=== PATIENT | female | born 1945 | race Caucasian/White ===

== ENCOUNTER 2016-10-11 05:02 | Inpatient (IN) | payer OTHER ==
[~2016-10-11] VITALS: Ht 157.5 cm; Wt 71.6 kg
--- NOTE | 2016-10-11 07:21 | DIAGNOSTIC IMAGING REPORT ---
PROCEDURE: XR CHEST 2 VIEW INDICATION: GENERALIZED WEAKNESS AND SOB TECHNIQUE: PA and lateral views. COMPARISON: Comparison radiographs of the thoracic spine on 08/30/2016. FINDINGS: Allowing for suboptimal inspiration, there is moderate bibasilar atelectasis. Heart and mediastinum are normal. There are old or subacute compression fractures of the lower thoracic vertebra (most likely T10 and T12). There is a fracture of the left posterior sixth rib with findings suggesting other lower lateral rib fractures. IMPRESSION: 1. There is moderate bibasilar subsegmental atelectasis /or early consolidation (findings accentuated due to suboptimal inspiration). 2. Subacute compression fractures of the lower thoracic spine. 3. There is a fracture of the left posterior sixth rib which is new since 08/30/2016, with probable fractures of the left lateral lower thorax. 4. Findings discussed with Dr. Mercado.
--- NOTE | 2016-10-11 07:31 | ED ORDER SUMMARY ---
..... Patient: MICKI LARRY OrderSheet [facility] VisitID: [id number] [place] [address] 70y, F Registration Date/Time: 10/11/2016 ORDER SHEET Weight: 77.1 kg (estimated) Allergies: No Known Drug Allergy GENERAL ORDERS: Chest 2V Urgent (05:15 10/11/2016 Luiza Munoz) (Ack 5:18 CHagerty ER Tobacco Packer) (5:51 RMcBride) Stock Mixer (Continuous) (SOB) (05:16 10/11/2016 Luiza Munoz) (5:27 DBeyer R.N.) CBC w Diff Urgent (05:16 10/11/2016 Luiza Munoz) (Ack 5:18 CHagerty ER Tobacco Packer) (5:27 DBeyer R.N.) CMP Urgent (05:16 10/11/2016 Luiza Munoz) (Ack 5:18 CHagerty ER Tobacco Packer) (5:27 DBeyer R.N.) UA-Culture if indicated Urgent (05:16 10/11/2016 Luiza Munoz) (Ack 5:18 CHagerty ER Tobacco Packer) (7:46 LWhalen R.N.) Pulse oximeter (05:16 10/11/2016 Luiza Munoz) (5:27 DBeyer R.N.) PCT (Procalcitonin) Urgent (07:32 10/11/2016 Luiza Munoz) (Ack 7:37 Irineo) (11:27 TBergley) Rapid Influenza Screen (Nasal Pharyngeal) (mucus) Urgent (07:33 10/11/2016 Luiza Munoz) (Ack 7:37 Irineo) (11:36 TBergley) RSV Rapid Screen (Nasal Pharyngeal) (mucus) Urgent (07:33 10/11/2016 Luiza Munoz) (Ack 7:37 Irineo) (11:36 TBergley) PCT (Procalcitonin) Urgent (07:33 10/11/2016 Luiza Munoz) (Cancelled: Duplicate Order7:34 Luiza Munoz) Blood Culture (Yes) (Ceftriaxone and Azithromycin) Urgent (09:58 10/11/2016 Ranjit Munoz) (Ack 10:04 TBergley) (11:27 TBergley) ABG (G) Urgent (09:58 10/11/2016 Ranjit Munoz) (Ack 10:04 TBergley) (10:41 TBergley) D-Dimer Urgent (14:13 10/11/2016 Ranjit Munoz) (14:14 TBergley) BNP Urgent (14:13 10/11/2016 Ranjit Munoz) (14:14 TBergley) MEDICATION ORDERS: DuoNeb Neb Tx 1 unit dose (NOW) (05:16 10/11/2016 Luiza Munoz) (Ack 5:17 CHagerty ER Tobacco Packer) Azithromycin PO 500 mg (NOW) (06:01 10/11/2016 Luiza Munoz) (6:10 DBeyer R.N.) Albuterol Neb Tx 2.5 mg (NOW) (06:17 10/11/2016 Luiza Munoz) (Ack 6:21 Adrián ER Tobacco Packer) Tramadol PO 50 mg (NOW) (07:47 10/11/2016 LWhalen R.N. verbal order read back to Luiza Munoz) (7:47 LWhalen R.N.) Lovenox Subcut 75 mg x 1 now (HIGH ALERT MEDICATION, NOW) (16:18 10/11/2016 Ranjit Munoz) (17:16 LWhalen R.N.) IV FLUIDS: IV NS : initial bolus 500 mL (1000 mL/hr), then none - for X1 (NOW) (05:16 10/11/2016 Luiza Munoz) (5:58 DBeyer R.N.) IV NS : initial bolus 500 mL (1000 mL/hr), then none - for X1 (NOW) (06:17 10/11/2016 Luiza Munoz) (6:33 DBeyer R.N.) Ceftriaxone IV 2 gm/50mL (NOW) (09:00 10/11/2016 Luiza Munoz) (9:08 LWhalen R.N.) Demerol IV 12.5 mg (HIGH ALERT MEDICATION, NOW) (15:30 10/11/2016Mar[address] (15:41 Ngoc Sam) ORDER SHEET NOTES: [Electronically signed by Ephraim Wheatley R.N. (19:34 10/11/2016)] [Electronically signed by Marcus Amin Dr. (10:55 10/14/2016)] [Electronically locked/signed by Ephraim Wheatley R.N. (19:34 10/11/2016)]
--- NOTE | 2016-10-11 07:31 | ED ORDER SUMMARY ---
..... Patient: MICKI LARRY OrderSheet [facility] VisitID: [id number] [place] [address] 70y, F Registration Date/Time: 10/11/2016 ORDER SHEET Weight: 77.1 kg (estimated) Allergies: No Known Drug Allergy GENERAL ORDERS: Chest 2V Urgent (05:15 10/11/2016 Luiza Munoz) (Ack 5:18 CHagerty ER Project Specialist) (5:51 RMcBride) Foam Rubber Curer (Continuous) (SOB) (05:16 10/11/2016 Luiza Munoz) (5:27 DBeyer R.N.) CBC w Diff Urgent (05:16 10/11/2016 Luiza Munoz) (Ack 5:18 CHagerty ER Project Specialist) (5:27 DBeyer R.N.) CMP Urgent (05:16 10/11/2016 Luiza Munoz) (Ack 5:18 CHagerty ER Project Specialist) (5:27 DBeyer R.N.) UA-Culture if indicated Urgent (05:16 10/11/2016 Luiza Munoz) (Ack 5:18 CHagerty ER Project Specialist) (7:46 LWhalen R.N.) Pulse oximeter (05:16 10/11/2016 Luiza Munoz) (5:27 DBeyer R.N.) PCT (Procalcitonin) Urgent (07:32 10/11/2016 Luiza Munoz) (Ack 7:37 Irineo) (11:27 TBergley) Rapid Influenza Screen (Nasal Pharyngeal) (mucus) Urgent (07:33 10/11/2016 Luiza Munoz) (Ack 7:37 Irineo) (11:36 TBergley) RSV Rapid Screen (Nasal Pharyngeal) (mucus) Urgent (07:33 10/11/2016 Luiza Munoz) (Ack 7:37 Irineo) (11:36 TBergley) PCT (Procalcitonin) Urgent (07:33 10/11/2016 Luiza Munoz) (Cancelled: Duplicate Order7:34 Luiza Munoz) Blood Culture (Yes) (Ceftriaxone and Azithromycin) Urgent (09:58 10/11/2016 Ranjit Munoz) (Ack 10:04 TBergley) (11:27 TBergley) ABG (G) Urgent (09:58 10/11/2016 Ranjit Munoz) (Ack 10:04 TBergley) (10:41 TBergley) D-Dimer Urgent (14:13 10/11/2016 Ranjit Munoz) (14:14 TBergley) BNP Urgent (14:13 10/11/2016 Ranjit Munoz) (14:14 TBergley) MEDICATION ORDERS: DuoNeb Neb Tx 1 unit dose (NOW) (05:16 10/11/2016 Luiza Munoz) (Ack 5:17 CHagerty ER Project Specialist) Azithromycin PO 500 mg (NOW) (06:01 10/11/2016 Luiza Munoz) (6:10 DBeyer R.N.) Albuterol Neb Tx 2.5 mg (NOW) (06:17 10/11/2016 Luiza Munoz) (Ack 6:21 Adrián ER Project Specialist) Tramadol PO 50 mg (NOW) (07:47 10/11/2016 LWhalen R.N. verbal order read back to Luiza Munoz) (7:47 LWhalen R.N.) Lovenox Subcut 75 mg x 1 now (HIGH ALERT MEDICATION, NOW) (16:18 10/11/2016 Ranjit Munoz) (17:16 LWhalen R.N.) IV FLUIDS: IV NS : initial bolus 500 mL (1000 mL/hr), then none - for X1 (NOW) (05:16 10/11/2016 Luiza Munoz) (5:58 DBeyer R.N.) IV NS : initial bolus 500 mL (1000 mL/hr), then none - for X1 (NOW) (06:17 10/11/2016 Luiza Munoz) (6:33 DBeyer R.N.) Ceftriaxone IV 2 gm/50mL (NOW) (09:00 10/11/2016 Luiza Munoz) (9:08 LWhalen R.N.) Demerol IV 12.5 mg (HIGH ALERT MEDICATION, NOW) (15:30 10/11/2016Marivel [address] (15:41 Ngoc Sam) ORDER SHEET NOTES: [Electronically signed by Ephraim Wheatley R.N. (19:34 10/11/2016)] [Electronically signed by Marcus Amin Dr. (10:55 10/14/2016)] [Electronically locked/signed by Ephraim Wheatley R.N. (19:34 10/11/2016)]
--- NOTE | 2016-10-11 07:31 | ED NURSING NOTES ---
Clinical Report - Nurses [facility] [address] [place] [address] 10/11/2016 5:03 Patient: MICKI LARRY TRIAGE Triage time 05:Oct 11 2016. Acuity: LEVEL 3. Chief Complaint: SHORTNESS OF BREATH. Alert. No acute distress. ( 95% on RA. GCS 15). --05:13 Mert Prince R.N. 05:09 10/11/16. BP: 125/78. HR: 113. RR: 22. O2 saturation: 95%. Temp: 99.9 F. --05:13 Mert Prince R.N. Weight: 77.1 kg estimated. Height/Length: 65 inches Estimated. BMI: 28.3. --05:12 Mert Prince R.N. Medications Lisinopril Oral. --05:13 Mert Prince R.N. Allergies No Known Drug Allergy. --05:13 Mert Prince R.N. History Arrived by EMS. Historian: patient. ( Pt reports back pain for 4 months. Today pt reports SOB and pain with inspiration that started yesterday and has continued today. Pt appears in no distress speaking in full sentences.). This started yesterday. 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 SOCIAL HX: Light tobacco smoker. No alcohol use or drug use. --05:13 Mert Prince R.N. Interventions To treatment room. --05:13 Mert Prince R.N. PHYSICAL ASSESSMENT To room via stretcher. GENERAL / NEURO / PSYCH: Alert. Oriented X 4. RESPIRATORY: No respiratory distress. Respirations not labored. SKIN: Skin is warm and dry. --05:14 Mert Prince R.N. NURSING PROGRESS NOTES Oxygen administered by nasal cannula at 2 liters. Pulse oximeter placed on patient. Patient gowned. Head of bed elevated. Reassurance given. Patient ready for evaluation- ED physician notified. --05:15 Mert Prince R.N. Reassessment after intervention. ( reassessment after neb treatment no change). --05:37 Mert Prince R.N. 05:58 10/11/2016 Site #1 started via IV hand with an 22g angiocath, with aseptic technique and good blood return; three attempts. Blood drawn: rainbow set. Labeled in the presence of the patient. Saline lock flushed with saline. --05:58 Mert Prince R.N. 05:58 10/11/2016 Started bag #1 500 mL IV Fluids IV NS (Saline); bolus of 500 mL wide open via site #1. Allergies verified and confirmed 5 rights. IV patency established. IV site checked: no pain, redness, or swelling. IV flushed thoroughly pre- and post-medication administration. Completed per protocol. --05:58 Mert Prince R.N. 06:10 10/11/2016 Azithromycin PO 500 mg given. Allergies verified and confirmed 5 rights. --06:10 Mert Prince R.N. EKG time: (0610 AM). EKG was ordered, performed by a tech and shown to the ED physician. --06:17 Haily Boston 06:33 10/11/2016 Started bag #2 500 mL IV Fluids IV NS (Saline); bolus of 500 mL wide open via site #1. Allergies verified and confirmed 5 rights. IV patency established. IV site checked: no pain, redness, or swelling. IV flushed thoroughly pre- and post-medication administration. --06:33 Mert Prince R.N. 06:33 10/11/2016 IV Fluids IV NS Discontinued: bag #1 completed. Total amount infused: 500 mL. --06:33 Mert Prince R.N. ( Pt able to stand and transfer to bedside toilet with help pt became short of breath during transfer but returned to normal respirations when back in bed). --07:12 Mert Prince R.N. 06:46 10/11/16. BP: 117/79. HR: 102. RR: 20. O2 saturation: 95%. --07:12 Mert Prince R.N. 07:13 10/11/2016 IV Fluids IV NS Discontinued: bag #2 completed. Total amount infused: 500 mL. IV patency established. IV site checked: no pain, redness, or swelling. IV flushed thoroughly. --07:13 Mert Prince R.N. Care transferred and report given (report to reynaldo harrison). --07:13 Mert Prince R.N. 07:47 10/11/2016 Tramadol (TraMADol HCl) PO Tablets 50 mg given. Allergies verified, confirmed 5 rights and sedative warning given to the patient and patient's family. --07:47 Ephraim Wheatley R.N. ( Patient c/o pain and difficulty breathing. Tramadol given for pain and plan of care given to patient. Will continue to monitor.). --07:48 Ephraim Wheatley R.N. 07:58 10/11/16. BP: 115/75. HR: 105. RR: 30. O2 saturation: 99%. Pain level now 8/10. --08:00 Ephraim Wheatley R.N. ( Patient on 2.5L of O2 decreased O2 amount to 2L per NC.). --08:03 Ephraim Wheatley R.N. 09:08 10/11/2016 Started 2 gm of Ceftriaxone IVPB in bag #1 50 mL; at 2 gm/hr over 1 hour(s) via site #1 via IV pump. Allergies verified and confirmed 5 rights. IV patency established. IV site checked: no pain, redness, or swelling. IV flushed thoroughly pre- and post-medication administration. --09:08 Ephraim Wheatley R.N. 11:05 10/11/16. BP: 112/75. HR: 96. RR: 30. O2 saturation: 92%. --12:21 Tierney Garcia 12:00 10/11/16. BP: 115/72. HR: 95. RR: 20. O2 saturation: 96%. --12:22 Tierney Garcia late entry -09:30. ( Patient assisted to commode and was very SOB O2 saturation while ambulating and transfer down to 88 percent on RA.). --12:38 Ephraim Wheatley R.N. 15:41 10/11/2016 Demerol (Meperidine HCl) IVP 12.5 mg given over 2 minute(s) via site #1. Allergies verified and confirmed 5 rights. IV patency established. IV site checked: no pain, redness, or swelling. IV flushed thoroughly pre- and post-medication administration. --15:41 Ephraim Wheatley R.N. 15:41 10/11/16. BP: 119/68. HR: 102. RR: 25. O2 saturation: 94%. Temp: 98 F. Pain level now 05/09. --15:42 Ephraim Wheatley R.N. 17:16 10/11/2016 Lovenox (Enoxaparin Sodium) Subcutaneous 75 mg given. Given in the right abdomen. Allergies verified and confirmed 5 rights. --17:16 Ephraim Wheatley R.N. DISPOSITION / DISCHARGE ( report given to LUNCH TRUCK DRIVER.). --17:11 Ephraim Wheatley R.N. Admitted to the Critical Care Unit. ( Patient transported to CCU.). --17:45 Ephraim Wheatley R.N. 17:00 10/11/16. BP: 117/72. HR: 102. RR: 28. O2 saturation: 93% on nasal cannula at 2 liters/minute. Temp: 98.7 F. Pain level now: 01/07. --17:45 Ephraim Wheatley R.N. Departure time: 17:30 Oct 11 2016. --17:45 Ephraim Wheatley R.N. Locked/Released at 10/11/2016 19:34 by Ephraim Wheatley R.N.
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
--- NOTE | 2016-10-11 07:31 | ED NURSING NOTES ---
Clinical Report - Nurses [facility] [address] [place] [address] 10/11/2016 5:03 Patient: MICKI LARRY TRIAGE Triage time 05:Oct 11 2016. Acuity: LEVEL 3. Chief Complaint: SHORTNESS OF BREATH. Alert. No acute distress. ( 95% on RA. GCS 15). --05:13 Mert Prince R.N. 05:09 10/11/16. BP: 125/78. HR: 113. RR: 22. O2 saturation: 95%. Temp: 99.9 F. --05:13 Mert Prince R.N. Weight: 77.1 kg estimated. Height/Length: 65 inches Estimated. BMI: 28.3. --05:12 Mert Prince R.N. Medications Lisinopril Oral. --05:13 Mert Prince R.N. Allergies No Known Drug Allergy. --05:13 Mert Prince R.N. History Arrived by EMS. Historian: patient. ( Pt reports back pain for 4 months. Today pt reports SOB and pain with inspiration that started yesterday and has continued today. Pt appears in no distress speaking in full sentences.). This started yesterday. Treatment HEAD OF SALES: None. SOCIAL HX: Light tobacco smoker. No alcohol use or drug use. --05:13 Mert Prince R.N. Interventions To treatment room. --05:13 Mert Prince R.N. PHYSICAL ASSESSMENT To room via stretcher. GENERAL / NEURO / PSYCH: Alert. Oriented X 4. RESPIRATORY: No respiratory distress. Respirations not labored. SKIN: Skin is warm and dry. --05:14 Mert Prince R.N. NURSING PROGRESS NOTES Oxygen administered by nasal cannula at 2 liters. Pulse oximeter placed on patient. Patient gowned. Head of bed elevated. Reassurance given. Patient ready for evaluation- ED physician notified. --05:15 Mert Prince R.N. Reassessment after intervention. ( reassessment after neb treatment no change). --05:37 Mert Prince R.N. 05:58 10/11/2016 Site #1 started via IV hand with an 22g angiocath, with aseptic technique and good blood return; three attempts. Blood drawn: rainbow set. Labeled in the presence of the patient. Saline lock flushed with saline. --05:58 Mert Prince R.N. 05:58 10/11/2016 Started bag #1 500 mL IV Fluids IV NS (Saline); bolus of 500 mL wide open via site #1. Allergies verified and confirmed 5 rights. IV patency established. IV site checked: no pain, redness, or swelling. IV flushed thoroughly pre- and post-medication administration. Completed per protocol. --05:58 Mert Prince R.N. 06:10 10/11/2016 Azithromycin PO 500 mg given. Allergies verified and confirmed 5 rights. --06:10 Mert Prince R.N. EKG time: (0610 AM). EKG was ordered, performed by a tech and shown to the ED physician. --06:17 Haily Boston 06:33 10/11/2016 Started bag #2 500 mL IV Fluids IV NS (Saline); bolus of 500 mL wide open via site #1. Allergies verified and confirmed 5 rights. IV patency established. IV site checked: no pain, redness, or swelling. IV flushed thoroughly pre- and post-medication administration. --06:33 Mert Prince R.N. 06:33 10/11/2016 IV Fluids IV NS Discontinued: bag #1 completed. Total amount infused: 500 mL. --06:33 Mert Prince R.N. ( Pt able to stand and transfer to bedside toilet with help pt became short of breath during transfer but returned to normal respirations when back in bed). --07:12 Mert Prince R.N. 06:46 10/11/16. BP: 117/79. HR: 102. RR: 20. O2 saturation: 95%. --07:12 Mert Prince R.N. 07:13 10/11/2016 IV Fluids IV NS Discontinued: bag #2 completed. Total amount infused: 500 mL. IV patency established. IV site checked: no pain, redness, or swelling. IV flushed thoroughly. --07:13 Mert Prince R.N. Care transferred and report given (report to reynaldo harrison). --07:13 Mert Prince R.N. 07:47 10/11/2016 Tramadol (TraMADol HCl) PO Tablets 50 mg given. Allergies verified, confirmed 5 rights and sedative warning given to the patient and patient's family. --07:47 Ephraim Wheatley R.N. ( Patient c/o pain and difficulty breathing. Tramadol given for pain and plan of care given to patient. Will continue to monitor.). --07:48 Ephraim Wheatley R.N. 07:58 10/11/16. BP: 115/75. HR: 105. RR: 30. O2 saturation: 99%. Pain level now 8/10. --08:00 Ephraim Wheatley R.N. ( Patient on 2.5L of O2 decreased O2 amount to 2L per NC.). --08:03 Ephraim Wheatley R.N. 09:08 10/11/2016 Started 2 gm of Ceftriaxone IVPB in bag #1 50 mL; at 2 gm/hr over 1 hour(s) via site #1 via IV pump. Allergies verified and confirmed 5 rights. IV patency established. IV site checked: no pain, redness, or swelling. IV flushed thoroughly pre- and post-medication administration. --09:08 Ephraim Wheatley R.N. 11:05 10/11/16. BP: 112/75. HR: 96. RR: 30. O2 saturation: 92%. --12:21 Tierney Garcia 12:00 10/11/16. BP: 115/72. HR: 95. RR: 20. O2 saturation: 96%. --12:22 Tierney Garcia late entry -09:30. ( Patient assisted to commode and was very SOB O2 saturation while ambulating and transfer down to 88 percent on RA.). --12:38 Ephraim Wheatley R.N. 15:41 10/11/2016 Demerol (Meperidine HCl) IVP 12.5 mg given over 2 minute(s) via site #1. Allergies verified and confirmed 5 rights. IV patency established. IV site checked: no pain, redness, or swelling. IV flushed thoroughly pre- and post-medication administration. --15:41 Ephraim Wheatley R.N. 15:41 10/11/16. BP: 119/68. HR: 102. RR: 25. O2 saturation: 94%. Temp: 98 F. Pain level now 05/09. --15:42 Ephraim Wheatley R.N. 17:16 10/11/2016 Lovenox (Enoxaparin Sodium) Subcutaneous 75 mg given. Given in the right abdomen. Allergies verified and confirmed 5 rights. --17:16 Ephraim Wheatley R.N. DISPOSITION / DISCHARGE ( report given to FL[employer] MACHINE CUTTER.). --17:11 Ephraim Wheatley R.N. Admitted to the Critical Care Unit. ( Patient transported to CCU.). --17:45 Ephraim Wheatley R.N. 17:00 10/11/16. BP: 117/72. HR: 102. RR: 28. O2 saturation: 93% on nasal cannula at 2 liters/minute. Temp: 98.7 F. Pain level now: 01/07. --17:45 Ephraim Wheatley R.N. Departure time: 17:30 Oct 11 2016. --17:45 Ephraim Wheatley R.N. Locked/Released at 10/11/2016 19:34 by Ephraim Wheatley R.N.
[2016-10-11 17:48] VITALS: BP 102/78
[2016-10-11] MEDS ORDERED: MULTIPLE VITAMIN PO (18:40)
[2016-10-11 19:08] VITALS: BP 109/65
[2016-10-11 20:11] VITALS: BP 122/67
[2016-10-11 21:17] VITALS: BP 106/67
[2016-10-11 22:05] VITALS: BP 117/68
[2016-10-11 23:00] VITALS: BP 112/63; BP 116/65
[2016-10-12] VITALS (19 sets, daily range): BP systolic 100–127; BP diastolic 53–73
--- NOTE | 2016-10-12 02:59 | HISTORY AND PHYSICAL ---
ADMITTED: 10/11/2016 HISTORY OF PRESENT ILLNESS: Information source: The patient. Reliability: Fair. 70-year-old female with a PMH of hypertension presented to [facility] Emergency Department with the complaint of sudden-onset shortness of breath. 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 Since then, she has been having pain in her right chest under her breasts with intensity ranging from 5/10 to 10/10. She was fine up until yesterday morning, Then yesterday evening when she came back from work, she started to have sudden shortness of breath. She thought she would get better and did not get any help, but this morning her symptoms got worse and she was not able to breathe at all, was gasping, so she was brought into the emergency department of [facility]. As per the patient, she was fine up until 2 weeks back she heard a crack while undergoing physical therpay for her vertebral fracture. Since then, she has been having pain in her chest under her breasts bilatrally with intensity ranging from 5/10 to 10/10. Pain increases on deep inspiration. Her initial evaluation in the emergency department was consistent with acute hypoxic respiratory failure, which responded to nasal cannula oxygen. Chest x-ray was consistent with bibasilar atelectasis , possible pneumonia, she is also found to have urinary tract infection with positive UA. She received ceftriaxone and IV hydration, supplemental O2 in the ER. Her D-dimer was positive. Could not get CT scan of the thorax with contrast because of acute kidney injury. Based on Wells score and high D-dimer, she was given 1 dose of Lovenox in view of PE, and for above reasons, she was admitted to the hospital for further evaluation. MEDICAL/SURGICAL HISTORY: Past medical history: Hypertension, osteoporosis. Past surgical history: Not known. MEDICATIONS: Home medications: 1. Lisinopril 10 mg daily. 2. Alendronate 70 mg q. weekly. 3. Multivitamin 1 tablet daily. ALLERGIES: 1. CODEINE. SOCIAL HISTORY: Lives with son and [id number]. Smokes cigarettes 1-2 per day for 50 years. Drinks wine occasionally. Denies any use of drugs. 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 FAMILY HISTORY: Not significant. REVIEW OF SYSTEMS: She denies fever, chills, sweats, weakness, malaise. She denies any conjunctival inflammation or eye redness. She denies any ear pain, ear discharge, nasal discharge, nasal congestion, throat pain, throat swelling. She complains of dry cough for a couple of days. Complains of shortness of breath with exertion. Denies any wheezing, hemoptysis, pleuritic chest pain. Denies any chest pain, palpitations , orthopnea, PND, edema. She denies any nausea or vomiting. Complains of epigastric pain, diarrhea, constipation. She denies any dysuria, frequency, incontinence, hematuria. She is complaining of back pain and right-sided rib pains. She denies any weakness, numbness, incoordination, change in her speech, confusion, seizure. PHYSICAL EXAMINATION: VITAL SIGNS: Temperature 98.4, pulse rate 102, respiratory rate 24 per minute, blood pressure 102/78, saturations 96 on nasal cannula oxygen. GENERAL: The patient is alert, awake, oriented x3, cooperative, in mild distress because of shortness of breath. Mucosal membranes are moist. EYES: Pupils equally reactive to light. HEAD: Atraumatic, normocephalic. LUNGS: Bilateral rhonchi, crackles present. Air entry equal. NECK: Supple, normal exam. CARDIOVASCULAR: Regular rate and rhythm. Normal S1 and S2. ABDOMEN: Soft, normal bowel sounds noted. There is no guarding. EXTREMITIES: No edema. Peripheral pulses present. SKIN: Intact. No rashes. NEUROLOGIC: No lateralizing signs. LAB/IMAGING: Sodium 132, potassium 3.3, chloride 99, bicarbonate 24, BUN 59, creatinine 3.2, GFR 18.5, glucose 141, calcium 11.4. AST 11, total bilirubin 0.6, ALT 14, alkaline phosphatase 74, total protein 10.7, albumin 3.5. BNP 89.6. Procalcitonin less than 0.05. D-dimer elevated at 1.17. WBC count 4.3, hemoglobin 9.2, hematocrit 27.5 , neutrophils 83.3, lymphocytes 15.7, platelets 273. ABG was consistent with pH 7.43, pCO2 35, pO2 57, bicarbonate 23, oxygen saturation 89.7. Creatinine kinase 59. Troponin 0.05. Urinalysis: Urine appearance cloudy, pH 5.5, specific gravity more than 1.020, urine protein 1+, urine ketones negative, urine nitrites positive, urine bilirubin negative, urine leukocyte esterase negative, urine WBC 1-3, epithelial cells 1-3, bacteria moderate, urine glucose negative. Urine culture pending. Blood cultures pending. Influenza screen negative. RSV screen negative. Chest x-ray, 2 views: The impression is there is moderate bibasilar subsegmental atelectasis or early consolidation, subacute compression fracture of lower thoracic spine. There is a fracture of the left posterior sixth rib, which is new since 08/2016, probably fracture of the left lateral lower thorax. IMPRESSION/PLAN: 1. 70-year-old female admitted with acute respiratory distress, found to be in acute hypoxic respiratory failure, possibly secondary to bilateral pneumonia, ruling out pulmonary embolus. Will start her on intravenous antibiotics, ceftriaxone and Zithromax. In view of elevated D-dimer and Wells' score >4, she received 1 dose of Lovenox based on creatinine clearance. Will get ventilation-perfusion scan study tomorrow as the patient was not able to perform test today. Will continue with supplemental oxygen through nasal cannula. Monitor mental status and vital signs. Follow up with blood cultures. Influenza, respiratory syncytial panel. Check urine for legionella antigen and Streptococcus pneumoniae antigen. Keep head of the bed elevated. Monitor in intensive care unit. 2. Urinary tract infection. UA positive. Urine culture is pending. Started on intravenous ceftriaxone. Follow up urine culture. 3. Acute kidney injury, possibly from dehydration versus sepsis. Intravenous hydration with normal saline at 100 mL/hr. Monitor input and output. Daily weight. Avoid hypertension, hypovolemia, or nephrotoxic drugs. 4. Hyponatremia, mild, probably from poor oral intake. Will start intravenous hydration with normal saline. Monitor and replace sodium. 5. Hypokalemia. Will give oral potassium chloride supplements. In view of kidney injury, avoid high doses of potassium chloride. Monitor and replace potassium. 6. Right multiple rib fractures and h/o thoracic vertebral fracture. Adequate pain management with Dilaudid, Tylenol p.r.n. Orthopedic consult if needed. 7. Deep venous thrombosis prophylaxis: Lovenox. 8. Gastrointestinal prophylaxis: Proton pump inhibitor. 9. EM Coding: I-inpatient admission.
--- NOTE | 2016-10-12 11:05 | DIAGNOSTIC IMAGING REPORT ---
PROCEDURE: NM PULMONARY PERFUSION W/VENT INDICATION: Hypoxia and elevated D dimer with poor renal function TECHNIQUE: 45 mCi of technetium-99m DTPA was aerosolized and inhaled. 6 mCi technetium-99m MAA was injected intravenously. Ventilation and perfusion images were obtained in the AP, PA, right lateral, left lateral, LACEY, BENGALI, RPO and LPO positions. COMPARISON: Chest x-ray 10/11/2016 FINDINGS: There is a air trapping in both lung bases. There are no perfusion defects. IMPRESSION: 1. No evidence of pulmonary emboli 2. Results discussed with Dr. Garzon
--- NOTE | 2016-10-12 11:05 | DIAGNOSTIC IMAGING REPORT ---
PROCEDURE: NM PULMONARY PERFUSION W/VENT INDICATION: Hypoxia and elevated D dimer with poor renal function TECHNIQUE: 45 mCi of technetium-99m DTPA was aerosolized and inhaled. 6 mCi technetium-99m MAA was injected intravenously. Ventilation and perfusion images were obtained in the AP, PA, right lateral, left lateral, LACEY, PORTUGUESE, RPO and LPO positions. COMPARISON: Chest x-ray 10/11/2016 FINDINGS: There is a air trapping in both lung bases. There are no perfusion defects. IMPRESSION: 1. No evidence of pulmonary emboli 2. Results discussed with Dr. Garzon
--- NOTE | 2016-10-12 18:31 | Progress Note ---
Subjective General patient is een at the bedside, feels little better, still sob breath, and c/o pain on inspiration Constitutional Denies: Fever, Chills, Sweats, Weakness. ENT Denies: Nasal Congestion, Throat Pain, Throat Swelling. Respiratory Denies: Cough, Dry, SOB w/exertion, Wheezing, Hemoptysis. Cardiovascular Denies: Chest Pain, Palpitations, Orthopnea, PND, Edema. Gastrointestinal Denies: Nausea, Vomiting, Abdominal Pain, Diarrhea, Constipation. Genitourinary Denies: Frequency, Incontinence, Hematuria, Retention. Musculoskeletal Denies: Back Pain. Neurological Denies: Numbness, Incoordination, Change in speech, Confusion. Physical Exam Vital Signs / I&Os Vital Signs Date Time Temp Pulse Resp B/P Pulse O2 O2 Flow FiO2 Ox Delivery Rate 10/12 1810 98.2 105 19 104/62 98 Nasal 1.0 Cannula 10/12 1712 110 21 93 Nasal 1.0 Cannula 10/12 1625 1.0 10/12 1609 101 20 118/65 93 Nasal 0.5 Cannula 10/12 1505 104 20 120/66 93 Nasal 0.5 Cannula 10/12 1404 98.4 101 27 114/70 95 Nasal 0.5 Cannula 10/12 1258 98 18 114/63 95 Nasal 0.5 Cannula 10/12 1237 0.5 10/12 1126 95 21 112/62 96 Nasal 2.0 Cannula 10/12 1045 Nasal 1.0 Cannula 10/12 1043 98.8 83 18 100/60 93 Nasal 2.0 Cannula 10/12 0715 100 22 126/73 99 Nasal 2.0 Cannula 10/12 0706 2.0 10/12 0701 98.8 95 16 122/65 97 Nasal 2.0 Cannula 10/12 0500 95 15 113/62 99 Nasal 2.0 Cannula 10/12 0400 96 15 119/58 98 Nasal 2.0 Cannula 10/12 0316 2.0 10/12 0312 85 14 106/68 97 10/12 0200 98.2 84 24 111/53 95 Nasal 2.0 Cannula 10/12 0100 89 20 116/61 98 10/12 0000 98.4 87 18 108/64 97 10/11 2312 2.0 10/11 2300 116/65 10/11 2205 98 17 117/68 95 Nasal 2.0 Cannula 01/12 2117 100 21 106/67 95 Nasal 2.0 Cannula 10/11 2010 103 24 122/67 95 Nasal 2.0 Cannula 10/11 1947 2.0 10/11 1908 103 25 109/65 95 Nasal 2.0 Cannula 10/11 1830 Nasal 2.0 Cannula I&O 10/11 0800 10/11 1600 10/12 0000 Intake Total Output Total 350 Balance -350 General Appearance Alert, Oriented X3, No acute distress HEENT PERRLA Lungs Clear to auscultation Neck No JVD Cardiovascular Regular rate and rhythm, Normal S1 and S2 Abdomen Normal bowel sounds, Soft Extremities No edema Neurological No lateralizing signs LAB Results Laboratory Tests 10/11 10/12 10/12 10/12 10/12 1849 0218 0218 0218 1038 Chemistry Plasma Sodium (136 - 145 mmol/L) 134 Plasma Potassium (3.5 - 5.1 mmol/L) 3.5 Plasma Chloride (98 - 107 mmol/L) 100 CO2 (Enzymatic) (21 - 32 mmol/L) 26 BUN (7 - 18 mg/dL) 63 Creatinine (0.6 - 1.3 mg/dL) 3.0 Est GFR ( Amer) (mL/min) 19.93 Est GFR (Non-Af Amer) (mL/min) 16.44 Glucose (70 - 110 mg/dL) 101 Hemoglobin A1c % (4.5 - 6.2 %) 5.6 Plasma Calcium (8.5 - 10.1 mg/dL) 10.4 Plasma Magnesium (1.8 - 2.4 mg/dL) 1.8 Total Bilirubin (0.0 - 1.0 mg/dL) 0.4 Direct Bilirubin (0 - 0.3 mg/dL) 0.1 AST (15 - 37 U/L) 9 ALT (12 - 78 U/L) 13 Alkaline Phosphatase (46 - 116 U/L) 55 Creatine Kinase (24 - 260 U/L) 59 57 59 Troponin (0.00 - 1.5 ng/mL) 0.05 0.01 <0.05 Total Protein (6.4 - 8.2 g/dL) 8.8 Albumin (3.3 - 5.0 g/dL) 2.7 Hematology WBC (4.5 - 11.5 K/uL) 6.8 RBC (4.00 - 5.20 M/uL) 2.18 Hgb (12.0 - 16.0 gm/dL) 7.4 Hct (36.0 - 46.0 %) 22.4 MCV (80 - 100 fL) 103 MCH (26 - 34 pg) 34 RDW (11.6 - 14.8 %) 16.9 Neut % (Auto) (50 - 75 %) 76.5 Lymph % (Auto) (25 - 40 %) 20.1 [place] % (Auto) (3 - 14 %) 3.1 Eos % (Auto) (0 - 4 %) 0.1 Baso % (Auto) (0 - 2 %) 0.2 Plt Count, EDTA (150 - 400 K/uL) 207 PUBS MCHC (31 - 37 g/dL) 33 Imaging DATE OF EXAM(S): 10/12/16 PROCEDURE: NM PULMONARY PERFUSION W/VENT IMPRESSION: 1. No evidence of pulmonary emboli Assessment and Plan Problem List 1. Pneumonia Plan c/w current antibiotics c/w IV hydration c/w supplemental o2 2. Hypoxia Plan likely form pneumonia and rib frctures improved O2 sats with o2 supplemets c/w o2 supplementation 3. Ribs, multiple fractures Plan pain control 4. Thoracic vertebral fracture Plan pain control with dilaudid physical therapy eval 5. Hypertension
[2016-10-13] VITALS (28 sets, daily range): BP systolic 93–145; BP diastolic 51–82
--- NOTE | 2016-10-13 14:21 | Progress Note ---
Subjective General Consult dictated. I have revieweed the labs and CT. She has typical moth eaten appearance in the ribs, shoulder, and spine with fractures of multiple ribs. She also has elevated indices and anemia. I have ordered labs to check for occult ca and will continue to follow as needed. There is no specific treatment for the rib fractures that is needed.
--- NOTE | 2016-10-13 14:42 | DIAGNOSTIC IMAGING REPORT ---
PROCEDURE: CT THORAX ABD PELVIS W/O CONT INDICATION: bleeding following trauma TECHNIQUE: Axial CT images were obtained of the thorax, abdomen, and pelvis with sagittal and coronal reformations. COMPARISON: None. FINDINGS: THORAX: Moderate bibasilar and right middle lobe consolidation with air bronchograms consistent with pneumonia. There is also small bibasilar pleural effusions. No pneumothorax. No adenopathy. Mild atherosclerosis of the aorta and the coronaries. Mild cardiomegaly. Acute fractures of the right eighth, left third, fifth and eleventh ribs. There are also old fractures: right 5th-8th, 11th and left 6-10th ribs. Moderate T10, mild T11 and severe T12 old compression fractures. 1.5 cm lytic lesion of the left eighth vertebral body left posterolaterally. Mottled appearance of the bones. ABDOMEN: Normal liver and spleen without obvious laceration in the absence of contrast. The gallbladder, pancreas, adrenal glands and the kidneys are normal. Mild atherosclerosis of the aorta. Mild sigmoid diverticulosis. Nonspecific small bowel air-fluid levels. Mild L3, moderate L4 and mild L5 a chronic compression fractures. Moderate degenerative changes of the spine. No evidence of retroperitoneal hemorrhage or adenopathy. PELVIS: Appendix not visualized but no evidence of acute appendicitis. Mild sigmoid diverticulosis. Uterus, adnexa and bladder are normal. No evidence of free fluid or inflammatory changes. Mottled appearance of the bones. IMPRESSION: 1. Acute right eighth, left third, fifth and eleventh rib fractures. No pneumothorax. 2. Mottled appearance of the osseous structures probably due to severe osteopenia but infiltrative process not excluded. 3. Old right 5- 8, 11, and left 6-10 rib fractures. Old T10-T12 and L3-L5 compression fractures. 4. Moderate right middle lobe and bibasilar pneumonia with small bilateral pleural effusions 5. No evidence of free fluid or retroperitoneal hemorrhage 6. Mild diverticulosis 7. Results discussed with Dr. Garzon All CT scans at this facility use dose modulation, iterative reconstruction, and/or weight-based dosing when appropriate to reduce radiation dose to as low as reasonably achievable.
--- NOTE | 2016-10-13 17:31 | Progress Note ---
Subjective General pateint says she is feeling little better today, still mild sob, denies any bleeding from any part of the body Physical Exam Vital Signs / I&Os Vital Signs Date Time Temp Pulse Resp B/P Pulse O2 O2 Flow FiO2 Ox Delivery Rate 10/13 1709 76 24 141/77 98 Nasal 2.0 Cannula 10/13 1518 85 24 134/76 96 Nasal 2.0 Cannula 10/13 1427 98.1 88 36 145/77 98 Nasal 2.0 Cannula 10/13 1300 98.2 87 20 115/70 97 Nasal Cannula 10/13 1255 88 19 120/80 96 Nasal 1.0 Cannula 10/13 1230 87 22 117/77 96 Nasal Cannula 10/13 1215 98.2 87 22 120/69 96 Nasal Cannula 10/13 1203 90 23 111/61 98 10/13 1158 88 19 109/62 98 10/13 1154 87 24 111/59 94 10/13 1149 98.6 88 22 113/64 96 Nasal 2.0 Cannula 10/13 1040 98.6 86 15 128/70 98 Nasal 0.5 Cannula 10/13 1027 98.8 87 15 120/70 96 Nasal 0.5 Cannula 10/13 1004 98.4 89 23 136/78 97 Nasal 0.5 Cannula 10/13 0900 98.2 90 18 113/64 99 Nasal 0.5 Cannula 10/13 0830 98.2 95 19 127/72 98 Nasal 0.5 Cannula 10/13 0815 123/71 10/13 0815 98.6 92 20 99 Nasal 0.5 Cannula 10/13 0800 2.0 10/13 0800 Nasal 0.5 Cannula 10/13 0756 98.1 88 24 124/69 98 Nasal Cannula 10/13 0733 92 19 108/63 10/13 0645 98.6 110/55 10/13 0641 88 21 96 Nasal 0.5 Cannula 10/13 0443 98.2 83 24 117/65 96 Nasal 0.5 Cannula 10/13 0433 2.0 10/13 0213 76 15 106/56 99 Nasal 0.5 Cannula 10/13 0000 98.2 87 23 93/51 99 Nasal 0.5 Cannula 10/12 2331 1.0 10/12 2211 82 15 102/56 97 Nasal 1.0 Cannula 10/12 2116 90 15 97 Nasal 1.0 Cannula 01/13 2000 91 15 127/70 98 Nasal 1.0 Cannula 10/12 1944 Nasal 1.0 Cannula 10/12 1912 1.0 10/12 1904 90 19 120/63 98 Nasal 1.0 Cannula 10/12 1810 98.2 105 19 104/62 98 Nasal 1.0 Cannula I&O 10/12 0800 10/12 1600 10/13 0000 Intake Total 789 136 8792 Output Total 425 400 750 Balance 312 -300 929 General Appearance Alert, Oriented X3, No acute distress HEENT Atraumatic, PERRLA, Moist mucous membranes Lungs Clear to auscultation, Normal air movement, chest wall tenderness Neck Normal exam, No JVD Cardiovascular Regular rate and rhythm, Normal S1 and S2 Abdomen Normal bowel sounds, Soft, No tenderness, No guarding Extremities No edema Neurological No lateralizing signs LAB Results Laboratory Tests 10/13 10/13 10/13 0530 0530 1615 Chemistry Plasma Sodium (136 - 145 mmol/L) 139 Plasma Potassium (3.5 - 5.1 mmol/L) 3.7 Plasma Chloride (98 - 107 mmol/L) 107 CO2 (Enzymatic) (21 - 32 mmol/L) 25 BUN (7 - 18 mg/dL) 55 Creatinine (0.6 - 1.3 mg/dL) 2.5 Est GFR ( Amer) (mL/min) 24.60 Est GFR (Non-Af Amer) (mL/min) 20.30 Glucose (70 - 110 mg/dL) 89 Plasma Calcium (8.5 - 10.1 mg/dL) 9.1 Procalcitonin (0 - 0.5 ng/mL) 11.0 Hematology WBC (4.5 - 11.5 K/uL) 5.0 5.2 RBC (4.00 - 5.20 M/uL) 1.98 2.63 Hgb (12.0 - 16.0 gm/dL) 6.7 8.7 Hct (36.0 - 46.0 %) 20.4 26.1 MCV (80 - 100 fL) 103 99 MCH (26 - 34 pg) 34 33 RDW (11.6 - 14.8 %) 17.8 18.6 Neut % (Auto) (50 - 75 %) 71.3 73.4 Lymph % (Auto) (25 - 40 %) 23.7 20.8 [place] % (Auto) (3 - 14 %) 4.4 4.8 Eos % (Auto) (0 - 4 %) 0.4 0.6 Baso % (Auto) (0 - 2 %) 0.2 0.4 Plt Count, EDTA (150 - 400 K/uL) 189 203 RBC Morphology NORMAL RBC POP PUBS MCHC (31 - 37 g/dL) 33 33 Microbiology Date/Time Procedure - Status Source Growth 10/13 1143 CLOtest - RECD GASTRIC Imaging DATE OF EXAM(S): 10/13/16 PROCEDURE: CT THORAX ABD PELVIS W/O CONT FINDINGS: IMPRESSION: 1. Acute right eighth, left third, fifth and eleventh rib fractures. No pneumothorax. 2. Mottled appearance of the osseous structures probably due to severe osteopenia but infiltrative process not excluded. 3. Old right 5- 8, 11, and left 6-10 rib fractures. Old T10-T12 and L3-L5 compression fractures. 4. Moderate right middle lobe and bibasilar pneumonia with small bilateral pleural effusions 5. No evidence of free fluid or retroperitoneal hemorrhage 6. Mild diverticulosis Assessment and Plan Problem List 1. Anemia Plan with no e/o active bleeidng S/p UGI endoscopy which is non conclusive planned for colonoscopy tomorrow CT thorax/abdomen/pelvis showed no e/o of bleeding moniotr cbc transfuse as needed c/w Iv hydration 2. Pneumonia Plan c/w ceftriaxone and zithromax c/w o2 supplements as needed 3. Hypertension Plan BP acceptable monitor for now 4. Ribs, multiple fractures Plan Bilateral multiple ribs fracture, r/o infiltrative disease CEA, protein electrophoresis, tsh ordered pain control for now E&M Codes Rounding: Inpt-High/[id number]
[2016-10-14] VITALS (8 sets, daily range): BP systolic 139–159; BP diastolic 68–88
--- NOTE | 2016-10-14 01:21 | OPERATIVE REPORT ---
DATE OF SURGERY: 10/13/2016 SURGEON: Manjit Verde III, MD OIL TRUCK DRIVER: None. PREOPERATIVE DIAGNOSIS: 1. Anemia, unknown etiology POSTOPERATIVE DIAGNOSES: 1. Hiatal hernia PROCEDURE PERFORMED: 1. Upper gastrointestinal endoscopy with random gastric mucosal biopsies ANESTHESIA: TIVA, posterior pharynx Cetacaine spray. INDICATIONS: The patient is a 70-year-old female with anemia, unknown etiology, and history of ingestion of Advil for pain control, admitted to [facility] with pneumonia. Noted to have a hematocrit of 27 and after hydration dropped it to 22. [facility] were asked to perform upper gastrointestinal endoscopy on the patient to rule out peptic ulcer disease. SURGICAL FINDINGS: Normal-appearing duodenum and duodenal bulb. No evidence of old blood or fresh blood in the duodenum. The stomach had a considerable amount of vegetable material in the stomach, but no evidence of old blood or fresh blood. What could be seen of the stomach in spite of irrigation and aspiration, there was no evidence of peptic ulcer disease. Multiple random biopsies were obtained of the gastric mucosa. The patient was noted to have a hiatal hernia. The EG junction was approximately 35 cm from dental incisors. SURGICAL TECHNIQUE: The patient was brought to the operating room and placed in the left lateral decubitus position, where he was administered TIVA and monitored closely by anesthesia. After proper anesthesia had taken effect, an Olympus fiberoptic video flexible upper GI endoscope was passed down the patient's posterior pharynx. The esophagus intubated without incident. The scope passed easily down the esophagus , through the EG junction, into the gastric lumen, and eventually into the second and third portions of the duodenum. No evidence of old blood or fresh blood was noted. A bottle of magnesium citrate was instilled into the second and third portions of the duodenum via the endoscope in preparation for colonoscopy. The scope was withdrawn into the gastric lumen where it was retroflexed with a good view of the cardia, fundus, and EG junction from below, as well as the greater and lesser curvature. Multiple random biopsies were obtained of the gastric mucosa. It should be noted there was no evidence of old blood or fresh blood in the gastric lumen. However, there was a considerable amount of gastric vegetable material. In spite of irrigating and aspirating, we could not clear it all. The scope was withdrawn through the EG junction. It appeared grossly normal. No evidence of varices. The scope was completely withdrawn. The patient tolerated the procedure well and was transferred to the recovery room in stable condition. No intraoperative or anesthetic complications.
--- NOTE | 2016-10-14 01:30 | CONSULTATION REPORT ---
DATE OF CONSULTATION: 10/13/2016 HISTORY OF PRESENT ILLNESS: I have had a chance to review the CT scan and lab work for this patient. Dr. Garzon asked me to see her because she has rib fractures and she does indeed have multiple rib fractures of both left and right , and on the CT scan, she does have erosions of the bones at multiple sites in the shoulder, ribs, spine and they bring into question whether she may have an occult malignant processes going on. Her lab work shows that she does have some anemia. Unfortunately she had just a BMP, not a CMP, so I do not have calcium or alkaline phosphatase levels, but I have ordered those and also ordered a CEA and sedimentation rate, and protein electrophoresis as well as a CMP for her and will evaluate her further for possible malignancy. IMPRESSION/PLAN: 1. In the meantime, there is no specific treatment needed for rib fractures. They are well aligned and should be expected to heal without incident. I will recheck on her lab work and reevaluate her further tomorrow.
--- NOTE | 2016-10-14 01:33 | PROGRESS NOTE ---
DATE OF SERVICE: 10/13/2016 SUMMARY: I had a chance to talk with the patient. 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 She does have a history of prior accident and injury to the spine many, many years ago, but was doing well up until these more current injuries. She knows that with the injury she had pain in the back. She is not sure how the rib fractures occurred and there is no significant trauma to explain the rib fractures. She also reports that her appetite has been poor. She has not had any blood in her stools or any tarry stools, but she has not been eating well and has not just overall been feeling well, lost over 40 pounds in the last 6 months, and so there is again a concern that she may have an occult malignancy going on and we will plan to continue on with our lab investigation and further testing as needed. She did say that she had a thyroid evaluation in the near past and the thyroid levels were reported to her as being normal, but I plan to repeat those as well. PLAN: Again, we will check her once we get the results of the lab tests that I have ordered.
--- NOTE | 2016-10-14 10:55 | ED MED RECONCILIATION SUMMARY ---
Patient: MICKI LARRY Medication Reconciliation Report [facility] VisitID: [id number] [address] [place] [address] 70y, F Registration Date/Time: 10/11/2016 Weight: 77.1 kg Height/Length: 65 in. BMI: 28.3 ALLERGIES: No Known Drug Allergy The patient's Home Medications are listed below: THE FOLLOWING MEDICATIONS NEED TO BE RECONCILED: Lisinopril Oral The source(s) of the original Home Medication information: Not obtained. The following Medications were given to the patient in the Emergency Department: IV NS IV Fluids bolus 500 mL wide open, administered: 10/11/2016 5:58:00 AM Azithromycin [PO] PO 500 mg, administered: 10/11/2016 6:10:00 AM IV NS IV Fluids bolus 500 mL wide open, administered: 10/11/2016 6:33:00 AM Tramadol [PO] PO 50 mg, administered: 10/11/2016 7:47:00 AM Ceftriaxone [IVPB] IVPB bolus 0, then 2 gm 2 gm/hr, administered: 10/11/2016 9:08:00 AM Demerol [IVP] IVP 12.5 mg, administered: 10/11/2016 3:41:00 PM Lovenox [Subcutaneous] Subcutaneous 75 mg, administered: 10/11/2016 5:16:00 PM The following Medications were prescribed to the patient: None.
--- NOTE | 2016-10-14 10:55 | ED MAR SUMMARY ---
..... Medication Administration Record [facility] [address] [place] [address] Patient: MICKI LARRY Visit ID: [id number] 70y, F Weight: 77.1 kg Height/Length: 65 in BMI: 28.3 ALLERGIES: No Known Drug Allergy Start 05:58 10/11/2016 Mert Prince R.N., Stop 06:33 10/11/2016 Mert Prince R.N. Medication Administered: IV NS (SALINE), Dose: IV Fluids, Bolus: 500 mL wide open, Dispensed: 500 mL bag, Site: #1 hand. Medication Ordered: IV NS : initial bolus 500 mL (1000 mL/hr), then none - for X1 (NOW). Given 06:10 10/11/2016 Mert Prince R.N. Medication Administered: AZITHROMYCIN [PO], Dose: 500 mg PO. Medication Ordered: Azithromycin PO 500 mg (NOW). Start 06:33 10/11/2016 Mert Prince R.N., Stop 07:13 10/11/2016 Mert Prince R.N. Medication Administered: IV NS (SALINE), Dose: IV Fluids, Bolus: 500 mL wide open, Dispensed: 500 mL bag, Site: #1 hand. Medication Ordered: IV NS : initial bolus 500 mL (1000 mL/hr), then none - for X1 (NOW). Given 07:47 10/11/2016 Ephraim Wheatley R.N. Medication Administered: TRAMADOL [PO] (TRAMADOL HCL), Dose: 50 mg Tablets PO. Medication Ordered: Tramadol PO 50 mg (NOW). Start 09:08 10/11/2016 Ephraim Wheatley R.N. Medication Administered: CEFTRIAXONE [IVPB], Dose: 2 gm IVPB over 1 hour(s), Rate: 2 gm/hr, Dispensed: 50 mL bag, Site: #1 hand. Medication Ordered: Ceftriaxone IV 2 gm/50mL (NOW). Given 15:41 10/11/2016 Ephraim Wheatley R.N. Medication Administered: DEMEROL [IVP] (MEPERIDINE HCL), Dose: 12.5 mg IVP over 2 minute(s), Site: #1 hand. Medication Ordered: Demerol IV 12.5 mg (HIGH ALERT MEDICATION, NOW). Given 17:16 10/11/2016 Ephraim Wheatley R.N. Medication Administered: LOVENOX [SUBCUTANEOUS] (ENOXAPARIN SODIUM), Dose: 75 mg Subcutaneous. Medication Ordered: Lovenox Subcut 75 mg x 1 now (HIGH ALERT MEDICATION, NOW).
--- NOTE | 2016-10-14 10:55 | ED MAR SUMMARY ---
..... Medication Administration Record [facility] [address] [place] [address] Patient: MICKI LARRY Visit ID: [id number] 70y, F Weight: 77.1 kg Height/Length: 65 in BMI: 28.3 ALLERGIES: No Known Drug Allergy Start 05:58 10/11/2016 Mert Prince R.N., Stop 06:33 10/11/2016 Mert Prince R.N. Medication Administered: IV NS (SALINE), Dose: IV Fluids, Bolus: 500 mL wide open, Dispensed: 500 mL bag, Site: #1 hand. Medication Ordered: IV NS : initial bolus 500 mL (1000 mL/hr), then none - for X1 (NOW). Given 06:10 10/11/2016 Mert Prince R.N. Medication Administered: AZITHROMYCIN [PO], Dose: 500 mg PO. Medication Ordered: Azithromycin PO 500 mg (NOW). Start 06:33 10/11/2016 Mert Prince R.N., Stop 07:13 10/11/2016 Mert Prince R.N. Medication Administered: IV NS (SALINE), Dose: IV Fluids, Bolus: 500 mL wide open, Dispensed: 500 mL bag, Site: #1 hand. Medication Ordered: IV NS : initial bolus 500 mL (1000 mL/hr), then none - for X1 (NOW). Given 07:47 10/11/2016 Ephraim Wheatley R.N. Medication Administered: TRAMADOL [PO] (TRAMADOL HCL), Dose: 50 mg Tablets PO. Medication Ordered: Tramadol PO 50 mg (NOW). Start 09:08 10/11/2016 Ephraim Wheatley R.N. Medication Administered: CEFTRIAXONE [IVPB], Dose: 2 gm IVPB over 1 hour(s), Rate: 2 gm/hr, Dispensed: 50 mL bag, Site: #1 hand. Medication Ordered: Ceftriaxone IV 2 gm/50mL (NOW). Given 15:41 10/11/2016 Ephraim Wheatley R.N. Medication Administered: DEMEROL [IVP] (MEPERIDINE HCL), Dose: 12.5 mg IVP over 2 minute(s), Site: #1 hand. Medication Ordered: Demerol IV 12.5 mg (HIGH ALERT MEDICATION, NOW). Given 17:16 10/11/2016 Ephraim Wheatley R.N. Medication Administered: LOVENOX [SUBCUTANEOUS] (ENOXAPARIN SODIUM), Dose: 75 mg Subcutaneous. Medication Ordered: Lovenox Subcut 75 mg x 1 now (HIGH ALERT MEDICATION, NOW).
--- NOTE | 2016-10-14 10:55 | ED MED RECONCILIATION SUMMARY ---
Patient: MICKI LARRY Medication Reconciliation Report [facility] VisitID: [id number] [address] [place] [address] 70y, F Registration Date/Time: 10/11/2016 Weight: 77.1 kg Height/Length: 65 in. BMI: 28.3 ALLERGIES: No Known Drug Allergy The patient's Home Medications are listed below: THE FOLLOWING MEDICATIONS NEED TO BE RECONCILED: Lisinopril Oral The source(s) of the original Home Medication information: Not obtained. The following Medications were given to the patient in the Emergency Department: IV NS IV Fluids bolus 500 mL wide open, administered: 10/11/2016 5:58:00 AM Azithromycin [PO] PO 500 mg, administered: 10/11/2016 6:10:00 AM IV NS IV Fluids bolus 500 mL wide open, administered: 10/11/2016 6:33:00 AM Tramadol [PO] PO 50 mg, administered: 10/11/2016 7:47:00 AM Ceftriaxone [IVPB] IVPB bolus 0, then 2 gm 2 gm/hr, administered: 10/11/2016 9:08:00 AM Demerol [IVP] IVP 12.5 mg, administered: 10/11/2016 3:41:00 PM Lovenox [Subcutaneous] Subcutaneous 75 mg, administered: 10/11/2016 5:16:00 PM The following Medications were prescribed to the patient: None.
--- NOTE | 2016-10-14 12:15 | Progress Note ---
Subjective General VSS Afebrile ESR 117 Hgb is better after transfusion. The alk phosphatase is nl, but total protein is high. SPEP is pending. Again I think there is a high possibility of MM or other occult malignancy, yogesh in light of the markedly elevated ESR and elevated total protein.
--- NOTE | 2016-10-14 13:52 | Progress Note ---
Subjective General 70 y/o female patient admitted with Acute respiratory distress found to have acute hypoxic respiratory failure with multilobar pneumonia, UTI with E.coli on ceftriaxone and zithromax, PE and ACS R/O, also found to have multiple old rib fratures with thoracic vertebral fracture, had drop in hct from 27 to 20 yedterday recieved 3 units of PRBC's H/h improved, had UGI endoscopy and colonoscopy no source of bleeding is found, ct thorax/abdomen/pelvis did not show any mass or bleeding, sx recommends UGI series as an out patient, Ortho was consulted for vertebral an dmultiple rib fracture, suggested no surgical intervention, also suggested work up for occult malignancy. Patient is seen at the bedside,with her daughter in law at the bedside, says she is feeling better, this morning she told me she is not feeling good. Patient keeps changing her words/stories especially in presence of her daughter in law. Constitutional Denies: Fever, Chills, Sweats, Weakness. Respiratory Cough, Dry, SOB w/exertion. Denies: Wheezing, Hemoptysis, Pleuritic Pain. Cardiovascular Orthopnea. Denies: Chest Pain, Palpitations, PND, Edema. Gastrointestinal Denies: Nausea, Vomiting, Abdominal Pain, Diarrhea, Constipation. Genitourinary Denies: Dysuria, Frequency, Incontinence, Hematuria. Musculoskeletal Back Pain. Neurological Denies: Weakness, Numbness, Incoordination, Change in speech. Physical Exam Vital Signs / I&Os Vital Signs Date Time Temp Pulse Resp B/P Pulse O2 O2 Flow FiO2 Ox Delivery Rate 10/14 1149 80 20 141/75 95 Room Air 10/14 1136 141/79 10/14 1125 98.1 78 19 139/79 93 Room Air 10/14 1105 98.1 78 14 141/73 97 Nasal 2.0 Cannula 10/14 1100 81 14 139/68 100 NC PLUS 2.0 NEB TREATMENT 10/14 1055 80 17 138/75 93 Nasal 3.0 Cannula 10/14 1050 80 20 150/76 94 Nasal 3.0 Cannula 10/14 1045 76 14 132/71 96 Nasal 3.0 Cannula 10/14 1040 75 14 112/72 96 Nasal 3.0 Cannula 10/14 1035 75 12 113/64 95 Nasal 3.0 Cannula 10/14 1030 78 12 119/65 96 Nasal 3.0 Cannula 10/14 1027 97.7 72 13 121/72 93 Nasal 1.0 Cannula 10/14 0855 Nasal 2.0 Cannula 10/14 0821 2.0 10/14 0633 98.4 80 20 149/81 96 Nasal 2.0 Cannula 10/14 0325 2.0 10/14 0121 97.7 86 15 144/84 95 Nasal 2.0 Cannula 10/13 2331 2.0 10/13 2123 98.1 86 21 143/75 98 Nasal 2.0 Cannula 10/13 2109 97.7 75 10 127/68 97 Nasal 2.0 Cannula 10/13 2036 Nasal 2.0 Cannula 10/13 2009 97.5 88 18 139/74 97 Nasal 2.0 Cannula 10/13 1936 98.1 83 12 135/75 97 Nasal 2.0 Cannula 10/13 1925 2.0 10/13 1921 84 16 129/72 99 Nasal 2.0 Cannula 10/13 1903 98.2 86 22 140/70 96 Nasal 2.0 Cannula 10/13 1845 97.3 83 21 136/78 96 2.0 10/13 1815 98.4 88 18 133/82 94 Nasal 2.0 Cannula 10/13 1804 2.0 10/13 1709 76 24 141/77 98 Nasal 2.0 Cannula 10/13 1518 85 24 134/76 96 Nasal 2.0 Cannula 10/13 1427 98.1 88 36 145/77 98 Nasal 2.0 Cannula I&O 10/13 0800 10/13 1600 10/14 0000 Intake Total 1780 930 790 Output Total 725 725 675 Balance 1055 205 115 General Appearance Alert, Oriented X3, No acute distress HEENT PERRLA Lungs bilateral air entry decerased at bases, equal on other dunn, no wheezing few ronchi, no crackles Cardiovascular Regular rate and rhythm, Normal S1 and S2 Abdomen Normal bowel sounds, Soft, No tenderness, No guarding Extremities left hand swollen, no erythema or tenderness noted Neurological No lateralizing signs LAB Results Laboratory Tests 10/13 10/14 10/14 10/14 1615 0410 0410 0410 Chemistry Plasma Sodium (136 - 145 mmol/L) 139 Plasma Potassium (3.5 - 5.1 mmol/L) 3.7 Plasma Chloride (98 - 107 mmol/L) 104 CO2 (Enzymatic) (21 - 32 mmol/L) 26 BUN (7 - 18 mg/dL) 45 Creatinine (0.6 - 1.3 mg/dL) 2.1 Est GFR ( Amer) (mL/min) 30.08 Est GFR (Non-Af Amer) (mL/min) 24.82 Glucose (70 - 110 mg/dL) 107 Plasma Calcium (8.5 - 10.1 mg/dL) 9.6 Total Bilirubin (0.0 - 1.0 mg/dL) 0.4 AST (15 - 37 U/L) 13 ALT (12 - 78 U/L) 10 Alkaline Phosphatase (46 - 116 U/L) 69 Total Protein (6.4 - 8.2 g/dL) 8.7 Total Protein (PEP) Pending Albumin (3.3 - 5.0 g/dL) 2.5 Albumin (PEP) Pending Globulin (PEP) Pending Albumin/Globulin (PEP) Pending [id number] Pending Yobqz-[id number] Pending Beta Globulins Pending Gamma Globulins Pending M-Harsh Pending PEP Note Pending Carcinoembryonic Ag Pending Cortisol AM Sample Pending Hematology WBC (4.5 - 11.5 K/uL) 5.2 5.4 RBC (4.00 - 5.20 M/uL) 2.63 3.36 Hgb (12.0 - 16.0 gm/dL) 8.7 10.6 Hct (36.0 - 46.0 %) 26.1 32.1 MCV (80 - 100 fL) 99 96 MCH (26 - 34 pg) 33 32 RDW (11.6 - 14.8 %) 18.6 21.4 Neut % (Auto) (50 - 75 %) 73.4 73.2 Lymph % (Auto) (25 - 40 %) 20.8 22.5 [place] % (Auto) (3 - 14 %) 4.8 3.8 Eos % (Auto) (0 - 4 %) 0.6 0.4 Baso % (Auto) (0 - 2 %) 0.4 0.1 Plt Count, EDTA (150 - 400 K/uL) 203 210 RBC Morphology (00269 A) 2+ HYPOCHROMIA PUBS MCHC (31 - 37 g/dL) 33 33 ESR Westergren (0 - 30 mm/hr) 117 01/15 0410 Chemistry Thyroxine (T4) (5.4 - 10.6 ug/dL) 9.5 TSH 3rd Generation (0.30 - 3.74 uIU/mL) 2.852 Assessment and Plan Problem List 1. Pneumonia Plan c/w ceftriaxone and zithromax still requiring o2 supplements c/w o2 through nasal canula can be dischrage if o2 requirement comes down and after PT eval 2. Anemia Plan H/H improved post transfusion today its H/H 10.6/32.1 UGI endoscopy showed hiatal hernia but no source for bleeding Colonoscopy is consistent with diverticulosis, no source of bleding or mass shown planned for Upper GI series as an out patient Agree with Dr. Dumont to r/o occult malignancy inc MM TSH normal, ALk phos normal Anemia/kidney disease/hyperprotenemia with low albumin, SPEP pending check vit d levels check iron studies, B12 and folat levels too monitor cbc q1 2 hrly for now transfuse as needed 3. Hypertension Plan on metoprolol c/w it 4. Ribs, multiple fractures Plan bilateral multiple rib fracture pain control with supportive management 5. Thoracic vertebral fracture Plan with chronic lower extremity weakness on physical therpay pain control needs physical therpay before discharge 6. UTI (urinary tract infection) Onset Date 10/11/16 Plan urine culture positive for E.coli sensitive to ceftraixone c/w it change to levoflox on discharge DVT px: SCD's GI px: PPI Patient's condition: guarded Anticipated discharge: After physical therapy eval, might need placement E&M Codes Rounding: Inpt-High/[id number]
--- NOTE | 2016-10-14 15:04 | OPERATIVE REPORT ---
DATE OF SURGERY: 10/14/2016 SURGEON: Manjit Verde III, MD ACTUARIAL SCIENCE TEACHER: None. PREOPERATIVE DIAGNOSIS: 1. Anemia POSTOPERATIVE DIAGNOSIS: 1. Sigmoid diverticulosis PROCEDURE PERFORMED: 1. Colonoscopy ANESTHESIA: TIVA. INDICATIONS: The patient is a 70-year-old female admitted to [facility] with flu-like symptoms/pneumonia. During her hospitalization, she was noted to be anemic, and she was transfused packed red blood cells. She underwent upper GI endoscopy, which was essentially unremarkable except for a small hiatal hernia, now scheduled for colonoscopy. SURGICAL FINDINGS: A very poor prep with thick liquid stool throughout the colon ; however, we were able to visualize the cecum, ascending, transverse colon and descending colon. She has had diverticulosis of the sigmoid, and the rectal vault was normal. There was no evidence of exophytic lesions, no gross evidence of fresh blood or old blood in the colon. Other than that, the mucosal lining could not be well evaluated secondary to the poor prep. SURGICAL TECHNIQUE: The patient was brought to the operating room and placed in the left lateral decubitus position, where she was administered TIVA and monitored closely by anesthesia. After proper anesthesia had taken effect, a digital rectal examination revealed no masses or stenosis. This was followed by the passage of a fiberoptic video flexible Olympus colonoscope which, with some difficulty, negotiated to the cecum. The difficulty was in the poor prep, and after copious amounts of irrigation, we were able to traverse the colon into the cecum. The cecum was identified by anatomical landmarks and anterior abdominal wall ballottement. On withdrawing the scope, the aforementioned findings were noted. The scope was withdrawn, retroflexed, good view of the rectal vault obtained. No other pathology identified. The scope was completely withdrawn. The patient tolerated the procedure well and was transferred to the recovery room in stable condition. There were no intraoperative or anesthetic complications.
[2016-10-15 03:30] VITALS: BP 150/82
[2016-10-15 06:29] VITALS: BP 149/86
--- NOTE | 2016-10-15 07:18 | Progress Note ---
Subjective General General 70 y/o female patient admitted with Acute respiratory distress found to have acute hypoxic respiratory failure with multilobar pneumonia, UTI with E.coli on ceftriaxone and zithromax, PE and ACS R/O, also found to have multiple old rib fratures with thoracic vertebral fracture, had drop in hct from 27 to 20 yedterday recieved 3 units of PRBC's H/h improved, had UGI endoscopy and colonoscopy no source of bleeding is found, ct thorax/abdomen/pelvis did not show any mass or bleeding, sx recommends UGI series as an out patient, Ortho was consulted for vertebral an dmultiple rib fracture, suggested no surgical intervention, also suggested work up for occult malignancy. Patient still very weak per nursing and has been needing assistance here. Denies cp, has some sob. Physical Exam Vital Signs / I&Os Vital Signs Date Time Temp Pulse Resp B/P Pulse O2 O2 Flow FiO2 Ox Delivery Rate 10/15 0629 98.1 74 21 149/86 93 Nasal 2.0 Cannula 10/15 0330 98.2 109 22 150/82 92 Nasal 2.0 Cannula 10/15 0315 2.0 10/14 2352 1.0 10/14 2330 98.2 95 25 159/88 92 Nasal 1.0 Cannula 10/14 2311 2.0 10/14 2000 Room Air 2.0 10/14 1926 1.0 10/14 1810 98.2 92 24 147/85 92 Room Air 10/14 1427 98.4 83 20 139/68 91 Nasal 0.5 Cannula 10/14 1200 2.0 10/14 1149 80 20 141/75 95 Room Air 10/14 1136 141/79 10/14 1125 98.1 78 19 139/79 93 Room Air 10/14 1105 98.1 78 14 141/73 97 Nasal 2.0 Cannula 10/14 1100 81 14 139/68 100 NC PLUS 2.0 NEB TREATMENT 10/14 1055 80 17 138/75 93 Nasal 3.0 Cannula 10/14 1050 80 20 150/76 94 Nasal 3.0 Cannula 10/14 1045 76 14 132/71 96 Nasal 3.0 Cannula 10/14 1040 75 14 112/72 96 Nasal 3.0 Cannula 10/14 1035 75 12 113/64 95 Nasal 3.0 Cannula 10/14 1030 78 12 119/65 96 Nasal 3.0 Cannula 10/14 1027 97.7 72 13 121/72 93 Nasal 1.0 Cannula 10/14 0855 Nasal 2.0 Cannula 10/14 0821 2.0 I&O 10/15 0000 10/14 1600 10/14 0800 Intake Total 500 1500 915 Output Total 425 100 875 Balance 75 1400 40 General Appearance Alert, Cooperative HEENT poor dentition Lungs good air movement with wheezes and some rhonchi Cardiovascular Regular rate and rhythm Extremities No edema LAB Results Laboratory Tests 10/15 10/15 10/15 0420 0420 0420 Chemistry Plasma Sodium (136 - 145 mmol/L) 141 Plasma Potassium (3.5 - 5.1 mmol/L) 3.2 Plasma Chloride (98 - 107 mmol/L) 107 CO2 (Enzymatic) (21 - 32 mmol/L) 30 BUN (7 - 18 mg/dL) 40 Creatinine (0.6 - 1.3 mg/dL) 1.9 Est GFR ( Amer) (mL/min) 33.76 Est GFR (Non-Af Amer) (mL/min) 27.86 Glucose (70 - 110 mg/dL) 109 Plasma Calcium (8.5 - 10.1 mg/dL) 8.5 Plasma Magnesium (1.8 - 2.4 mg/dL) 2.4 Iron (35 - 150 ug/dL) 68 TIBC (260 - 445 ug/dL) 144 Iron Saturation (15 - 50 %) 47 Vitamin B12 (211 - 946 pg/mL) 296 Vitamin D 25-Hydroxy Pending Folate (>3.0 ng/mL) 5.1 Hematology WBC (4.5 - 11.5 K/uL) 4.8 RBC (4.00 - 5.20 M/uL) 3.36 Hgb (12.0 - 16.0 gm/dL) 10.2 Hct (36.0 - 46.0 %) 31.9 MCV (80 - 100 fL) 95 MCH (26 - 34 pg) 30 RDW (11.6 - 14.8 %) 20.3 Gran % (53 - 90) 64.5 Lymph % (Auto) (25 - 40 %) 31.4 Bremer % (Auto) (3 - 14 %) 4.1 Plt Count, EDTA (150 - 400 K/uL) 209 RBC Morphology (68021 A) 2+ HYPOCHROMIA PUBS MCHC (31 - 37 g/dL) 32 Assessment and Plan Problem List 1. Pneumonia Plan coarse BS on O2 very weak still 2. Hypoxia Plan On O2 nc 3. Anemia Plan stable
[2016-10-15 10:39] VITALS: BP 152/86
[2016-10-15 14:25] VITALS: BP 158/82
[2016-10-15 18:01] VITALS: BP 181/90
[2016-10-15 23:43] VITALS: BP 155/81
[2016-10-16 02:31] VITALS: BP 145/73
[2016-10-16 06:24] VITALS: BP 161/75
--- NOTE | 2016-10-16 07:43 | Progress Note ---
Subjective General 70 y/o female patient admitted with Acute respiratory distress found to have acute hypoxic respiratory failure with multilobar pneumonia, UTI with E.coli on ceftriaxone and zithromax, PE and ACS R/O, also found to have multiple old rib fratures with thoracic vertebral fracture, had drop in hct from 27 to 20 yedterday recieved 3 units of PRBC's H/h improved, had UGI endoscopy and colonoscopy no source of bleeding is found, ct thorax/abdomen/pelvis did not show any mass or bleeding, sx recommends UGI series as an out patient, Ortho was consulted for vertebral an dmultiple rib fracture, suggested no surgical intervention, also suggested work up for occult malignancy. Patient is stating that she "isn't worth shit" but also states that she is close to her baseline. No longer needing O2. Is feeling a little better overall. Eating a little food. Hopes to go home. Physical Exam Vital Signs / I&Os Vital Signs Date Time Temp Pulse Resp B/P Pulse O2 O2 Flow FiO2 Ox Delivery Rate 10/16 0624 85 20 161/75 98 Nasal 1.0 Cannula 10/16 0320 1.0 10/16 0231 98.1 86 24 145/73 96 Nasal 1.0 Cannula 10/15 2343 98.4 85 22 155/81 92 Nasal 1.0 Cannula 10/15 2309 1.0 10/15 1911 1.0 10/15 1801 98.4 79 26 181/90 93 Nasal 2.0 Cannula 10/15 1618 1.0 10/15 1425 98.8 95 20 158/82 94 Nasal 2.0 Cannula 10/15 1133 1.0 10/15 1039 98.2 89 20 152/86 95 Nasal 2.0 Cannula 10/15 0805 Nasal 2.0 Cannula I&O 10/16 0000 10/15 1600 10/15 0800 Intake Total 450 1418 1147 Output Total 850 450 Balance -400 1418 697 General Appearance Alert, Cooperative HEENT clear Lungs Clear to auscultation, Normal air movement Cardiovascular Normal exam, Regular rate and rhythm Abdomen Soft Extremities No edema Neurological Normal exam, Normal speech Assessment and Plan Problem List 1. Pneumonia Plan Is doing better at this time. Less wheezing 2. Hypoxia Plan Improved now on room air. 3. Hypertension Plan Is stable with some elevation in bp mild. 4. Anemia Plan Patient is with anemia history no symptoms.
[2016-10-16] MEDS ORDERED: CEPHALEXIN500 MG PO (07:45)
[2016-10-16] MEDS ORDERED: LOPRESSOR25 MG PO (07:46)
[2016-10-16] MEDS ORDERED: IPRATROPIUM BROMIDE/ IN (07:47)
[2016-10-16] MEDS ORDERED: PREDNISONE20 MG PO (07:48)
--- NOTE | 2016-10-16 07:49 | Provider's Discharge Care Plan ---
Problem, Goal, Plan Problem List 1. Pneumonia Instructions: Follow up as directed, Take meds as directed 2. Hypoxia Instructions: Follow up as directed, has prednisone for wheezes 3. Hypertension Instructions: Take meds as directed
--- NOTE | 2016-10-16 08:10 | Provider's Discharge Care Plan ---
Problem, Goal, Plan Problem List 1. Ribs, multiple fractures Instructions: f/u with PMD on high sed rate ? multiple myeloma and will need work up.
--- NOTE | 2016-10-16 08:10 | Provider's Discharge Care Plan ---
Problem, Goal, Plan Problem List 1. Ribs, multiple fractures Instructions: f/u with PMD on high sed rate ? multiple myeloma and will need work up.
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
[2016-10-16 10:03] VITALS: BP 154/78
== END 2016-10-16 12:45 | disposition home or self-care (01) | DRG 189 ==
LOC: ED SRH 05:02 → TRANS SRH 15:34 → CC SRH 17:49
PROVIDERS: Specialist; ADMIT Internal Medicine
PROC: 30233N1 Transfusion of Nonautologous Red Blood Cells into Peripheral Vein, Percutaneous Approach (ICD-10-PCS; 2016-10-13)
PROC: 0DB68ZX Excision of Stomach, Via Natural or Artificial Opening Endoscopic, Diagnostic (ICD-10-PCS; principal; 2016-10-13 11:15)
PROC: 0DJD8ZZ Inspection of Lower Intestinal Tract, Via Natural or Artificial Opening Endoscopic (ICD-10-PCS; 2016-10-14)
DX: J96.01 Acute respiratory failure with hypoxia (principal); J44.0 Chronic obstructive pulmonary disease with (acute) lower respiratory infection; J18.9 Pneumonia, unspecified organism; J44.1 Chronic obstructive pulmonary disease with (acute) exacerbation; N39.0 Urinary tract infection, site not specified; B96.20 Unspecified Escherichia coli [E. coli] as the cause of diseases classified elsewhere; N17.9 Acute kidney failure, unspecified; E87.1 Hypo-osmolality and hyponatremia; S22.41XA Multiple fractures of ribs, right side, initial encounter for closed fracture; S22.009A Unspecified fracture of unspecified thoracic vertebra, initial encounter for closed fracture; D64.9 Anemia, unspecified; E87.6 Hypokalemia; N28.9 Disorder of kidney and ureter, unspecified; I10 Essential (primary) hypertension; R00.0 Tachycardia, unspecified; F17.210 Nicotine dependence, cigarettes, uncomplicated; M81.0 Age-related osteoporosis without current pathological fracture; E86.0 Dehydration; K44.9 Diaphragmatic hernia without obstruction or gangrene; K57.30 Diverticulosis of large intestine without perforation or abscess without bleeding; Z87.81 Personal history of (healed) traumatic fracture; W18.30XA Fall on same level, unspecified, initial encounter; Y93.9 Activity, unspecified; Y92.019 Unspecified place in single-family (private) house as the place of occurrence of the external cause
CPT/HCPCS: 50004; 60001; 82943; 83526; 85241; 85244; 90001; 90004; 90047; 90065; 90074; 90098; 90100; 90148; 90155; 90469; 90616; 90705; 91004; 91096; 91284; 91286; 91320; 91400; 91504; 91505; 91544; 91556; 91576; 92132; 92330; 92610; 92668; 92670; 92710; 92720; 93004; 93005; 93010; 93140; 95059; 95150

== ENCOUNTER 2016-10-23 20:09 | Inpatient (IN) | payer OTHER ==
[~2016-10-23] VITALS: Ht 157.5 cm; Wt 63.6 kg
[~2016-10-23 20:09] MED LIST: CEPHALEXIN500 MG PO; IPRATROPIUM BROMIDE/ IN; LOPRESSOR25 MG PO; MULTIPLE VITAMIN PO; PREDNISONE20 MG PO
[2016-10-24] VITALS (8 sets, daily range): BP systolic 113–162; BP diastolic 58–88
--- NOTE | 2016-10-24 00:33 | DIAGNOSTIC IMAGING REPORT ---
PROCEDURE: XR CHEST 1 VIEW INDICATION: CHEST PAIN TECHNIQUE: Portable AP view (2345 hours). COMPARISON: Compared to CT thorax abdomen pelvis (10/13/2016) and chest x-ray (10/11/2016). FINDINGS: Allowing for suboptimal inspiration, there is mild bibasilar subsegmental atelectasis. Lungs are otherwise clear. No evidence of pneumothorax. Mild cardiomegaly. Mediastinum is normal. There are multiple subacute bilateral rib fractures (acute and/or old). The rest the osseous structures demonstrate modeled appearance. IMPRESSION: 1. Mild bibasilar subsegmental atelectasis (findings accentuated due to suboptimal inspiration). 2. Mottled appearance of the osseous structures suggest myelodysplastic disorder (e.g., myeloma, leukemia). 3. Mild cardiomegaly. 4. Findings discussed with Dr. Arpit Jasso.
--- NOTE | 2016-10-24 00:43 | ED ORDER SUMMARY ---
..... Patient: IMCKI LARRY OrderSheet [facility] VisitID: [id number] [place] [address] 71y, F Registration Date/Time: 10/23/2016 ORDER SHEET Weight: 64.4 kg (stated) Allergies: No Known Drug Allergy GENERAL ORDERS: Pattern Ruler (Continuous) (21:57 10/23/2016 Alejandro LOWE) (Ack 22:00 LMuller) (22:24 Sri R.N.) CBC w Diff Urgent (21:58 10/23/2016 Alejandro LOWE) (Ack 22:00 LMuller) (22:27 Sri R.N.) CMP Urgent (:10/23/2016 Alejandro LOWE) (Ack 22:00 LMuller) (22:27 Sri R.N.) PT with INR Urgent (:10/23/2016 Alejandro LOWE) (Ack 22:00 LMuller) (22:27 Sri R.N.) PTT Urgent (:10/23/2016 Alejandro LOWE) (Ack 22:00 LMuller) (22:27 Sri R.N.) Amylase Urgent (:10/23/2016 Alejandro LOWE) (Ack 22:00 LMuller) (22:27 Sri R.N.) Lipase Urgent (:10/23/2016 Alejandro LOWE) (Ack 22:00 LMuller) (22:27 Sri R.N.) CPK Urgent (:10/23/2016 Alejandro LOWE) (Ack 22:00 LMuller) (22:27 Sri R.N.) Troponin-I Urgent (:10/23/2016 Alejandro LOWE) (Ack 22:00 LMuller) (22:27 Sri R.N.) Pulse oximeter (:10/23/2016 Alejandro LOWE) (Ack 22:00 LMuller) (22:24 Sri R.N.) Oxygen (2 L/min) (NC) (:10/23/2016 Alejandro LOWE) (Ack 22:00 LMuller) (22:24 Sri R.N.) EKG - ER Stat (21:58 10/23/2016 Alejandro LOWE) (Ack 22:00 LMuller) (22:05 LMuller) Chest 1V Urgent (23:35 10/23/2016 Alejandro LOWE) (Ack 23:38 CHagerty ER Profile Trimmer) (23:47 CHagerty ER Profile Trimmer) BNP Urgent (00:30 10/24/2016 Alejandro LOWE) (Ack 0:31 CHagerty ER Profile Trimmer) (0:35 CHagerty ER Profile Trimmer) Magnesium Urgent (01:24 10/24/2016 Alejandro LOWE) (Ack 1:26 CHagerty ER Profile Trimmer) (2:20 CHagerty ER Profile Trimmer) MEDICATION ORDERS: KCl PO 20 meq (NOW) (23:32 10/23/2016 Alejandro LOWE) (Ack 23:34 JQuivey R.N.) (23:50 JQuivey R.N.) IV FLUIDS: IV Saline Lock (21:58 10/23/2016 Alejandro LOWE) (Ack 22:06 JQuivey R.N.) (22:08 JRomanelli R.N.) Dilaudid IV 0.5 mg (HIGH ALERT MEDICATION, NOW) (21:59 10/23/2016 Alejandro LOWE) (Ack 22:06 JQuivey R.N.) (22:11 JQuivey R.N.) Zofran IV 4 mg (NOW) (21:59 10/23/2016 Alejandro LOWE) (Ack 22:06 JQuivey R.N.) (22:11 JQuivey R.N.) Dilaudid IV 0.5 mg (HIGH ALERT MEDICATION, NOW) (23:26 10/23/2016 Alejandro LOWE) (Ack 23:29 JQuivey R.N.) (23:33 JQuivey R.N.) KCl IV 20 meq/100mL (Run no faster than 10 units/hr, HIGH ALERT MEDICATION, NOW, Run no faster than 10 mEq/hr) (23:32 10/23/2016 Alejandro LOWE) (Ack 23:34 JQuivey R.N.) (23:50 JQuiveminnie R.N.) IV NS : initial bolus 250 mL (1000 mL/hr), then 100 mL/hr for 4h (NOW); Urgent (23:35 10/23/2016 Alejandro LOWE) (Ack 23:45 JQuivey R.N.) (23:49 Elleniveminnie R.N.) Dilaudid IV 0.5 mg (NOW) (01:10 10/24/2016 Lala Reese. verbal order read back to Alejandro LOWE) (1:11 Elleniveminnie R.N.) ORDER SHEET NOTES: [Electronically signed by Ian Saini R.N. (03:42 10/24/2016)] [Electronically signed by Arpit Jasso MD (04:41 10/24/2016)] [Electronically locked/signed by Ian Saini R.N. (03:42 10/24/2016)]
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
--- NOTE | 2016-10-24 00:43 | ED ORDER SUMMARY ---
..... Patient: MICKI LARRY OrderSheet [facility] VisitID: [id number] [place] [address] 71y, F Registration Date/Time: 10/23/2016 ORDER SHEET Weight: 64.4 kg (stated) Allergies: No Known Drug Allergy GENERAL ORDERS: Legal Officer (Continuous) (21:57 10/23/2016 Alejandro OLWE) (Ack 22:00 LMuller) (22:24 Sri R.N.) CBC w Diff Urgent (21:58 10/23/2016 Alejandro LOWE) (Ack 22:00 LMuller) (22:27 Sri R.N.) CMP Urgent (:10/23/2016 Alejandro LOWE) (Ack 22:00 LMuller) (22:27 Sri R.N.) PT with INR Urgent (:10/23/2016 Alejandro LOWE) (Ack 22:00 LMuller) (22:27 Sri R.N.) PTT Urgent (:10/23/2016 Alejandro LOWE) (Ack 22:00 LMuller) (22:27 Sri R.N.) Amylase Urgent (:10/23/2016 Alejandro LOWE) (Ack 22:00 LMuller) (22:27 Sri R.N.) Lipase Urgent (:10/23/2016 Alejandro LOWE) (Ack 22:00 LMuller) (22:27 Sri R.N.) CPK Urgent (:10/23/2016 Alejandro LOWE) (Ack 22:00 LMuller) (22:27 Sri R.N.) Troponin-I Urgent (:10/23/2016 Alejandro LOWE) (Ack 22:00 LMuller) (22:27 Sri R.N.) Pulse oximeter (:10/23/2016 Alejandro LOWE) (Ack 22:00 LMuller) (22:24 Sri R.N.) Oxygen (2 L/min) (NC) (:10/23/2016 Alejandro LOWE) (Ack 22:00 LMuller) (22:24 Sri R.N.) EKG - ER Stat (21:58 10/23/2016 Alejandro LOWE) (Ack 22:00 LMuller) (22:05 LMuller) Chest 1V Urgent (23:35 10/23/2016 Alejandro LOWE) (Ack 23:38 CHagerty ER Human Resources Operations Specialist) (23:47 CHagerty ER Human Resources Operations Specialist) BNP Urgent (00:30 10/24/2016 Alejandro LOWE) (Ack 0:31 CHagerty ER Human Resources Operations Specialist) (0:35 CHagerty ER Human Resources Operations Specialist) Magnesium Urgent (01:24 10/24/2016 Alejandro LOWE) (Ack 1:26 CHagerty ER Human Resources Operations Specialist) (2:20 CHagerty ER Human Resources Operations Specialist) MEDICATION ORDERS: KCl PO 20 meq (NOW) (23:32 10/23/2016 Alejandro LOWE) (Ack 23:34 JQuivey R.N.) (23:50 JQuivey R.N.) IV FLUIDS: IV Saline Lock (21:58 10/23/2016 Alejandro LOWE) (Ack 22:06 JQuivey R.N.) (22:08 JRomanelli R.N.) Dilaudid IV 0.5 mg (HIGH ALERT MEDICATION, NOW) (21:59 10/23/2016 Alejandro LOWE) (Ack 22:06 JQuivey R.N.) (22:11 JQuivey R.N.) Zofran IV 4 mg (NOW) (21:59 10/23/2016 Alejandro LOWE) (Ack 22:06 JQuivey R.N.) (22:11 JQuivey R.N.) Dilaudid IV 0.5 mg (HIGH ALERT MEDICATION, NOW) (23:26 10/23/2016 Alejandro LOWE) (Ack 23:29 JQuivey R.N.) (23:33 JQuivey R.N.) KCl IV 20 meq/100mL (Run no faster than 10 units/hr, HIGH ALERT MEDICATION, NOW, Run no faster than 10 mEq/hr) (23:32 10/23/2016 Alejandro LOWE) (Ack 23:34 JQuivey R.N.) (23:50 JQuiveminnie R.N.) IV NS : initial bolus 250 mL (1000 mL/hr), then 100 mL/hr for 4h (NOW); Urgent (23:35 10/23/2016 Alejandro LOWE) (Ack 23:45 JQuivey R.N.) (23:49 Elleniveminnie R.N.) Dilaudid IV 0.5 mg (NOW) (01:10 10/24/2016 Lala Reese. verbal order read back to Alejandro LOWE) (1:11 Elleniveminnie R.N.) ORDER SHEET NOTES: [Electronically signed by Ian Saini R.N. (03:42 10/24/2016)] [Electronically signed by Arpit Jasso MD (04:41 10/24/2016)] [Electronically locked/signed by Ian Saini R.N. (03:42 10/24/2016)]
--- NOTE | 2016-10-24 00:43 | ED NURSING NOTES ---
Clinical Report - Nurses Merged With [facility] [address] [place] [address] 10/23/2016 20:08 Patient: MICKI LARRY TRIAGE Triage time 20:Oct 23 2016. Acuity: LEVEL 3. Chief Complaint: CHEST PAIN and DISCOMFORT. Alert. MADDY COMA SCORE: [place] Com[place] Scale: 15- eyes open spontaneously (4); best verbal response- oriented x 4 (5); best motor response- obeys commands (6). --20:41 Ian Bowles R.N. 20:24 10/23/16. BP: 161/72. HR: 68. RR: 16. O2 saturation: 99% on room air. Temp: 98.8 F (oral). Pain level now: 5/10. --20:41 Ian Bowles R.N. <<STRICKEN ENTRY-- Weight: 68 kg stated. Height/Length: 63 inches Per Patient. BMI: 26.6. --END STRIKE>> Correction --20:33 Ian Bowles R.N.. Weight: 64.4 kg stated. Height/Length: 63 inches Per Patient. BMI: 25.2. --20:35 Ian Bowles R.N. Medications Metoprolol Tartrate Oral 25 mg 1/2 tab, 3 x daily as needed. Vicodin Oral 5 mg, 3x a day as needed. --20:31 Ian Bowles R.N. Medication/allergy information source: the patient. --20:41 Ian Bowles R.N. Allergies No Known Drug Allergy. --02:57 Ian Saini R.N. History Arrived by private vehicle. Historian: patient and family. Accompanied by family. Primary physician (Jose Kiran [facility]). ( Chest Pain). Onset. (about 2 months ago). 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 PAST MEDICAL HX: Immunizations: status is unknown. The patient is post-menopausal. SOCIAL HX: Heavy tobacco smoker (cigarette)- less than 1 pack per day. No alcohol use or drug use. No infectious disease exposure. ABUSE ASSESSMENT: No report of abuse. FALL RISK ASSESSMENT: Fall risk assessment completed. No fall risk identified. NUTRITIONAL RISK ASSESSMENT: The nutritional risk assessment revealed no deficiencies. FUNCTIONAL ASSESSMENT: Functional assessment: no impairments noted. LEARNING NEEDS ASSESSMENT: The learning needs assessment revealed no barriers. SKIN INTEGRITY ASSESSMENT: Skin integrity risk assessment completed. No skin integrity risk identified. --20:41 Ian Bowles R.N. PROBLEMS: Hypertension. Gastroesophageal Reflux Disease. COPD - Chronic Obstructive Pulmonary Disease. --20:37 Ian Bowles R.N. Back Pain. --20:40 Ian Bowles R.N. Interventions ID band on patient. To treatment room. --20:41 Ian Bowles R.N. PHYSICAL ASSESSMENT To room via wheelchair. GENERAL / NEURO / PSYCH: Alert. Oriented X 4. HEENT: Mucous membranes are pink. RESPIRATORY: Respirations not labored. Breath sounds within normal limits. CVS: Pulses within normal limits. Capillary refill less than 2 seconds. GI / : Abdomen soft. EXTREMITIES: No lower extremity edema. SKIN: Skin is warm and dry. Normal skin turgor. --20:40 Ian Bowles R.N. NURSING PROGRESS NOTES Reassurance given. Patient identifiers checked. Call light placed in reach. Side rails up x 1. Bed placed in lowest position. Brakes of bed on. Patient ready for evaluation- chart flagged and ED physician notified. --20:41 Ian Bowles R.N. EKG time: (2205). EKG was ordered, performed by a tech and shown to the ED physician. --22:08 Ariel Hamilton, ER Economics Faculty Member 22:03 10/23/2016 Site #1 started via IV in the left hand with an 20g angiocath, with aseptic technique and good blood return; one attempt. Blood drawn: rainbow set. Labeled in the presence of the patient and sent to the lab. Saline lock flushed with 10 mL saline. --22:08 Ian Bowles R.N. 22:07 10/23/2016 Zofran (Ondansetron HCl) IVP 4 mg given over 2 minute(s) via site #1. Allergies verified and confirmed 5 rights. IV patency established. IV site checked: no pain, redness, or swelling. IV flushed thoroughly pre- and post-medication administration. --22:11 Ian Saini R.N. 22:09 10/23/2016 Dilaudid (HYDROmorphone HCl PF) IVP 0.5 mg given over 2 minute(s) via site #1. Allergies verified, confirmed 5 rights and sedative warning given to the patient. IV patency established. IV site checked: no pain, redness, or swelling. IV flushed thoroughly pre- and post-medication administration. --22:11 Ian Saini R.N. Critical value relayed to ED by As400 Analyst. Critical value received by Ian Bowles RN. K: 2.7. ED physician notifed of critical value. Orders were received. --23:19 Ian Bowles R.N. 23:23. Care transferred and report received. --23:23 Ian Saini R.N. 23:31 10/23/2016 Dilaudid (HYDROmorphone HCl PF) IVP 0.5 mg given over 2 minute(s) via site #1. Allergies verified, confirmed 5 rights and sedative warning given to the patient. IV patency established. IV site checked: no pain, redness, or swelling. IV flushed thoroughly pre- and post-medication administration. --23:33 Ian Saini R.N. 23:44. Portable chest x-ray performed. --23:44 Ian Saini R.N. 23:45 10/23/2016 Started bag #1 1000 mL IV Fluids IV NS (Saline); at 1000 mL/hr over 15 minute(s) via site #1 via IV pump. --23:49 Ian Saini R.N. 23:47 10/23/2016 Started 20 meq of KCL (Potassium Chloride) IVPB in bag #1 100 mL; at 50 mL/hr over 2 hour(s) via site #1 via IV pump. Allergies verified and confirmed 5 rights. IV patency established. IV site checked: no pain, redness, or swelling. IV flushed thoroughly pre- and post-medication administration. --23:50 Ian Saini R.N. 23:48 10/23/2016 KCL (Potassium Chloride ER) PO 20 meq given. Allergies verified and confirmed 5 rights. --23:50 Ian Saini R.N. 00:01 10/24/2016 IV Fluids IV NS via IV site #1 Rate Changed: bag #1 decreased to 100 mL/hr via IV pump. IV patency established. IV site checked: no pain, redness, or swelling. IV flushed thoroughly. --01:21 Ian Saini R.N. 00:53 10/24/2016 Dilaudid (HYDROmorphone HCl PF) IVP 0.5 mg given over 2 minute(s) via site #1. Allergies verified, confirmed 5 rights and sedative warning given to the patient and patient's family. IV patency established. IV site checked: no pain, redness, or swelling. IV flushed thoroughly pre- and post-medication administration. --01:11 Ian Saini R.N. 01:27 10/24/2016 IV Fluids IV NS via IV site #1 Rate Changed: bag #1 decreased to 50 mL/hr via IV pump (per Dr. Mukherjee verbal order). --01:27 Ian Saini R.N. 01:30 Dr. Mukherjee with pt exam. --01:34 Ian Saini R.N. 01:53 10/24/2016 KCL IVPB Discontinued: bag #1 infused. Total amount infused: 100 mL. IV patency established. IV site checked: no pain, redness, or swelling. IV flushed thoroughly. --02:31 Ian Saini R.N. 02:31 10/24/2016 IV Fluids IV NS Discontinued: bag #1 STOPPED. Total amount infused: 450ml mL. IV patency established. IV site checked: no pain, redness, or swelling. IV flushed thoroughly. --02:31 Ian Saini R.N. Intake & Output 02:43. IV fluids: 450 mL. IVPB volume: 100 mL. --02:43 Ian Saini R.N. DISPOSITION / DISCHARGE Condition at departure: stable. Fall risk assessment completed. Risk factors identified include severe pain and patient age greater than 65 years and impairment of mobility. Fall interventions initiated. Patient placed on stretcher. Side rails up x2. Call light in reach of patient. Instructed not to get up without assistance. --02:32 Ian Saini R.N. 01:27 10/24/16. BP: 136/69. HR: 70. RR: 20. O2 saturation: 100% on room air. Pain level now: 11/09. --02:32 Ian Saini R.N. 02:32 02 sat on 2 lts not 3. --02:43 Ian Saini R.N. 02:34. Disposition: observation in Acute Care. Transported via stretcher by [employer] with O2. Patient's personal items include, Other belongings; items were placed in belongings bag and transported with the patient. She did not have glasses, contacts, dentures or a hearing aid. --02:34 Ian Saini R.N. 02:32 10/24/16. BP: 142/66. HR: 71. RR: 22. O2 saturation: 100% on nasal cannula at 3 liters/minute. --02:34 Ian Saini R.N. 02:42. Report was given via a phone call. Report included patient's care, treatment, medications, reviewed medication reconcilliation, and condition (including any recent changes or anticipated changes). All questions were answered. Report was acknowledged. (Chantal GARRISON CCU). --02:44 Ian Saini R.N. Departure time: 02:56. --02:56 Ian Saini R.N. Locked/Released at 10/24/2016 3:42 by Ian Saini R.N.
[2016-10-24] MEDS ORDERED: VICODIN EQUIVAL1 TAB PO (03:57)
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
--- NOTE | 2016-10-24 04:42 | ED MED RECONCILIATION SUMMARY ---
Patient: MICKI LARRY Medication Reconciliation Report [facility] VisitID: [id number] [address] [place] [address] 71y, F Registration Date/Time: 10/23/2016 Weight: 64.4 kg Height/Length: 63 in. BMI: 25.2 ALLERGIES: No Known Drug Allergy The patient's Home Medications are listed below: THE FOLLOWING MEDICATIONS NEED TO BE RECONCILED: Metoprolol Tartrate Oral 25 mg 1/2 tab, 3 x daily Vicodin Oral 5 mg, 3x a day The source(s) of the original Home Medication information: patient The following Medications were given to the patient in the Emergency Department: Zofran [IVP] IVP 4 mg, administered: 10/23/2016 10:07:00 PM Dilaudid [IVP] IVP 0.5 mg, administered: 10/23/2016 10:09:00 PM Dilaudid [IVP] IVP 0.5 mg, administered: 10/23/2016 11:31:00 PM IV NS IV Fluids bolus 0, then 1000 mL/hr, administered: 10/23/2016 11:45:00 PM KCL [PO] PO 20 meq, administered: 10/23/2016 11:48:00 PM KCL [IVPB] IVPB bolus 0, then 20 meq 50 mL/hr, administered: 10/23/2016 11:47:00 PM Dilaudid [IVP] IVP 0.5 mg, administered: 10/24/2016 12:53:00 AM The following Medications were prescribed to the patient: None.
--- NOTE | 2016-10-24 04:42 | ED DISCHARGE INSTRUCTIONS ---
Patient: MICKI LARRY General Instructions [facility] VisitID: [id number] [address] [place] [address] 71y, F Registration Date/Time: 10/23/2016 Congestive heart failure. Abnormal tests: (indeterminate troponin). Hypokalemia. mottled appearance to the bones on imaging. (Electronically signed by Arpit Jasso MD 10/24/2016 4:41)
--- NOTE | 2016-10-24 04:42 | ED MAR SUMMARY ---
..... Medication Administration Record [facility] [address] [place] [address] Patient: MICKI LARRY Visit ID: [id number] 71y, F Weight: 64.4 kg Height/Length: 63 in BMI: 25.2 ALLERGIES: No Known Drug Allergy Given 22:07 10/23/2016 Ian Saini R.N. Medication Administered: ZOFRAN [IVP] (ONDANSETRON HCL), Dose: 4 mg IVP over 2 minute(s), Site: #1 left hand. Medication Ordered: Zofran IV 4 mg (NOW). Given 22:09 10/23/2016 Ian Saini R.N. Medication Administered: DILAUDID [IVP] (HYDROMORPHONE HCL PF), Dose: 0.5 mg IVP over 2 minute(s), Site: #1 left hand. Medication Ordered: Dilaudid IV 0.5 mg (HIGH ALERT MEDICATION, NOW). Given 23:31 10/23/2016 Ian Saini R.N. Medication Administered: DILAUDID [IVP] (HYDROMORPHONE HCL PF), Dose: 0.5 mg IVP over 2 minute(s), Site: #1 left hand. Medication Ordered: Dilaudid IV 0.5 mg (HIGH ALERT MEDICATION, NOW). Start 23:45 10/23/2016 Ian Saini R.N., Stop 02:31 10/24/2016 Ian Saini R.N. Medication Administered: IV NS (SALINE), Dose: IV Fluids over 15 minute(s), Rate: 1000 mL/hr, Dispensed: 1000 mL bag, Site: #1 left hand. Medication Ordered: IV NS : initial bolus 250 mL (1000 mL/hr), then 100 mL/hr for 4h (NOW); Urgent. Start 23:47 10/23/2016 Ian Saini R.N., Stop 01:53 10/24/2016 Ian Saini R.N. Medication Administered: KCL [IVPB] (POTASSIUM CHLORIDE), Dose: 20 meq IVPB over 2 hour(s), Rate: 50 mL/hr, Dispensed: 100 mL bag, Site: #1 left hand. Medication Ordered: KCl IV 20 meq/100mL (Run no faster than 10 units/hr, HIGH ALERT MEDICATION, NOW, Run no faster than 10 mEq/hr). Given 23:48 10/23/2016 Ian Saini RWillieN. Medication Administered: KCL [PO] (POTASSIUM CHLORIDE ER), Dose: 20 meq PO. Medication Ordered: KCl PO 20 meq (NOW). Given 00:53 10/24/2016 Ian Saini RWillieN. Medication Administered: DILAUDID [IVP] (HYDROMORPHONE HCL PF), Dose: 0.5 mg IVP over 2 minute(s), Site: #1 left hand. Medication Ordered: Dilaudid IV 0.5 mg (NOW).
--- NOTE | 2016-10-24 04:42 | ED MAR SUMMARY ---
..... Medication Administration Record [facility] [address] [place] [address] Patient: MICKI LARRY Visit ID: [id number] 71y, F Weight: 64.4 kg Height/Length: 63 in BMI: 25.2 ALLERGIES: No Known Drug Allergy Given 22:07 10/23/2016 Ian Saini R.N. Medication Administered: ZOFRAN [IVP] (ONDANSETRON HCL), Dose: 4 mg IVP over 2 minute(s), Site: #1 left hand. Medication Ordered: Zofran IV 4 mg (NOW). Given 22:09 10/23/2016 Ian Saini R.N. Medication Administered: DILAUDID [IVP] (HYDROMORPHONE HCL PF), Dose: 0.5 mg IVP over 2 minute(s), Site: #1 left hand. Medication Ordered: Dilaudid IV 0.5 mg (HIGH ALERT MEDICATION, NOW). Given 23:31 10/23/2016 Ian Saini R.N. Medication Administered: DILAUDID [IVP] (HYDROMORPHONE HCL PF), Dose: 0.5 mg IVP over 2 minute(s), Site: #1 left hand. Medication Ordered: Dilaudid IV 0.5 mg (HIGH ALERT MEDICATION, NOW). Start 23:45 10/23/2016 Ian Saini R.N., Stop 02:31 10/24/2016 Ian Saini R.N. Medication Administered: IV NS (SALINE), Dose: IV Fluids over 15 minute(s), Rate: 1000 mL/hr, Dispensed: 1000 mL bag, Site: #1 left hand. Medication Ordered: IV NS : initial bolus 250 mL (1000 mL/hr), then 100 mL/hr for 4h (NOW); Urgent. Start 23:47 10/23/2016 Ian Saini R.N., Stop 01:53 10/24/2016 Ian Saini R.N. Medication Administered: KCL [IVPB] (POTASSIUM CHLORIDE), Dose: 20 meq IVPB over 2 hour(s), Rate: 50 mL/hr, Dispensed: 100 mL bag, Site: #1 left hand. Medication Ordered: KCl IV 20 meq/100mL (Run no faster than 10 units/hr, HIGH ALERT MEDICATION, NOW, Run no faster than 10 mEq/hr). Given 23:48 10/23/2016 Ian Saini RWillieN. Medication Administered: KCL [PO] (POTASSIUM CHLORIDE ER), Dose: 20 meq PO. Medication Ordered: KCl PO 20 meq (NOW). Given 00:53 10/24/2016 Ian Saini RWillieN. Medication Administered: DILAUDID [IVP] (HYDROMORPHONE HCL PF), Dose: 0.5 mg IVP over 2 minute(s), Site: #1 left hand. Medication Ordered: Dilaudid IV 0.5 mg (NOW).
--- NOTE | 2016-10-24 04:42 | ED MED RECONCILIATION SUMMARY ---
Patient: MICKI LARRY Medication Reconciliation Report [facility] VisitID: [id number] [address] [place] [address] 71y, F Registration Date/Time: 10/23/2016 Weight: 64.4 kg Height/Length: 63 in. BMI: 25.2 ALLERGIES: No Known Drug Allergy The patient's Home Medications are listed below: THE FOLLOWING MEDICATIONS NEED TO BE RECONCILED: Metoprolol Tartrate Oral 25 mg 1/2 tab, 3 x daily Vicodin Oral 5 mg, 3x a day The source(s) of the original Home Medication information: patient The following Medications were given to the patient in the Emergency Department: Zofran [IVP] IVP 4 mg, administered: 10/23/2016 10:07:00 PM Dilaudid [IVP] IVP 0.5 mg, administered: 10/23/2016 10:09:00 PM Dilaudid [IVP] IVP 0.5 mg, administered: 10/23/2016 11:31:00 PM IV NS IV Fluids bolus 0, then 1000 mL/hr, administered: 10/23/2016 11:45:00 PM KCL [PO] PO 20 meq, administered: 10/23/2016 11:48:00 PM KCL [IVPB] IVPB bolus 0, then 20 meq 50 mL/hr, administered: 10/23/2016 11:47:00 PM Dilaudid [IVP] IVP 0.5 mg, administered: 10/24/2016 12:53:00 AM The following Medications were prescribed to the patient: None.
--- NOTE | 2016-10-24 04:42 | ED DISCHARGE INSTRUCTIONS ---
Patient: MICKI LARRY General Instructions [facility] VisitID: [id number] [address] [place] [address] 71y, F Registration Date/Time: 10/23/2016 Congestive heart failure. Abnormal tests: (indeterminate troponin). Hypokalemia. mottled appearance to the bones on imaging. (Electronically signed by Arpit Jasso MD 10/24/2016 4:41)
--- NOTE | 2016-10-24 08:36 | Progress Note ---
Subjective General Note Date: October 24, 2016 Admission Date: October 24, 2016 Hospital Day: 1 PCP: Leroy Pride M.D. Status: Inpatient Advanced Directive: NO CODE Room: 303 Brief History: The patient is a 71-year-old white female with a significant past medical history of COPD, renal insufficiency, hypertension, COPD, who presented to [facility] emergency department on the day of admission secondary to complaints of chest pain. Evaluation at that time was consistent with chest pain rule out ACS versus chest wall pain. Secondary to the above, Sarina Mukherjee M.D. admitted the patient for further evaluation and treatment. For other history present illness, past medical history, family history, social history, review of systems, and admission physical examination please see the patient's history and physical examination and ER visit note in the patient's medical record. Subjective: The patient states her pain is improved today. It is related to chest wall movement and deep inspiration. Improved with pain medications. Patient requests: No specific Medications and Allergies Medications Current Medications Sig/Julia Start time Last Medication Dose Route Stop Time Status Admin Aspirin 325 MG DAILY 10/24 09 AC 10/24 PO 0816 Cyanocobalamin 500 MCG QAM 10/24 0900 AC 10/24 PO 0816 Enoxaparin Sodium 40 MG QAM 10/24 0900 CAN SC Metoprolol Tartrate 12.5 MG TID 10/24 0800 AC 10/24 PO 1451 Hydromorphone HCl 0.5 MG Q2H PRN 10/24 0700 AC 10/24 IV 0659 Metoprolol Succinate 12.5 MG TID 10/24 0600 CAN PO Famotidine 20 MG QHS 10/24 0400 AC 10/24 PO 0347 Oxycodone/ See Dose Q4H PRN 10/24 0200 AC 10/24 Acetaminophen Insts (1) PO 1451 Al Hydrox/Mg Hydrox/ 15 ML Q1H PRN 10/24 0145 AC Simethicone PO Atropine Sulfate 0.5 MG Q3MIN PRN 10/24 0145 AC IV Lidocaine HCl See Dose ONCE PRN 10/24 014 AC Insts (2) IV Magnesium Hydroxide 10 ML DAILY PRN 10/24 0145 AC PO Morphine Sulfate 2 MG Q3M PRN 10/24 0145 AC IV Nitroglycerin 0.4 MG Q5M PRN 10/24 0145 AC SL Ondansetron HCl 4 MG Q6H PRN 10/24 014 AC PO Ondansetron HCl 4 MG Q6H PRN 10/24 014 AC IV Zolpidem Tartrate 5 MG QHS PRN 10/24 144 AC PO Dose Instructions: (1)Oxycodone/Acetaminophen: 1 - 2 TABLETS (2)Lidocaine HCl: 1.5 MG/KG Allergies Coded Allergies: Codeine (Severe, Rash, severe anxiety and hyperactivity 10/24/16) Physical Exam Vital Signs / I&Os Vital Signs Date Time Temp Pulse Resp B/P Pulse O2 O2 Flow FiO2 Ox Delivery Rate 10/24 0705 98.4 10/24 0703 73 15 129/88 97 Nasal 2.0 Cannula 10/24 0357 62 10/24 0311 98.6 66 17 156/84 99 Nasal 2.0 Cannula 10/24 0303 Nasal 1.0 Cannula General Appearance Alert, Oriented X3, Cooperative, No acute distress Lungs Scattered rhonchi. No wheezes noted Cardiovascular Regular rate and rhythm, Normal S1 and S2 Abdomen Normal bowel sounds, Soft, No tenderness Extremities No cyanosis, No clubbing Neurological Grossly normal Psych/Mental Status Mental status normal, Mood normal LAB Results Laboratory Tests 10/24 10/24 10/24 10/23 10/23 0524 0315 UNK 2200 2200 Chemistry Plasma Sodium (136 - 145 mmol/L) 140 140 Plasma Potassium (3.5 - 5.1 mmol/L) 3.7 2.7 Plasma Chloride (98 - 107 mmol/L) 102 102 CO2 (Enzymatic) (21 - 32 mmol/L) 31 29 BUN (7 - 18 mg/dL) 22 26 Creatinine (0.6 - 1.3 mg/dL) 1.3 1.2 Est GFR ( Amer) (mL/min) 52.16 57.21 Est GFR (Non-Af Amer) (mL/min) 43.04 47.20 Glucose (70 - 110 mg/dL) 111 115 Plasma Calcium (8.5 - 10.1 mg/dL) 8.7 9.0 Plasma Magnesium (1.8 - 2.4 mg/dL) Cancelled 1.8 Total Bilirubin (0.0 - 1.0 mg/dL) 0.4 AST (15 - 37 U/L) 16 ALT (12 - 78 U/L) 22 Alkaline Phosphatase (46 - 116 U/L) 89 Creatine Kinase (24 - 260 U/L) 40 Troponin (0.00 - 1.5 ng/mL) <0.05 0.10 B-Natriuretic Peptide (5 - 100 pg/ml) 524 Total Protein (6.4 - 8.2 g/dL) 8.7 Albumin (3.3 - 5.0 g/dL) 2.8 Amylase (25 - 115 U/L) 50 Lipase (73 - 393 U/L) 115 Coagulation INR (0.8 - 1.2) 1.1 APTT (24 - 34 SECONDS) 26 Hematology WBC (4.5 - 11.5 K/uL) 7.5 RBC (4.00 - 5.20 M/uL) 3.39 Hgb (12.0 - 16.0 gm/dL) 10.6 Hct (36.0 - 46.0 %) 32.7 MCV (80 - 100 fL) 97 MCH (26 - 34 pg) 31 RDW (11.6 - 14.8 %) 19.9 Neut % (Auto) (50 - 75 %) 58.7 Lymph % (Auto) (25 - 40 %) 35.6 Leake % (Auto) (3 - 14 %) 4.4 Eos % (Auto) (0 - 4 %) 0.8 Baso % (Auto) (0 - 2 %) 0.5 Plt Count, EDTA (150 - 400 K/uL) 367 PUBS MCHC (31 - 37 g/dL) 32 ESR Westergren (0 - 30 mm/hr) 45 Microbiology Date/Time Procedure - Status Source Growth 10/24 0400 MRSA Screen - RECD NASAL Assessment and Plan Problem List 1. Chest pain Plan -Patient presents with history of chest pain. -Associated multiple rib fractures/vertebral fractures -X-rays abnormal with mottled bone appearance-questionable myeloma -Lexiscan stress test results pending but doubt cardiac origin -Pain control with narcotic analgesics/anti-inflammatories 2. Ribs, multiple fractures Plan -See above -Attempt adequate pain control with oral medications -Plan discharge in a.m. if stable with adequate pain control on outpatient medical regimen 3. Hypertension Plan -Mild. -Adequate control -Monitor -Continue outpatient medical regimen 4. Abnormal serum total protein level Status Chronic Onset Date Unknown Plan -Patient with elevated total serum protein -Check serum protein electrophoresis, serum free light chain assay -Outpatient follow-up with hematology/oncology 5. Anemia Plan -Patient with mild anemia, chronic -Patient with findings suggestive of myeloproliferative disorder-multiple myeloma -Check serum protein electrophoresis, serum free light chain assay, skeletal survey -Hematology oncology referral post discharge Current status: Fair, unstable Anticipated discharge date: Anticipated discharge in a.m. Anticipated discharge placement: Home Patient care time: Time spent in chart review, patient interview, physical exam, CPOE, and care documentation: 25 minutes Visit to patient today: 2 Complexity of care: Moderate E&M Codes Rounding: Inpt-Moderate/22110
--- NOTE | 2016-10-24 17:42 | DIAGNOSTIC IMAGING REPORT ---
REFERRING PHYSICIAN/PROVIDER: Dr. Guardado ATTENDING PHYSICIAN/PROVIDER: Dr. Guardado CONSULTING MANIPULATIVE THERAPY SPECIALIST: Krystal Quach MD PROCEDURE PERFORMED: Pharmacologic stress test with myocardial perfusion imaging and quantitative gated SPECT to evaluate wall motion and left ventricular systolic function. INDICATION: CP RADIOPHARMACEUTICAL: Rest dose: 11 mCi of technetium 99 sestamibi Stress dose 33 mCi of technetium 99 sestamibi PROCEDURAL DETAILS: Following informed consent Lexiscan was infused per protocol. The patient had normal hemodynamic response. There were no significant ST-segment changes. There were occasional premature atrial beats during the stress test. ECG DATA: Normal sinus rhythm with frequent PC's in the pattern of bigeminy, poor R-wave progression precordial leads RAW DATA: Normal myocardial tracer uptake. Lung heart ratio is grossly normal. T.i.d. is 1.25 ( upper limit of normal) QUANTITATIVE GATED SPECT: At peak stress ejection fraction is 54%. There is dyssynchrony and distal inferior hypokinesis. This could be due to challenges in a study with frequent PACs MYOCARDIAL PERFUSION STUDY: Iterative reconstruction images show no evidence of ischemia or prior infarct IMPRESSION: 1. Low risk pharmacologic stress test with myocardial perfusion imaging. 2. There is no evidence of ischemia or prior infarct. 3. Ejection fraction is 54% at peak stress with evidence of the synchrony and distal inferior hypokinesis. These findings could be spurious due to frequent PAC's and technical difficulties gating this study. There is no prior study available for comparison.
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
[2016-10-25] VITALS (7 sets, daily range): BP systolic 140–184; BP diastolic 58–137
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
[2016-10-26] VITALS (7 sets, daily range): BP systolic 150–185; BP diastolic 63–89
--- NOTE | 2016-10-26 13:03 | DIAGNOSTIC IMAGING REPORT ---
PROCEDURE: XR HIP 2VW W W/O AP PELVIS-RT INDICATION: hip pain TECHNIQUE: AP view of the pelvis and hips with lateral view of the right hip. COMPARISON: Skeletal survey 10/24/2016 FINDINGS: Innumerable small RadioLucent lesions of the pelvis, bilateral femurs, Right HIP: Fracture right inferior pubic ramus. Incomplete fracture of the right superior pubic ramus. PELVIS: Fracture right inferior pubic ramus. Incomplete fracture of the right superior pubic ramus. IMPRESSION: 1. Fractured right inferior pubic ramus, nondisplaced. Incomplete fracture of the right superior pubic ramus.
--- NOTE | 2016-10-26 17:52 | Progress Note ---
Subjective General Patient had no acute events overnight. Her pain was better controlled than it was the day prior. Patient still has persistent right groin and leg pain. Patients pain was mostly present upon walking. Patient had an xray done which showed the presence of an non displace superior pubic ramus fracture. Patient and patient family were explained what the situation was, and they are understanding. Patient is aware that she wont be pain free immediately but she will over time and with treatment. Constitutional Denies: Fever, Chills, Sweats, Weakness, Malaise, Other. Eyes Denies: Pain, Vision Change, Conjunctival Inflammation, Eyelid Inflammation, Redness, Other. ENT Denies: Ear Pain, Ear Discharge, Nose Pain, Nasal Discharge, Nasal Congestion, Mouth Pain, Mouth Swelling, Throat Pain, Throat Swelling, Other. Respiratory Denies: Cough, Dry, SOB w/exertion, Wheezing, Hemoptysis, Pleuritic Pain, Sputum , Other. Cardiovascular Denies: Chest Pain, Palpitations, Orthopnea, PND, Edema, Light-headedness, Other. Gastrointestinal Denies: Nausea, Vomiting, Abdominal Pain, Diarrhea, Constipation, Melena, Hematochezia, Other. Genitourinary Denies: Dysuria, Frequency, Incontinence, Hematuria, Retention, Other. Musculoskeletal Back Pain, Leg Pain. Denies: Neck Pain, Shoulder Pain, Arm Pain, Hand Pain, Foot Pain, Other. Skin Denies: Rash, Lesions, Jaundice, Bruising, Other. Neurological Denies: Weakness, Numbness, Incoordination, Change in speech, Confusion, Seizures, Other. Physical Exam Vital Signs / I&Os Vital Signs Date Time Temp Pulse Resp B/P Pulse O2 O2 Flow FiO2 Ox Delivery Rate 10/26 1431 97.9 69 20 152/76 96 10/26 1021 97.9 65 20 157/76 98 Room Air 0.0 10/26 0849 Room Air 10/26 0623 98.2 75 155/89 97 Room Air 10/26 0335 99.0 75 18 185/63 96 Room Air 10/25 2206 98.2 71 18 165/77 98 Room Air 0.0 10/25 2138 Room Air 10/25 1852 98.4 64 18 149/75 97 Room Air 0.0 I&O 10/25 0800 10/25 1600 10/26 0000 Intake Total 200 1080 450 Output Total 005 849 1332 Balance -250 805 -750 General Appearance Alert, Oriented X3, No acute distress HEENT Normal exam, PERRLA, EOMI, Moist mucous membranes Lungs Clear to auscultation, Normal air movement Neck No JVD, No thyromegaly, No lymphadenopathy, 2+ carotid pulse wo bruit Cardiovascular Regular rate and rhythm, Normal S1 and S2, No murmurs, gallops, rubs Abdomen Normal bowel sounds, Soft, No masses Extremities pain on ambulating in the groin of the right leg Skin No Rashes, No Breakdown Neurological Normal exam, Normal gait, Normal speech, Reflexes 2+ and equal, Cranial nerves intact Assessment and Plan Problem List 1. Abnormal serum total protein level Status Chronic Onset Date Unknown Plan - pt has evidence of lytic lesions and elevated blood protein levels - pt is undergoing work up for multiple myeloma - referral for out patient hematology obtained - will control pain as much as possible, 2. Thoracic vertebral fracture Plan - pain control 3. Ribs, multiple fractures 4. Closed fracture of single pubic ramus of pelvis Plan - pt has been having difficulty ambulating even before admission - pt was having difficulty walking despite having adequate pain control everywhere else - pt had an xray which showed the presence of super ramus fracture - pt was discussed with orthopedics who recommended limited weight bearing, limite use and pain control - it was discussed with patient who understands what to expect
[2016-10-27 02:54] VITALS: BP 145/68
[2016-10-27 06:44] VITALS: BP 140/81
[2016-10-27 11:14] VITALS: BP 170/70
[2016-10-27] MEDS ORDERED: BACLOFEN10 MG PO (13:16)
[2016-10-27] MEDS ORDERED: CELEBREX200 MG PO (13:17)
[2016-10-27] MEDS ORDERED: VITAMIN B12500 MCG PO (13:18)
[2016-10-27] MEDS ORDERED: FAMOTIDINE20 MG PO (13:18)
[2016-10-27] MEDS ORDERED: PERCOCET EQUIVALENT PO (13:19)
[2016-10-27] MEDS ORDERED: ENTERIC COATED325 M1 PO (13:20)
--- NOTE | 2016-10-27 13:24 | Provider's Discharge Care Plan ---
Problem, Goal, Plan Problem List 1. Ribs, multiple fractures Goals: Improved health/wellness Instructions: Follow up as directed, Increase activity level, Take meds as directed 2. Closed fracture of single pubic ramus of pelvis Goals: Improved health/wellness Instructions: Follow up as directed, Increase activity level, Take meds as directed 3. Thoracic vertebral fracture Goals: Improved health/wellness Instructions: Follow up as directed, Increase activity level, Take meds as directed 4. B12 deficiency Goals: Improved health/wellness Instructions: Take meds as directed 5. Multiple myeloma Goals: Diagnostic testing Instructions: Follow up as directed
[2016-10-27] MEDS ORDERED: PERCOCET1 TA1 PO (16:33)
[2016-10-27 18:33] VITALS: BP 163/73
[2016-10-27 23:01] VITALS: BP 181/78
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
[2016-10-28 01:12] VITALS: BP 170/83
[2016-10-28 06:53] VITALS: BP 179/67
[2016-10-28] MEDS ORDERED: LISINOPRIL10 MG PO (07:56)
[2016-10-28 10:43] VITALS: BP 166/66
--- NOTE | 2016-10-28 11:02 | Progress Note ---
Subjective General Patient with altered mental status last night, then had sudden onset of severe uncontrolled pain. Physical Exam Lungs Clear to auscultation, Normal air movement Cardiovascular Regular rate and rhythm, Normal S1 and S2, 2/6 systolic murmur increased at the base. Abdomen Normal bowel sounds, Soft Extremities No edema Neurological somnolence. CN2-12 intact bilaterally. Equal strength in all 4 extremities. Assessment and Plan Problem List 1. Somnolence Plan New onset last night. May be 2/2 large amt of pain meds given last night due sudden onset of severe pain. Will do labs today to rule out other etiologies. 2. Multiple myeloma Plan New diagnosis. Has appt with oncology later this week for further evalution. 3. B12 deficiency Plan replacing. 4. Closed fracture of single pubic ramus of pelvis Plan Pain usually controlled, however, very sudden onset of severe pain occured leading to admit and recurred last night. 5. Ribs, multiple fractures Plan Working on pain control. 6. Thoracic vertebral fracture Plan Working on pain control. 7. Hypertension Plan Increase lisinopril today.
[2016-10-28 14:32] VITALS: BP 182/85
[2016-10-28 18:44] VITALS: BP 157/72
[2016-10-28 22:20] VITALS: BP 155/62
[2016-10-29 02:10] VITALS: BP 181/90
[2016-10-29 03:50] VITALS: BP 173/71
[2016-10-29 06:41] VITALS: BP 157/74
--- NOTE | 2016-10-29 07:52 | Progress Note ---
Subjective General Note Date: October 29, 2016 Admission Date: October 24, 2016 Hospital Day: 6 PCP: Jose RHODES Status: Inpatient Advanced Directive: NO CODE Room: 303 Brief History: The patient is a 71-year-old white female with a significant past medical history of COPD, renal insufficiency, hypertension, COPD, who presented to [facility] emergency department on the day of admission secondary to complaints of chest pain. Evaluation at that time was consistent with chest pain rule out ACS versus chest wall pain. Secondary to the above, Sarina Mukherjee M.D. admitted the patient for further evaluation and treatment. For other history present illness, past medical history, family history, social history, review of systems, and admission physical examination please see the patient's history and physical examination and ER visit note in the patient's medical record. Subjective: The patient states her pain is actually controlled. Ready for discharge at this time. No specific complaints or requests Patient requests: None Medications and Allergies Medications Current Medications Sig/Julia Start time Last Medication Dose Route Stop Time Status Admin Dextrose/Sodium 1,000 ML ASDIRECTED 10/28 1200 AC 10/29 Chloride/Electrolyt IV 0249 Lisinopril 10 MG DAILY 10/28 0900 AC 10/28 PO 1133 Morphine Sulfate 7.5 MG Q4H PRN 10/25 1900 AC 10/28 PO 1404 Celecoxib 200 MG BID 10/24 1930 AC 10/28 PO 202 Oxycodone/ See Dose Q4H PRN 10/24 191 AC 10/29 Acetaminophen Insts (1) PO 0310 Aspirin 325 MG DAILY 10/24 0900 AC 10/28 PO 1133 Cyanocobalamin 500 MCG QAM 10/24 0900 AC 10/28 PO 1133 Famotidine 20 MG QHS 10/24 0400 AC 10/28 PO 2028 Al Hydrox/Mg Hydrox/ 15 ML Q1H PRN 10/24 0145 AC Simethicone PO Atropine Sulfate 0.5 MG Q3MIN PRN 10/24 0145 AC IV Magnesium Hydroxide 10 ML DAILY PRN 10/24 0145 AC 10/27 PO 1837 Nitroglycerin 0.4 MG Q5M PRN 10/24 0145 AC SL Ondansetron HCl 4 MG Q6H PRN 10/24 0145 AC PO Ondansetron HCl 4 MG Q6H PRN 10/24 0145 AC IV Zolpidem Tartrate 5 MG QHS PRN 10/24 0145 AC PO Dose Instructions: (1)Oxycodone/Acetaminophen: 1 - 2 TABLETS Allergies Coded Allergies: Codeine (Severe, Rash, severe anxiety and hyperactivity 10/24/16) Physical Exam Vital Signs / I&Os Vital Signs Date Time Temp Pulse Resp B/P Pulse O2 O2 Flow FiO2 Ox Delivery Rate 10/29 0641 97.9 71 20 157/74 96 Room Air 10/29 0350 173/71 10/29 0210 97.9 78 16 181/90 99 Room Air 0.0 10/28 2220 98.4 67 16 155/62 100 Room Air 0.0 10/28 1844 98.6 56 18 157/72 92 Room Air 10/28 1432 98.2 54 26 182/85 94 Room Air 10/28 1047 Room Air 10/28 1043 98.6 66 17 166/66 95 10/28 0800 Room Air I&O 10/29 0000 10/28 1600 10/28 0800 Intake Total 491 150 Output Total 500 1300 Balance -9 150 -1300 General Appearance Alert, Oriented X3, Cooperative, No acute distress Lungs Clear to auscultation Cardiovascular Regular rate and rhythm, Normal S1 and S2 Abdomen Normal bowel sounds, Soft, No tenderness Psych/Mental Status Mental status normal, Mood normal LAB Results Laboratory Tests 10/28 10/28 1850 1104 Chemistry Ammonia (11 - 32 umol/L) 20 Urines Urine Color YELLOW Urine Appearance SL CLOUDY Urine pH (5.0 - 8.0) 7.5 Ur Specific Vowinckel (1.010 - 1.030) 1.020 Urine Protein (NEGATIVE) 1+ Urine Ketones (NEGATIVE) NEGATIVE Urine Blood (NEGATIVE) NEGATIVE Urine Nitrite (NEGATIVE) NEGATIVE Urine Bilirubin (NEGATIVE) NEGATIVE Urine Urobilinogen (0.2 - 1.0 EU/dL) 0.2 Ur Leukocyte Esterase (NEGATIVE) TRACE Urine RBC (0 - 1 rbc/hpf) NONE SEEN Urine WBC (0 - 1 wbc/hpf) 3-5 Ur Epithelial Cells (0 - 5 EPI/hpf) 3-5 Urine Bacteria (NONE SEEN) FEW (1+) Urine Glucose (NEGATIVE) NEGATIVE Urine Comment CULTURE INDICATED 10/28 1104 Chemistry Plasma Sodium (136 - 145 mmol/L) 142 Plasma Potassium (3.5 - 5.1 mmol/L) 4.0 Plasma Chloride (98 - 107 mmol/L) 105 CO2 (Enzymatic) (21 - 32 mmol/L) 30 BUN (7 - 18 mg/dL) 21 Creatinine (0.6 - 1.3 mg/dL) 1.2 Est GFR ( Amer) (mL/min) 57.21 Est GFR (Non-Af Amer) (mL/min) 47.20 Glucose (70 - 110 mg/dL) 109 Plasma Calcium (8.5 - 10.1 mg/dL) 9.1 Plasma Magnesium (1.8 - 2.4 mg/dL) 2.1 Total Bilirubin (0.0 - 1.0 mg/dL) 0.4 AST (15 - 37 U/L) 15 ALT (12 - 78 U/L) 22 Alkaline Phosphatase (46 - 116 U/L) 108 Total Protein (6.4 - 8.2 g/dL) 8.5 Albumin (3.3 - 5.0 g/dL) 2.7 Hematology WBC (4.5 - 11.5 K/uL) 7.7 RBC (4.00 - 5.20 M/uL) 3.25 Hgb (12.0 - 16.0 gm/dL) 10.3 Hct (36.0 - 46.0 %) 31.2 MCV (80 - 100 fL) 96 MCH (26 - 34 pg) 32 RDW (11.6 - 14.8 %) 20.2 Neut % (Auto) (50 - 75 %) 55.2 Lymph % (Auto) (25 - 40 %) 39.1 Tyler % (Auto) (3 - 14 %) 4.6 Eos % (Auto) (0 - 4 %) 0.3 Baso % (Auto) (0 - 2 %) 0.8 Plt Count, EDTA (150 - 400 K/uL) 352 RBC Morphology (2072 A) 2+ ANISOCYTOSIS PUBS MCHC (31 - 37 g/dL) 33 Microbiology Date/Time Procedure - Status Source Growth 10/28 1850 Urine Culture - RECD URINE CC Assessment and Plan Problem List 1. Abnormal serum total protein level Status Chronic Onset Date Unknown Plan -probable multiple myeloma -See discharge instructions/summary 2. Chest pain Plan -resolved -Probable chest wall pain. --See discharge instructions/summary 3. UTI (urinary tract infection) Onset Date 01/12/17 Plan -patient with abnormal urinalysis -Await urine C&S --Outpatient follow-up with PCP 4. Anemia Plan -mild -Stable -Outpatient follow-up PCP/oncology 5. Hypertension Plan -stable -Continue present therapy -Low salt diet -See discharge instructions/summary 6. Ribs, multiple fractures Plan -stable -Outpatient follow-up 7. Thoracic vertebral fracture Plan -pain adequately controlled -Follow up PCP/oncology Current status: Fair, stable Anticipated discharge date: Today Anticipated discharge placement: SNF Greater than 30 minutes in discharge preparation Visit to patient today: 1 Complexity of care: Moderate E&M Codes Rounding: Inpt-High/[id number] Discharge: Inpt >30 min spent/[id number]
[2016-10-29 10:41] VITALS: BP 155/94
[2016-10-29 14:48] VITALS: BP 170/76
--- NOTE | 2016-10-29 16:27 | Discharge Summary ---
Discharge Summary Report Admit Date 10/24/16 Discharge Date 10/29/16 Admission Diagnosis 1. Chest pain-rule out ACS 2. Rib fractures 3. Hypertension 4. Hyperproteinemia 5. Anemia Discharge Diagnosis 1. Chest pain-ACS ruled out 2. Rib fractures 3. Hypertension 4. Hyperproteinemia-probable multiple myeloma 5. Anemia 6. Abnormal urinalysis Brief History The patient is a 71-year-old white female with a significant past medical history of COPD, renal insufficiency, hypertension, COPD, who presented to [facility] emergency department on the day of admission secondary to complaints of chest pain. Evaluation at that time was consistent with chest pain rule out ACS versus chest wall pain. Secondary to the above, Sarina Mukherjee M.D. admitted the patient for further evaluation and treatment. For other history present illness, past medical history, family history, social history, review of systems, and admission physical examination please see the patient's history and physical examination and ER visit note in the patient's medical record. Hospital Course The following problems and their management were noted during the patient's hospitalization: 1. Chest pain-ACS ruled out The patient presented with findings of chest pain rule out ACS. Cardiac enzymes /EKG were inconsistent with myocardial ischemia/infarction. Lexiscan-Cardiolite stress test was inconsistent with myocardial ischemia. The patient's chest pain was felt secondary to muscular skeletal pain. 2. Rib fractures The patient had rib/thoracic fractures. These were felt secondary to probable multiple myeloma with associated fractures. patient had significant pain issues which were adequately addressed prior to discharge. Outpatient follow-up with PCP. 3. Hypertension Adequately controlled. Low-salt diet see discharge instructions 4. Hyperproteinemia-probable multiple myeloma The patient had findings of hyperproteinemia. Serological evaluation/x-rays were most consistent with multiple myeloma. The patient was discharged to follow up with oncology/PCP post discharge for further evaluation. 5. Anemia The patient exhibited findings of anemia associated with above diagnosis of multiple myeloma. Outpatient follow-up with PCP/oncology. Status stable on discharge. H&H-10.2/31.2 on discharge 6. Abnormal urinalysis Patient noted to have findings of abnormal urinalysis. Check urine C&S. Outpatient follow-up with PCP. General Appearance Alert, Oriented X3, Cooperative, No acute distress Lungs Clear to auscultation Cardiovascular Regular Rate, Normal S1, Normal S2 Abdomen Normal bowel sounds, Soft, No tenderness Psych/Mental Status Mental status NL, Mood NL Discharge Instructions/Meds For other recommendations regarding discharge diet, activity, follow-up, and discharge medications please see the patient's discharge instructions. Discharge condition: Fair, improved-stable Greater than 30 minutes was spent in the patient's discharge preparation The patient was interviewed and examined on the day of discharge. E&M Codes Discharge: Inpt >30 min spent/[id number]
== END 2016-10-29 19:00 | DRG 543 ==
LOC: ED SRH 20:09 → CC SRH 10-24 00:34 → TRANS SRH 10-24 00:34 → CC SRH 10-24 02:56
PROVIDERS: ADMIT Family Medicine
PROC: 3E073KZ Introduction of Other Diagnostic Substance into Coronary Artery, Percutaneous Approach (ICD-10-PCS; principal; 2016-10-24)
PROC: 4A02XM4 Measurement of Cardiac Total Activity, External Approach (ICD-10-PCS; principal; 2016-10-24)
DX: M84.58XA Pathological fracture in neoplastic disease, other specified site, initial encounter for fracture (principal); C90.00 Multiple myeloma not having achieved remission; R07.89 Other chest pain; M84.550A Pathological fracture in neoplastic disease, pelvis, initial encounter for fracture; D63.0 Anemia in neoplastic disease; E87.6 Hypokalemia; J44.9 Chronic obstructive pulmonary disease, unspecified

== ENCOUNTER 2016-12-07 15:35 | Inpatient (IN) | payer OTHER ==
[~2016-12-07] VITALS: Ht 157.5 cm; Wt 57.1 kg
[~2016-12-07 15:35] MED LIST changes: +BACLOFEN10 MG PO; +CELEBREX200 MG PO; +ENTERIC COATED325 M1 PO; +FAMOTIDINE20 MG PO; +LISINOPRIL10 MG PO; +PERCOCET EQUIVALENT PO; +PERCOCET1 TA1 PO; +VICODIN EQUIVAL1 TAB PO; +VITAMIN B12500 MCG PO
--- NOTE | 2016-12-07 18:14 | DIAGNOSTIC IMAGING REPORT ---
PROCEDURE: XR CHEST 1 VIEW INDICATION: SHORTNESS OF BREATH TECHNIQUE: Portable AP view 05:00 p.m. COMPARISON: Chest 10/23/2016 and 10/11/2016 FINDINGS: Allowing for suboptimal inspiration, there is mild bibasilar subsegmental atelectasis. Lungs are otherwise clear. No evidence of pneumothorax. Mild cardiomegaly. Mediastinum is normal. There are multiple subacute bilateral rib fractures (acute and/or old). The rest the osseous structures demonstrate modeled appearance. IMPRESSION: 1. Mild bibasilar subsegmental atelectasis (findings accentuated due to suboptimal inspiration). 2. Mottled appearance of the osseous structures suggest myelodysplastic disorder (e.g., myeloma, leukemia). 3. Mild cardiomegaly.
--- NOTE | 2016-12-07 18:33 | DIAGNOSTIC IMAGING REPORT ---
PROCEDURE: XR ABDOMEN 1 VIEW INDICATION: ABDOMINAL PAIN TECHNIQUE: AP supine and upright views. COMPARISON: Pelvis films 10/26/2016 FINDINGS: Bowel pattern is normal. Fractures of the right superior and inferior pubic rami. Innumerable small radiolucent lesions of the pelvis and femurs. IMPRESSION: 1. Normal bowel gas pattern. 2. Fracture the right superior and inferior pubic rami.
[2016-12-07 18:53] VITALS: BP 95/66
--- NOTE | 2016-12-07 19:11 | ED NURSING NOTES ---
Clinical Report - Nurses [place] [address] [place] [address] 12/07/2016 15:36 Patient: MICKI LARRY TRIAGE Triage time 15:40 Dec 07 2016. Acuity: LEVEL 3. Chief Complaint: SHORTNESS OF BREATH and DIFFICULTY BREATHING and (uncontrolled pain). LUCY COMA SCORE: Lucy Coma Scale: 15- eyes open spontaneously (4); best verbal response- oriented x 4 (5); best motor response- obeys commands (6). --17:09 Ephraim Wheatley R.N. 15:40 12/07/16. BP: 120/73. HR: 94. RR: 20. O2 saturation: 95%. Temp: 98.9 F. Pain level now 8/10. --17:09 Ephraim Wheatley R.N. Weight: 61.2 kg stated. Height/Length: 63 inches Per Patient. BMI: 23.9. --17:06 Ephraim Wheatley R.N. Medications Metoprolol Tartrate Oral 25 mg 1/2 tab, 3 x daily as needed. Vicodin Oral 5 mg, 3x a day as needed. --15:41 Ephraim Wheatley R.N. Acetaminophen Oral 650 mg, PRN. --16:33 Ephraim Wheatley R.N. Aspirin Oral (Tablet 325 mg) 1 tablet. --16:33 Ephraim Wheatley R.N. Baclofen Oral 10 mg, 3x a day. --16:33 Ephraim Wheatley R.N. Dexamethasone Oral 4 mg, daily. --16:34 Ephraim Wheatley R.N. DiphenhydrAMINE HCl Oral (Capsule 25 mg) 1 capsule, daily. --16:36 Ephraim Wheatley R.N. Famotidine Oral (Tablet 20 mg), at bedtime. --16:38 Ephraim Wheatley R.N. GlycoLax Oral. --16:39 Ephraim Wheatley R.N. Lisinopril Oral (Tablet 10 mg) 1 tablet, daily. --16:39 Ephraim Wheatley R.N. LORazepam Oral (Tablet 1 mg) 1 tablet, daily. --16:40 Ephraim Wheatley R.N. Meloxicam Oral (Tablet 7.5 mg) 1 tablet. --16:41 Ephraim Wheatley R.N. OxyCODONE HCl Oral 10 mg, as needed. --16:42 Ephraim Wheatley R.N. OxyCONTIN Oral 40 mg, daily. --16:42 Ephraim Wheatley R.N. Revlimid Oral (Capsule 25 mg) 1 capsule. --16:44 Ephraim Wheatley R.N. Senna Oral. --16:45 Ephraim Wheatley R.N. Allergies No Known Drug Allergy. --15:41 Ephraim Wheatley R.N. History Arrived by EMS. Historian: patient. Onset. (Saturday). ( C/O cough SOB and increased pain. At a rehab facility and has been having Chemo one week ago and has rash over body.). She has had a cough and chest pain. PAST MEDICAL HX: Congestive heart failure. Immunizations: up-to-date. SOCIAL HX: No alcohol use or drug use. FALL RISK ASSESSMENT: Fall risk assessment completed. No fall risk identified. NUTRITIONAL RISK ASSESSMENT: The nutritional risk assessment revealed no deficiencies. FUNCTIONAL ASSESSMENT: Functional assessment: no impairments noted. LEARNING NEEDS ASSESSMENT: The learning needs assessment revealed no barriers. ABUSE ASSESSMENT: Abuse assessment: (her personal home not the rehab) The patient was asked "Do you feel safe in your home?". SKIN INTEGRITY ASSESSMENT: Skin integrity risk assessment completed. No skin integrity risk identified. --17:09 Ephraim Wheatley R.N. SOCIAL HX: Smoker- current status unknown. No alcohol use or drug use. SELF HARM ASSESSMENT: A self harm assessment was performed. The patient answered "no" to the question "Have you recently felt down, depressed, or hopeless?" and "Do you have thoughts of harming or killing yourself?". --17:09 Ephraim Wheatley R.N. PROBLEMS: Congestive Heart Failure. Hypokalemia. Abnormal Test. Back Pain. Hypertension. Gastroesophageal Reflux Disease. COPD - Chronic Obstructive Pulmonary Disease. --15:41 Ephraim Wheatley R.N. Myeloma . Anemia. Rib fractures. Fractured thoracic vertebra. --16:50 Ephraim Wheatley R.N. ADDITIONAL SURGERIES: no known surgeries. Interventions ID and allergy band on patient. --17:09 Ephraim Wheatley R.N. PHYSICAL ASSESSMENT To room via stretcher. GENERAL / NEURO / PSYCH: Alert. Oriented X 4. Appears in pain, anxious and in distress. RESPIRATORY: Moderate respiratory distress. The patient can speak in full sentences. Chest wall tenderness. Wheezing present. CVS: Normal sinus rhythm noted. Capillary refill less than 2 seconds. GI / : Abdominal distention. ( Diarrhea massive uncontrolled very odorous amount on admission). SKIN: Skin is warm and dry. Generalized skin rash. ( Skin breakdown on buttocks rash on nipples and general body rash.). --17:11 Ephraim Wheatley R.N. NURSING PROGRESS NOTES The initial plan of care for this patient includes an assessment with efforts to address patient positioning, appropriate ambient lighting and comfortable environmental temperature; impairment of the respiratory and gastrointestinal system. Oxygen administered at 2 liters. hospital monitor, pulse oximeter and NIBP monitor placed on patient. Patient gowned. Head of bed elevated 90 degrees. Reassurance given. Call light placed in reach. Side rails up x 1. Bed placed in lowest position. Brakes of bed on. --17:12 Ephraim Wheatley R.N. 16:48 12/07/2016 Site #1 started via IV in the left wrist with an 20g angiocath, with aseptic technique and good blood return; one attempt. Saline lock flushed with 10 mL saline. --17:13 Ephraim Wheatley R.N. 16:48 12/07/2016 Started IV Fluids IV NS (Saline); at 250 mL/hr over 1 hour(s) via site #1 via IV pump. Allergies verified and confirmed 5 rights. IV patency established. IV site checked: no pain, redness, or swelling. IV flushed thoroughly pre- and post-medication administration. --17:13 Ephraim Wheatley R.N. 17:13 12/07/2016 Zofran (Ondansetron HCl) IVP 4 mg given over 2 minute(s) via site #1. Allergies verified and confirmed 5 rights. IV patency established. IV site checked: no pain, redness, or swelling. IV flushed thoroughly pre- and post-medication administration. --17:13 Ephraim Wheatley R.N. 17:49 12/07/2016 Site #1 removed. Catheter intact. Bandage applied. --17:59 Belkis Zhang R.N. 17:49 12/07/2016 Site #2 started via IV in the right forearm with an 20g angiocath, with aseptic technique and good blood return; one attempt. --18:00 Belkis Zhang R.N. 18:53 12/07/16. BP: 95/66. HR: 77. RR: 18. O2 saturation: 97% on nasal cannula at 2 liters/minute. 17:30 12/07/16. BP: 97/68. HR: 75. RR: 12. O2 saturation: 97% on nasal cannula at 2 liters/minute. 16:25 12/07/16. BP: 108/49. HR: 80. RR: 20. O2 saturation: 97% on nasal cannula at 2 liters/minute. --18:54 Ephraim Wheatley R.N. The patient is calm and resting quietly. Two patient identifiers checked. Call light placed in reach. Side rails up x 2. Bed placed in lowest position. Brakes of bed on. Care transferred and report received. --19:26 Cecy Mello 19:42 Patient given female H&P form. --19:43 McQuoid, Christine, ER Tech1 19:51 12/07/2016 Toradol IVP 15 mg given over 1 minute(s) via site #2. Allergies verified and confirmed 5 rights. IV patency established. IV site checked: no pain, redness, or swelling. IV flushed thoroughly pre- and post-medication administration. IVP given by RN. --19:56 Ronda Arauz 21:18 12/07/2016 IV Fluids IV NS Discontinued: infused upon admission. Total amount infused: 800 mL. --21:18 Cecy Mello 20:03 12/07/16. BP: 103/55. HR: 71. RR: 16. O2 saturation: 96%. Pain level now: 5. --21:19 Cecy Mello DISPOSITION / DISCHARGE Condition at departure: stable. No learning barriers present. Written instructions provided in [place]. Admitted to the Critical Care Unit. Report was given to a nurse via a phone call. Report included patient's care, treatment, medications, reviewed medication reconcilliation, and condition (including any recent changes or anticipated changes). All questions were answered. Report was acknowledged and care was transferred. Bed obtained and ready. --20:49 Cecy Mello Departure time: 20:49. --20:50 Cecy Mello 21:17 12/07/16. BP: deferred. HR: 74. RR: 18. O2 saturation: 97%. Temp: deferred. Pain level now 010. --21:17 Cecy Mello Locked/Released at 12/07/2016 21:19 by Cecy Mello
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
--- NOTE | 2016-12-07 19:11 | ED ORDER SUMMARY ---
..... Patient: MICKI LARRY [facility] VisitID: [id number] [place] [address] 71y, F Registration Date/Time: 12/07/2016 ORDER SHEET Weight: 61.2 kg (stated) Allergies: No Known Drug Allergy GENERAL ORDERS: Blood Culture (No) (N/A) Urgent (16:12/07/2016 Mohit LOWE) (Ack 16:32 Russel) (17:12 LWhalen R.N.) Chest 1V Urgent (16:12/07/2016 Mohit LOWE) (Ack 16:32 Russel) (17:12 LWhalen R.N.) Business Case Analyst (Continuous) (16:12/07/2016 Mohit LOWE) (17:12 LWhalen R.N.) Cardiac Panel Stat (16:12/07/2016 Mohit LOWE) (Ack 16:32 Russel) (17:12 LWhalen R.N.) UA-Culture if indicated Urgent (16:12/07/2016 Mohit LOWE) (Ack 16:32 Russel) (17:13 LWhalen R.N.) BNP Urgent (16:12/07/2016 Mohit LOWE) (Ack 16:32 Russel) (17:12 LWhalen R.N.) Oxygen (2 L/min) (NC) (16:12/07/2016 Mohit LOWE) (17:12 LWhalen R.N.) Pulse oximeter (16:12/07/2016 Mohit LOWE) (17:12 LWhalen R.N.) EKG - ER Stat (16:12/07/2016 Mohit LOWE) (Ack 16:32 Russel) (16:46 LTapper) Culture, Stool Urgent (16:12/07/2016 Mohit LOWE) (Ack 16:39 Russel) (17:13 LWhalen R.N.) Abdomen 1V Urgent (16:12/07/2016 Mohit LOWE) (Ack 16:39 RKaruga) (17:12 Ngoc R.N.) Stool for C. Difficile Urgent (19:25 12/07/2016 Mohit LOWE) (Ack 19:31 AMcQuoid ER Tech1) (19:32 AMcQuoid ER Tech1) MEDICATION ORDERS: IV FLUIDS: IV NS : initial bolus 250 mL (1000 mL/hr), then 150 mL/hr for 4h (NOW); Routine (16:26 12/07/2016 Mohit LOWE) (17:13 LWjorge R.N.) Zofran IV 4 mg (NOW) (16:27 12/07/2016 Mohit LOWE) (17:13 Ngoc R.N.) Toradol IV 15 mg (NOW) (19:40 12/07/2016 Mohit LOWE) (Ack 19:46 HSoule) (19:56 HSoule) ORDER SHEET NOTES: [Electronically signed by Christiano Del Cid MD (19:55 12/07/2016)] [Electronically signed by Magaly Smith R.N. (21:19 12/07/2016)] [Electronically signed by Magaly Smith R.N. (21:19 12/07/2016)] [Electronically locked/signed by Magaly Smith R.N. (21:19 12/07/2016)]
--- NOTE | 2016-12-07 19:11 | ED ORDER SUMMARY ---
..... Patient: MICKI LARRY OrderSheet [facility] VisitID: [id number] [place] [address] 71y, F Registration Date/Time: 12/07/2016 ORDER SHEET Weight: 61.2 kg (stated) Allergies: No Known Drug Allergy GENERAL ORDERS: Blood Culture (No) (N/A) Urgent (16:12/07/2016 Mohit LOWE) (Ack 16:32 Russel) (17:12 LWhalen R.N.) Chest 1V Urgent (16:12/07/2016 Mohit LOWE) (Ack 16:32 Russel) (17:12 LWhalen R.N.) Counselor Education Professor (Continuous) (16:12/07/2016 Mohit LOWE) (17:12 LWhalen R.N.) Cardiac Panel Stat (16:12/07/2016 Mohit LOWE) (Ack 16:32 Rusesl) (17:12 LWhalen R.N.) UA-Culture if indicated Urgent (16:12/07/2016 Mohit LOWE) (Ack 16:32 Russel) (17:13 LWhalen R.N.) BNP Urgent (16:12/07/2016 Mohit LOWE) (Ack 16:32 Russel) (17:12 LWhalen R.N.) Oxygen (2 L/min) (NC) (16:12/07/2016 Mohit LOWE) (17:12 LWhalen R.N.) Pulse oximeter (16:12/07/2016 Mohit LOWE) (17:12 LWhalen R.N.) EKG - ER Stat (16:12/07/2016 Mohit LOWE) (Ack 16:32 Russel) (16:46 LTapper) Culture, Stool Urgent (16:12/07/2016 Mohit LOWE) (Ack 16:39 Russel) (17:13 LWhalen R.N.) Abdomen 1V Urgent (16:12/07/2016 Mohit LOWE) (Ack 16:39 RKaruga) (17:12 Ngoc R.N.) Stool for C. Difficile Urgent (19:25 12/07/2016 Mohit LOWE) (Ack 19:31 AMcQuoid ER Tech1) (19:32 AMcQuoid ER Tech1) MEDICATION ORDERS: IV FLUIDS: IV NS : initial bolus 250 mL (1000 mL/hr), then 150 mL/hr for 4h (NOW); Routine (16:26 12/07/2016 Mohit LOWE) (17:13 LWjorge R.N.) Zofran IV 4 mg (NOW) (16:27 12/07/2016 Mohit LOWE) (17:13 Ngoc R.N.) Toradol IV 15 mg (NOW) (19:40 12/07/2016 Mohit LOWE) (Ack 19:46 HSoule) (19:56 HSoule) ORDER SHEET NOTES: [Electronically signed by Christiano Del Cid MD (19:55 12/07/2016)] [Electronically signed by Magaly Smith R.N. (21:19 12/07/2016)] [Electronically signed by Magaly Smith R.N. (21:19 12/07/2016)] [Electronically locked/signed by Magaly Smith R.N. (21:19 12/07/2016)]
--- NOTE | 2016-12-07 20:22 | Progress Note ---
Subjective General Admission History and Physical Examination Patient Name: Radha Perry Admission Date: December 07, 2016 Primary Care Provider: Leroy Pride M.D. Attending Physician: Pérez Guardado M.D. Admitting Physician: Pérez Guardado M.D. Code Status: FULL CODE Room: 304 SUBJECTIVE Historian: Patient, family, prior medical records Reliability: Fair Chief Complaint: Nausea, vomiting, diarrhea, weakness, shortness of breath History of Present Illness: The patient is a 71-year-old white female with a significant past medical history of for multiple myeloma, COPD, renal insufficiency, and hypertension, who presented to [facility] emergency department on the day of admission secondary to complaints of nausea, vomiting, diarrhea, shortness of breath, and generalized weakness. Evaluation at that time was consistent with UTI, dehydration, generalized weakness, anemia. Secondary to the above the patient was admitted by Pérez Guardado M.D. for further evaluation and treatment. The patient had experienced nausea, vomiting, diarrhea, weakness, and shortness of breath prior to admission. The patient's family was dissatisfied with her care at her retirement facility and discharged her bringing her to [facility] emergency department for further evaluation and treatment. The patient is unable to give any further history regarding her symptoms prior to presentation. No family members available at time of admission. PAST MEDICAL HISTORY Illnesses: 1. Multiple myeloma 2. COPD 3. Chronic kidney disease 4. Osteoporosis 5. Hypertension 6. Anemia Allergies: 1. Codeine Medications: 1. Lopressor 25 mg one half by mouth 3 times a day 2. Vicodin 5/325 1 by mouth 3 times a day when necessary pain 3. Acetaminophen 650 mg by mouth every 4 hours when necessary pain 4. Aspirin 325 mg by mouth daily 5. Baclofen 10 mg by mouth 3 times a day 6. Dexamethasone 4 mg by mouth daily 7. Benadryl 25 mg by mouth daily 8. Famotidine 20 mg by mouth daily at bedtime 9. MiraLAX 17 g in 8 ounces of water when necessary constipation 10. Lisinopril 10 mg by mouth daily 11. Lorazepam 1 mg by mouth daily 12. Meloxicam 7.5 mg by mouth daily 13. Oxycodone 10 mg by mouth every 6 hours when necessary pain 14. OxyContin 40 mg by mouth daily 15. Revlimid 25 mg by mouth daily 16. Senna dosage unknown Surgery: 1. Appendectomy 2. Colonoscopy 2017 3. Upper GI endoscopy 2017 Injuries: 1. No significant Hospitalizations: 1. For above surgery and medical problems FAMILY HISTORY Parents: 1. Father, , 50, alcoholism 2. Mother, , 50, uterine carcinoma Siblings: 1. The patient has 14 siblings, history of ovarian carcinoma, osteomyelitis Children: 1. The patient has 2 children, one male child age 31-myocardial infarction, one female child who is healthy Other significant family history: Unknown SOCIAL HISTORY 1. Marital Status: 2. Zoroastrian: Rastafari-Sikhism 3. Education: 11th grade, GED 4. Employment History: Retired 5. Occupational health exposures: None HABITS 1. Tobacco: 50 pack years, quit 2 months prior to admission 2. Drugs: None 3. Alcohol: Rare usage 4. Caffeine: Coffee 2-3 cups per day HEALTH SUPERVISION Item/Test 1. Not reviewed IMMUNIZATIONS: 1. Pneumococcal: 2016 2. Influenza: 2015 3. Tetanus: 2015 ADVANCED DIRECTIVES: 1. Living well: No 2. POLST: No 3. 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 Donor card: Yes REVIEW OF SYSTEMS Remarkable for those things stated in the history of present illness and past medical history. Seventeen point review of system completed with the following notable findings: General: Fatigue, weakness, pain Eyes: Decreased visual acuity requiring corrective lenses Respiratory: Shortness of breath, cough Gastrointestinal: Nausea, vomiting Musculoskeletal: Back pain, chest pain (with movement) Physical Exam Vital Signs / I&Os Vital Signs Date Time Temp Pulse Resp B/P Pulse O2 O2 Flow FiO2 Ox Delivery Rate 12/07 1853 77 18 95/66 97 General Appearance Alert, Oriented X3, Cooperative, No acute distress HEENT Atraumatic, PERRLA, EOMI, Moist mucous membranes Lungs Scattered rhonchi, no wheezes Neck Supple, No JVD Cardiovascular Regular rate and rhythm, Normal S1 and S2, No murmurs, gallops, rubs Abdomen Normal bowel sounds, Soft, No tenderness, No guarding Extremities No cyanosis, No clubbing, trace pedal edema Neurological Cranial nerves intact, No lateralizing signs Psych/Mental Status Mental status normal, Mood normal LAB Results Laboratory Tests 12/07 12/07 1740 1710 Chemistry B-Natriuretic Peptide (5 - 100 pg/ml) 136 Urines Urine Color YELLOW Urine Appearance CLOUDY Urine pH (5.0 - 8.0) 5.0 Ur Specific [place] (1.010 - 1.030) >= 1.030 Urine Protein (NEGATIVE) 1+ Urine Ketones (NEGATIVE) NEGATIVE Urine Blood (NEGATIVE) 3+ Urine Nitrite (NEGATIVE) NEGATIVE Urine Bilirubin (NEGATIVE) NEGATIVE Urine Urobilinogen (0.2 - 1.0 EU/dL) 0.2 Ur Leukocyte Esterase (NEGATIVE) NEGATIVE Urine RBC (0 - 1 rbc/hpf) 3-5 Urine WBC (0 - 1 wbc/hpf) 0-1 Ur Epithelial Cells (0 - 5 EPI/hpf) 0-1 Urine Bacteria (NONE SEEN) MODERATE (2+ TO 3+) Urine Glucose (NEGATIVE) NEGATIVE Urine Comment CULTURE INDICATED 12/07 1710 Chemistry Plasma Sodium (136 - 145 mmol/L) 141 Plasma Potassium (3.5 - 5.1 mmol/L) 3.9 Plasma Chloride (98 - 107 mmol/L) 106 CO2 (Enzymatic) (21 - 32 mmol/L) 27 BUN (7 - 18 mg/dL) 32 Creatinine (0.6 - 1.3 mg/dL) 1.1 Est GFR ( Amer) (mL/min) >60 Est GFR (Non-Af Amer) (mL/min) 52.19 Glucose (70 - 110 mg/dL) 131 Plasma Calcium (8.5 - 10.1 mg/dL) 7.9 Plasma Magnesium (1.8 - 2.4 mg/dL) 2.0 Total Bilirubin (0.0 - 1.0 mg/dL) 0.4 AST (15 - 37 U/L) 13 ALT (12 - 78 U/L) 24 Alkaline Phosphatase (46 - 116 U/L) 154 Creatine Kinase (24 - 260 U/L) 32 Troponin (0.00 - 1.5 ng/mL) <0.05 Total Protein (6.4 - 8.2 g/dL) 6.9 Albumin (3.3 - 5.0 g/dL) 2.7 Hematology WBC (4.5 - 11.5 K/uL) 2.1 RBC (4.00 - 5.20 M/uL) 2.64 Hgb (12.0 - 16.0 gm/dL) 8.9 Hct (36.0 - 46.0 %) 26.6 MCV (80 - 100 fL) 101 MCH (26 - 34 pg) 34 RDW (11.6 - 14.8 %) 23.8 Neut % (Auto) (50 - 75 %) 60.0 Lymph % (Auto) (25 - 40 %) 25.8 [place] % (Auto) (3 - 14 %) 7.3 Eos % (Auto) (0 - 4 %) 6.7 Baso % (Auto) (0 - 2 %) 0.2 Plt Count, EDTA (150 - 400 K/uL) 231 RBC Morphology (4741 A) 1+ POLYCHROMASIA PUBS MCHC (31 - 37 g/dL) 33 Microbiology Date/Time Procedure - Status Source Growth 12/08 1819 Escherichia coli Shiga Toxins EIA - RECD STOOL 12/08 1819 Campylobacter Culture - RECD STOOL 12/08 1819 Salmonella/Shigella Culture - RECD STOOL 12/07 180 Clostridium difficile Toxin A & B - RECD STOOL 12/07 180 Specimen Source - RECD STOOL 12/07 1740 Urine Culture - RECD URINE CC 12/07 171 Blood Culture - RECD BLOOD 12/07 171 Blood Culture - RECD BLOOD Imaging Chest X-Ray IMPRESSION: 1. Mild bibasilar subsegmental atelectasis (findings accentuated due to suboptimal inspiration). 2. Mottled appearance of the osseous structures suggest myelodysplastic disorder (e.g., myeloma, leukemia). 3. Mild cardiomegaly. Dictated by: KAY JAUREGUI MD D: LEONCIO;12/07/16 181 Abdominal X-Ray IMPRESSION: 1. Normal bowel gas pattern. 2. Fracture the right superior and inferior pubic rami. Dictated by: KAY JAUREGUI MD D: LEONCIO;12/07/16 832 Assessment and Plan Problem List 1. Dehydration Plan -Patient presents with history of nausea and vomiting -Laboratory consistent with mild dehydration -IV fluid therapy, clear liquid diet -Anti-minutes as necessary -Monitor 2. Dyspnea Plan -Patient presented with history of dyspnea -Patient denies dyspnea at this time -O2 sats normal on room air -Monitor -DuoNeb every 6 hours when necessary shortness of breath 3. Nausea and vomiting Status Acute Onset Date 12/07/16 Plan -Patient presented with history of nausea and vomiting -Denies nausea since presentation to [facility] emergency department -Zofran/Phenergan when necessary nausea -Clear liquid diet -IV fluid therapy -Monitor 4. Multiple myeloma Plan -Patient with history of multiple,, -Continue dexamethasone 4 mg IV daily -Continue Revlimid 25 mg by mouth daily -DVT prophylaxis with Lovenox 40 mg subcutaneous daily -Monitor 5. B12 deficiency Plan -patient with history of B12 deficiency -Cyanocobalamin 2000 g by mouth daily -Monitor 6. Closed fracture of single pubic ramus of pelvis Plan -Stable -Persistent pain but adequately controlled at this time -Ambulate with assistance -Physical therapy evaluation and treatment 7. UTI (urinary tract infection) Onset Date 10/11/16 Plan -Patient with findings of UTI -Rocephin 1 g IV daily -Monitor -Await urine C&S 8. Anemia Plan -Mild anemia -Monitor 9. Hypertension Plan -Patient's blood pressure well controlled. -Monitor -Low-salt diet when taking well orally Current status: Fair, unstable Anticipated discharge date: Anticipated discharge in 2-3 days [facility] Patient care time: Time spent in chart review, patient interview, physical exam, CPOE, and care documentation: 70 minutes Visit to patient today: 1 Complexity of care: High E&M Codes Admission: Inpt-High/37044
--- NOTE | 2016-12-07 20:22 | Progress Note ---
Subjective General Admission History and Physical Examination Patient Name: Radha Perry Admission Date: December 07, 2016 Primary Care Provider: Leroy Pride M.D. Attending Physician: Pérez Guardado M.D. Admitting Physician: Pérez Guardado M.D. Code Status: FULL CODE Room: 304 SUBJECTIVE Historian: Patient, family, prior medical records Reliability: Fair Chief Complaint: Nausea, vomiting, diarrhea, weakness, shortness of breath History of Present Illness: The patient is a 71-year-old white female with a significant past medical history of for multiple myeloma, COPD, renal insufficiency, and hypertension, who presented to [facility] emergency department on the day of admission secondary to complaints of nausea, vomiting, diarrhea, shortness of breath, and generalized weakness. Evaluation at that time was consistent with UTI, dehydration, generalized weakness, anemia. Secondary to the above the patient was admitted by Pérez Guardado M.D. for further evaluation and treatment. The patient had experienced nausea, vomiting, diarrhea, weakness, and shortness of breath prior to admission. The patient's family was dissatisfied with her care [facility] and discharged her bringing her to [facility] emergency department for further evaluation and treatment. The patient is unable to give any further history regarding her symptoms prior to presentation. No family members available at time of admission. PAST MEDICAL HISTORY Illnesses: 1. Multiple myeloma 2. COPD 3. Chronic kidney disease 4. Osteoporosis 5. Hypertension 6. Anemia Allergies: 1. Codeine Medications: 1. Lopressor 25 mg one half by mouth 3 times a day 2. Vicodin 5/325 1 by mouth 3 times a day when necessary pain 3. Acetaminophen 650 mg by mouth every 4 hours when necessary pain 4. Aspirin 325 mg by mouth daily 5. Baclofen 10 mg by mouth 3 times a day 6. Dexamethasone 4 mg by mouth daily 7. Benadryl 25 mg by mouth daily 8. Famotidine 20 mg by mouth daily at bedtime 9. MiraLAX 17 g in 8 ounces of water when necessary constipation 10. Lisinopril 10 mg by mouth daily 11. Lorazepam 1 mg by mouth daily 12. Meloxicam 7.5 mg by mouth daily 13. Oxycodone 10 mg by mouth every 6 hours when necessary pain 14. OxyContin 40 mg by mouth daily 15. Revlimid 25 mg by mouth daily 16. Senna dosage unknown Surgery: 1. Appendectomy 2. Colonoscopy 2017 3. Upper GI endoscopy 2017 Injuries: 1. No significant Hospitalizations: 1. For above surgery and medical problems FAMILY HISTORY Parents: 1. Father, , 50, alcoholism 2. Mother, , 50, uterine carcinoma Siblings: 1. The patient has 14 siblings, history of ovarian carcinoma, osteomyelitis Children: 1. The patient has 2 children, one male child age 31-myocardial infarction, one female child who is healthy Other significant family history: Unknown SOCIAL HISTORY 1. Marital Status: 2. Pentecostalism: Islam-Pentecostalism 3. Education: 11th grade, GED 4. Employment History: Retired 5. Occupational health exposures: None HABITS 1. Tobacco: 50 pack years, quit 2 months prior to admission 2. Drugs: None 3. Alcohol: Rare usage 4. Caffeine: Coffee 2-3 cups per day HEALTH SUPERVISION Item/Test 1. Not reviewed IMMUNIZATIONS: 1. Pneumococcal: 2016 2. Influenza: 2015 3. Tetanus: 2015 ADVANCED DIRECTIVES: 1. Living well: No 2. POLST: No 3. 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 Donor card: Yes REVIEW OF SYSTEMS Remarkable for those things stated in the history of present illness and past medical history. Seventeen point review of system completed with the following notable findings: General: Fatigue, weakness, pain Eyes: Decreased visual acuity requiring corrective lenses Respiratory: Shortness of breath, cough Gastrointestinal: Nausea, vomiting Musculoskeletal: Back pain, chest pain (with movement) Physical Exam Vital Signs / I&Os Vital Signs Date Time Temp Pulse Resp B/P Pulse O2 O2 Flow FiO2 Ox Delivery Rate 12/07 1853 77 18 95/66 97 General Appearance Alert, Oriented X3, Cooperative, No acute distress HEENT Atraumatic, PERRLA, EOMI, Moist mucous membranes Lungs Scattered rhonchi, no wheezes Neck Supple, No JVD Cardiovascular Regular rate and rhythm, Normal S1 and S2, No murmurs, gallops, rubs Abdomen Normal bowel sounds, Soft, No tenderness, No guarding Extremities No cyanosis, No clubbing, trace pedal edema Neurological Cranial nerves intact, No lateralizing signs Psych/Mental Status Mental status normal, Mood normal LAB Results Laboratory Tests 12/07 12/07 1740 1710 Chemistry B-Natriuretic Peptide (5 - 100 pg/ml) 136 Urines Urine Color YELLOW Urine Appearance CLOUDY Urine pH (5.0 - 8.0) 5.0 Ur Specific [place] (1.010 - 1.030) >= 1.030 Urine Protein (NEGATIVE) 1+ Urine Ketones (NEGATIVE) NEGATIVE Urine Blood (NEGATIVE) 3+ Urine Nitrite (NEGATIVE) NEGATIVE Urine Bilirubin (NEGATIVE) NEGATIVE Urine Urobilinogen (0.2 - 1.0 EU/dL) 0.2 Ur Leukocyte Esterase (NEGATIVE) NEGATIVE Urine RBC (0 - 1 rbc/hpf) 3-5 Urine WBC (0 - 1 wbc/hpf) 0-1 Ur Epithelial Cells (0 - 5 EPI/hpf) 0-1 Urine Bacteria (NONE SEEN) MODERATE (2+ TO 3+) Urine Glucose (NEGATIVE) NEGATIVE Urine Comment CULTURE INDICATED 12/07 1710 Chemistry Plasma Sodium (136 - 145 mmol/L) 141 Plasma Potassium (3.5 - 5.1 mmol/L) 3.9 Plasma Chloride (98 - 107 mmol/L) 106 CO2 (Enzymatic) (21 - 32 mmol/L) 27 BUN (7 - 18 mg/dL) 32 Creatinine (0.6 - 1.3 mg/dL) 1.1 Est GFR ( Amer) (mL/min) >60 Est GFR (Non-Af Amer) (mL/min) 52.19 Glucose (70 - 110 mg/dL) 131 Plasma Calcium (8.5 - 10.1 mg/dL) 7.9 Plasma Magnesium (1.8 - 2.4 mg/dL) 2.0 Total Bilirubin (0.0 - 1.0 mg/dL) 0.4 AST (15 - 37 U/L) 13 ALT (12 - 78 U/L) 24 Alkaline Phosphatase (46 - 116 U/L) 154 Creatine Kinase (24 - 260 U/L) 32 Troponin (0.00 - 1.5 ng/mL) <0.05 Total Protein (6.4 - 8.2 g/dL) 6.9 Albumin (3.3 - 5.0 g/dL) 2.7 Hematology WBC (4.5 - 11.5 K/uL) 2.1 RBC (4.00 - 5.20 M/uL) 2.64 Hgb (12.0 - 16.0 gm/dL) 8.9 Hct (36.0 - 46.0 %) 26.6 MCV (80 - 100 fL) 101 MCH (26 - 34 pg) 34 RDW (11.6 - 14.8 %) 23.8 Neut % (Auto) (50 - 75 %) 60.0 Lymph % (Auto) (25 - 40 %) 25.8 [place] % (Auto) (3 - 14 %) 7.3 Eos % (Auto) (0 - 4 %) 6.7 Baso % (Auto) (0 - 2 %) 0.2 Plt Count, EDTA (150 - 400 K/uL) 231 RBC Morphology (4741 A) 1+ POLYCHROMASIA PUBS MCHC (31 - 37 g/dL) 33 Microbiology Date/Time Procedure - Status Source Growth 12/08 1819 Escherichia coli Shiga Toxins EIA - RECD STOOL 12/08 1819 Campylobacter Culture - RECD STOOL 12/08 1819 Salmonella/Shigella Culture - RECD STOOL 12/07 180 Clostridium difficile Toxin A & B - RECD STOOL 12/07 180 Specimen Source - RECD STOOL 12/07 1740 Urine Culture - RECD URINE CC 12/07 171 Blood Culture - RECD BLOOD 12/07 171 Blood Culture - RECD BLOOD Imaging Chest X-Ray IMPRESSION: 1. Mild bibasilar subsegmental atelectasis (findings accentuated due to suboptimal inspiration). 2. Mottled appearance of the osseous structures suggest myelodysplastic disorder (e.g., myeloma, leukemia). 3. Mild cardiomegaly. Dictated by: KAY JAUREGUI MD D: LEONCIO;12/07/16 181 Abdominal X-Ray IMPRESSION: 1. Normal bowel gas pattern. 2. Fracture the right superior and inferior pubic rami. Dictated by: KAY JAUREGUI MD D: LEONCIO;12/07/16 182 Assessment and Plan Problem List 1. Dehydration Plan -Patient presents with history of nausea and vomiting -Laboratory consistent with mild dehydration -IV fluid therapy, clear liquid diet -Anti-minutes as necessary -Monitor 2. Dyspnea Plan -Patient presented with history of dyspnea -Patient denies dyspnea at this time -O2 sats normal on room air -Monitor -DuoNeb every 6 hours when necessary shortness of breath 3. Nausea and vomiting Status Acute Onset Date 12/07/16 Plan -Patient presented with history of nausea and vomiting -Denies nausea since presentation to [facility] emergency department -Zofran/Phenergan when necessary nausea -Clear liquid diet -IV fluid therapy -Monitor 4. Multiple myeloma Plan -Patient with history of multiple,, -Continue dexamethasone 4 mg IV daily -Continue Revlimid 25 mg by mouth daily -DVT prophylaxis with Lovenox 40 mg subcutaneous daily -Monitor 5. B12 deficiency Plan -patient with history of B12 deficiency -Cyanocobalamin 2000 g by mouth daily -Monitor 6. Closed fracture of single pubic ramus of pelvis Plan -Stable -Persistent pain but adequately controlled at this time -Ambulate with assistance -Physical therapy evaluation and treatment 7. UTI (urinary tract infection) Onset Date 10/11/16 Plan -Patient with findings of UTI -Rocephin 1 g IV daily -Monitor -Await urine C&S 8. Anemia Plan -Mild anemia -Monitor 9. Hypertension Plan -Patient's blood pressure well controlled. -Monitor -Low-salt diet when taking well orally Current status: Fair, unstable Anticipated discharge date: Anticipated discharge in 2-3 days Anticipated discharge placement: [facility] facility Patient care time: Time spent in chart review, patient interview, physical exam, CPOE, and care documentation: 70 minutes Visit to patient today: 1 Complexity of care: High E&M Codes Admission: Inpt-High/44001
[2016-12-07 21:18] VITALS: BP 101/50
--- NOTE | 2016-12-07 21:20 | ED DISCHARGE INSTRUCTIONS ---
Patient: MICKI LARRY General Instructions [facility] VisitID: [id number] [place] [address] 71y, F Registration Date/Time: 12/07/2016 Acute dyspnea Acute gastroenteritis with volume depletion and dehydration (unclear etiology). Acute generalized weakness. Unable to ambulate. Multiple myeloma Pancytopenia Recent pelvic and rib fractures. New EKG changes. ADDITIONAL INFORMATION Dyspnea (Shortness Of Breath) Shortness of Breath (also known as "Dyspnea") is the sense that you can't catch your breath or can't get enough air. Dyspnea can be caused by many different conditions such as: Acute asthma attack Worsening of emphysema (also called "COPD") -- a lung diseasethat is caused by smoking A mucus plug blocks a large air passage in the lung -- this can occur with emphysema or chronic bronchitis Congestive Heart Failure ("CHF") -- when a weak heart muscle allows excess fluid to collect inthe lungs Panic attacks, anxiety -- fear can cause rapid breathing ("hyperventilation") Pneumonia -- infection in the lung tissue Exposure to toxic fumes or smoke Pulmonary embolus (blood clot to the lung) Based on your visit today, the exact cause of your shortness of breath is not certain. Your tests do not show any of the serious causes of dyspnea. Sometimes, further testing is needed to find out if a serious problem exists. Therefore, it is important for you to watch for any new symptoms or worsening of your condition and follow up with your doctor as directed. Home Care: When your symptoms are better, resume your usual activities. If you smoke, you need to stop. Join a stop-smoking program or ask your doctor for help. Follow Up with your doctor or as advised by our staff. Get Prompt Medical Attention if any of the following occur: Increasing shortness of breath or wheezing Redness, pain or swelling in one leg Swelling in both legs or ankles Unexpected weight gain Chest, arm, shoulder, neck or upper back pain Dizziness, weakness or fainting Palpitations (the sense that your heart is fluttering, beating fast or hard) Fever of 100.4F (38C) or higher, or as directed by your healthcare provider Cough with dark colored or bloody sputum (mucus) You have been given the following additional information: Dyspnea (Electronically signed by Christiano Del Cid MD 12/07/2016 19:55)
--- NOTE | 2016-12-07 21:20 | ED MAR SUMMARY ---
..... Medication Administration Record [facility] [address] [place] [address] Patient: MICKI LARRY Visit ID: [id number] 71y, F Weight: 61.2 kg Height/Length: 63 in BMI: 23.9 ALLERGIES: No Known Drug Allergy Start 16:48 12/07/2016 Ephraim Wheatley R.N., Stop 21:18 12/07/2016 Cecy Mello Medication Administered: IV NS (SALINE), Dose: IV Fluids over 1 hour(s), Rate: 250 mL/hr, Site: #1 left wrist. Medication Ordered: IV NS : initial bolus 250 mL (1000 mL/hr), then 150 mL/hr for 4h (NOW); Routine. Given 17:13 12/07/2016 Ephraim Wheatley R.N. Medication Administered: ZOFRAN [IVP] (ONDANSETRON HCL), Dose: 4 mg IVP over 2 minute(s), Site: #1 left wrist. Medication Ordered: Zofran IV 4 mg (NOW). Given 19:51 12/07/2016 Ronda Arauz, Medication Administered: TORADOL [IVP], Dose: 15 mg IVP over 1 minute(s), Site: #2 right forearm. Medication Ordered: Toradol IV 15 mg (NOW).
--- NOTE | 2016-12-07 21:20 | ED MAR SUMMARY ---
..... Medication Administration Record [facility] [address] [place] [address] Patient: MICKI LARRY Visit ID: [id number] 71y, F Weight: 61.2 kg Height/Length: 63 in BMI: 23.9 ALLERGIES: No Known Drug Allergy Start 16:48 12/07/2016 Ephraim Wheatley R.N., Stop 21:18 12/07/2016 Cecy Mello Medication Administered: IV NS (SALINE), Dose: IV Fluids over 1 hour(s), Rate: 250 mL/hr, Site: #1 left wrist. Medication Ordered: IV NS : initial bolus 250 mL (1000 mL/hr), then 150 mL/hr for 4h (NOW); Routine. Given 17:13 12/07/2016 Ephraim Wheatley R.N. Medication Administered: ZOFRAN [IVP] (ONDANSETRON HCL), Dose: 4 mg IVP over 2 minute(s), Site: #1 left wrist. Medication Ordered: Zofran IV 4 mg (NOW). Given 19:51 12/07/2016 Ronda Arauz, Medication Administered: TORADOL [IVP], Dose: 15 mg IVP over 1 minute(s), Site: #2 right forearm. Medication Ordered: Toradol IV 15 mg (NOW).
--- NOTE | 2016-12-07 21:20 | ED MED RECONCILIATION SUMMARY ---
Patient: MICKI LARRY Medication Reconciliation Report [facility] VisitID: [id number] [address] [place] [address] 71y, F Registration Date/Time: 12/07/2016 Weight: 61.2 kg Height/Length: 63 in. BMI: 23.9 ALLERGIES: No Known Drug Allergy The patient's Home Medications are listed below: THE FOLLOWING MEDICATIONS NEED TO BE RECONCILED: Acetaminophen Oral 650 mg, PRN Aspirin Oral (325 mg) 1 tablet Baclofen Oral 10 mg, 3x a day Dexamethasone Oral 4 mg, daily DiphenhydrAMINE HCl Oral (25 mg) 1 capsule, daily Famotidine Oral (20 mg), at bedtime GlycoLax Oral Lisinopril Oral (10 mg) 1 tablet, daily LORazepam Oral (1 mg) 1 tablet, daily Meloxicam Oral (7.5 mg) 1 tablet Metoprolol Tartrate Oral 25 mg 1/2 tab, 3 x daily OxyCODONE HCl Oral 10 mg OxyCONTIN Oral 40 mg, daily Revlimid Oral (25 mg) 1 capsule Senna Oral Vicodin Oral 5 mg, 3x a day The source(s) of the original Home Medication information: Not obtained. The following Medications were given to the patient in the Emergency Department: IV NS IV Fluids bolus 0, then 250 mL/hr, administered: 12/07/2016 4:48:00 PM Zofran [IVP] IVP 4 mg, administered: 12/07/2016 5:13:00 PM Toradol [IVP] IVP 15 mg, administered: 12/07/2016 7:51:00 PM The following Medications were prescribed to the patient: None.
--- NOTE | 2016-12-07 21:20 | ED MED RECONCILIATION SUMMARY ---
Patient: MICKI LARRY Medication Reconciliation Report [facility] VisitID: [id number] [address] [place] [address] 71y, F Registration Date/Time: 12/07/2016 Weight: 61.2 kg Height/Length: 63 in. BMI: 23.9 ALLERGIES: No Known Drug Allergy The patient's Home Medications are listed below: THE FOLLOWING MEDICATIONS NEED TO BE RECONCILED: Acetaminophen Oral 650 mg, PRN Aspirin Oral (325 mg) 1 tablet Baclofen Oral 10 mg, 3x a day Dexamethasone Oral 4 mg, daily DiphenhydrAMINE HCl Oral (25 mg) 1 capsule, daily Famotidine Oral (20 mg), at bedtime GlycoLax Oral Lisinopril Oral (10 mg) 1 tablet, daily LORazepam Oral (1 mg) 1 tablet, daily Meloxicam Oral (7.5 mg) 1 tablet Metoprolol Tartrate Oral 25 mg 1/2 tab, 3 x daily OxyCODONE HCl Oral 10 mg OxyCONTIN Oral 40 mg, daily Revlimid Oral (25 mg) 1 capsule Senna Oral Vicodin Oral 5 mg, 3x a day The source(s) of the original Home Medication information: Not obtained. The following Medications were given to the patient in the Emergency Department: IV NS IV Fluids bolus 0, then 250 mL/hr, administered: 12/07/2016 4:48:00 PM Zofran [IVP] IVP 4 mg, administered: 12/07/2016 5:13:00 PM Toradol [IVP] IVP 15 mg, administered: 12/07/2016 7:51:00 PM The following Medications were prescribed to the patient: None.
--- NOTE | 2016-12-08 02:20 | Progress Note ---
Subjective General ADVANCED CARE PLAN History of Present Illness The patient is a 71-year-old white female with a significant past medical history of for multiple myeloma, COPD, renal insufficiency, and hypertension, who presented to [facility] emergency department on the day of admission secondary to complaints of nausea, vomiting, diarrhea, shortness of breath, and generalized weakness. Evaluation at that time was consistent with dehydration, generalized weakness. Secondary to the above the patient was admitted by Pérez Guardado M.D. for further evaluation and treatment. For other history present illness, past medical history, family history, social history, review of systems, and admission physical examination please see the patient's history and physical examination and ER visit note in the patient's medical record. A discussion was undertaken with the patient regarding previous advance care arrangements/decisions. The following advanced directives were noted by the patient and discussed with me at the time of admission. ADVANCED DIRECTIVES: 1. Living well: No 2. POLST: No 3. CODE STATUS: DO NOT RESUSCITATE 4. Durable Power Diver Pumper Health care: Yes 5. Donor card: Yes The patient has expressed interest in not pursuing any form of resuscitation at this time. She has opted not to pursue intubation/mechanical ventilation, CPR, electrical cardioversion, or life-sustaining efforts involving drugs at the time of cardiopulmonary arrest. The patient has a DURABLE POWER OF CASINO CAGE MANAGER for healthcare and living well. We will attempt to obtain this from the patients family in the am. She does not process a donor card. The patient's wishes were documented in the chart and orders regarding the patient's wishes entered into the [employer] CPOE system. The "Advance Care Plan Document" was distributed to patient to discuss with her family in a.m. Less than 30 minutes was spent in performing the above tasks and documentation of the patient's advanced care plan.
--- NOTE | 2016-12-08 02:20 | Progress Note ---
Subjective General ADVANCED CARE PLAN History of Present Illness The patient is a 71-year-old white female with a significant past medical history of for multiple myeloma, COPD, renal insufficiency, and hypertension, who presented to [facility] emergency department on the day of admission secondary to complaints of nausea, vomiting, diarrhea, shortness of breath, and generalized weakness. Evaluation at that time was consistent with dehydration, generalized weakness. Secondary to the above the patient was admitted by Pérez Guardado M.D. for further evaluation and treatment. For other history present illness, past medical history, family history, social history, review of systems, and admission physical examination please see the patient's history and physical examination and ER visit note in the patient's medical record. A discussion was undertaken with the patient regarding previous advance care arrangements/decisions. The following advanced directives were noted by the patient and discussed with me at the time of admission. ADVANCED DIRECTIVES: 1. Living well: No 2. POLST: No 3. CODE STATUS: DO NOT RESUSCITATE 4. Durable Power Ladle Repairman Health care: Yes 5. Donor card: Yes The patient has expressed interest in not pursuing any form of resuscitation at this time. She has opted not to pursue intubation/mechanical ventilation, CPR, electrical cardioversion, or life-sustaining efforts involving drugs at the time of cardiopulmonary arrest. The patient has a DURABLE POWER OF POLE FRAMER MACHINE for healthcare and living well. We will attempt to obtain this from the patients family in the am. She does not process a donor card. The patient's wishes were documented in the chart and orders regarding the patient's wishes entered into the [email or web address] CPOE system. The "Advance Care Plan Document" was distributed to patient to discuss with her family in a.m. Less than 30 minutes was spent in performing the above tasks and documentation of the patient's advanced care plan.
[2016-12-08 02:23] VITALS: BP 96/55
[2016-12-08 07:09] VITALS: BP 117/65
[2016-12-08] MEDS ORDERED: REVLIMID PO (07:25)
[2016-12-08] MEDS ORDERED: DEXAMETHASONE0.5 MG PO (07:26)
[2016-12-08 10:51] VITALS: BP 98/63
--- NOTE | 2016-12-08 11:20 | Progress Note ---
Subjective General Uncomfortable with side pain today. Unchanged from previous. Denies SOB or cough. No nausea/vomitting/diarrhea/constipation. Physical Exam Vital Signs / I&Os Vital Signs Date Time Temp Pulse Resp B/P Pulse O2 O2 Flow FiO2 Ox Delivery Rate 12/08 1051 37.1 62 18 98/63 97 Nasal 1.5 Cannula 12/08 0800 Nasal 1.5 Cannula 12/08 0709 37.2 74 18 117/65 97 Nasal 2.0 Cannula 12/08 0223 36.9 67 18 96/55 97 Mask 2.0 12/07 2250 Nasal 2.0 Cannula 12/07 2242 2.0 12/07 2118 37.3 61 18 101/50 100 Nasal 2.0 Cannula 12/07 1853 77 18 95/66 97 I&O 12/08 0000 12/07 1600 12/07 0800 Intake Total Output Total Balance General Appearance Alert, Cooperative, No acute distress Lungs Crackles in bilateral lower dunn. Cardiovascular Regular rate and rhythm, Normal S1 and S2, 2/6 systolic murmur increased at base. Abdomen Normal bowel sounds, Soft, No tenderness Extremities Trace edema. Assessment and Plan Problem List 1. UTI (urinary tract infection) Onset Date 10/11/16 Plan On antibiotics. 2. Multiple myeloma Plan Seeing oncology. 3. Nausea and vomiting Status Acute Onset Date 12/07/16 Plan Improved. 4. Dehydration Plan Improved. 5. B12 deficiency Plan Replacing. 6. Anemia Plan Decreased. Will monitor, however, if drops will need to transfuse. 7. COPD (chronic obstructive pulmonary disease) Plan Stable.
[2016-12-08] MEDS ORDERED: DEXAMETHASONE4 MG PO (13:58)
[2016-12-08] MEDS ORDERED: ATIVAN1 MG PO ×2 (14:08→14:21)
[2016-12-08] MEDS ORDERED: SENNA-LAX8.6 MG PO (14:11)
[2016-12-08] MEDS ORDERED: OXYCONTIN PO ×2 (14:14→14:15)
[2016-12-08] MEDS ORDERED: OXAYDO5 MG PO (14:18)
[2016-12-08] MEDS ORDERED: ACETAMINOPHEN325 MG PO (14:19)
[2016-12-08] MEDS ORDERED: DIPHENHIST25 MG PO (14:20)
[2016-12-08] MEDS ORDERED: DULCOLAX10 MG PR (14:21)
[2016-12-08] MEDS ORDERED: O2 (14:23)
[2016-12-08 14:25] VITALS: BP 117/58
[2016-12-08 18:02] VITALS: BP 111/58
[2016-12-08 22:21] VITALS: BP 110/50
[2016-12-09 03:48] VITALS: BP 126/54
[2016-12-09 07:44] VITALS: BP 119/66
[2016-12-09 10:52] VITALS: BP 125/54
[2016-12-09 14:30] VITALS: BP 120/58
[2016-12-09 18:12] VITALS: BP 110/71
--- NOTE | 2016-12-09 19:32 | Progress Note ---
Subjective General Per patient, pain ok, however, per nursing, patient refuses to move or do any of her ADL's 2/2 pain. no nausea/vomitting/diarrhea/constipation. Physical Exam Vital Signs / I&Os Vital Signs Date Time Temp Pulse Resp B/P Pulse O2 O2 Flow FiO2 Ox Delivery Rate 12/09 1812 36.9 63 18 110/71 100 Room Air 12/09 1430 37.3 63 18 120/58 97 Room Air 12/09 1052 36.8 65 18 125/54 100 Nasal 2.0 Cannula 12/09 0944 2.0 12/09 0744 37.2 69 18 119/66 100 Nasal 1.5 Cannula 12/09 0740 Nasal 1.5 Cannula 12/09 0348 36.7 77 15 126/54 100 Nasal Cannula 12/08 2221 36.6 73 17 110/50 100 Nasal 1.5 Cannula 12/08 2015 Nasal 1.5 Cannula I&O 12/09 0000 12/08 1600 12/08 0800 Intake Total 1161 1140 Output Total 800 1550 350 Balance -800 -389 790 General Appearance Alert, Cooperative, No acute distress Lungs Crackles increased at the bases. Cardiovascular Regular rate and rhythm, Normal S1 and S2, 2/6 systolic murmur increased at the base. Abdomen Normal bowel sounds, Soft, No tenderness Extremities No edema Assessment and Plan Problem List 1. UTI (urinary tract infection) Onset Date 10/11/16 Plan On antibitoics. 2. Dehydration Plan Resolved. 3. Multiple myeloma Plan Sees deepika. Increased pain medications today and changed from oxycodone to dilaudid to see if that provides better pain control. 4. B12 deficiency Plan Replacing. 5. Closed fracture of single pubic ramus of pelvis Plan Family asked us to call Dr. Zhong tomorrow as per family, Dr. Zhong had wanted f/u x-rays on fractures as PT too agressive.
[2016-12-09 22:30] VITALS: BP 109/70
[2016-12-10 02:07] VITALS: BP 135/72
[2016-12-10 06:42] VITALS: BP 133/69
--- NOTE | 2016-12-10 09:50 | DIAGNOSTIC IMAGING REPORT ---
PROCEDURE: XR HIP 2VW W W/O AP PELVIS-LT INDICATION: hip pain TECHNIQUE: AP view of the pelvis and hips with lateral view of the left hip. COMPARISON: Pelvis and hip dated 10/26/2016 FINDINGS: Innumerable small [employer] lesions of the pelvis, bilateral femurs, Left HIP: No of fracture or dislocation. PELVIS: Fracture right inferior pubic ramus. Fracture of the right superior pubic ramus. No change in alignment. Callous and new bone formation. IMPRESSION: 1. Left hip negative for fracture. 2. Fractured right inferior pubic ramus, fracture of the right superior pubic ramus with the callous and new bone formation.
[2016-12-10 10:11] VITALS: BP 123/62
--- NOTE | 2016-12-10 13:28 | DIAGNOSTIC IMAGING REPORT ---
PROCEDURE: XR CHEST 1 VIEW INDICATION: cough and sputum production TECHNIQUE: Portable AP view 12:47 p.m. COMPARISON: Chest 12/07/2016 FINDINGS: New left lower lobe infiltrate. Mild cardiomegaly. Mediastinum is normal. There are multiple subacute bilateral rib fractures (acute and/or old). The rest the osseous structures demonstrate modeled appearance. IMPRESSION: 1. New left lower lobe infiltrate. 2. Mottled appearance of the osseous structures suggest myelodysplastic disorder (e.g., myeloma, leukemia). 3. Mild cardiomegaly.
[2016-12-10 15:08] VITALS: BP 124/62
--- NOTE | 2016-12-10 17:40 | Progress Note ---
Subjective General Patient seen and examined. Patients pain is under control. Patient has no complaints at the moment. Constitutional Weakness, Malaise. Denies: Fever, Chills, Sweats, Other. ENT Denies: Ear Pain, Ear Discharge, Nose Pain, Nasal Discharge, Nasal Congestion, Mouth Pain, Mouth Swelling, Throat Pain, Throat Swelling, Other. Respiratory Denies: Cough, Dry, SOB w/exertion, Wheezing, Hemoptysis, Pleuritic Pain, Sputum , Other. Cardiovascular Denies: Chest Pain, Palpitations, Orthopnea, PND, Edema, Light-headedness, Other. Gastrointestinal Denies: Nausea, Vomiting, Abdominal Pain, Diarrhea, Constipation, Melena, Hematochezia, Other. Genitourinary Denies: Dysuria, Frequency, Incontinence, Hematuria, Retention, Other. Musculoskeletal Other (hip pain ). Denies: Neck Pain, Shoulder Pain, Arm Pain, Back Pain, Hand Pain, Leg Pain, Foot Pain. Skin Denies: Rash, Lesions, Jaundice, Bruising, Other. Neurological Denies: Weakness, Numbness, Incoordination, Change in speech, Confusion, Seizures, Other. Physical Exam Vital Signs / I&Os Vital Signs Date Time Temp Pulse Resp B/P Pulse O2 O2 Flow FiO2 Ox Delivery Rate 12/10 1635 2.0 12/10 1508 83 18 124/62 98 Nasal 2.0 Cannula 12/10 1054 2.0 12/10 1011 97.9 70 18 123/62 96 Room Air 2.0 12/10 0800 2.0 12/10 0642 98.1 65 16 133/69 98 Room Air 12/10 0207 98.1 61 18 135/72 98 Room Air 0.0 12/09 2230 98.8 65 18 109/70 96 Room Air 12/09 2011 2.0 12/09 1812 98.4 63 18 110/71 100 Room Air I&O 12/09 0800 12/09 1600 12/10 0000 Intake Total 350 360 50 Output Total 650 1400 1500 Balance -300 -1040 -1450 General Appearance Alert, Oriented X3, No acute distress HEENT Atraumatic, PERRLA, Moist mucous membranes Lungs Clear to auscultation, Normal air movement Neck Supple, No masses, No thyromegaly, No lymphadenopathy, 2+ carotid pulse wo bruit Cardiovascular Regular rate and rhythm, Normal S1 and S2, No murmurs, gallops, rubs Abdomen Normal bowel sounds, No tenderness, No guarding Extremities No clubbing, Normal pulses, No tenderness, - hip pain present still Skin No Rashes, - pressure wound on backside present on admission Neurological Normal speech, Normal tone, Sensation intact, Cranial nerves intact , Strength 5/5 x4 ext's, No lateralizing signs, - gait is abnormal secondary to pubis fracture Psych/Mental Status Confused Assessment and Plan Problem List 1. COPD (chronic obstructive pulmonary disease) Plan - stable no evidence of shortness of breath of poor air exchange - will continue with duoneb treatments as tolerated - pt has evidence of bilateral ronchi on exam - given xray evidence of new left lower lobe infiltrate will treat as pneumonia and place pt on azithromycin 5 day course 2. Nausea and vomiting Status Acute Onset Date 12/07/16 Plan - resolved - pt has not vomited or had episodes of vomiting all day 3. Dehydration Plan - resolving - secondary to decreased po intake - will c/w iv hydration while in patient 4. Weakness Plan - improved with correction of dehydration and increased po intake - encouraging patient to eat more 5. Multiple myeloma Plan - stable - pt on chemotherapy - will give standard dexamethasone dose today - will touch base with oncologist before discharge 6. Closed fracture of single pubic ramus of pelvis Plan - repeat xray obtained today - no further complication of fracture - pt will still need to go to rehab for mobility improvement
[2016-12-10 18:07] VITALS: BP 123/46
[2016-12-10 22:28] VITALS: BP 120/51
[2016-12-11 02:17] VITALS: BP 116/88
[2016-12-11 06:18] VITALS: BP 114/69
[2016-12-11 10:24] VITALS: BP 110/55
--- NOTE | 2016-12-11 13:55 | Progress Note ---
Subjective General Patient seen and examined. Patient was restless last night secondary to anxiety and pain. Patient was treated with anxiolytics with good results. Patient is otherwise stable for discharge. Constitutional Denies: Fever, Chills, Sweats, Weakness, Malaise, Other. Eyes Denies: Pain, Vision Change, Conjunctival Inflammation, Eyelid Inflammation, Redness, Other. Respiratory Denies: Cough, Dry, SOB w/exertion, Wheezing, Hemoptysis, Pleuritic Pain, Sputum , Other. Cardiovascular Denies: Chest Pain, Palpitations, Orthopnea, PND, Edema, Light-headedness, Other. Gastrointestinal Denies: Nausea, Vomiting, Abdominal Pain, Diarrhea, Constipation, Melena, Hematochezia, Other. Genitourinary Denies: Dysuria, Frequency, Incontinence, Hematuria, Retention, Other. Musculoskeletal Denies: Neck Pain, Shoulder Pain, Arm Pain, Back Pain, Hand Pain, Leg Pain, Foot Pain, Other. Skin Denies: Rash, Lesions, Jaundice, Bruising, Other. Neurological Other (anxiety). Denies: Weakness, Numbness, Incoordination, Change in speech, Confusion, Seizures. Physical Exam Vital Signs / I&Os Vital Signs Date Time Temp Pulse Resp B/P Pulse O2 O2 Flow FiO2 Ox Delivery Rate 12/11 1024 98.1 94 18 110/55 100 Nasal 2.0 Cannula 12/11 0912 2.0 12/11 0732 2.0 12/11 0618 98.8 75 18 114/69 100 Nasal 2.0 Cannula 12/11 0217 98.2 87 18 116/88 97 Nasal 2.0 Cannula 12/11 0140 Nasal 2.0 Cannula 12/10 2228 98.2 101 20 120/51 99 Nasal 2.0 Cannula 12/10 2149 2.0 12/10 1945 2.0 12/10 1807 98.4 86 18 123/46 98 Nasal 2.0 Cannula 12/10 1635 2.0 12/10 1508 83 18 124/62 98 Nasal 2.0 Cannula I&O 12/10 0800 12/10 1600 12/11 0000 Intake Total 440 120 Output Total 50 250 Balance -50 190 120 General Appearance Alert, Oriented X3, Mild distress HEENT Atraumatic, PERRLA, Moist mucous membranes Lungs Clear to auscultation, Normal air movement Neck Supple, No JVD, No thyromegaly, No lymphadenopathy, 2+ carotid pulse wo bruit Cardiovascular Normal S1 and S2, No murmurs, gallops, rubs Abdomen Soft, No tenderness Extremities No clubbing, No edema, Normal pulses, No tenderness, Strength = upper ext's, Strength = lower ext's Skin No Breakdown, - pressure wound on buttocks present on admission Neurological Normal speech, Normal tone, Sensation intact, Reflexes 2+ and equal , Cranial nerves intact, Strength 5/5 x4 ext's Psych/Mental Status Mood normal Assessment and Plan Problem List 1. Nausea and vomiting Status Acute Onset Date 12/07/16 Plan - resolved - presumably from the infection patient had in the urine - pt able to tolerate a regular diet 2. Dehydration Plan - secondary to decreased po intake and infection - patient adequately hydrated - adequate urine out put, and normal range of renal labs 3. Multiple myeloma Plan - stable - currently on chemotherapy, will follow up with instruction by Dr Zhong 4. Closed fracture of single pubic ramus of pelvis Plan - established diagnosis - xrays obtained shows appropriate healing with no evidence of further damage 5. Ribs, multiple fractures Plan - established diagnosis - currently stable - pain medication is controlling it 6. UTI (urinary tract infection) Onset Date 10/11/16 Plan -
[2016-12-11] MEDS ORDERED: AZITHROMYCIN500 MG PO ×2 (13:58→15:08)
--- NOTE | 2016-12-11 14:00 | Provider's Discharge Care Plan ---
Problem, Goal, Plan Problem List 1. COPD (chronic obstructive pulmonary disease) Instructions: Take meds as directed 2. Nausea and vomiting Instructions: - resolved 3. Dehydration Instructions: - resolved 4. Multiple myeloma Instructions: - stable - will need follow up with oncologist within the month 5. Pneumonia Instructions: Take meds as directed, - finish course of antibioitics
[2016-12-11] MEDS ORDERED: BACLOFEN10 MG PO (14:50)
[2016-12-11] MEDS ORDERED: PERCOCET1 TA1 PO ×2 (14:50→15:08)
[2016-12-11] MEDS ORDERED: OXYCONTIN PO ×3 (14:50→15:56)
[2016-12-11] MEDS ORDERED: OXAYDO5 MG PO ×2 (14:50→15:08)
--- NOTE | 2016-12-11 14:55 | Discharge Summary ---
Discharge Summary Report Admit Date 12/07/16 Discharge Date 12/11/16 Admission Diagnosis Nausea and vomiting, dehydration Discharge Diagnosis upper respiratory infection, dehydration, nausea and vomiting Brief History The patient is a 71-year-old white female with a significant past medical history of for multiple myeloma, COPD, renal insufficiency, and hypertension, who presented to [facility] emergency department on the day of admission secondary to complaints of nausea, vomiting, diarrhea, shortness of breath, and generalized weakness. Evaluation at that time was consistent with UTI, dehydration, generalized weakness, anemia. Secondary to the above the patient was admitted by Pérez Guardado M.D. for further evaluation and treatment. The patient had experienced nausea, vomiting, diarrhea, weakness, and shortness of breath prior to admission. The patient's family was dissatisfied with her care at her shelter facility and discharged her bringing her to [facility] emergency department for further evaluation and treatment. The patient is unable to give any further history regarding her symptoms prior to presentation. No family members available at time of admission. Hospital Course Patient was admitted from a rehab facility for dehydration, urinary tract infection, and uncontrolled pain. Patient was admitted treatment was continued. Patient was actively rehydrated, her pain was controlled. Patient had repeat imaging of her pubis done, which did not reveal any further deterioration of her fracture. Patient was then seen to have a productive cough. Patient was placeced on oral antibiotics with good results. At this time it was decided that the patient could be discharged. Patient will follow up with her pcp and oncologist as needed. She will resume all her home medication. Patient will finish her course of antibiotics/ General Appearance Alert, Oriented X3, No acute distress, Mild distress HEENT PERRLA, EOMI, Mucous membran moist/pink Lungs Normal air movement Cardiovascular No murmurs, Gallops, Rubs Abdomen Soft, No tenderness Skin No Breakdown Discharge Instructions/Meds - resume all medications - resume chemotherapy - follow up with oncologist
--- NOTE | 2016-12-11 14:55 | Discharge Summary ---
Discharge Summary Report Admit Date 12/07/16 Discharge Date 12/11/16 Admission Diagnosis Nausea and vomiting, dehydration Discharge Diagnosis upper respiratory infection, dehydration, nausea and vomiting Brief History The patient is a 71-year-old white female with a significant past medical history of for multiple myeloma, COPD, renal insufficiency, and hypertension, who presented to [facility] emergency department on the day of admission secondary to complaints of nausea, vomiting, diarrhea, shortness of breath, and generalized weakness. Evaluation at that time was consistent with UTI, dehydration, generalized weakness, anemia. Secondary to the above the patient was admitted by Pérez Guardado M.D. for further evaluation and treatment. The patient had experienced nausea, vomiting, diarrhea, weakness, and shortness of breath prior to admission. The patient's family was dissatisfied with her care at her group home facility and discharged her bringing her to [facility] emergency department for further evaluation and treatment. The patient is unable to give any further history regarding her symptoms prior to presentation. No family members available at time of admission. Hospital Course Patient was admitted from a rehab facility for dehydration, urinary tract infection, and uncontrolled pain. Patient was admitted treatment was continued. Patient was actively rehydrated, her pain was controlled. Patient had repeat imaging of her pubis done, which did not reveal any further deterioration of her fracture. Patient was then seen to have a productive cough. Patient was placeced on oral antibiotics with good results. At this time it was decided that the patient could be discharged. Patient will follow up with her pcp and oncologist as needed. She will resume all her home medication. Patient will finish her course of antibiotics/ General Appearance Alert, Oriented X3, No acute distress, Mild distress HEENT PERRLA, EOMI, Mucous membran moist/pink Lungs Normal air movement Cardiovascular No murmurs, Gallops, Rubs Abdomen Soft, No tenderness Skin No Breakdown Discharge Instructions/Meds - resume all medications - resume chemotherapy - follow up with oncologist
[2016-12-11] MEDS ORDERED: ATIVAN1 MG PO (15:08)
== END 2016-12-11 15:15 | DRG 640 ==
LOC: ED SRH 15:35 → TRANS SRH 20:02 → CC SRH 20:02 → ACUTE2 SRH 20:02 → CC SRH 21:44 → ACUTE2 SRH 12-09 19:21
PROVIDERS: ADMIT Internal Medicine
DX: E86.0 Dehydration (principal); N39.0 Urinary tract infection, site not specified; R11.2 Nausea with vomiting, unspecified; R53.1 Weakness; D61.810 Antineoplastic chemotherapy induced pancytopenia; C90.00 Multiple myeloma not having achieved remission; I12.9 Hypertensive chronic kidney disease with stage 1 through stage 4 chronic kidney disease, or unspecified chronic kidney disease; N18.9 Chronic kidney disease, unspecified; M84.550D Pathological fracture in neoplastic disease, pelvis, subsequent encounter for fracture with routine healing; M84.58XD Pathological fracture in neoplastic disease, other specified site, subsequent encounter for fracture with routine healing; J44.9 Chronic obstructive pulmonary disease, unspecified; I50.9 Heart failure, unspecified; F41.9 Anxiety disorder, unspecified

== ENCOUNTER 2017-01-07 16:48 | Inpatient (IN) | payer OTHER, MEDICARE ==
[~2017-01-07] VITALS: Ht 160 cm; Wt 52.9 kg
[~2017-01-07 16:48] MED LIST changes: +ACETAMINOPHEN325 MG PO; +ATIVAN1 MG PO; +AZITHROMYCIN500 MG PO; +DEXAMETHASONE0.5 MG PO; +DEXAMETHASONE4 MG PO; +DIPHENHIST25 MG PO; +DULCOLAX10 MG PR; +O2; +OXAYDO5 MG PO; +OXYCONTIN PO; +REVLIMID PO; +SENNA-LAX8.6 MG PO
--- NOTE | 2017-01-07 20:07 | DIAGNOSTIC IMAGING REPORT ---
PROCEDURE: XR CHEST 2 VIEW INDICATION: SHORTNESS OF BREATH TECHNIQUE: Two views. COMPARISON: 12/10/2016, 12/07/2016, 10/23/2016, CT 10/13/2016 FINDINGS: Some small remote prior studies, the patient has become much more kyphotic which accentuates the mediastinum. The heart is enlarged, stable compared to prior studies. The mediastinum is not significantly changed since more recent prior studies. Central vasculature is mildly congested. There is moderate thickening of the interstitial markings, particularly at the left lower lung. No patchy alveolar opacity to suggest edema. There is moderate peribronchial thickening seen particularly in the posterior lower lungs. Slight blunting or pleural thickening of the posterior costophrenic angles present. No dense consolidations. There has been interval progression of a severe mid thoracic compression fracture resulting in severe kyphosis. T10 and T12 compression fractures are seen. Osseous structures demonstrate diffusely mottled appearance. Multiple rib fractures in various stages of healing. IMPRESSION: 1. Mild central venous congestion and diffuse interstitial thickening suggestive of mild CHF given mild cardiomegaly. 2. Peribronchial thickening suggestive of chronic bronchitis. 3. Diffuse mottled osseous appearance with multiple rib and spine fractures consistent with multiple myeloma. 4. Discussed with Dr. Jasso in the emergency room.
--- NOTE | 2017-01-07 20:09 | ED NURSING NOTES ---
Clinical Report - Nurses [facility] [address] [place] [address] 01/07/2017 16:52 Patient: MICKI LARRY TRIAGE Triage time 17:Jan 07 2017. Acuity: LEVEL 3. Chief Complaint: WHEEZING. Alert. LUCY COMA SCORE: Lucy Coma Scale: 15- eyes open spontaneously (4); best verbal response- oriented x 4 (5); best motor response- obeys commands (6). --17:16 Ian Bowles R.N. 17:05 01/07/17. BP: 115/64. HR: 71. RR: 16. O2 saturation: 97% on room air. Temp: 98.7 F. Pain level now: 0/10. --17:16 Ian Bowles R.N. Weight: 53 kg stated. Height/Length: 62 inches Per Patient. BMI: 21.4. --17:08 Ian Bowles R.N. Medications Acetaminophen Oral 650 mg, PRN. Aspirin Oral (Tablet 325 mg) 1 tablet. Baclofen Oral 10 mg, 3x a day. Dexamethasone Oral 4 mg, daily. DiphenhydrAMINE HCl Oral (Capsule 25 mg) 1 capsule, daily. Famotidine Oral (Tablet 20 mg), at bedtime. GlycoLax Oral. Lisinopril Oral (Tablet 10 mg) 1 tablet, daily. LORazepam Oral (Tablet 1 mg) 1 tablet, daily. Meloxicam Oral (Tablet 7.5 mg) 1 tablet. Metoprolol Tartrate Oral 25 mg 1/2 tab, 3 x daily as needed. OxyCODONE HCl Oral 10 mg, as needed. OxyCONTIN Oral 40 mg, daily. Revlimid Oral (Capsule 25 mg) 1 capsule. Senna Oral. Vicodin Oral 5 mg, 3x a day as needed. --17:12 Ian Bowles R.N. Allergies Codeine. Definite Moderate(confusion) --17:12 Ian Bowles R.N. Medication/allergy information source: the patient. --17:16 Wilbur, Ian, R.N. History Arrived by private vehicle. Historian: patient. Accompanied by daughter. ( Weakness, wheezing and productive cough of yellow-green mucous.). Onset. (about 4 days ago). She has had a cough and wheezing. 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 PAST MEDICAL HX: Immunizations: up-to-date. SOCIAL HX: Former smoker, end date 08/2016. No alcohol use or drug use. No infectious disease exposure. ABUSE ASSESSMENT: No report of abuse. FALL RISK ASSESSMENT: Fall risk assessment completed. No fall risk identified. NUTRITIONAL RISK ASSESSMENT: The nutritional risk assessment revealed no deficiencies. FUNCTIONAL ASSESSMENT: Functional assessment: no impairments noted. LEARNING NEEDS ASSESSMENT: The learning needs assessment revealed no barriers. SKIN INTEGRITY ASSESSMENT: Skin integrity risk assessment completed. No skin integrity risk identified. --17:16 Ian Bowles R.N. PROBLEMS: Gastroenteritis. Weakness. Dyspnea. Myeloma . Anemia. Rib fractures. Fractured thoracic vertebra. Congestive Heart Failure. Hypokalemia. Abnormal Test. Back Pain. Hypertension. Gastroesophageal Reflux Disease. COPD - Chronic Obstructive Pulmonary Disease. --17:14 Ian Bowles R.N. ADDITIONAL SURGERIES: Appendectomy. --17:14 Ian Bowles R.N. Interventions ID band on patient. To treatment room. --17:16 Ian Bowles R.N. PHYSICAL ASSESSMENT To room via wheelchair. GENERAL / NEURO / PSYCH: Alert. Oriented X 4. HEENT: Mucous membranes are pink. RESPIRATORY: No respiratory distress. Expiratory wheezes in the right and left lung base anteriorly. CVS: Cardiac rhythm: (RRR). GI / : Abdomen soft. Bowel sounds within normal limits. SKIN: Skin is warm and dry. Normal skin turgor. --17:17 Ian Bowles R.N. NURSING PROGRESS NOTES Patient gowned. Reassurance given. Patient identifiers checked. Call light placed in reach. Side rails up x 1. Patient ready for evaluation- chart flagged and ED physician notified. --17:17 Ian Bowles R.N. 18:31 01/07/2017 Duoneb (Ipratropium-Albuterol) Neb TX 1 unit dose given. Given by the respiratory therapist. --18:31 Logan Fuentes 18:40 01/07/17. Patient transported to radiology by stretcher with tech. --18:55 Ian Bowles R.N. 18:55 01/07/17. Patient returned from radiology by stretcher with tech. --18:56 Ian Bowles R.N. ( X-ray tech states that pt has pressure sores on the region of her coccyx.). --18:57 Ian Bowles R.N. 19:02 01/07/2017 Site #1 started via IV in the right antecubital space with an 20g angiocath, with aseptic technique and good blood return; one attempt. Blood drawn: rainbow set. Saline lock flushed with 10 mL saline. --19:12 Ian Bowles R.N. 19:13 01/07/2017 SOLU-MEDROL (MethylPREDNISolone Sodium Succ) IVP 125 mg given over 2 minute(s) via site #1. Allergies verified and confirmed 5 rights. IV patency established. IV site checked: no pain, redness, or swelling. IV flushed thoroughly pre- and post-medication administration. IVP given by RN. --19:14 Ian Bowles R.N. 19:19 01/07/17. BP: 116/71. HR: 75. RR: 16. O2 saturation: 97% on room air. Pain level now: 0/10. --19:20 Ian Bowles R.N. 19:25. Patient ID band checked for patient name, birthdate and medical record number: patient confirmed. Blood samples drawn from the right antecubital space peripheral IV site by nurse ; labeled in presence of the patient and sent to lab: blood culture (1st set). Line flushed with 10 mL normal saline post blood draw. --19:38 Ian Bowles R.N. 19:27. Patient ID band checked for patient name, birthdate and medical record number: patient confirmed. Blood samples drawn by lab: blood culture (2nd set). --19:40 Ian Bowles R.N. 20:53 01/07/2017 Lasix IVP 10 mg given over 2 minute(s) via site #1. Allergies verified and confirmed 5 rights. IV patency established. IV site checked: no pain, redness, or swelling. IV flushed thoroughly pre- and post-medication administration. IVP given by RN. --20:55 Thelma Gordon R.N. ( BSC placed at bedside. Pt instructed to call for help up to use it (even though she uses restroom by herself at home). Pt verbalizes understanding and agrees. Call light within reach.). --20:56 Thelma Gordon R.N. ( Pts family goes home, will return with Chemo medication tomorrow.). --20:57 Thelma Gordon R.N. 21:00 01/07/17. BP: 140/70. HR: 69. RR: 16. O2 saturation: 93%. Pain level now: 01/07. Additional comments: Coccyx pressure sores. --21:00 Ian Bowles R.N. 21:10 01/07/17. Patient ID band checked for patient name, birthdate and medical record number: patient confirmed. Clean catch urine collected with return of dian-colored clear urine; odor is normal; sample sent to lab for urinalysis and culture. Specimen labeled in the presence of the patient. --21:17 Ian Bowles R.N. 19:25. ( Pt voided 550 cc dian-colored urine). --21:19 Ian Bowles R.N. 21:30 01/07/17. BP: 111/68. HR: 87. RR: 16. O2 saturation: 99% on room air. Pain level now: 12/07. Additional comments: Coccyx pain. --23:59 Ian Bowles R.N. <<STRICKEN ENTRY-- 22:00 01/07/17. BP: 107/66. HR: 85. RR: 16. O2 saturation: 100% on room air. Pain level now: 12/07. Additional comments: Coccyx Pain. --00:00 Ian Bowles R.N. --END STRIKE>> Other. --00:08 Ian Bowles R.N. DISPOSITION / DISCHARGE Departure time: 2156. --00:04 Ian Bowles R.N. 21:57. Condition at departure: improved. Admitted to Acute Care. Transported via stretcher. Report was given to a nurse via a phone call. Report included patient's care, treatment, medications, reviewed medication reconcilliation, and condition (including any recent changes or anticipated changes). All questions were answered. Report was acknowledged and care was transferred. (Jose, RN). Patient's personal items; items were placed in belongings bag and transported with the patient. --00:07 Ian Bowles R.N. 21:50 01/07/17. BP: 107/66. HR: 85. RR: 16. O2 saturation: 100% on room air. Temp: 98.7 F. Pain level now: 12/07. Additional comments: Coccyx pain. --00:12 Ian Bowles R.N. Locked/Released at 01/08/2017 0:13 by Ian Bowles R.N.
--- NOTE | 2017-01-07 20:09 | ED ORDER SUMMARY ---
..... Patient: MICKI LARRY OrderSheet [facility] VisitID: [id number] [address] [place] [address] 71y, F Registration Date/Time: 01/07/2017 ORDER SHEET Weight: 53.0 kg (stated) Allergies: Codeine GENERAL ORDERS: Chest 2V Urgent (18:20 01/07/2017 Alejandro LOWE) (Ack 18:27 Sherri) (18:54 KHoerner) Blood Culture (No) (N/A) Urgent (18:20 01/07/2017 Alejandro LOWE) (Ack 18:27 Sherri) (21:07 LMuller) CBC w Diff Urgent (18:21 01/07/2017 Alejandro LOWE) (Ack 18:27 Sherri) (19:20 Sri R.N.) CMP Urgent (18:21 01/07/2017 Alejandro LOWE) (Ack 18:27 Sherri) (19:20 Sri R.N.) Amylase Urgent (18:21 01/07/2017 Alejandro LOWE) (Ack 18:27 Sherri) (19:21 Sri R.N.) Lipase Urgent (18:21 01/07/2017 Alejandro LOWE) (Ack 18:27 Sherri) (19:21 Silverioelli R.N.) PCT (Procalcitonin) Urgent (18:21 01/07/2017 Alejandro LOWE) (Ack 18:27 Sherri) (19:21 Sri R.N.) BNP Urgent (18:21 01/07/2017 Alejandro LOWE) (Ack 18:27 Sherri) (19:21 Sri R.N.) CPK Urgent (18:21 01/07/2017 Alejandro LOWE) (Ack 18:27 Sherri) (19:21 Sri R.N.) Troponin-I Urgent (18:01/07/2017 Alejandro LOWE) (Ack 18:27 Sherri) (19:21 Sri R.N.) D-Dimer Urgent (18:01/07/2017 Alejandro LOWE) (Ack 18:27 Sherri) (19:21 Sri R.N.) EKG - ER Stat (18:01/07/2017 Alejandro LOWE) (Ack 18:27 Sherri) (20:47 LMuller) Pulse oximeter (18:01/07/2017 Alejandro LOWE) (19:20 Sri R.N.) Culture, Sputum (Sputum) (sputum) Urgent (18:01/07/2017 Alejandro LOWE) (Ack 18:27 Sherri) (Cancelled: Unable to Collect0:13 Sri R.N.) UA-Culture if indicated Urgent (18:01/07/2017 Alejandro LOWE) (Ack 18:27 Sherri) (21:17 Sri R.N.) RT Evaluation Stat (18:01/07/2017 Alejandro LOWE) (Ack 18:27 Sherri) (18:54 KHoerner) MEDICATION ORDERS: DuoNeb Neb Tx 1 unit dose (NOW) (18:01/07/2017 Alejandro LOWE) (18:31 DBourey) IV FLUIDS: Solu-MEDROL IV 125 mg (NOW) (18:01/07/2017 Alejandro LOWE) (19:14 Sri R.N.) IV Saline Lock (18:01/07/2017 Alejandro LOWE) (19:12 Sri R.N.) Lasix IV 10 mg (NOW) (20:27 01/07/2017 Alejandro LOWE) (Ack 20:46 CONSUELOollariane R.N.) (20:55 Bruno R.N.) ORDER SHEET NOTES: [Electronically signed by Ian Bowles R.N. (00:13 01/08/2017)] [Electronically signed by Arpit Jasso MD (10:20 01/08/2017)] [Electronically locked/signed by Ian Bowles R.N. (00:13 01/08/2017)]
--- NOTE | 2017-01-07 20:09 | ED CLINICAL REPORT ---
Clinical Report - Physicians/Mid Levels [facility] [address] [place] [address] 01/07/2017 16:52 Patient: MICKI LARRY Time Seen: 17:03. Arrived- By private vehicle. Historian- patient. HISTORY OF PRESENT ILLNESS Chief Complaint: DYSPNEA and WHEEZING. This started about 1 week ago and is still present. It was gradual in onset and has been constant and waxing/waning. The dyspnea is described as severe. She has had dyspnea at rest. The patient has had a cough. She has had scant amounts of green sputum. No chest pain or discomfort. Similar symptoms previously: Several times. Recent medical care: The patient was seen recently at this facility. Diagnosis: pneumonia. REVIEW OF SYSTEMS No chills, fever, sweats, calf pain or pedal edema. No palpitations, abdominal pain, black stools, bloody stools or constipation. No urinary problems. She has had intermittent loose stools. No bloody or blood-tinged diarrhea. All systems otherwise negative, except as recorded above. PAST HISTORY PCP - [facility]. Problems: Gastroenteritis. Weakness. Dyspnea. Myeloma . Anemia. Rib fractures. Fractured thoracic vertebra. Congestive Heart Failure. Hypokalemia. Back Pain. Hypertension. Gastroesophageal Reflux Disease. COPD - Chronic Obstructive Pulmonary Disease. Additional Surgeries: Appendectomy. Medications: Vitamin D Oral (Capsule 1000 unit). Vitamin D Oral (Capsule 1000 unit). Vitamin D Oral (Capsule 1000 unit) 1 capsule, daily. Vitamin D Oral (Capsule 1000 unit) 1 capsule, daily. Vitamin D Oral (Capsule 1000 unit) 1 capsule, daily. Vitamin D Oral (Capsule 1000 unit) 1 capsule, daily. Acetaminophen Oral 650 mg, PRN. Aspirin Oral (Tablet 325 mg) 1 tablet. Baclofen Oral 10 mg, 3x a day. Dexamethasone Oral 4 mg, daily. DiphenhydrAMINE HCl Oral (Capsule 25 mg) 1 capsule, daily. Famotidine Oral (Tablet 20 mg), at bedtime. GlycoLax Oral. Lisinopril Oral (Tablet 10 mg) 1 tablet, daily. Meloxicam Oral (Tablet 7.5 mg) 1 tablet. OxyCODONE HCl Oral 10 mg, as needed. OxyCONTIN Oral 40 mg, daily. Revlimid Oral (Capsule 25 mg) 1 capsule. Senna Oral. Vicodin Oral 5 mg, 3x a day as needed. Allergies: Codeine. Definite Moderate(confusion). SOCIAL HISTORY Smoker- current status unknown. FAMILY HISTORY Family medical history is unknown due to adoption. ADDITIONAL NOTES The nursing notes have been reviewed. PHYSICAL EXAM Vital Signs: 01/07/2017 17:05 BP: 115/64. HR: 71. RR: 16. O2 saturation: 97%. Temp: 98.7 F. Pain level now: 0/10. Have been reviewed. Appearance: (marked kyphosis). ENT: Nose normal. Pharynx normal. Uvula midline. Neck: Normal inspection. Neck supple. CVS: Normal heart rate and rhythm. Heart sounds normal. Respiratory: Accessory muscle use. Prolonged expirations. Decreased air movement. Expiratory wheezes present. Abdomen: Soft and nontender. No organomegaly. Extremities: Extremities exhibit normal ROM. No calf tenderness. No lower extremity edema. LABS, X-RAYS, AND EKG Chest X-ray: (1. Mild central venous congestion and diffuse interstitial thickening suggestive of mild CHF given mild cardiomegaly. 2. Peribronchial thickening suggestive of chronic bronchitis. 3. Diffuse mottled osseous appearance with multiple rib and spine fractures consistent with multiple myeloma.). Laboratory Tests: UA-Culture if indicated: (SANTI: 01/07/2017 21:10) ( MsgRcvd 01/07/2017 21:37) Final results Test Result Flag Units (Reference) URINE COLOR YELLOW URINE APPEARANCE CLEAR URINE GLUCOSE NEGATIVE (NEGATIVE) URINE BILIRUBIN NEGATIVE (NEGATIVE) URINE KETONE NEGATIVE (NEGATIVE) URINE SPECIFIC GRAVITY 1.015 (1.010-1.030) URINE PH 6.5 (5.0-8.0) URINE PROTEIN TRACE (NEGATIVE) URINE UROBILINOGEN 0.2 EU/dL (0.2-1.0) URINE NITRITE NEGATIVE (NEGATIVE) URINE BLOOD TRACE-LYSED (NEGATIVE) URINE LEUK ESTERASE NEGATIVE (NEGATIVE) URINE RBC 1-3 rbc/hpf (0-1) URINE WBC 0-1 wbc/hpf (0-1) URINE EPITHELIAL CELLS 1-3 EPI/hpf (0-5) URINE BACTERIA NONE SEEN (NONE SEEN) URINE COMMENT CULT NOT INDICATED 1+ MUCUSURINE CULTURES ARE SET-UP BASED ON THE FOLLOWING CRITERIA:POSITIVE NITRITEPOSITIVE LEUKOCYTE ESTERASEGREATER THAN 10 WHITE BLOOD CELLSMODERATE (2+) OR GREATER BACTERIA CBC w Diff: (SANTI: 01/07/2017 19:00) ( [facility] 01/07/[place] 20:24) Final results Test Result Flag Units (Reference) WHITE BLOOD COUNT 2.8 L K/uL (4.5-11.5) RED BLOOD COUNT 2.50 L M/uL (4.00-5.20) HEMOGLOBIN 8.9 L gm/dL (12.0-16.0) HEMATOCRIT 26.5 L % (36.0-46.0) MEAN CELL VOLUME 106 H fL (80-100) MEAN CORPUSCULAR HGB 36 H pg (26-34) MEAN CORPUSCULAR HGB CONC 34 g/dL (31-37) RED CELL DISTRIBUTION WIDTH 20.2 H % (11.6-14.8) PLATELET COUNT 178 K/uL (150-400) NEUTROPHIL % 48.2 L % (50-75) LYMPH % 45.3 H % (25-40) MONO % 4.6 % (3-14) EOSINOPHIL % 1.0 % (0-4) BASOPHIL % 0.9 % (0-2) RBC MORPHOLOGY 1+ MACROCYTOSIS~~2+ ANISOCYTOSIS [id number]: (SANTI: 01/07/2017 19:00) ( [facility] 01[facility]07[facility] 19:35) Final results Test Result Flag Units (Reference) D-DIMER QUANTITATIVE 1.05 H ug/mLFEU (0.27-0.52) The primary value of this quantitative assay relates toits negative predictive value (i.e. exclusion) of pulmonaryembolism/deep vein thrombosis/DIC.Elevated levels of d-dimer may also occur with:, age, cancer, inflammation, liver disease,post-op, infection, hematoma, coronary disease, peripheralarteriopathy, bleeding disorders and thrombolytic treatment.Results should be correlated with other clinical andradiological data.Testing Methodology: Latex Immunoassay BNP: (SANTI: 01/07/2017 19:00) ( MsgRcvd 01/07/2017 19:46) Final results Test Result Flag Units (Reference) B-TYPE NATRIURETIC PEPTIDE 238 H pg/ml (5-100) [id number]: (SANTI: 01/07/2017 19:00) ( MsgRcvd 01/07/2017 19:52) Final results Test Result Flag Units (Reference) PROCALCITONIN <0.5 ng/mL (0-0.5) PCT Concentration: Interpretation : Risk/option for action PCT <=0.5 ng/mL : Systemic : Low risk forinfection(sepsis): progression to severeis not likely. : systemic infection.Local bacterial : CAUTION-PCT levelsinfection is : below 0.5 ng/mL do notpossible. : exclude an infection,because localizedinfections (withoutsystemic signs) may beassociated with suchlow levels. If PCT ismeasured very earlyafter a bacterialchallenge (usually <6hours), these valuesmay still be low. Inthis case PCT shouldbe re-assessed 6-24hours later. PCT >0.5 and : Systemic infection: Moderate risk for<= 2 ng/mL : (sepsis) is : progression to severepossible, but : systemic infection.other conditions : The patient should beare known to : closely monitoredelevate PCT. : both clinically andby re-assessing PCTwithin 6-24 hours. PCT > 2 ng/mL : Systemic infection: High risk for(sepsis) is likely: progression to severeunless other : systemic infection.causes are known. : PCT >= 10 ng/mL : Important systemic: High likelihood ofinflammatory : severe sepsis orresponse, almost : septic shock.exclusively due to:severe bacterial :sepsis or septic :shock. : CMP: (SANTI: 01/07/2017 19:00) ( MsgRcvd 01/07/2017 19:44) Final results Test Result Flag Units (Reference) GLUCOSE 130 H mg/dL (70-110) BUN 31 H mg/dL (7-18) CREATININE 0.9 mg/dL (0.6-1.3) Estimated GFR >60 mL/min Estimated GFR- >60 mL/min Note: Persistent reduction over 3 months in eGFR<60 mL/min/1.73 m2 defines CKD. Patients with eGFR values>=60 mL/min/1.73 m2 may also have CKD if evidence ofpersistent proteinuria. Additional information may be foundat www.kidney.org. SODIUM 141 mmol/L (136-145) POTASSIUM 4.1 mmol/L (3.5-5.1) CHLORIDE 104 mmol/L (98-107) CARBON DIOXIDE 27 mmol/L (21-32) CALCIUM 8.4 L mg/dL (8.5-10.1) TOTAL PROTEIN 6.7 g/dL (6.4-8.2) ALBUMIN 2.7 L g/dL (3.3-5.0) BILIRUBIN, TOTAL 0.6 mg/dL (0.0-1.0) ALKALINE PHOSPHATASE 148 H U/L (46-116) AST (SGOT) 13 L U/L (15-37) ALT (SGPT) 23 U/L (12-78) LIPASE 55 L U/L (73-393) AMYLASE 26 U/L (25-115) CPK 51 U/L (24-260) TROPONIN I <0.05 ng/mL (0.00-1.5) TROPONIN REFERENCE RANGE:<0.1 NEGATIVE0.1-1.5 INDETERMINANT>1.5 POSITIVE . PROGRESS AND PROCEDURES Course of Care: Patient is stable. Discussed case with hospitalist, (Hilary - he saw the patient in the emergency room). Reviewed test results and need for additional work-up. Agreed upon treatment plan, need for patient follow-up and decision to admit. Patient and family counseled in person several times regarding the patient's condition, test results and diagnosis and DNR (Do Not Resuscitate) considerations for the patient. Old medical records reviewed. Disposition orders written (in [facility]). Disposition: Admitted. CLINICAL IMPRESSION Chronic congestive heart failure Acute exacerbation of COPD. Stage 3 pressure ulcer with full thickness skin loss on the sacral area. multiple myeloma. (Electronically signed by Arpit Jasso MD 01/08/2017 10:20)
--- NOTE | 2017-01-07 20:09 | ED ORDER SUMMARY ---
..... Patient: MICKI LARRY OrderSheet [facility] VisitID: [id number] [address] [place] [address] 71y, F Registration Date/Time: 01/07/2017 ORDER SHEET Weight: 53.0 kg (stated) Allergies: Codeine GENERAL ORDERS: Chest 2V Urgent (18:20 01/07/2017 Alejandro LOWE) (Ack 18:27 Sherri) (18:54 KHoerner) Blood Culture (No) (N/A) Urgent (18:20 01/07/2017 Alejandro LOWE) (Ack 18:27 Sherri) (21:07 LMuller) CBC w Diff Urgent (18:21 01/07/2017 Alejandro LOWE) (Ack 18:27 Sherri) (19:20 Sri R.N.) CMP Urgent (18:21 01/07/2017 Alejandro LOWE) (Ack 18:27 Sherri) (19:20 Sri R.N.) Amylase Urgent (18:21 01/07/2017 Alejandro LOWE) (Ack 18:27 Sherri) (19:21 Sri R.N.) Lipase Urgent (18:21 01/07/2017 Alejandro LOWE) (Ack 18:27 Sherri) (19:21 Silverioelli R.N.) PCT (Procalcitonin) Urgent (18:21 01/07/2017 Alejandro LOWE) (Ack 18:27 Sherri) (19:21 Sri R.N.) BNP Urgent (18:21 01/07/2017 Alejandro LOWE) (Ack 18:27 Sherri) (19:21 Sri R.N.) CPK Urgent (18:21 01/07/2017 Alejandro LOWE) (Ack 18:27 Sherri) (19:21 Sri R.N.) Troponin-I Urgent (18:01/07/2017 Alejandro LOWE) (Ack 18:27 Sherri) (19:21 Sri R.N.) D-Dimer Urgent (18:01/07/2017 Alejandro LOWE) (Ack 18:27 Sherri) (19:21 Sri R.N.) EKG - ER Stat (18:01/07/2017 Alejandro LOWE) (Ack 18:27 Sherri) (20:47 LMuller) Pulse oximeter (18:01/07/2017 Alejandro LOWE) (19:20 Sri R.N.) Culture, Sputum (Sputum) (sputum) Urgent (18:01/07/2017 Alejandro LOWE) (Ack 18:27 Sherri) (Cancelled: Unable to Collect0:13 Sri R.N.) UA-Culture if indicated Urgent (18:01/07/2017 Alejandro LOWE) (Ack 18:27 Sherri) (21:17 Sri R.N.) RT Evaluation Stat (18:01/07/2017 Alejandro LOWE) (Ack 18:27 Sherri) (18:54 KHoerner) MEDICATION ORDERS: DuoNeb Neb Tx 1 unit dose (NOW) (18:01/07/2017 Alejandro LOWE) (18:31 DBourey) IV FLUIDS: Solu-MEDROL IV 125 mg (NOW) (18:01/07/2017 Alejandro LOWE) (19:14 Sri R.N.) IV Saline Lock (18:01/07/2017 Alejandro LOWE) (19:12 Sri R.N.) Lasix IV 10 mg (NOW) (20:27 01/07/2017 Alejandro LOWE) (Ack 20:46 CONSUELOollariane R.N.) (20:55 Bruno R.N.) ORDER SHEET NOTES: [Electronically signed by Ian Bowles R.N. (00:13 01/08/2017)] [Electronically signed by Arpit Jasso MD (10:20 01/08/2017)] [Electronically locked/signed by Ian Bowles R.N. (00:13 01/08/2017)]
--- NOTE | 2017-01-07 20:09 | ED CLINICAL REPORT ---
Clinical Report - Physicians/Mid Levels [facility] [address] [place] [address] 01/07/2017 16:52 Patient: MICKI LARRY Time Seen: 17:03. Arrived- By private vehicle. Historian- patient. HISTORY OF PRESENT ILLNESS Chief Complaint: DYSPNEA and WHEEZING. This started about 1 week ago and is still present. It was gradual in onset and has been constant and waxing/waning. The dyspnea is described as severe. She has had dyspnea at rest. The patient has had a cough. She has had scant amounts of green sputum. No chest pain or discomfort. Similar symptoms previously: Several times. Recent medical care: The patient was seen recently at this facility. Diagnosis: pneumonia. REVIEW OF SYSTEMS No chills, fever, sweats, calf pain or pedal edema. No palpitations, abdominal pain, black stools, bloody stools or constipation. No urinary problems. She has had intermittent loose stools. No bloody or blood-tinged diarrhea. All systems otherwise negative, except as recorded above. PAST HISTORY PCP - [facility]. Problems: Gastroenteritis. Weakness. Dyspnea. Myeloma . Anemia. Rib fractures. Fractured thoracic vertebra. Congestive Heart Failure. Hypokalemia. Back Pain. Hypertension. Gastroesophageal Reflux Disease. COPD - Chronic Obstructive Pulmonary Disease. Additional Surgeries: Appendectomy. Medications: Vitamin D Oral (Capsule 1000 unit). Vitamin D Oral (Capsule 1000 unit). Vitamin D Oral (Capsule 1000 unit) 1 capsule, daily. Vitamin D Oral (Capsule 1000 unit) 1 capsule, daily. Vitamin D Oral (Capsule 1000 unit) 1 capsule, daily. Vitamin D Oral (Capsule 1000 unit) 1 capsule, daily. Acetaminophen Oral 650 mg, PRN. Aspirin Oral (Tablet 325 mg) 1 tablet. Baclofen Oral 10 mg, 3x a day. Dexamethasone Oral 4 mg, daily. DiphenhydrAMINE HCl Oral (Capsule 25 mg) 1 capsule, daily. Famotidine Oral (Tablet 20 mg), at bedtime. GlycoLax Oral. Lisinopril Oral (Tablet 10 mg) 1 tablet, daily. Meloxicam Oral (Tablet 7.5 mg) 1 tablet. OxyCODONE HCl Oral 10 mg, as needed. OxyCONTIN Oral 40 mg, daily. Revlimid Oral (Capsule 25 mg) 1 capsule. Senna Oral. Vicodin Oral 5 mg, 3x a day as needed. Allergies: Codeine. Definite Moderate(confusion). SOCIAL HISTORY Smoker- current status unknown. FAMILY HISTORY Family medical history is unknown due to adoption. ADDITIONAL NOTES The nursing notes have been reviewed. PHYSICAL EXAM Vital Signs: 01/07/2017 17:05 BP: 115/64. HR: 71. RR: 16. O2 saturation: 97%. Temp: 98.7 F. Pain level now: 0/10. Have been reviewed. Appearance: (marked kyphosis). ENT: Nose normal. Pharynx normal. Uvula midline. Neck: Normal inspection. Neck supple. CVS: Normal heart rate and rhythm. Heart sounds normal. Respiratory: Accessory muscle use. Prolonged expirations. Decreased air movement. Expiratory wheezes present. Abdomen: Soft and nontender. No organomegaly. Extremities: Extremities exhibit normal ROM. No calf tenderness. No lower extremity edema. LABS, X-RAYS, AND EKG Chest X-ray: (1. Mild central venous congestion and diffuse interstitial thickening suggestive of mild CHF given mild cardiomegaly. 2. Peribronchial thickening suggestive of chronic bronchitis. 3. Diffuse mottled osseous appearance with multiple rib and spine fractures consistent with multiple myeloma.). Laboratory Tests: UA-Culture if indicated: (SANTI: 01/07/2017 21:10) ( MsgRcvd 01/07/2017 21:37) Final results Test Result Flag Units (Reference) URINE COLOR YELLOW URINE APPEARANCE CLEAR URINE GLUCOSE NEGATIVE (NEGATIVE) URINE BILIRUBIN NEGATIVE (NEGATIVE) URINE KETONE NEGATIVE (NEGATIVE) URINE SPECIFIC GRAVITY 1.015 (1.010-1.030) URINE PH 6.5 (5.0-8.0) URINE PROTEIN TRACE (NEGATIVE) URINE UROBILINOGEN 0.2 EU/dL (0.2-1.0) URINE NITRITE NEGATIVE (NEGATIVE) URINE BLOOD TRACE-LYSED (NEGATIVE) URINE LEUK ESTERASE NEGATIVE (NEGATIVE) URINE RBC 1-3 rbc/hpf (0-1) URINE WBC 0-1 wbc/hpf (0-1) URINE EPITHELIAL CELLS 1-3 EPI/hpf (0-5) URINE BACTERIA NONE SEEN (NONE SEEN) URINE COMMENT CULT NOT INDICATED 1+ MUCUSURINE CULTURES ARE SET-UP BASED ON THE FOLLOWING CRITERIA:POSITIVE NITRITEPOSITIVE LEUKOCYTE ESTERASEGREATER THAN 10 WHITE BLOOD CELLSMODERATE (2+) OR GREATER BACTERIA CBC w Diff: (SNATI: 01/07/2017 19:00) ( [facility] 01/07/2017 20:24) Final results Test Result Flag Units (Reference) WHITE BLOOD COUNT 2.8 L K/uL (4.5-11.5) RED BLOOD COUNT 2.50 L M/uL (4.00-5.20) HEMOGLOBIN 8.9 L gm/dL (12.0-16.0) HEMATOCRIT 26.5 L % (36.0-46.0) MEAN CELL VOLUME 106 H fL (80-100) MEAN CORPUSCULAR HGB 36 H pg (26-34) MEAN CORPUSCULAR HGB CONC 34 g/dL (31-37) RED CELL DISTRIBUTION WIDTH 20.2 H % (11.6-14.8) PLATELET COUNT 178 K/uL (150-400) NEUTROPHIL % 48.2 L % (50-75) LYMPH % 45.3 H % (25-40) MONO % 4.6 % (3-14) EOSINOPHIL % 1.0 % (0-4) BASOPHIL % 0.9 % (0-2) RBC MORPHOLOGY 1+ MACROCYTOSIS~~2+ ANISOCYTOSIS [id number]: (SANTI: 01/07/2017 19:00) ( [facility] 01/07/2017 19:35) Final results Test Result Flag Units (Reference) D-DIMER QUANTITATIVE 1.05 H ug/mLFEU (0.27-0.52) The primary value of this quantitative assay relates toits negative predictive value (i.e. exclusion) of pulmonaryembolism/deep vein thrombosis/DIC.Elevated levels of d-dimer may also occur with:, age, cancer, inflammation, liver disease,post-op, infection, hematoma, coronary disease, peripheralarteriopathy, bleeding disorders and thrombolytic treatment.Results should be correlated with other clinical andradiological data.Testing Methodology: Latex Immunoassay BNP: (SANTI: 01/07/2017 19:00) ( MsgRcvd 01/07/2017 19:46) Final results Test Result Flag Units (Reference) B-TYPE NATRIURETIC PEPTIDE 238 H pg/ml (5-100) [id number]: (SANTI: 01/07/2017 19:00) ( MsgRcvd 01/07/2017 19:52) Final results Test Result Flag Units (Reference) PROCALCITONIN <0.5 ng/mL (0-0.5) PCT Concentration: Interpretation : Risk/option for action PCT <=0.5 ng/mL : Systemic : Low risk forinfection(sepsis): progression to severeis not likely. : systemic infection.Local bacterial : CAUTION-PCT levelsinfection is : below 0.5 ng/mL do notpossible. : exclude an infection,because localizedinfections (withoutsystemic signs) may beassociated with suchlow levels. If PCT ismeasured very earlyafter a bacterialchallenge (usually <6hours), these valuesmay still be low. Inthis case PCT shouldbe re-assessed 6-24hours later. PCT >0.5 and : Systemic infection: Moderate risk for<= 2 ng/mL : (sepsis) is : progression to severepossible, but : systemic infection.other conditions : The patient should beare known to : closely monitoredelevate PCT. : both clinically andby re-assessing PCTwithin 6-24 hours. PCT > 2 ng/mL : Systemic infection: High risk for(sepsis) is likely: progression to severeunless other : systemic infection.causes are known. : PCT >= 10 ng/mL : Important systemic: High likelihood ofinflammatory : severe sepsis orresponse, almost : septic shock.exclusively due to:severe bacterial :sepsis or septic :shock. : CMP: (SANTI: 01/07/2017 19:00) ( MsgRcvd 01/07/2017 19:44) Final results Test Result Flag Units (Reference) GLUCOSE 130 H mg/dL (70-110) BUN 31 H mg/dL (7-18) CREATININE 0.9 mg/dL (0.6-1.3) Estimated GFR >60 mL/min Estimated GFR- >60 mL/min Note: Persistent reduction over 3 months in eGFR<60 mL/min/1.73 m2 defines CKD. Patients with eGFR values>=60 mL/min/1.73 m2 may also have CKD if evidence ofpersistent proteinuria. Additional information may be foundat [email or web address]. SODIUM 141 mmol/L (136-145) POTASSIUM 4.1 mmol/L (3.5-5.1) CHLORIDE 104 mmol/L (98-107) CARBON DIOXIDE 27 mmol/L (21-32) CALCIUM 8.4 L mg/dL (8.5-10.1) TOTAL PROTEIN 6.7 g/dL (6.4-8.2) ALBUMIN 2.7 L g/dL (3.3-5.0) BILIRUBIN, TOTAL 0.6 mg/dL (0.0-1.0) ALKALINE PHOSPHATASE 148 H U/L (46-116) AST (SGOT) 13 L U/L (15-37) ALT (SGPT) 23 U/L (12-78) LIPASE 55 L U/L (73-393) AMYLASE 26 U/L (25-115) CPK 51 U/L (24-260) TROPONIN I <0.05 ng/mL (0.00-1.5) TROPONIN REFERENCE RANGE:<0.1 NEGATIVE0.1-1.5 INDETERMINANT>1.5 POSITIVE . PROGRESS AND PROCEDURES Course of Care: Patient is stable. Discussed case with hospitalist, (Hilary - he saw the patient in the emergency room). Reviewed test results and need for additional work-up. Agreed upon treatment plan, need for patient follow-up and decision to admit. Patient and family counseled in person several times regarding the patient's condition, test results and diagnosis and DNR (Do Not Resuscitate) considerations for the patient. Old medical records reviewed. Disposition orders written (in [facility]). Disposition: Admitted. CLINICAL IMPRESSION Chronic congestive heart failure Acute exacerbation of COPD. Stage 3 pressure ulcer with full thickness skin loss on the sacral area. multiple myeloma. (Electronically signed by Arpit Jasso MD 01/08/2017 10:20)
[2017-01-07 22:08] VITALS: BP 118/55
[2017-01-08] VITALS (7 sets, daily range): BP systolic 105–140; BP diastolic 49–69
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
[2017-01-08] MEDS ORDERED: LOPRESSOR25 MG PO (03:38)
[2017-01-08] MEDS ORDERED: VITAMIN D-31000 UNIT PO (03:40)
[2017-01-08] MEDS ORDERED: REMERON15 MG PO (03:40)
[2017-01-08] MEDS ORDERED: NUEDEXTA1 CAP PO (03:42)
[2017-01-08] MEDS ORDERED: EC-81 ASPIRIN81 MG PO (03:53)
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
--- NOTE | 2017-01-08 10:20 | ED DISCHARGE INSTRUCTIONS ---
Patient: MICKI LARRY General Instructions [facility] VisitID: [id number] [place] [address] 71y, F Registration Date/Time: 01/07/2017 Chronic congestive heart failure Acute exacerbation of COPD. Stage 3 pressure ulcer with full thickness skin loss on the sacral area. multiple myeloma. ADDITIONAL INFORMATION Heart Failure (Left Or Right Sided) The heart is a large muscle that pumps blood throughout the body. Blood carries oxygen to all the organs, muscles, and skin of your body. After the body takes the oxygen out of the blood, the blood returns to the heart. The right side of the heart collects that blood and pumps it to the lungs to receive fresh oxygen. This oxygen-rich blood from the lungs then returns to the left side of the heart where it is pumped back out to the rest of the body, starting the process all over. Heart Failure (HF) occurs when the heart muscle is weakened. This affects the pumping action of the heart. When the right side of the heart is weakened, it cant handle the blood it is receiving from the rest of the body. This blood returns to the heart through veins. When too much pressure builds up in the veins fluid leaks out into the tissues. [place] then causes that fluid to spread to those parts of the body that are the lowest. Therefore, one of the first symptoms of HF include swelling in the feet and ankles. If the condition worsens, the swelling can even go up past the knees. When the left side of the heart is weakened, it cant handle the blood it is receiving from the lungs. Pressure then builds up in the veins of the lungs, causing fluid to leakinto the lung tissues. This may be referred to as congestive heart failure.This causes you to feel short of breath, weak, or dizzy. These symptoms are often worse with exertion, such as climbing stairs or walking up hills. Lying flat is uncomfortable and can make your breathing worse. This may make sleeping difficult and force you to useextra pillows to sleep well. This condition may not only affect the right side of the heart or only the left side. While it may have started on one side, it often affects both sides. Causes of heart failure Coronary artery disease Prior heart attack (also known as acute myocardial infarction, or AMI) High blood pressure Damaged heart valve Diabetes Obesity Cigarette smoking Alcohol abuse Treatment Heart failure is a chronic condition. There is no cure. The purpose of medical treatment is to improve the pumping action of the heart, and remove excess water from the body. A number of medications can help achieve this goal,improvesymptoms and prevent the heart from becoming weaker. Another major goal is to better treat the caues of heart failure, such as diabetes, high blood pressure, and your lifestyle. Home care Check your weight every day. A sudden increase in weight gain could mean worsening heart failure. Use the same scale every day Weigh yourself at the same time every day Make sure the scale is on the floor, not on a rug Keep a record of your weight every day, so your doctor can see it. If you are not given a log sheet for this, keep a separate journal for this purpose. Reduce your salt (sodium) intake. Avoid high-salt foods (olives, pickles, smoked meats, salted potato chips, etc.). Do not add salt to your food at the table and use only small amounts of salt when cooking. Follow your doctors recommendations about how much fluid intake is safe. Stop smoking. Reduce alcohol use. Lose weight if you are overweight. The excess weight adds a lot of stress on the workload of the heart. Stay active. Talk to your doctor about an exercise program that is safe for your heart. Keep your feet elevated to reduce swelling. Ask your doctor about support hose as a preventive treatment for daytime leg swelling. Besides taking your medicine as instructed, an important part of treatment includes lifestyle changes such as diet, physical activity, stopping smoking, and weight control. Improve your diet. Often in the hospital, people are given a "heart healthy diet." This includes more fresh foods, lower fat, less processed foots, and lower salt. Follow-up care Follow up with your doctor as directed by our staff. Make sure to keep any appointments that were made for you as this can help better control heart failure. If an X-ray was done, you will be notified of any new findings that may affect your care. Call 911 Call 911 if you: Become severely short of breath Feel lightheaded, or feel like you might pass out or faint Have chest pain or discomfort that is different than usual, the medicines your doctor told you to use for this do not help, or the pain lasts longer than 10 to 15 minutes Suddendly develop a rapid heart rate When to seek medical care Get prompt medical attention if you have any of the following signs of worsening heart failure: Sudden weight gain (3or more pounds in one day or5or more pounds in one week) Trouble breathing not related to being active New or increased swelling of your legs or ankles Swelling or pain in your abdomen Breathing trouble at night (waking up short of breath, needing more pillows to breathe) Frequent coughing that doesnt go away Feeling much more tired than usual COPD Flare Both emphysema and chronic bronchitis are forms of chronic obstructive pulmonary disease (COPD). It is most often caused by many years of smoking tobacco. Many things can make your lung disease suddenly get worse. These causes include the common cold, pneumonia, acute bronchitis, missing doses of your regular breathing medicines, or being around smoke, dust, or other air pollutants. A COPD flare may last 7 to 14 days. Your doctor may prescribe medicineto relax your airways and prevent wheezing. Your doctor may also prescribe antibiotics if he or she thinks you havea bacterial infection. Prednisone can helpease inflammation in a severe attack. Home care Here are things you can do at home: Drink lots of water or other fluids (at least 10 glasses a day) during an attack. This will loosen lung secretions and make it easier to breathe. If you have heart or kidney disease, check with your doctor before you drink extra amounts of fluids. Take prescribed medicine exactly at the times advised. If you have a hand-held inhaler or aerosol breathing medicine, don't use it more than once every 4 hours, unless your doctor tells you to. If you were givenan antibiotic or prednisone, take all of the medicine even if you are feeling better after a few days. Don't smoke. Avoid being aroundthe smoke of others. If you were given an inhaler, use it exactly as directed. If you need to use it more often than prescribed, your condition may be getting worse. Call your doctor. Follow-up care Follow up with your health care provider.If you are 65 or older or have chronic asthma or COPD, you should get a single dose of the pneumococcal vaccine and aflu shot each year. You may need a second dose of the pneumococcal vaccine if you had the first dose at a younger age. Your health care provider will let you know if you need a second dose. For all other people, the usual dose for the pneumococcal vaccine is 1 or 2 shots. Yourprovider can discuss this with you. When to seek medical care Get prompt medical attention ifany of these occur: Increased wheezing or shortness of breath Need to use your inhalers more often than usual without relief Fever of 100.4F(38C) or higher, or as directed by your health care provider Coughing up lots of dark-colored or bloody sputum (mucus) Chest pain with each breath You do not start to improve within 24 hours You have been given the following additional information: Heart Failure, General COPD Flare (Electronically signed by Arpit Jasso MD 01/08/2017 10:20)
--- NOTE | 2017-01-08 10:20 | ED MED RECONCILIATION SUMMARY ---
Patient: MICKI LARRY Medication Reconciliation Report [facility] VisitID: [id number] [address] [place] [address] 71y, F Registration Date/Time: 01/07/2017 Weight: 53.0 kg Height/Length: 62 in. BMI: 21.4 ALLERGIES: Codeine The patient's Home Medications are listed below: THE FOLLOWING MEDICATIONS NEED TO BE RECONCILED: Acetaminophen Oral 650 mg, PRN Aspirin Oral (325 mg) 1 tablet Baclofen Oral 10 mg, 3x a day Dexamethasone Oral 4 mg, daily DiphenhydrAMINE HCl Oral (25 mg) 1 capsule, daily Famotidine Oral (20 mg), at bedtime GlycoLax Oral Lisinopril Oral (10 mg) 1 tablet, daily LORazepam Oral (1 mg) 1 tablet, 4x a day LORazepam Oral (1 mg) 1 tablet, 4x a day LORazepam Oral (1 mg) 1 tablet, 4x a day LORazepam Oral (1 mg) 1 tablet, 4x a day Meloxicam Oral (7.5 mg) 1 tablet Metoprolol Tartrate Oral 25 mg , daily Metoprolol Tartrate Oral 25 mg , daily Metoprolol Tartrate Oral 25 mg , daily Metoprolol Tartrate Oral 25 mg , daily Metoprolol Tartrate Oral 25 mg , daily OxyCODONE HCl Oral 10 mg OxyCONTIN Oral 40 mg, daily Revlimid Oral (25 mg) 1 capsule Senna Oral Vicodin Oral 5 mg, 3x a day Vitamin D Oral (1000 unit) Vitamin D Oral (1000 unit) 1 capsule, daily Vitamin D Oral (1000 unit) Vitamin D Oral (1000 unit) 1 capsule, daily Vitamin D Oral (1000 unit) 1 capsule, daily Vitamin D Oral (1000 unit) 1 capsule, daily The source(s) of the original Home Medication information: patient The following Medications were given to the patient in the Emergency Department: Duoneb [Neb Tx] Neb TX 1 unit dose, administered: 01/07/2017 6:31:00 PM SOLU-MEDROL [IVP] IVP 125 mg, administered: 01/07/2017 7:13:00 PM Lasix [IVP] IVP 10 mg, administered: 01/07/2017 8:53:00 PM The following Medications were prescribed to the patient: None.
--- NOTE | 2017-01-08 10:20 | ED MAR SUMMARY ---
..... Medication Administration Record [facility] [address] [place] [address] Patient: MICKI LARRY Visit ID: [id number] 71y, F Weight: 53.0 kg Height/Length: 62 in BMI: 21.4 ALLERGIES: Codeine Given 18:31 01/07/2017 Logan Fuentes, Medication Administered: DUONEB [NEB TX] (IPRATROPIUM-ALBUTEROL), Dose: 1 unit dose Neb TX. Medication Ordered: DuoNeb Neb Tx 1 unit dose (NOW). Given 19:13 01/07/2017 Ian Bowles RWillieN. Medication Administered: SOLU-MEDROL [IVP] (METHYLPREDNISOLONE SODIUM SUCC), Dose: 125 mg IVP over 2 minute(s), Site: #1 right AC. Medication Ordered: Solu-MEDROL IV 125 mg (NOW). Given 20:53 01/07/2017 Thelma Gordon, RWillieN. Medication Administered: LASIX [IVP], Dose: 10 mg IVP over 2 minute(s), Site: #1 right AC. Medication Ordered: Lasix IV 10 mg (NOW).
--- NOTE | 2017-01-08 10:20 | ED MED RECONCILIATION SUMMARY ---
Patient: MICKI LARRY Medication Reconciliation Report [facility] VisitID: [id number] [address] [place] [address] 71y, F Registration Date/Time: 01/07/2017 Weight: 53.0 kg Height/Length: 62 in. BMI: 21.4 ALLERGIES: Codeine The patient's Home Medications are listed below: THE FOLLOWING MEDICATIONS NEED TO BE RECONCILED: Acetaminophen Oral 650 mg, PRN Aspirin Oral (325 mg) 1 tablet Baclofen Oral 10 mg, 3x a day Dexamethasone Oral 4 mg, daily DiphenhydrAMINE HCl Oral (25 mg) 1 capsule, daily Famotidine Oral (20 mg), at bedtime GlycoLax Oral Lisinopril Oral (10 mg) 1 tablet, daily LORazepam Oral (1 mg) 1 tablet, 4x a day LORazepam Oral (1 mg) 1 tablet, 4x a day LORazepam Oral (1 mg) 1 tablet, 4x a day LORazepam Oral (1 mg) 1 tablet, 4x a day Meloxicam Oral (7.5 mg) 1 tablet Metoprolol Tartrate Oral 25 mg , daily Metoprolol Tartrate Oral 25 mg , daily Metoprolol Tartrate Oral 25 mg , daily Metoprolol Tartrate Oral 25 mg , daily Metoprolol Tartrate Oral 25 mg , daily OxyCODONE HCl Oral 10 mg OxyCONTIN Oral 40 mg, daily Revlimid Oral (25 mg) 1 capsule Senna Oral Vicodin Oral 5 mg, 3x a day Vitamin D Oral (1000 unit) Vitamin D Oral (1000 unit) 1 capsule, daily Vitamin D Oral (1000 unit) Vitamin D Oral (1000 unit) 1 capsule, daily Vitamin D Oral (1000 unit) 1 capsule, daily Vitamin D Oral (1000 unit) 1 capsule, daily The source(s) of the original Home Medication information: patient The following Medications were given to the patient in the Emergency Department: Duoneb [Neb Tx] Neb TX 1 unit dose, administered: 01/07/2017 6:31:00 PM SOLU-MEDROL [IVP] IVP 125 mg, administered: 01/07/2017 7:13:00 PM Lasix [IVP] IVP 10 mg, administered: 01/07/2017 8:53:00 PM The following Medications were prescribed to the patient: None.
--- NOTE | 2017-01-08 10:20 | ED MAR SUMMARY ---
..... Medication Administration Record [facility] [address] [place] [address] Patient: MICKI LARRY Visit ID: [id number] 71y, F Weight: 53.0 kg Height/Length: 62 in BMI: 21.4 ALLERGIES: Codeine Given 18:31 01/07/2017 Logan Fuentes, Medication Administered: DUONEB [NEB TX] (IPRATROPIUM-ALBUTEROL), Dose: 1 unit dose Neb TX. Medication Ordered: DuoNeb Neb Tx 1 unit dose (NOW). Given 19:13 01/07/2017 Ian Bowles RWillieN. Medication Administered: SOLU-MEDROL [IVP] (METHYLPREDNISOLONE SODIUM SUCC), Dose: 125 mg IVP over 2 minute(s), Site: #1 right AC. Medication Ordered: Solu-MEDROL IV 125 mg (NOW). Given 20:53 01/07/2017 Thelma Gordon, RWillieN. Medication Administered: LASIX [IVP], Dose: 10 mg IVP over 2 minute(s), Site: #1 right AC. Medication Ordered: Lasix IV 10 mg (NOW).
[2017-01-09 02:06] VITALS: BP 120/75
[2017-01-09 07:08] VITALS: BP 106/72
--- NOTE | 2017-01-09 08:19 | Progress Note ---
Subjective General 71 yo female with recent fall and rib fractures in 08/15, pneumonia, new diagnosis multiple myeloma 11/16, COPD and CHF now admitted for acute exacerbation of copd and chf due to bronchitis. Pt [address] [place] [address] and is concerned she cannot be driving back and forth. Today feels slightly improved but still coughing up phlegm and still sob. Physical Exam Vital Signs / I&Os Vital Signs Date Time Temp Pulse Resp B/P Pulse O2 O2 Flow FiO2 Ox Delivery Rate 01/09 0708 99.0 71 18 106/72 96 Room Air 0.0 01/09 0213 Room Air 01/09 0206 98.4 67 18 120/75 96 Room Air 01/08 2303 98.6 67 18 105/65 94 Room Air 01/08 1740 98.4 82 18 105/49 94 01/08 1659 Room Air 01/08 1450 98.4 89 18 113/65 95 01/08 1104 98.2 72 18 106/52 96 Room Air 0.0 01/08 0925 Room Air 0.0 I&O 01/08 0800 01/08 1600 01/09 0000 Intake Total 257 733 8031 Output Total 0 800 600 Balance 846 -360 481 General Appearance Alert, Oriented X3, Cooperative, No acute distress Lungs Bilateral rhonchi and wheeze, coughing. Cardiovascular Regular rate and rhythm Abdomen Normal bowel sounds, Soft, Mildly tender. Extremities No edema Skin No Rashes Assessment and Plan Problem List 1. Multiple myeloma Plan Stable on neutropenic precautions. 2. Acute exacerbation of CHF (congestive heart failure) Plan Continue antibiotic for bronchitis and monitor chf. 3. COPD (chronic obstructive pulmonary disease) Plan Will monitor. O2 supplement
[2017-01-09 10:53] VITALS: BP 112/63
[2017-01-09 15:00] VITALS: BP 106/62
[2017-01-09 18:25] VITALS: BP 100/54
[2017-01-10] VITALS (8 sets, daily range): BP systolic 82–111; BP diastolic 42–64
--- NOTE | 2017-01-10 06:17 | DIAGNOSTIC IMAGING REPORT ---
PROCEDURE: XR CHEST 2 VIEW INDICATION: f/u bronchitis, chf, copd and hx rib fx/multiple myeloma TECHNIQUE: PA and lateral view. COMPARISON: Chest x-ray 01/07/2017. FINDINGS: Mild cardiomegaly and tortuous aorta with normal pulmonary vascular congestion. Small left lower lobe infiltrate. Mottled appearance of the bones consistent with multiple myeloma. Multiple stable thoracic spine compression fractures with kyphosis of the upper thoracic spine. Multiple bilateral rib fractures. IMPRESSION: 1. Left lower lobe pneumonia. 2. Cardiomegaly 3. Modeled osseous appearance with stable multiple spine and rib fractures consistent with multiple myeloma
--- NOTE | 2017-01-10 13:05 | Progress Note ---
Subjective General Still with some shortness of breath and a cough wbc count increased to 3 but anc count still at 480 Physical Exam Vital Signs / I&Os Vital Signs Date Time Temp Pulse Resp B/P Pulse O2 O2 Flow FiO2 Ox Delivery Rate 01/10 1135 99.0 76 19 111/58 93 Room Air 01/10 0650 98.8 78 17 102/64 100 Room Air 01/10 0210 98.4 78 16 92/51 93 Room Air 01/10 0005 97.9 64 14 98/55 96 Room Air 01/09 1825 99.0 91 18 100/54 92 Room Air 01/09 1646 0.0 01/09 1500 98.2 88 18 106/62 92 Room Air I&O 01/10 0000 01/09 1600 01/09 0800 Intake Total 077 626 6877 Output Total 1050 600 800 Balance -900 -360 513 General Appearance Alert, Oriented X3, Cooperative Lungs rhonchi at bases Cardiovascular Regular rate and rhythm, Normal S1 and S2 Abdomen Soft, No tenderness, No guarding, No rebound Extremities No cyanosis, No edema Skin decubitus ulcers in buttocks Neurological No lateralizing signs Psych/Mental Status Mood normal Assessment and Plan Problem List 1. Pneumonia Plan continue current antibiotics repeat cbc in am. If still neutropenic. conside Neupogen check b12/folate as patient has a hx of b12 deficiency continue wound care code stauts:DNR 2. Multiple myeloma 3. Neutropenia 4. Anemia 5. Decubitus ulcer
[2017-01-11 01:51] VITALS: BP 110/64
[2017-01-11 06:48] VITALS: BP 103/61
[2017-01-11 10:25] VITALS: BP 102/62
[2017-01-11] MEDS ORDERED: CEFPODOXIME PR200 MG PO (13:37)
--- NOTE | 2017-01-11 13:39 | Provider's Discharge Care Plan ---
Problem, Goal, Plan Problem List 1. Weakness Instructions: - encourage po intake - ambulate as much as feasible 2. Multiple myeloma Instructions: - you will need to see your oncologist within the week - you will need to have blood drawn to assess for worsening neutrophil counts 3. Pneumonia Instructions: - c/w antibiotics
[2017-01-11] MEDS ORDERED: LOPRESSOR25 MG PO (16:51)
[2017-01-11] MEDS ORDERED: IPRATROPIUM BROMIDE/ IN (16:51)
[2017-01-11] MEDS ORDERED: VITAMIN D-31000 UNIT PO (16:51)
[2017-01-11] MEDS ORDERED: EC-81 ASPIRIN81 MG PO (16:51)
[2017-01-11] MEDS ORDERED: CELEBREX200 MG PO (16:51)
[2017-01-11] MEDS ORDERED: OXYCONTIN PO (16:51)
[2017-01-11] MEDS ORDERED: BACLOFEN10 MG PO (16:51)
[2017-01-11] MEDS ORDERED: REMERON15 MG PO (16:51)
[2017-01-11] MEDS ORDERED: FAMOTIDINE20 MG PO (16:51)
[2017-01-11] MEDS ORDERED: LISINOPRIL10 MG PO (16:51)
--- NOTE | 2017-01-11 16:57 | Discharge Summary ---
Discharge Summary Report Admit Date 01/07/17 Discharge Date 01/11/17 Admission Diagnosis weakness Discharge Diagnosis weakness with upper respiratory infection Brief History please refer to admission h&P Hospital Course Patient was admitted for an upper respiratory most likely obtained from family. There was a question whether the patient was neutropenic on admission however it was found that was not the case when patient had an appropriate neutrophil response after antibiotics were intiaited. The patient was treated with antibiotics and good resolution. Patient additionally was seen by physical therapy who recommended that the patient continue with out patient physical therapy. Patient proceeded to do well and did not have any symptoms on day 4 of admission. Patient was subsequently transferred to the out patient physical therapy, with a full course of antibiotics. Patient will resume all her home medicaitons, and follow up with her oncologist on discharge. General Appearance Alert, Oriented X3, No acute distress HEENT Atraumatic Lungs Normal air movement Cardiovascular No murmurs Abdomen Soft, No hepatospenomegaly Pelvic No masses Skin No Breakdown Neurological Normal speech, Normal tone, Sensation intact Discharge Instructions/Meds - finish course of antibiotics - take meds as prescribed - follow up with your onocologist
== END 2017-01-11 15:00 | disposition home or self-care (01) | DRG 191 ==
LOC: ED SRH 16:48 → TRANS SRH 20:48 → ACUTE2 SRH 22:00
PROVIDERS: ADMIT Emergency Medicine
DX: J44.1 Chronic obstructive pulmonary disease with (acute) exacerbation (principal); J06.9 Acute upper respiratory infection, unspecified; I13.0 Hypertensive heart and chronic kidney disease with heart failure and stage 1 through stage 4 chronic kidney disease, or unspecified chronic kidney disease; I50.9 Heart failure, unspecified; C90.00 Multiple myeloma not having achieved remission; N18.9 Chronic kidney disease, unspecified; E86.0 Dehydration; F17.210 Nicotine dependence, cigarettes, uncomplicated; L89.152 Pressure ulcer of sacral region, stage 2; R63.0 Anorexia; D70.9 Neutropenia, unspecified; D63.0 Anemia in neoplastic disease; S32.9XXD Fracture of unspecified parts of lumbosacral spine and pelvis, subsequent encounter for fracture with routine healing; S22.39XD Fracture of one rib, unspecified side, subsequent encounter for fracture with routine healing; S22.009D Unspecified fracture of unspecified thoracic vertebra, subsequent encounter for fracture with routine healing; X58.XXXD Exposure to other specified factors, subsequent encounter
CPT/HCPCS: 81312; 83755; 83766; 83845; 85241; 90004; 90047; 90065; 90074; 90100; 90616; 91320; 91504; 91505; 91556; 91643; 92235; 92530; 92610; 92720; 93004; 95059

== ENCOUNTER 2017-01-12 04:23 | Emergency (ER) | payer OTHER, MEDICARE ==
[~2017-01-12 04:23] MED LIST changes: +CEFPODOXIME PR200 MG PO; +EC-81 ASPIRIN81 MG PO; +NUEDEXTA1 CAP PO; +REMERON15 MG PO; +VITAMIN D-31000 UNIT PO
--- NOTE | 2017-01-12 05:29 | ED CLINICAL REPORT ---
Clinical Report - Physicians/Mid Levels [facility] [address] [place] [address] 01/12/2017 4:25 Patient: MICKI LARRY Time Seen: 04:53; initial patient contact. Arrived- By ambulance. Historian- patient. HISTORY OF PRESENT ILLNESS Chief Complaint: PRESCRIPTION REFILL REQUEST- out of medication 1 day Pt is on Cx Oxycontin 20 BID. Was sent to SNF from here yesterday and they have not filled her pain medication. At its maximum, severity described as moderate. When seen in the E.D., severity described as moderate. Modifying factors. Not worsened by anything. Not relieved by anything. This started last night and is still present. It was gradual in onset. No loss of appetite or weakness. No decreased urine output. Similar symptoms previously: Several times. Recent medical care: The patient was seen recently at this facility and hospitalized. REVIEW OF SYSTEMS No fever, difficulty breathing, chills or headache. She has had abdominal pain, back pain and joint pain. All systems otherwise negative, except as recorded above. PAST HISTORY Pressure Ulcer. Gastroenteritis. Weakness. Dyspnea. Myeloma . Anemia. Rib fractures. Fractured thoracic vertebra. Congestive Heart Failure. Hypokalemia. Abnormal Test. Back Pain. Hypertension. Gastroesophageal Reflux Disease. COPD - Chronic Obstructive Pulmonary Disease. SURGERIES: Appendectomy. Medications: Dextromethorphan-Quinidine Oral (Capsule 20-10 mg) 1 capsule, bid. Remeron Oral (Tablet 15 mg), daily. OxyCONTIN Oral 20 mg, 3x a day as needed. Dexamethasone Oral (Tablet 4 mg). Lisinopril Oral (Tablet 10 mg), daily. Cyanocobalamin Oral (Tablet 500 mcg) 1 tablet, daily. Famotidine Oral 20 mg, daily. CeleBREX Oral (Capsule 200 mg), 2x a day. Multi Vitamin Daily Oral. Cefpodoxime Proxetil Oral (Tablet 200 mg) 1 tablet, daily. Metoprolol Tartrate Oral 25 mg , daily as needed. Aspirin Oral (Tablet 325 mg) 1 tablet. Baclofen Oral 10 mg, 3x a day. Allergies: Codeine. Definite Moderate(confusion). SOCIAL HISTORY Former smoker. No alcohol use or drug use. ADDITIONAL NOTES The nursing notes have been reviewed. PHYSICAL EXAM Vital Signs: 01/12/2017 04:32 BP: 123/106. HR: 94. RR: 18. O2 saturation: 98%. Temp: 98.6 F. Pain level now: 05/09. Have been reviewed. Hypertensive. Heart rate normal. Respiratory rate normal. Temperature normal. Oxygen saturation normal. Appearance: Alert. No acute distress. Eyes: Eyes normal inspection. ENT: Pharynx normal. CVS: Normal heart rate and rhythm. Heart sounds normal. Respiratory: No respiratory distress. Breath sounds normal. Abdomen: Soft. Mild tenderness diffusely. No guarding, rebound tenderness or De Souza's sign present. Bowel sounds normal. Back: Normal inspection. Mild tenderness in the right upper, mid and lower and left upper, mid and lower thoracic area and right upper, mid and lower and left upper, mid and lower lumbar area. Skin: Skin warm and dry. Extremities: No lower extremity edema. Neuro: Oriented X 3. PROGRESS AND PROCEDURES Disposition: Discharged to retirement in good and improved condition. Condition: good. CLINICAL IMPRESSION Chronic nontraumatic thoracic and lumbar back pain associated with muscle strain. Medication refill. INSTRUCTIONS Your Current Medications: CONTINUE TAKING THE FOLLOWING MEDICATIONS: Aspirin Oral : Tablet 325 mg, 1 tablet. Baclofen Oral : 10 mg 3x a day. Cefpodoxime Proxetil Oral : Tablet 200 mg, 1 tablet daily. CeleBREX Oral : Capsule 200 mg, 2x a day. Cyanocobalamin Oral : Tablet 500 mcg, 1 tablet daily. Dexamethasone Oral : Tablet 4 mg. Dextromethorphan-Quinidine Oral : Capsule 20-10 mg, 1 capsule bid. Famotidine Oral : 20 mg daily. Lisinopril Oral : Tablet 10 mg, daily. Metoprolol Tartrate Oral : 25 mg daily, prn. Multi Vitamin Daily Oral. OxyCONTIN Oral : 20 mg 3x a day, prn. Remeron Oral : Tablet 15 mg, daily. Follow-up: Follow up with your doctor as needed. Call for an appointment. Blood pressure screening was not performed during this visit because the patient has an active diagnosis of hypertension. (Electronically signed by Marcus Amin Dr. 01/12/2017 10:41)
--- NOTE | 2017-01-12 05:29 | ED CLINICAL REPORT ---
Clinical Report - Physicians/Mid Levels [facility] [address] [place] [address] 01/12/2017 4:25 Patient: MICKI LARRY Time Seen: 04:53; initial patient contact. Arrived- By ambulance. Historian- patient. HISTORY OF PRESENT ILLNESS Chief Complaint: PRESCRIPTION REFILL REQUEST- out of medication 1 day Pt is on Cx Oxycontin 20 BID. Was sent to SNF from here yesterday and they have not filled her pain medication. At its maximum, severity described as moderate. When seen in the E.D., severity described as moderate. Modifying factors. Not worsened by anything. Not relieved by anything. This started last night and is still present. It was gradual in onset. No loss of appetite or weakness. No decreased urine output. Similar symptoms previously: Several times. Recent medical care: The patient was seen recently at this facility and hospitalized. REVIEW OF SYSTEMS No fever, difficulty breathing, chills or headache. She has had abdominal pain, back pain and joint pain. All systems otherwise negative, except as recorded above. PAST HISTORY Pressure Ulcer. Gastroenteritis. Weakness. Dyspnea. Myeloma . Anemia. Rib fractures. Fractured thoracic vertebra. Congestive Heart Failure. Hypokalemia. Abnormal Test. Back Pain. Hypertension. Gastroesophageal Reflux Disease. COPD - Chronic Obstructive Pulmonary Disease. SURGERIES: Appendectomy. Medications: Dextromethorphan-Quinidine Oral (Capsule 20-10 mg) 1 capsule, bid. Remeron Oral (Tablet 15 mg), daily. OxyCONTIN Oral 20 mg, 3x a day as needed. Dexamethasone Oral (Tablet 4 mg). Lisinopril Oral (Tablet 10 mg), daily. Cyanocobalamin Oral (Tablet 500 mcg) 1 tablet, daily. Famotidine Oral 20 mg, daily. CeleBREX Oral (Capsule 200 mg), 2x a day. Multi Vitamin Daily Oral. Cefpodoxime Proxetil Oral (Tablet 200 mg) 1 tablet, daily. Metoprolol Tartrate Oral 25 mg , daily as needed. Aspirin Oral (Tablet 325 mg) 1 tablet. Baclofen Oral 10 mg, 3x a day. Allergies: Codeine. Definite Moderate(confusion). SOCIAL HISTORY Former smoker. No alcohol use or drug use. ADDITIONAL NOTES The nursing notes have been reviewed. PHYSICAL EXAM Vital Signs: 01/12/2017 04:32 BP: 123/106. HR: 94. RR: 18. O2 saturation: 98%. Temp: 98.6 F. Pain level now: 05/09. Have been reviewed. Hypertensive. Heart rate normal. Respiratory rate normal. Temperature normal. Oxygen saturation normal. Appearance: Alert. No acute distress. Eyes: Eyes normal inspection. ENT: Pharynx normal. CVS: Normal heart rate and rhythm. Heart sounds normal. Respiratory: No respiratory distress. Breath sounds normal. Abdomen: Soft. Mild tenderness diffusely. No guarding, rebound tenderness or De Souza's sign present. Bowel sounds normal. Back: Normal inspection. Mild tenderness in the right upper, mid and lower and left upper, mid and lower thoracic area and right upper, mid and lower and left upper, mid and lower lumbar area. Skin: Skin warm and dry. Extremities: No lower extremity edema. Neuro: Oriented X 3. PROGRESS AND PROCEDURES Disposition: Discharged to correction in good and improved condition. Condition: good. CLINICAL IMPRESSION Chronic nontraumatic thoracic and lumbar back pain associated with muscle strain. Medication refill. INSTRUCTIONS Your Current Medications: CONTINUE TAKING THE FOLLOWING MEDICATIONS: Aspirin Oral : Tablet 325 mg, 1 tablet. Baclofen Oral : 10 mg 3x a day. Cefpodoxime Proxetil Oral : Tablet 200 mg, 1 tablet daily. CeleBREX Oral : Capsule 200 mg, 2x a day. Cyanocobalamin Oral : Tablet 500 mcg, 1 tablet daily. Dexamethasone Oral : Tablet 4 mg. Dextromethorphan-Quinidine Oral : Capsule 20-10 mg, 1 capsule bid. Famotidine Oral : 20 mg daily. Lisinopril Oral : Tablet 10 mg, daily. Metoprolol Tartrate Oral : 25 mg daily, prn. Multi Vitamin Daily Oral. OxyCONTIN Oral : 20 mg 3x a day, prn. Remeron Oral : Tablet 15 mg, daily. Follow-up: Follow up with your doctor as needed. Call for an appointment. Blood pressure screening was not performed during this visit because the patient has an active diagnosis of hypertension. (Electronically signed by Marcus Amin Dr. 01/12/2017 10:41)
--- NOTE | 2017-01-12 05:30 | ED NURSING NOTES ---
Clinical Report - Nurses [place] [address] [place] [address] 01/12/2017 4:25 Patient: MICKI LARRY TRIAGE Triage time 04:32. Acuity: LEVEL 3. Chief Complaint: BACK PAIN. --04:36 TonyaB, R.N. 04:32 01/12/17. BP: 123/106. HR: 94. RR: 18. O2 saturation: 98%. Temp: 98.6 F. Pain level now: 05/09. --04:36 TonyaB, R.N. Weight: 53 kg. Height/Length: 64 inches. BMI: 20.1. --04:34 TonyaB, R.N. Medications Baclofen Oral 10 mg, 3x a day. --04:38 TonyaB, R.N. Aspirin Oral (Tablet 325 mg) 1 tablet. --04:38 TonyaB, R.N. Metoprolol Tartrate Oral 25 mg , daily as needed. --04:39 TonyaB, R.N. Cefpodoxime Proxetil Oral (Tablet 200 mg) 1 tablet, daily. --04:39 TonyaB, R.N. Multi Vitamin Daily Oral. --04:40 TonyaB, R.N. CeleBREX Oral (Capsule 200 mg), 2x a day. --04:40 TonyaB, R.N. Famotidine Oral 20 mg, daily. --04:41 TonyaB, R.N. Cyanocobalamin Oral (Tablet 500 mcg) 1 tablet, daily. --04:41 TonyaB, R.N. Lisinopril Oral (Tablet 10 mg), daily. --04:42 TonyaB, R.N. Dexamethasone Oral (Tablet 4 mg). --04:42 TonyaB, R.N. OxyCONTIN Oral 20 mg, 3x a day as needed. --04:43 TonyaB, R.N. Remeron Oral (Tablet 15 mg), daily. --04:43 TonyaB, R.N. Dextromethorphan-Quinidine Oral (Capsule 20-10 mg) 1 capsule, bid. --04:44 Funmilayo R.N. Allergies Codeine. Definite Moderate(confusion) --04:32 Funmilayo R.N. History Arrived by private vehicle. Historian: patient and family. Accompanied by family. This started just prior to arrival. ( pt was here earlier today and was unable to get her medications filled, pt is back and in pain at this time). She has had trouble walking. No history of recent trauma. PAST MEDICAL HX: Tetanus status: up-to-date. SOCIAL HX: Former smoker. No alcohol use or drug use. No infectious disease exposure. SELF HARM ASSESSMENT: A self harm assessment was performed. The patient answered "no" to the question "Have you recently felt down, depressed, or hopeless?", "Have you noticed less interest or pleasure in doing things?", "Do you have thoughts of harming or killing yourself?", "Are you here because you tried to hurt yourself?", "Have you ever tried to hurt yourself before today?", "Have you recently had thoughts about harming or killing others?" and "Do you have any dangerous items in your possession?". NUTRITIONAL RISK ASSESSMENT: The nutritional risk assessment revealed no deficiencies. FUNCTIONAL ASSESSMENT: Functional assessment: no impairments noted. LEARNING NEEDS ASSESSMENT: The learning needs assessment revealed no barriers. SKIN INTEGRITY ASSESSMENT: Skin integrity risk assessment completed. No skin integrity risk identified. --04:36 Funmilayo R.N. PROBLEMS: Pressure Ulcer. Gastroenteritis. Weakness. Dyspnea. Myeloma . Anemia. Rib fractures. Fractured thoracic vertebra. Congestive Heart Failure. Hypokalemia. Abnormal Test. Back Pain. Hypertension. Gastroesophageal Reflux Disease. COPD - Chronic Obstructive Pulmonary Disease. --04:33 Funmilayo R.N. ADDITIONAL SURGERIES: Appendectomy. --04:33 Funmilayo R.N. Interventions ID band on patient. To treatment room. --04:36 Funmilayo R.N. PHYSICAL ASSESSMENT To room via wheelchair. GENERAL / NEURO / PSYCH: Alert. Oriented X 4. Appears in pain. RESPIRATORY: Respirations not labored. Chest nontender. Breath sounds within normal limits. CVS: Capillary refill less than 2 seconds. GI / : Abdomen soft and nontender. Bowel sounds within normal limits. EXTREMITIES: Sensation intact in extremities. ROM of extremities within normal limits. BACK: Normal inspection of the neck and back. No neck or back tenderness. --04:36 Cecy Mello SKIN: ( pt states she has a pressure ulcer on her coccyx). --04:37 Cecy Mello NURSING PROGRESS NOTES groundwater monitoring technician placed on patient. Patient gowned. Patient identifiers checked. Call light placed in reach. Side rails up. Bed placed in lowest position. Brakes of bed on. --04:37 Cecy Mello ( called APS at and left a message with them.). --05:03 Cecy Mello 05:10 01/12/2017 Oxycontin (OxyCODONE HCl ER) PO 20 mg given. Allergies verified, confirmed 5 rights and sedative warning given to the patient and patient's family. --05:10 Cecy Mello DISPOSITION / DISCHARGE Departure time: 05:38. Condition at departure: improved. Fall risk assessment completed. Risk factors identified include severe pain and patient age greater than 65 years and impairment of mobility. Fall interventions initiated. Patient placed in wheelchair. Family at bedside. Call light in reach of patient. Instructed not to get up without assistance. No learning barriers present. Discharge instructions provided and reviewed with the patient and family. Patient and family verbalized understanding. Written instructions provided in Mosotho. No warning instructions, medication instructions, treatment instructions, referrals given to the patient or diet instructions. No activity restrictions, note given, follow up contact number given or stop smoking instructions. The patient was discharged by the physician. She was discharged home and accompanied by family. She left the Emergency Department in a wheelchair and via private vehicle. Family member driving. --05:39 Cecy Mello 05:37 01/12/17. BP: 98/54. HR: 75. RR: 16. O2 saturation: 95%. Temp: deferred. Pain level now: 11/09. --05:39 Cecy Mello Locked/Released at 01/12/2017 5:39 by Cecy Mello
--- NOTE | 2017-01-12 05:30 | ED NURSING NOTES ---
Clinical Report - Nurses [place] [address] [place] [address] 01/12/2017 4:25 Patient: MICKI LARRY TRIAGE Triage time 04:32. Acuity: LEVEL 3. Chief Complaint: BACK PAIN. --04:36 TonyaB, R.N. 04:32 01/12/17. BP: 123/106. HR: 94. RR: 18. O2 saturation: 98%. Temp: 98.6 F. Pain level now: 05/09. --04:36 TonyaB, R.N. Weight: 53 kg. Height/Length: 64 inches. BMI: 20.1. --04:34 TonyaB, R.N. Medications Baclofen Oral 10 mg, 3x a day. --04:38 TonyaB, R.N. Aspirin Oral (Tablet 325 mg) 1 tablet. --04:38 TonyaB, R.N. Metoprolol Tartrate Oral 25 mg , daily as needed. --04:39 TonyaB, R.N. Cefpodoxime Proxetil Oral (Tablet 200 mg) 1 tablet, daily. --04:39 TonyaB, R.N. Multi Vitamin Daily Oral. --04:40 TonyaB, R.N. CeleBREX Oral (Capsule 200 mg), 2x a day. --04:40 TonyaB, R.N. Famotidine Oral 20 mg, daily. --04:41 TonyaB, R.N. Cyanocobalamin Oral (Tablet 500 mcg) 1 tablet, daily. --04:41 TonyaB, R.N. Lisinopril Oral (Tablet 10 mg), daily. --04:42 TonyaB, R.N. Dexamethasone Oral (Tablet 4 mg). --04:42 TonyaB, R.N. OxyCONTIN Oral 20 mg, 3x a day as needed. --04:43 TonyaB, R.N. Remeron Oral (Tablet 15 mg), daily. --04:43 TonyaB, R.N. Dextromethorphan-Quinidine Oral (Capsule 20-10 mg) 1 capsule, bid. --04:44 Funmilayo R.N. Allergies Codeine. Definite Moderate(confusion) --04:32 Funmilayo R.N. History Arrived by private vehicle. Historian: patient and family. Accompanied by family. This started just prior to arrival. ( pt was here earlier today and was unable to get her medications filled, pt is back and in pain at this time). She has had trouble walking. No history of recent trauma. PAST MEDICAL HX: Tetanus status: up-to-date. SOCIAL HX: Former smoker. No alcohol use or drug use. No infectious disease exposure. SELF HARM ASSESSMENT: A self harm assessment was performed. The patient answered "no" to the question "Have you recently felt down, depressed, or hopeless?", "Have you noticed less interest or pleasure in doing things?", "Do you have thoughts of harming or killing yourself?", "Are you here because you tried to hurt yourself?", "Have you ever tried to hurt yourself before today?", "Have you recently had thoughts about harming or killing others?" and "Do you have any dangerous items in your possession?". NUTRITIONAL RISK ASSESSMENT: The nutritional risk assessment revealed no deficiencies. FUNCTIONAL ASSESSMENT: Functional assessment: no impairments noted. LEARNING NEEDS ASSESSMENT: The learning needs assessment revealed no barriers. SKIN INTEGRITY ASSESSMENT: Skin integrity risk assessment completed. No skin integrity risk identified. --04:36 Funmilayo R.N. PROBLEMS: Pressure Ulcer. Gastroenteritis. Weakness. Dyspnea. Myeloma . Anemia. Rib fractures. Fractured thoracic vertebra. Congestive Heart Failure. Hypokalemia. Abnormal Test. Back Pain. Hypertension. Gastroesophageal Reflux Disease. COPD - Chronic Obstructive Pulmonary Disease. --04:33 Funmilayo R.N. ADDITIONAL SURGERIES: Appendectomy. --04:33 Funmilayo R.N. Interventions ID band on patient. To treatment room. --04:36 Funmilayo R.N. PHYSICAL ASSESSMENT To room via wheelchair. GENERAL / NEURO / PSYCH: Alert. Oriented X 4. Appears in pain. RESPIRATORY: Respirations not labored. Chest nontender. Breath sounds within normal limits. CVS: Capillary refill less than 2 seconds. GI / : Abdomen soft and nontender. Bowel sounds within normal limits. EXTREMITIES: Sensation intact in extremities. ROM of extremities within normal limits. BACK: Normal inspection of the neck and back. No neck or back tenderness. --04:36 Cecy Mello SKIN: ( pt states she has a pressure ulcer on her coccyx). --04:37 Cecy Mello NURSING PROGRESS NOTES executive search consultant placed on patient. Patient gowned. Patient identifiers checked. Call light placed in reach. Side rails up. Bed placed in lowest position. Brakes of bed on. --04:37 Cecy Mello ( called APS at and left a message with them.). --05:03 Cecy Mello 05:10 01/12/2017 Oxycontin (OxyCODONE HCl ER) PO 20 mg given. Allergies verified, confirmed 5 rights and sedative warning given to the patient and patient's family. --05:10 Cecy Mello DISPOSITION / DISCHARGE Departure time: 05:38. Condition at departure: improved. Fall risk assessment completed. Risk factors identified include severe pain and patient age greater than 65 years and impairment of mobility. Fall interventions initiated. Patient placed in wheelchair. Family at bedside. Call light in reach of patient. Instructed not to get up without assistance. No learning barriers present. Discharge instructions provided and reviewed with the patient and family. Patient and family verbalized understanding. Written instructions provided in Qatari. No warning instructions, medication instructions, treatment instructions, referrals given to the patient or diet instructions. No activity restrictions, note given, follow up contact number given or stop smoking instructions. The patient was discharged by the physician. She was discharged home and accompanied by family. She left the Emergency Department in a wheelchair and via private vehicle. Family member driving. --05:39 Cecy Mello 05:37 01/12/17. BP: 98/54. HR: 75. RR: 16. O2 saturation: 95%. Temp: deferred. Pain level now: 11/09. --05:39 Cecy Mello Locked/Released at 01/12/2017 5:39 by Cecy Mello
--- NOTE | 2017-01-12 05:30 | ED ORDER SUMMARY ---
..... Patient: MICKI LARRY OrderSheet [facility] VisitID: [id number] [address] [place] [address] 71y, F Registration Date/Time: 01/12/2017 ORDER SHEET Weight: 53.0 kg Allergies: Codeine GENERAL ORDERS: - (Oxycontin 20 mg PO x 1 now) (05:00 01/12/2017 Ranjit Munoz) (5:07 Ranjit Munoz) (Cancelled: Physician Order5:07 Ranjit Munoz) MEDICATION ORDERS: - (Oxycontin 20 mg PO x 1 now) (05:07 01/12/2017 Ranjit Munoz) (5:10 Chi Richardson.NWillie) IV FLUIDS: ORDER SHEET NOTES: [Electronically signed by Magaly Smith R.N. (05:39 01/12/2017)] [Electronically signed by Marcus Amin Dr. (10:41 01/12/2017)] [Electronically locked/signed by Magaly Smith R.N. (05:39 01/12/2017)]
--- NOTE | 2017-01-12 05:30 | ED ORDER SUMMARY ---
..... Patient: MICKI LARRY OrderSheet [facility] VisitID: [id number] [address] [place] [address] 71y, F Registration Date/Time: 01/12/2017 ORDER SHEET Weight: 53.0 kg Allergies: Codeine GENERAL ORDERS: - (Oxycontin 20 mg PO x 1 now) (05:00 01/12/2017 Ranjit Munoz) (5:07 Ranjit Munoz) (Cancelled: Physician Order5:07 Ranjit Munoz) MEDICATION ORDERS: - (Oxycontin 20 mg PO x 1 now) (05:07 01/12/2017 Ranjit Munoz) (5:10 Chi Richardson.NWillie) IV FLUIDS: ORDER SHEET NOTES: [Electronically signed by Magaly Smith R.N. (05:39 01/12/2017)] [Electronically signed by Marcus Amin Dr. (10:41 01/12/2017)] [Electronically locked/signed by Magaly Smith R.N. (05:39 01/12/2017)]
--- NOTE | 2017-01-12 10:41 | ED MED RECONCILIATION SUMMARY ---
Patient: MICKI LARRY Medication Reconciliation Report [facility] VisitID: [id number] [address] [place] [address] 71y, F Registration Date/Time: 01/12/2017 Weight: 53.0 kg Height/Length: 64 in. BMI: 20.1 ALLERGIES: Codeine The patient's Home Medications are listed below: CONTINUE TAKING THE FOLLOWING MEDICATIONS: Aspirin Oral (325 mg) 1 tablet Baclofen Oral 10 mg, 3x a day Cefpodoxime Proxetil Oral (200 mg) 1 tablet, daily CeleBREX Oral (200 mg), 2x a day Cyanocobalamin Oral (500 mcg) 1 tablet, daily Dexamethasone Oral (4 mg) Dextromethorphan-Quinidine Oral (20-10 mg) 1 capsule, bid Famotidine Oral 20 mg, daily Lisinopril Oral (10 mg), daily Metoprolol Tartrate Oral 25 mg , daily Multi Vitamin Daily Oral OxyCONTIN Oral 20 mg, 3x a day Remeron Oral (15 mg), daily The source(s) of the original Home Medication information: Not obtained. The following Medications were given to the patient in the Emergency Department: Oxycontin [PO] PO 20 mg, administered: 01/12/2017 5:10:00 AM The following Medications were prescribed to the patient: None.
--- NOTE | 2017-01-12 10:41 | ED DISCHARGE INSTRUCTIONS ---
Patient: MICKI LARRY General Instructions [facility] VisitID: [id number] [address] [place] [address] 71y, F Registration Date/Time: 01/12/2017 Chronic nontraumatic thoracic and lumbar back pain associated with muscle strain. Medication refill. INSTRUCTIONS Your Current Medications: CONTINUE TAKING THE FOLLOWING MEDICATIONS: Aspirin Oral : Tablet 325 mg, 1 tablet. Baclofen Oral : 10 mg 3x a day. Cefpodoxime Proxetil Oral : Tablet 200 mg, 1 tablet daily. CeleBREX Oral : Capsule 200 mg, 2x a day. Cyanocobalamin Oral : Tablet 500 mcg, 1 tablet daily. Dexamethasone Oral : Tablet 4 mg. Dextromethorphan-Quinidine Oral : Capsule 20-10 mg, 1 capsule bid. Famotidine Oral : 20 mg daily. Lisinopril Oral : Tablet 10 mg, daily. Metoprolol Tartrate Oral : 25 mg daily, prn. Multi Vitamin Daily Oral. OxyCONTIN Oral : 20 mg 3x a day, prn. Remeron Oral : Tablet 15 mg, daily. Follow-up: Follow up with your doctor as needed. Call for an appointment. Blood pressure screening was not performed during this visit because the patient has an active diagnosis of hypertension. ADDITIONAL INFORMATION Back Pain [Acute Or Chronic] Back pain is usually caused by an injury to the muscles or ligaments of the spine. Sometimes the disks that separate each bone in the spine may bulge and cause pain by pressing on a nearby nerve. Back pain may also appear after a sudden twisting/bending force (such as in a car accident), after a simple awkward movement, or lifting something heavy with poor body positioning. In either case, muscle spasm is often present and adds to the pain. Acute back pain usually gets better in one to two weeks. Back pain related to disk disease, arthritis in the spinal joints or spinal stenosis (narrowing of the spinal canal) can become chronic and last for months or years. Unless you had a physical injury (for example, a car accident or fall) X-rays are usually not ordered for the initial evaluation of back pain. If pain continues and does not respond to medical treatment, x-rays and other tests may be performed at a later time. Home Care: You may need to stay in bed the first few days. But, as soon as possible, begin sitting or walking to avoid problems with prolonged bed rest (muscle weakness, worsening back stiffness and pain, blood clots in the legs). When in bed, try to find a position of comfort. A firm mattress is best. Try lying flat on your back with pillows under your knees. You can also try lying on your side with your knees bent up towards your chest and a pillow between your knees. Avoid prolonged sitting. This puts more stress on the lower back than standing or walking. During the first two days after injury, apply an ICE PACK to the painful area for 20 minutes every 2-4 hours. This will reduce swelling and pain. HEAT (hot shower, hot bath or heating pad) works well for muscle spasm. You can start with ice, then switch to heat after two days. Some patients feel best alternating ice and heat treatments. Use the one method that feels the best to you. You may use acetaminophen (Tylenol) or ibuprofen (Motrin, Advil) to control pain, unless another pain medicine was prescribed. [NOTE: If you have chronic liver or kidney disease or ever had a stomach ulcer or GI bleeding, talk with your doctor before using these medicines.] Be aware of safe lifting methods and do not lift anything over 15 pounds until all the pain is gone. Follow Up with your doctor or this facility if your symptoms do not start to improve after one week. Physical therapy may be needed. [NOTE: If X-rays were taken, they will be reviewed by a radiologist. You will be notified of any new findings that may affect your care.] Get Prompt Medical Attention if any of the following occur: Pain becomes worse or spreads to your legs Weakness or numbness in one or both legs Loss of bowel or bladder control Numbness in the groin or genital area You have been given the following additional information: Back Pain (Acute Or Chronic) (Electronically signed by Marcus Amin Dr. 01/12/2017 10:41)
--- NOTE | 2017-01-12 10:41 | ED MED RECONCILIATION SUMMARY ---
Patient: MICKI LARRY Medication Reconciliation Report [facility] VisitID: [id number] [address] [place] [address] 71y, F Registration Date/Time: 01/12/2017 Weight: 53.0 kg Height/Length: 64 in. BMI: 20.1 ALLERGIES: Codeine The patient's Home Medications are listed below: CONTINUE TAKING THE FOLLOWING MEDICATIONS: Aspirin Oral (325 mg) 1 tablet Baclofen Oral 10 mg, 3x a day Cefpodoxime Proxetil Oral (200 mg) 1 tablet, daily CeleBREX Oral (200 mg), 2x a day Cyanocobalamin Oral (500 mcg) 1 tablet, daily Dexamethasone Oral (4 mg) Dextromethorphan-Quinidine Oral (20-10 mg) 1 capsule, bid Famotidine Oral 20 mg, daily Lisinopril Oral (10 mg), daily Metoprolol Tartrate Oral 25 mg , daily Multi Vitamin Daily Oral OxyCONTIN Oral 20 mg, 3x a day Remeron Oral (15 mg), daily The source(s) of the original Home Medication information: Not obtained. The following Medications were given to the patient in the Emergency Department: Oxycontin [PO] PO 20 mg, administered: 01/12/2017 5:10:00 AM The following Medications were prescribed to the patient: None.
--- NOTE | 2017-01-12 10:41 | ED MAR SUMMARY ---
..... Medication Administration Record [facility] [address] [place] [address] Patient: MICKI LARRY Visit ID: [id number] 71y, F Weight: 53.0 kg Height/Length: 64 in BMI: 20.1 ALLERGIES: Codeine Given 05:10 01/12/2017 Cecy Mello Medication Administered: OXYCONTIN [PO] (OXYCODONE HCL ER), Dose: 20 mg PO. Medication Ordered: - (Oxycontin 20 mg PO x 1 now).
--- NOTE | 2017-01-12 10:41 | ED MAR SUMMARY ---
..... Medication Administration Record [facility] [address] [place] [address] Patient: MICKI LARRY Visit ID: [id number] 71y, F Weight: 53.0 kg Height/Length: 64 in BMI: 20.1 ALLERGIES: Codeine Given 05:10 01/12/2017 Cecy Mello Medication Administered: OXYCONTIN [PO] (OXYCODONE HCL ER), Dose: 20 mg PO. Medication Ordered: - (Oxycontin 20 mg PO x 1 now).
== END 2017-01-12 05:40 | disposition home or self-care (01) ==
LOC: ED SRH 04:23
DX: M54.6 Pain in thoracic spine (principal); M54.5 Low back pain; G89.29 Other chronic pain; Z76.0 Encounter for issue of repeat prescription; I50.9 Heart failure, unspecified; I10 Essential (primary) hypertension; J44.9 Chronic obstructive pulmonary disease, unspecified; K21.9 Gastro-esophageal reflux disease without esophagitis; Z79.82 Long term (current) use of aspirin; Z79.899 Other long term (current) drug therapy

== ENCOUNTER 2017-02-12 21:21 | Inpatient (IN) | payer OTHER, MEDICARE ==
[~2017-02-12] VITALS: Ht 160 cm; Wt 55.7 kg
--- NOTE | 2017-02-12 23:05 | ED ORDER SUMMARY ---
..... Patient: MICKI LARRY OrderSheet [facility] VisitID: [id number] [address] [place] [address] 71y, F Registration Date/Time: 02/12/2017 ORDER SHEET Weight: 56.4 kg (measured) Allergies: Codeine GENERAL ORDERS: Infrastructure Architect (Continuous) (21:42 02/12/2017 EHassan R.N. per protocol) (22:03 EHassan R.N.) Chest 1V Urgent (21:42 02/12/2017 EHassan R.N. per protocol) (Ack 21:53 Martellekimana) (21:58 MCampbell) Cardiac Panel Stat (21:42 02/12/2017 EHassan R.N. per protocol) (Ack 21:53 CHategekimana) (22:03 EHassan R.N.) Oxygen (2 L/min) (NC) (21:42 02/12/2017 EHassan R.N. per protocol) (22:03 EHassan R.N.) Pulse oximeter (21:42 02/12/2017 EHassan R.N. per protocol) (22:03 EHassan R.N.) EKG - ER Stat (21:42 02/12/2017 EHassan R.N. per protocol) (Ack 21:52 Martellekimana) (21:53 CHategekimana) PCT (Procalcitonin) Urgent (22:16 02/12/2017 Mohit LOWE) (22:28 EHassan R.N.) BNP Urgent (22:39 02/12/2017 Mohit LOWE) (Ack 23:35 Vishnu) (23:44 RMarsden R.N.) Type & Cross (anemia) (transfusion) Urgent (22:42 02/12/2017 Mohit LOWE) (Ack 23:35 Vishnu) (23:44 RMarsden R.N.) Blood Culture (No) (N/A) Urgent (23:03 02/12/2017 Mohit LOWE) (Ack 23:36 Vishnu) (23:44 RMarsden R.N.) Troponin-I Urgent (23:57 02/12/2017 Mohit LOWE) (0:05 CONSUELOollariane R.N.) MEDICATION ORDERS: NitroGLYCERIN Paste Topical 1 in. (NOW) (21:51 02/12/2017 Mohit LOWE) (22:10 Indira R.N.) KCl PO 20 meq (NOW) (22:40 02/12/2017 Mohit LOWE) (Ack 22:44 RMarsden R.N.) (23:44 RMarsden R.N.) IV FLUIDS: IV Saline Lock (21:53 02/12/2017 Mohit LOWE) (21:55 Indira R.N.) KCl IV 20 meq/100mL (Run no faster than 10 units/hr, Run no faster than 10 mEq/hr) (22:40 02/12/2017 Mohit LOWE) (Ack 22:44 RMarsden R.N.) (23:45 RMarsden R.N.) Magnesium Sulfate IV 2 gm/50mL (NOW) (22:40 02/12/2017 Mohit LOWE) (Ack 22:44 RMarsden R.N.) (23:46 RMarsden R.N.) Rocephin IV 2 gm/50mL (NOW) (23:03 02/12/2017 Mohit LOWE) (Ack 23:46 RMarsden R.N.) Zithromax IV 500 mg/250 mL (NOW) (23:03 02/12/2017 Mohit LOWE) (Ack 23:46 RMarsden R.N.) ORDER SHEET NOTES: [Electronically signed by Hedy Jara R.N. (03:55 02/13/2017)] [Electronically signed by Christiano Del Cid MD (06:48 02/13/2017)] [Electronically locked/signed by Hedy Jara R.N. (03:55 02/13/2017)]
--- NOTE | 2017-02-12 23:05 | ED NURSING NOTES ---
Clinical Report - Nurses [facility] [address] [place] [address] 02/12/2017 21:24 Patient: MICKI LARRY TRIAGE Triage time 21:Feb 12 2017. Chief Complaint: CHEST PAIN and SHORTNESS OF BREATH. Alert. MADDY COMA SCORE: [place] Coma Scale: 15- eyes open spontaneously (4); best verbal response- oriented x 4 (5); best motor response- obeys commands (6). --21:36 Ian Bowles R.N. 21:28 02/12/17. BP: 112/53. HR: 61. RR: 16. O2 saturation: 94% on nasal cannula at 2 liters/minute. Temp: 100.2 F. Pain level now: 8/10. Additional comments: Chest Pain. --21:36 Ian Bowles R.N. Acuity: LEVEL 3. --21:36 Ian Bowles R.N. Weight: 56.4 kg measured. Height/Length: 63 inches Per Patient. BMI: 22. --21:33 Ian Bowles R.N. Medications Aspirin Oral (Tablet 325 mg) 1 tablet. Baclofen Oral 10 mg, 3x a day. Cefpodoxime Proxetil Oral (Tablet 200 mg) 1 tablet, daily. CeleBREX Oral (Capsule 200 mg), 2x a day. Cyanocobalamin Oral (Tablet 500 mcg) 1 tablet, daily. Dexamethasone Oral (Tablet 4 mg). Dextromethorphan-Quinidine Oral (Capsule 20-10 mg) 1 capsule, bid. Famotidine Oral 20 mg, daily. Lisinopril Oral (Tablet 10 mg), daily. Metoprolol Tartrate Oral 25 mg , daily as needed. Multi Vitamin Daily Oral. OxyCONTIN Oral 20 mg, 3x a day as needed. Remeron Oral (Tablet 15 mg), daily. --21:33 Ian Bowles R.N. Allergies Codeine. Definite Moderate(confusion) --21:33 Ian Bowles R.N. Medication/allergy information source: the patient. --21:36 Ian Bowles R.N. History Arrived by EMS, and (medic 46). ( Chest pain in the field "8/10" associated with increased SOB.). Onset. (about 1 1/2 hours ago). She has had difficulty breathing. 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 PAST MEDICAL HX: Immunizations: up-to-date. The patient is post-menopausal. SOCIAL HX: Former smoker, end date 08/2016. No alcohol use or drug use. No infectious disease exposure. ABUSE ASSESSMENT: No report of abuse. FALL RISK ASSESSMENT: Fall risk assessment completed. No fall risk identified. NUTRITIONAL RISK ASSESSMENT: The nutritional risk assessment revealed no deficiencies. FUNCTIONAL ASSESSMENT: Functional assessment: no impairments noted. LEARNING NEEDS ASSESSMENT: The learning needs assessment revealed no barriers. SKIN INTEGRITY ASSESSMENT: Skin integrity risk assessment completed. No skin integrity risk identified. --21:36 Ian Bowles R.N. PROBLEMS: Medication Refill. Pressure Ulcer. Gastroenteritis. Weakness. Dyspnea. Myeloma . Anemia. Rib fractures. Fractured thoracic vertebra. Congestive Heart Failure. Hypokalemia. Abnormal Test. Back Pain. Hypertension. Gastroesophageal Reflux Disease. COPD - Chronic Obstructive Pulmonary Disease. --21:35 Ian Bowles R.N. ADDITIONAL SURGERIES: Appendectomy. --21:35 Ian Bowles R.N. Interventions ID and allergy band on patient. To treatment room. --21:36 Ian Bowles R.N. PHYSICAL ASSESSMENT To room via stretcher. GENERAL / NEURO / PSYCH: Alert. Oriented X 4. HEENT: Mucous membranes are pink. RESPIRATORY: Respirations not labored. Inspiratory bilateral wheezes diffusely, posteriorly and in the bases and wheezes in the right and left lung base posteriorly and mid-lung posteriorly. Breath sounds within normal limits. CVS: Normal sinus rhythm noted. Heart sounds within normal limits. Pulses within normal limits. Capillary refill less than 2 seconds. GI / : Abdomen soft and nontender. EXTREMITIES: No lower extremity edema. SKIN: Skin is warm and dry. Normal skin turgor. --22:11 Heide Rush R.N. NURSING PROGRESS NOTES 21:40 02/12/2017 Site #1 accessed indwelling PIV line in the left antecubital space using a 20g needle (placed on field). --21:55 Heide Rush R.N. 22:10 02/12/2017 NITROGLYCERIN PASTE Topical Paste 1 inch. Applied to the left chest. Allergies verified and confirmed 5 rights. --22:10 Heide Rush R.N. 22:00 02/12/17. BP: 101/60. HR: 60. RR: 15. O2 saturation: 98% on nasal cannula at 2 liters/minute. Pain level now: 12/07. --22:13 Heide Rush R.N. late entry - 21:30 PM. Cardiac rhythm: normal sinus rhythm. The initial plan of care for this patient has been created This plan of care was discussed with the patient and family. Oxygen administered by nasal cannula at 2 liters. flange machine operator, pulse oximeter and end tidal CO2 monitor placed on patient. EKG time: (2150 PM). EKG was performed by a nurse and shown to the ED physician. Patient gowned. Warming measures: blanket applied. Reassurance given. Reassessment after oxygen administered. She is calm and resting quietly. Overall patient status is improved- she states feels better. ( Pt states feeling better after the "nitro was given a bit dizzy but less chest pain" Meds administered as ordered. Will monitor). HEENT: Denies headache. RESPIRATORY: Denies difficulty breathing. No respiratory distress. CVS: Denies chest pain. GI / : Denies nausea. Call light placed in reach. --22:13 Heide Rush R.N. late entry - 21:45 PM. Cardiac rhythm: normal sinus rhythm; occasional PVCs. Oxygen administered. flange machine operator, pulse oximeter and NIBP monitor placed on patient; monitor alarms on. Reassurance given. The patient is calm and resting quietly. Overall patient status is improved- she states feels better. --22:15 Heide Rush R.N. 21:45 02/12/17. BP: 105/78. HR: 66. RR: 20. O2 saturation: 91% on room air. Pain level now: 12/07. --22:15 Heide Rush R.N. Care transferred and report given (BLADIMIR Knott). --22:37 Heide Rush R.N. Critical value received by BLADIMIR Call of 1.5. K: 2.4. Critical value read back. Verified lab result and patient ID. ED physician notifed of critical value. Orders were not received. --22:38 Heide Rush R.N. 23:29 02/12/2017 KCL (Potassium Chloride ER) PO Tablets 20 meq given. Allergies verified and confirmed 5 rights. --23:44 Hedy Jara R.N. 23:35 02/12/2017 Started 20 meq of KCL (Potassium Chloride) IVPB in bag #1 100 mL; at 30 mL/hr over 3 hour(s) via site #1 via IV pump. Allergies verified and confirmed 5 rights. IV patency established. IV site checked: no pain, redness, or swelling. IV flushed thoroughly pre- and post-medication administration. Completed per protocol. --23:45 Hedy Jara R.N. 23:40 02/12/2017 Site #2 started via IV in the right antecubital space with an 20g angiocath, with aseptic technique and good blood return; one attempt. Blood drawn: cultures x1. Labeled in the presence of the patient and sent to the lab. Saline lock flushed with 10 mL saline (green topped tube drawn at time of IV start). --23:43 Thelma Gordon R.N. 23:41 02/12/2017 Magnesium Sulfate (Magnesium Sulfate in D5W) IVP 2 gm given over 2 hour(s) via site #2. Allergies verified and confirmed 5 rights. IV patency established. IV site checked: no pain, redness, or swelling. IV flushed thoroughly pre- and post-medication administration. IVP given by RN. --23:46 Hedy aJra R.N. ( Potassium Chloride hung with IV NS 50mL/hr). --03:54 Hedy Jara R.N. DISPOSITION / DISCHARGE Departure time: 00:57. Transported via stretcher by nurse with IV. --00:57 Thelma Gordon R.N. 00:45 02/13/17. BP: 119/60. HR: 63. RR: 16. O2 saturation: 97%. Temp: deferred. Pain level now: 11/09. --03:49 Hedy Jara R.N. 00:35. Admitted to Acute Care. Transported via stretcher by nurse with monitor, IV and O2. Report was given to a nurse. Report included patient's care, treatment, medications, reviewed medication reconcilliation, and condition (including any recent changes or anticipated changes). All questions were answered. Report was acknowledged and care was transferred. Bed obtained (206). Patient's personal items include: pajamas, glasses and cell phone; items were placed in belongings bag, given to the patient and transported with the patient. --03:50 Hedy Jara R.N. 00:57. ( All medications stopped, IVs saline locked upon admission.). --03:55 Hedy Jara R.N. Locked/Released at 02/13/2017 3:55 by Hedy Jara R.N.
--- NOTE | 2017-02-12 23:05 | ED CLINICAL REPORT ---
Clinical Report - Physicians/Mid Levels [facility] [address] [place] [address] 02/12/2017 21:24 Patient: MICKI LARRY Time Seen: 21:36 Feb 12 2017. Arrived- By private vehicle. Historian- patient. CPT: ER phys charges level 5 plus (#[id number]). EKG interpretation (#[id number]). HISTORY OF PRESENT ILLNESS Chief Complaint: CHEST PAIN. At its maximum, severity described as 9 / 10. When seen in the E.D., severity described as 3 / 10. Modifying factors- relieved by nitroglycerin (two, given by paramedics). Not worsened by anything. Relief was partial. It is described as pressure and it is described as located in the central chest area. 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 Onset during light activity. The patient has had difficulty breathing and nausea. No vomiting or diaphoresis. (Dizziness.). Similar symptoms previously: None. Recent medical care: Not recently seen/assessed. REVIEW OF SYSTEMS No chills, cough, pedal edema, calf pain or fainting episodes. No sore throat, abdominal pain, black stools, difficulty with urination or skin rash. No enlarged lymph nodes, joint pain or bloody stools. All systems otherwise negative, except as recorded above. PAST HISTORY Pressure Ulcer. Gastroenteritis. Weakness. Dyspnea. Myeloma . Anemia. Rib fractures. Fractured thoracic vertebra. Congestive Heart Failure. Hypokalemia. Abnormal Test. Back Pain. Hypertension. Gastroesophageal Reflux Disease. COPD - Chronic Obstructive Pulmonary Disease. ADDITIONAL SURGERIES: Appendectomy. --. Medications: Aspirin Oral (Tablet 325 mg) 1 tablet. Baclofen Oral 10 mg, 3x a day. Cefpodoxime Proxetil Oral (Tablet 200 mg) 1 tablet, daily. CeleBREX Oral (Capsule 200 mg), 2x a day. Cyanocobalamin Oral (Tablet 500 mcg) 1 tablet, daily. Dexamethasone Oral (Tablet 4 mg). Dextromethorphan-Quinidine Oral (Capsule 20-10 mg) 1 capsule, bid. Famotidine Oral 20 mg, daily. Lisinopril Oral (Tablet 10 mg), daily. Metoprolol Tartrate Oral 25 mg , daily as needed. Multi Vitamin Daily Oral. OxyCONTIN Oral 20 mg, 3x a day as needed. Remeron Oral (Tablet 15 mg), daily. Allergies: Codeine. Definite Moderate(confusion). SOCIAL HISTORY Former smoker, end date 08/2016. No alcohol use or drug use. ADDITIONAL NOTES The nursing notes have been reviewed. PHYSICAL EXAM Vital Signs: 02/12/2017 21:28 BP: 112/53. HR: 61. RR: 16. O2 saturation: 94%. Temp: 100.2 F. Pain level now: 05/09. Appearance: Alert. Patient in mild distress. Eyes: Pupils equal, round and reactive to light. Eyes normal inspection. ENT: Ears normal. Nose normal. Pharynx normal. Neck: Normal inspection. Neck supple. CVS: Normal heart rate and rhythm. Heart sounds normal. Pulses normal. No cardiac murmur. Respiratory: No respiratory distress. Moderate bilateral rhonchi present diffusely. Moderate rales present diffusely in both lungs. Chest nontender. Abdomen: Soft. Mild tenderness in the epigastric area. Bowel sounds normal. Back: Normal external inspection. Skin: Skin warm. Normal skin color. No rash. Extremities: Extremities exhibit normal ROM. No lower extremity edema. Neuro: Oriented X 3. No motor deficit. No sensory deficit. Reflexes normal. LABS, X-RAYS, AND EKG EKG: Normal sinus rhythm. Normal P waves. Normal QRS complex. Normal axis. ST depression in lead V1, V2, V3 and V4- consistent with ischemia. Prior EKG unavailable. The study has been interpreted contemporaneously. The study has been independently viewed by me. The EKG appears to be a good tracing. Chest X-ray: (Multiple bilateral infiltrates and bone changes consistent with myeloma.). Views: AP (portable). Technique: good. The X-rays were independently viewed by me and interpreted contemporaneously by me. A comparison with prior films reveals that the findings are new. Laboratory Tests: CBC w Diff: (SANTI: 02/12/2017 21:40) ( MsgRcvd 02/12/2017 22:21) IP Test Result Flag Units (Reference) WHITE BLOOD COUNT 2.8 L K/uL (4.5-11.5) RED BLOOD COUNT 2.15 L M/uL (4.00-5.20) HEMOGLOBIN 7.6 L gm/dL (12.0-16.0) HEMATOCRIT 23.2 L % (36.0-46.0) MEAN CELL VOLUME 108 H fL (80-100) MEAN CORPUSCULAR HGB 35 H pg (26-34) MEAN CORPUSCULAR HGB CONC 33 g/dL (31-37) RED CELL DISTRIBUTION WIDTH 17.6 H % (11.6-14.8) PLATELET COUNT 229 K/uL (150-400) NEUTROPHIL % 26.8 L % (50-75) LYMPH % 60.0 H % (25-40) MONO % 3.2 % (3-14) EOSINOPHIL % 9.8 H % (0-4) BASOPHIL % 0.2 % (0-2) CHEM 13 PANEL: (SANTI: 02/12/2017 21:40) ( MsgRcvd 02/12/2017 22:32) Final results Test Result Flag Units (Reference) GLUCOSE 103 mg/dL (70-110) BUN 12 mg/dL (7-18) CREATININE 0.8 mg/dL (0.6-1.3) Estimated GFR >60 mL/min Estimated GFR- >60 mL/min Note: Persistent reduction over 3 months in eGFR<60 mL/min/1.73 m2 defines CKD. Patients with eGFR values>=60 mL/min/1.73 m2 may also have CKD if evidence ofpersistent proteinuria. Additional information may be foundat www.[email or web address].org. SODIUM 144 mmol/L (136-145) POTASSIUM 2.4 *L mmol/L (3.5-5.1) CRITICAL RESULTS CALLEDCalled to BLADIMIR HART 02/12/17 [id number] 2 patient identifiers used? YWas the result read back? Y CHLORIDE 105 mmol/L (98-107) CARBON DIOXIDE 33 H mmol/L (21-32) CALCIUM 7.6 L mg/dL (8.5-10.1) TOTAL PROTEIN 5.8 L g/dL (6.4-8.2) ALBUMIN 2.6 L g/dL (3.3-5.0) BILIRUBIN, TOTAL 0.4 mg/dL (0.0-1.0) ALKALINE PHOSPHATASE 118 H U/L (46-116) AST (SGOT) 10 L U/L (15-37) ALT (SGPT) 16 U/L (12-78) MAGNESIUM 1.5 L mg/dL (1.8-2.4) CPK 35 U/L (24-260) TROPONIN I <0.05 ng/mL (0.00-1.5) TROPONIN REFERENCE RANGE:<0.1 NEGATIVE0.1-1.5 INDETERMINANT>1.5 POSITIVE . PROGRESS AND PROCEDURES Course of Care: Pt pain responded to NTG and she has EKG changes consistent with ischemia. ASA 325 was given by medics. NTG paste 1" topical. Type and cross for critical anemia KCL 20 meq po KCL 20 meq IV Magnesium sulfate 2g IV BC times 2 Rocephin 2g IV Zithromax 500 mg IV. Discussed case with on-call health care provider, (Ramin). Reviewed test results. Agreed upon treatment plan and decision to admit. Health care provider will see patient in ED. Patient/family counseled. Old medical records ordered. Disposition orders written. Disposition: Admitted to Acute Care. CLINICAL IMPRESSION Unstable angina .12 lead EKG performed. Critical anemia Critical Hypokalemia Hypomagnesemia Pneumonia Myeloma. (Electronically signed by Christiano Del Cid MD 02/13/2017 6:48)
--- NOTE | 2017-02-12 23:05 | ED NURSING NOTES ---
Clinical Report - Nurses [facility] [address] [place] [address] 02/12/2017 21:24 Patient: MICKI LARRY TRIAGE Triage time 21:Feb 12 2017. Chief Complaint: CHEST PAIN and SHORTNESS OF BREATH. Alert. MADDY COMA SCORE: Powell Coma Scale: 15- eyes open spontaneously (4); best verbal response- oriented x 4 (5); best motor response- obeys commands (6). --21:36 Ian Bowles R.N. 21:28 02/12/17. BP: 112/53. HR: 61. RR: 16. O2 saturation: 94% on nasal cannula at 2 liters/minute. Temp: 100.2 F. Pain level now: 8/10. Additional comments: Chest Pain. --21:36 Ian Bowles R.N. Acuity: LEVEL 3. --21:36 Ian Bowles R.N. Weight: 56.4 kg measured. Height/Length: 63 inches Per Patient. BMI: 22. --21:33 Ian Bowles R.N. Medications Aspirin Oral (Tablet 325 mg) 1 tablet. Baclofen Oral 10 mg, 3x a day. Cefpodoxime Proxetil Oral (Tablet 200 mg) 1 tablet, daily. CeleBREX Oral (Capsule 200 mg), 2x a day. Cyanocobalamin Oral (Tablet 500 mcg) 1 tablet, daily. Dexamethasone Oral (Tablet 4 mg). Dextromethorphan-Quinidine Oral (Capsule 20-10 mg) 1 capsule, bid. Famotidine Oral 20 mg, daily. Lisinopril Oral (Tablet 10 mg), daily. Metoprolol Tartrate Oral 25 mg , daily as needed. Multi Vitamin Daily Oral. OxyCONTIN Oral 20 mg, 3x a day as needed. Remeron Oral (Tablet 15 mg), daily. --21:33 Ian Bowles R.N. Allergies Codeine. Definite Moderate(confusion) --21:33 Ian Bowles R.N. Medication/allergy information source: the patient. --21:36 Ian Bowles R.N. History Arrived by EMS, and (medic 46). ( Chest pain in the field "8/10" associated with increased SOB.). Onset. (about 1 1/2 hours ago). She has had difficulty breathing. 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 PAST MEDICAL HX: Immunizations: up-to-date. The patient is post-menopausal. SOCIAL HX: Former smoker, end date 08/2016. No alcohol use or drug use. No infectious disease exposure. ABUSE ASSESSMENT: No report of abuse. FALL RISK ASSESSMENT: Fall risk assessment completed. No fall risk identified. NUTRITIONAL RISK ASSESSMENT: The nutritional risk assessment revealed no deficiencies. FUNCTIONAL ASSESSMENT: Functional assessment: no impairments noted. LEARNING NEEDS ASSESSMENT: The learning needs assessment revealed no barriers. SKIN INTEGRITY ASSESSMENT: Skin integrity risk assessment completed. No skin integrity risk identified. --21:36 Ian Bowles R.N. PROBLEMS: Medication Refill. Pressure Ulcer. Gastroenteritis. Weakness. Dyspnea. Myeloma . Anemia. Rib fractures. Fractured thoracic vertebra. Congestive Heart Failure. Hypokalemia. Abnormal Test. Back Pain. Hypertension. Gastroesophageal Reflux Disease. COPD - Chronic Obstructive Pulmonary Disease. --21:35 Ian Bowles R.N. ADDITIONAL SURGERIES: Appendectomy. --21:35 Ian Bowles R.N. Interventions ID and allergy band on patient. To treatment room. --21:36 Ian Bowles R.N. PHYSICAL ASSESSMENT To room via stretcher. GENERAL / NEURO / PSYCH: Alert. Oriented X 4. HEENT: Mucous membranes are pink. RESPIRATORY: Respirations not labored. Inspiratory bilateral wheezes diffusely, posteriorly and in the bases and wheezes in the right and left lung base posteriorly and mid-lung posteriorly. Breath sounds within normal limits. CVS: Normal sinus rhythm noted. Heart sounds within normal limits. Pulses within normal limits. Capillary refill less than 2 seconds. GI / : Abdomen soft and nontender. EXTREMITIES: No lower extremity edema. SKIN: Skin is warm and dry. Normal skin turgor. --22:11 Heide Rush R.N. NURSING PROGRESS NOTES 21:40 02/12/2017 Site #1 accessed indwelling PIV line in the left antecubital space using a 20g needle (placed on field). --21:55 Heide Rush R.N. 22:10 02/12/2017 NITROGLYCERIN PASTE Topical Paste 1 inch. Applied to the left chest. Allergies verified and confirmed 5 rights. --22:10 Heide Rush R.N. 22:00 02/12/17. BP: 101/60. HR: 60. RR: 15. O2 saturation: 98% on nasal cannula at 2 liters/minute. Pain level now: 12/07. --22:13 Heide Rush R.N. late entry - 21:30 PM. Cardiac rhythm: normal sinus rhythm. The initial plan of care for this patient has been created This plan of care was discussed with the patient and family. Oxygen administered by nasal cannula at 2 liters. greenhouse superintendent, pulse oximeter and end tidal CO2 monitor placed on patient. EKG time: (2150 PM). EKG was performed by a nurse and shown to the ED physician. Patient gowned. Warming measures: blanket applied. Reassurance given. Reassessment after oxygen administered. She is calm and resting quietly. Overall patient status is improved- she states feels better. ( Pt states feeling better after the "nitro was given a bit dizzy but less chest pain" Meds administered as ordered. Will monitor). HEENT: Denies headache. RESPIRATORY: Denies difficulty breathing. No respiratory distress. CVS: Denies chest pain. GI / : Denies nausea. Call light placed in reach. --22:13 Heide Rush R.N. late entry - 21:45 PM. Cardiac rhythm: normal sinus rhythm; occasional PVCs. Oxygen administered. greenhouse superintendent, pulse oximeter and NIBP monitor placed on patient; monitor alarms on. Reassurance given. The patient is calm and resting quietly. Overall patient status is improved- she states feels better. --22:15 Heide Ruhs R.N. 21:45 02/12/17. BP: 105/78. HR: 66. RR: 20. O2 saturation: 91% on room air. Pain level now: 12/07. --22:15 Heide Rush R.N. Care transferred and report given (BLADIMIR Knott). --22:37 Heide Rush R.N. Critical value received by BLADIMIR Call of 1.5. K: 2.4. Critical value read back. Verified lab result and patient ID. ED physician notifed of critical value. Orders were not received. --22:38 Heide Rush R.N. 23:29 02/12/2017 KCL (Potassium Chloride ER) PO Tablets 20 meq given. Allergies verified and confirmed 5 rights. --23:44 Hedy Jara R.N. 23:35 02/12/2017 Started 20 meq of KCL (Potassium Chloride) IVPB in bag #1 100 mL; at 30 mL/hr over 3 hour(s) via site #1 via IV pump. Allergies verified and confirmed 5 rights. IV patency established. IV site checked: no pain, redness, or swelling. IV flushed thoroughly pre- and post-medication administration. Completed per protocol. --23:45 Hedy Jara R.N. 23:40 02/12/2017 Site #2 started via IV in the right antecubital space with an 20g angiocath, with aseptic technique and good blood return; one attempt. Blood drawn: cultures x1. Labeled in the presence of the patient and sent to the lab. Saline lock flushed with 10 mL saline (green topped tube drawn at time of IV start). --23:43 Thelma Gordon R.N. 23:41 02/12/2017 Magnesium Sulfate (Magnesium Sulfate in D5W) IVP 2 gm given over 2 hour(s) via site #2. Allergies verified and confirmed 5 rights. IV patency established. IV site checked: no pain, redness, or swelling. IV flushed thoroughly pre- and post-medication administration. IVP given by RN. --23:46 Hedy Jara R.N. ( Potassium Chloride hung with IV NS 50mL/hr). --03:54 Hedy Jara R.N. DISPOSITION / DISCHARGE Departure time: 00:57. Transported via stretcher by nurse with IV. --00:57 Thelma Gordon R.N. 00:45 02/13/17. BP: 119/60. HR: 63. RR: 16. O2 saturation: 97%. Temp: deferred. Pain level now: 11/09. --03:49 Hedy Jara R.N. 00:35. Admitted to Acute Care. Transported via stretcher by nurse with monitor, IV and O2. Report was given to a nurse. Report included patient's care, treatment, medications, reviewed medication reconcilliation, and condition (including any recent changes or anticipated changes). All questions were answered. Report was acknowledged and care was transferred. Bed obtained (206). Patient's personal items include: pajamas, glasses and cell phone; items were placed in belongings bag, given to the patient and transported with the patient. --03:50 Hedy Jara R.N. 00:57. ( All medications stopped, IVs saline locked upon admission.). --03:55 Hedy Jara R.N. Locked/Released at 02/13/2017 3:55 by Hedy Jara R.N.
--- NOTE | 2017-02-12 23:05 | ED ORDER SUMMARY ---
..... Patient: MICKI LARRY OrderSheet [facility] VisitID: [id number] [address] [place] [address] 71y, F Registration Date/Time: 02/12/2017 ORDER SHEET Weight: 56.4 kg (measured) Allergies: Codeine GENERAL ORDERS: Rn Anesthesiology (Continuous) (21:42 02/12/2017 EHassan R.N. per protocol) (22:03 EHassan R.N.) Chest 1V Urgent (21:42 02/12/2017 EHassan R.N. per protocol) (Ack 21:53 Martellekimana) (21:58 MCampbell) Cardiac Panel Stat (21:42 02/12/2017 EHassan R.N. per protocol) (Ack 21:53 CHategekimana) (22:03 EHassan R.N.) Oxygen (2 L/min) (NC) (21:42 02/12/2017 EHassan R.N. per protocol) (22:03 EHassan R.N.) Pulse oximeter (21:42 02/12/2017 EHassan R.N. per protocol) (22:03 EHassan R.N.) EKG - ER Stat (21:42 02/12/2017 EHassan R.N. per protocol) (Ack 21:52 Martellekimana) (21:53 CHategekimana) PCT (Procalcitonin) Urgent (22:16 02/12/2017 Mohit LOWE) (22:28 EHassan R.N.) BNP Urgent (22:39 02/12/2017 Mohit LOWE) (Ack 23:35 Vishnu) (23:44 RMarsden R.N.) Type & Cross (anemia) (transfusion) Urgent (22:42 02/12/2017 Mohit LOWE) (Ack 23:35 Vishnu) (23:44 RMarsden R.N.) Blood Culture (No) (N/A) Urgent (23:03 02/12/2017 Mohit LOWE) (Ack 23:36 Vishnu) (23:44 RMarsden R.N.) Troponin-I Urgent (23:57 02/12/2017 Mohit LOWE) (0:05 CONSUELOollariane R.N.) MEDICATION ORDERS: NitroGLYCERIN Paste Topical 1 in. (NOW) (21:51 02/12/2017 Mohit LOWE) (22:10 Indira R.N.) KCl PO 20 meq (NOW) (22:40 02/12/2017 Mohit LOWE) (Ack 22:44 RMarsden R.N.) (23:44 RMarsden R.N.) IV FLUIDS: IV Saline Lock (21:53 02/12/2017 Mohit LOWE) (21:55 Indira R.N.) KCl IV 20 meq/100mL (Run no faster than 10 units/hr, Run no faster than 10 mEq/hr) (22:40 02/12/2017 Mohit LOWE) (Ack 22:44 RMarsden R.N.) (23:45 RMarsden R.N.) Magnesium Sulfate IV 2 gm/50mL (NOW) (22:40 02/12/2017 Mohit LOWE) (Ack 22:44 RMarsden R.N.) (23:46 RMarsden R.N.) Rocephin IV 2 gm/50mL (NOW) (23:03 02/12/2017 Mohit LOWE) (Ack 23:46 RMarsden R.N.) Zithromax IV 500 mg/250 mL (NOW) (23:03 02/12/2017 Mohit LOWE) (Ack 23:46 RMarsden R.N.) ORDER SHEET NOTES: [Electronically signed by Hedy Jara R.N. (03:55 02/13/2017)] [Electronically signed by Christiano Del Cid MD (06:48 02/13/2017)] [Electronically locked/signed by Hedy Jara R.N. (03:55 02/13/2017)]
--- NOTE | 2017-02-12 23:05 | ED CLINICAL REPORT ---
Clinical Report - Physicians/Mid Levels [facility] [address] [place] [address] 02/12/2017 21:24 Patient: MICKI LARRY Time Seen: 21:36 Feb 12 2017. Arrived- By private vehicle. Historian- patient. CPT: ER phys charges level 5 plus (#[id number]). EKG interpretation (#[id number]). HISTORY OF PRESENT ILLNESS Chief Complaint: CHEST PAIN. At its maximum, severity described as 9 / 10. When seen in the E.D., severity described as 3 / 10. Modifying factors- relieved by nitroglycerin (two, given by paramedics). Not worsened by anything. Relief was partial. It is described as pressure and it is described as located in the central chest area. 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 Onset during light activity. The patient has had difficulty breathing and nausea. No vomiting or diaphoresis. (Dizziness.). Similar symptoms previously: None. Recent medical care: Not recently seen/assessed. REVIEW OF SYSTEMS No chills, cough, pedal edema, calf pain or fainting episodes. No sore throat, abdominal pain, black stools, difficulty with urination or skin rash. No enlarged lymph nodes, joint pain or bloody stools. All systems otherwise negative, except as recorded above. PAST HISTORY Pressure Ulcer. Gastroenteritis. Weakness. Dyspnea. Myeloma . Anemia. Rib fractures. Fractured thoracic vertebra. Congestive Heart Failure. Hypokalemia. Abnormal Test. Back Pain. Hypertension. Gastroesophageal Reflux Disease. COPD - Chronic Obstructive Pulmonary Disease. ADDITIONAL SURGERIES: Appendectomy. --. Medications: Aspirin Oral (Tablet 325 mg) 1 tablet. Baclofen Oral 10 mg, 3x a day. Cefpodoxime Proxetil Oral (Tablet 200 mg) 1 tablet, daily. CeleBREX Oral (Capsule 200 mg), 2x a day. Cyanocobalamin Oral (Tablet 500 mcg) 1 tablet, daily. Dexamethasone Oral (Tablet 4 mg). Dextromethorphan-Quinidine Oral (Capsule 20-10 mg) 1 capsule, bid. Famotidine Oral 20 mg, daily. Lisinopril Oral (Tablet 10 mg), daily. Metoprolol Tartrate Oral 25 mg , daily as needed. Multi Vitamin Daily Oral. OxyCONTIN Oral 20 mg, 3x a day as needed. Remeron Oral (Tablet 15 mg), daily. Allergies: Codeine. Definite Moderate(confusion). SOCIAL HISTORY Former smoker, end date 08/2016. No alcohol use or drug use. ADDITIONAL NOTES The nursing notes have been reviewed. PHYSICAL EXAM Vital Signs: 02/12/2017 21:28 BP: 112/53. HR: 61. RR: 16. O2 saturation: 94%. Temp: 100.2 F. Pain level now: 05/09. Appearance: Alert. Patient in mild distress. Eyes: Pupils equal, round and reactive to light. Eyes normal inspection. ENT: Ears normal. Nose normal. Pharynx normal. Neck: Normal inspection. Neck supple. CVS: Normal heart rate and rhythm. Heart sounds normal. Pulses normal. No cardiac murmur. Respiratory: No respiratory distress. Moderate bilateral rhonchi present diffusely. Moderate rales present diffusely in both lungs. Chest nontender. Abdomen: Soft. Mild tenderness in the epigastric area. Bowel sounds normal. Back: Normal external inspection. Skin: Skin warm. Normal skin color. No rash. Extremities: Extremities exhibit normal ROM. No lower extremity edema. Neuro: Oriented X 3. No motor deficit. No sensory deficit. Reflexes normal. LABS, X-RAYS, AND EKG EKG: Normal sinus rhythm. Normal P waves. Normal QRS complex. Normal axis. ST depression in lead V1, V2, V3 and V4- consistent with ischemia. Prior EKG unavailable. The study has been interpreted contemporaneously. The study has been independently viewed by me. The EKG appears to be a good tracing. Chest X-ray: (Multiple bilateral infiltrates and bone changes consistent with myeloma.). Views: AP (portable). Technique: good. The X-rays were independently viewed by me and interpreted contemporaneously by me. A comparison with prior films reveals that the findings are new. Laboratory Tests: CBC w Diff: (SANTI: 02/12/2017 21:40) ( MsgRcvd 02/12/2017 22:21) IP Test Result Flag Units (Reference) WHITE BLOOD COUNT 2.8 L K/uL (4.5-11.5) RED BLOOD COUNT 2.15 L M/uL (4.00-5.20) HEMOGLOBIN 7.6 L gm/dL (12.0-16.0) HEMATOCRIT 23.2 L % (36.0-46.0) MEAN CELL VOLUME 108 H fL (80-100) MEAN CORPUSCULAR HGB 35 H pg (26-34) MEAN CORPUSCULAR HGB CONC 33 g/dL (31-37) RED CELL DISTRIBUTION WIDTH 17.6 H % (11.6-14.8) PLATELET COUNT 229 K/uL (150-400) NEUTROPHIL % 26.8 L % (50-75) LYMPH % 60.0 H % (25-40) MONO % 3.2 % (3-14) EOSINOPHIL % 9.8 H % (0-4) BASOPHIL % 0.2 % (0-2) CHEM 13 PANEL: (SANTI: 02/12/2017 21:40) ( MsgRcvd 02/12/2017 22:32) Final results Test Result Flag Units (Reference) GLUCOSE 103 mg/dL (70-110) BUN 12 mg/dL (7-18) CREATININE 0.8 mg/dL (0.6-1.3) Estimated GFR >60 mL/min Estimated GFR- >60 mL/min Note: Persistent reduction over 3 months in eGFR<60 mL/min/1.73 m2 defines CKD. Patients with eGFR values>=60 mL/min/1.73 m2 may also have CKD if evidence ofpersistent proteinuria. Additional information may be foundat www.[email or web address].org. SODIUM 144 mmol/L (136-145) POTASSIUM 2.4 *L mmol/L (3.5-5.1) CRITICAL RESULTS CALLEDCalled to BLADIMIR HART 02/12/17 [id number] 2 patient identifiers used? YWas the result read back? Y CHLORIDE 105 mmol/L (98-107) CARBON DIOXIDE 33 H mmol/L (21-32) CALCIUM 7.6 L mg/dL (8.5-10.1) TOTAL PROTEIN 5.8 L g/dL (6.4-8.2) ALBUMIN 2.6 L g/dL (3.3-5.0) BILIRUBIN, TOTAL 0.4 mg/dL (0.0-1.0) ALKALINE PHOSPHATASE 118 H U/L (46-116) AST (SGOT) 10 L U/L (15-37) ALT (SGPT) 16 U/L (12-78) MAGNESIUM 1.5 L mg/dL (1.8-2.4) CPK 35 U/L (24-260) TROPONIN I <0.05 ng/mL (0.00-1.5) TROPONIN REFERENCE RANGE:<0.1 NEGATIVE0.1-1.5 INDETERMINANT>1.5 POSITIVE . PROGRESS AND PROCEDURES Course of Care: Pt pain responded to NTG and she has EKG changes consistent with ischemia. ASA 325 was given by medics. NTG paste 1" topical. Type and cross for critical anemia KCL 20 meq po KCL 20 meq IV Magnesium sulfate 2g IV BC times 2 Rocephin 2g IV Zithromax 500 mg IV. Discussed case with on-call health care provider, (Ramin). Reviewed test results. Agreed upon treatment plan and decision to admit. Health care provider will see patient in ED. Patient/family counseled. Old medical records ordered. Disposition orders written. Disposition: Admitted to Acute Care. CLINICAL IMPRESSION Unstable angina .12 lead EKG performed. Critical anemia Critical Hypokalemia Hypomagnesemia Pneumonia Myeloma. (Electronically signed by Christiano Del Cid MD 02/13/2017 6:48)
--- NOTE | 2017-02-12 23:16 | DIAGNOSTIC IMAGING REPORT ---
PROCEDURE: XR CHEST 1 VIEW INDICATION: CHEST PAIN TECHNIQUE: Portable AP view (2140 hours). COMPARISON: Compared to chest x-ray on 01/10/2017. FINDINGS: Allowing for suboptimal inspiration, there is mild basilar volume loss with subsegmental atelectasis. Heart and mediastinum are normal. Thorax is normal. IMPRESSION: 1. Mild basilar volume loss with mild bibasilar atelectasis. 2. Otherwise negative chest.
[2017-02-13] VITALS (13 sets, daily range): BP systolic 110–133; BP diastolic 61–85
[2017-02-13] MEDS ORDERED: VITAMIN B121000 CR PO (00:06)
[2017-02-13] MEDS ORDERED: OXYCONTIN C/R20 MG PO (00:10)
[2017-02-13] MEDS ORDERED: SENNA-LAX8.6 MG PO (00:11)
[2017-02-13] MEDS ORDERED: IPRATROPIUM BROMIDE/ (00:16)
--- NOTE | 2017-02-13 02:09 | History & Physical Report ---
Admission Admit Date 02/12/17 General Admission History and Physical Examination Patient Name: Radha Perry Patient ID: [id number] Admission Date: Feb 13 2017 Primary Care Provider: Attending Physician: Dr Espnio Admitting Physician: Brady Faustin M.D. Code Status: No code Room: 206 Status: Inpatient acute care Information Source Information Source: Self Reliability: Fair History Chief Complaint pain while breathing History of Present Illness Patient is a 71 year old female with a past medical history of multiple myeloma, bone fractures and hypertension that is presenting with chest pain, and pain while breathing. She was initially placed in [facility] and did not really seem to do well there as she was starting on her treatments for multiple myeloma. She was subsequently admitted here to for a pneumonia problem and discharged and transferred to [facility] and seemed to do quite well there. Patient was attending rehab and doing quite well, as well as following up with regulary scheduled doctors visits and her fractures sthat she had before are haeling appropriately, namely the hip fracture. Patient while at home was ambulating more than before and doing well, however yesterday the patient noticed that she had diffculty thinking, this was compounded by her inability to take a deep breath without having pain that radiated from her flank to her sternum. Patient additionally felt weaker than before she had in the past. Patient is otherwise stqable. Patient History 1. Ribs, multiple fractures 2. Anemia 3. Multiple myeloma 4. COPD (chronic obstructive pulmonary disease) 5. Neutropenia Social History Remarkable for childbirth x2, remote appendectomy, bone marrow biopsy. She also had an EGD and colonoscopy done when she was hospitalized here in 09/2016. These showed no major abnormalities. Family History Family history was reviewed; no changes noted. Medications and Allergies Medications Home Medications 1. Aspirin 81 mg daily. 2. Baclofen 10 mg t.i.d. for muscle spasm. 3. Celebrex 200 mg b.i.d. for musculoskeletal pain. 4. Dexamethasone 20 mg as a single dose taken every Saturday and every . 5. Diphenhydramine as needed for skin irritation and itching 25 mg every 4 hours. 6. Mirtazapine 15 mg in the evening to help with appetite and sleeping. 7. Oxycodone 5 mg strength 1 every 4-6 hours for breakthrough pain. 8. OxyContin 40 mg every 12 hours. The patient thinks this dose is a little too high for her, as does her [id number]. 9 Revlimid 25 mg p.o. daily for 21 days on and then 7 days off for multiple myeloma. 10. Senna 8.6 mg once or twice daily for constipation. 11. Lisinopril 10 mg daily for renal issues. 12. Metoprolol succinate 12.5 mg daily for blood pressure and heart function improvement. 13. Lorazepam 1 mg once or twice daily as needed for anxiety. 14. She is also taking vitamin D3. 15. Calcium. Allergies Coded Allergies: Codeine (Severe, Rash, severe anxiety and hyperactivity 02/13/17) Review of Systems Constitutional Weakness, Malaise. Denies: Fever, Chills, Sweats, Other. Eyes Denies: Pain, Vision Change, Conjunctival Inflammation, Eyelid Inflammation, Redness, Other. ENT Denies: Ear Pain, Ear Discharge, Nose Pain, Nasal Discharge, Nasal Congestion, Mouth Pain, Mouth Swelling, Throat Pain, Throat Swelling, Other. Respiratory SOB w/exertion, Pleuritic Pain. Denies: Cough, Dry, Wheezing, Hemoptysis, Sputum, Other. Cardiovascular Denies: Chest Pain, Palpitations, Orthopnea, PND, Edema, Light-headedness, Other. Gastrointestinal Denies: Nausea, Vomiting, Abdominal Pain, Diarrhea, Constipation, Melena, Hematochezia, Other. Genitourinary Denies: Dysuria, Frequency, Incontinence, Hematuria, Retention, Other. Musculoskeletal Leg Pain, Other (chest wall pain ). Denies: Neck Pain, Shoulder Pain, Arm Pain, Back Pain, Hand Pain, Foot Pain. Skin Other (decubitus on buttocks ). Neurological Weakness. Denies: Numbness, Incoordination, Change in speech, Confusion, Seizures, Other. Physical Exam Vital Signs / I&Os Vital Signs Date Time Temp Pulse Resp B/P Pulse O2 O2 Flow FiO2 Ox Delivery Rate 02/13 0206 98.4 72 17 133/85 95 Nasal 2.0 Cannula 02/13 0130 98.4 64 18 130/77 97 Nasal 2.0 Cannula General Appearance Alert, Oriented X3, No acute distress HEENT Atraumatic, PERRLA, Moist mucous membranes Lungs - bilateral crackles noted Neck Supple, No masses, No lymphadenopathy Cardiovascular Regular rate and rhythm, No murmurs, gallops, rubs Abdomen Soft, No tenderness, No guarding, No hepatosplenomegaly Extremities No clubbing, No edema, Normal pulses, No tenderness, Strength = upper ext's Skin No Breakdown, No Significant Lesions Neurological Normal speech, Normal tone, Cranial nerves intact, Strength 5/5 x4 ext's, No lateralizing signs Psych/Mental Status Mood normal LAB Results Laboratory Tests 02/12 02/12 02/12 02/12 2140 2145 2145 2340 Chemistry Plasma Sodium (136 - 145 mmol/L) 144 Plasma Potassium (3.5 - 5.1 mmol/L) 2.4 Plasma Chloride (98 - 107 mmol/L) 105 CO2 (Enzymatic) (21 - 32 mmol/L) 33 BUN (7 - 18 mg/dL) 12 Creatinine (0.6 - 1.3 mg/dL) 0.8 Est GFR ( Amer) (mL/min) >60 Est GFR (Non-Af Amer) (mL/min) >60 Glucose (70 - 110 mg/dL) 103 Plasma Calcium (8.5 - 10.1 mg/dL) 7.6 Plasma Magnesium (1.8 - 2.4 mg/dL) 1.5 Total Bilirubin (0.0 - 1.0 mg/dL) 0.4 AST (15 - 37 U/L) 10 ALT (12 - 78 U/L) 16 Alkaline Phosphatase (46 - 116 U/L) 118 Creatine Kinase (24 - 260 U/L) 35 Troponin (0.00 - 1.5 ng/mL) <0.05 <0.05 B-Natriuretic Peptide (5 - 100 pg/ml) 297 Total Protein (6.4 - 8.2 g/dL) 5.8 Albumin (3.3 - 5.0 g/dL) 2.6 Procalcitonin (0 - 0.5 ng/mL) < 0.05 Hematology WBC (4.5 - 11.5 K/uL) 2.8 RBC (4.00 - 5.20 M/uL) 2.15 Hgb (12.0 - 16.0 gm/dL) 7.6 Hct (36.0 - 46.0 %) 23.2 MCV (80 - 100 fL) 108 MCH (26 - 34 pg) 35 RDW (11.6 - 14.8 %) 17.6 Neut % (Auto) (50 - 75 %) 26.8 Lymph % (Auto) (25 - 40 %) 60.0 [place] % (Auto) (3 - 14 %) 3.2 Eos % (Auto) (0 - 4 %) 9.8 Baso % (Auto) (0 - 2 %) 0.2 Plt Count, EDTA (150 - 400 K/uL) 229 PUBS MCHC (31 - 37 g/dL) 33 Microbiology Date/Time Procedure - Status Source Growth 02/12 2350 Blood Culture - RECD BLOOD 02/12 2340 Blood Culture - RECD BLOOD Assessment and Plan Problem List 1. Chest pain Plan - secondary to fluid accumulation due to inadequate chest expansion from broken ribs - troponins are negative x 2 - no evidence of acute ischemic changes on EKG - will continue to monitor and offer incentive spirometer - will provide azithromycin for possible infectious process 2. Ribs, multiple fractures Plan - adequate pain control - will encourage incentive spirometer use - frequent ambulation encouraged 3. Hypoxia Plan - from inadequate lung expansion, flud accumulation and ongoing copd - willl place on 2 l nasal cannula - will titrate down oxygen as patient improves 4. COPD (chronic obstructive pulmonary disease) Plan - pt has an estlabished diagnosis of copd - no evidence of exacerbation - patient has adequate air exchange - will c/w duonebs q6 prn 5. Multiple myeloma Plan - stable - chemo therapy contributing to the anemia - will continue to trend cbc - will watch for possible neutropenic state - no need for steroids or chemo at the moment 6. Decubitus ulcer Plan - present on admission - secondary to bedrest from hip fracture - now that hip fracture healed patient is encourage to ambulate as much as possible - will have wound care see
--- NOTE | 2017-02-13 06:48 | ED MAR SUMMARY ---
..... Medication Administration Record [facility] [address] [place] [address] Patient: MICKI LARRY Visit ID: [id number] 71y, F Weight: 56.4 kg Height/Length: 63 in BMI: 22 ALLERGIES: Codeine Given 22:10 02/12/2017 Heide Rush R.N. Medication Administered: NITROGLYCERIN PASTE [TOPICAL], Dose: 1 in. Paste Topical. Medication Ordered: NitroGLYCERIN Paste Topical 1 in. (NOW). Given 23:29 02/12/2017 Hedy Jara R.N. Medication Administered: KCL [PO] (POTASSIUM CHLORIDE ER), Dose: 20 meq Tablets PO. Medication Ordered: KCl PO 20 meq (NOW). Start 23:35 02/12/2017 Hedy Jara R.N. Medication Administered: KCL [IVPB] (POTASSIUM CHLORIDE), Dose: 20 meq IVPB over 3 hour(s), Rate: 30 mL/hr, Dispensed: 100 mL bag, Site: #1 left AC. Medication Ordered: KCl IV 20 meq/100mL (Run no faster than 10 units/hr, Run no faster than 10 mEq/hr). Given 23:41 02/12/2017 Hedy Jara R.N. Medication Administered: MAGNESIUM SULFATE [IVP] (MAGNESIUM SULFATE IN D5W), Dose: 2 gm IVP over 2 hour(s), Site: #2 right AC. Medication Ordered: Magnesium Sulfate IV 2 gm/50mL (NOW).
--- NOTE | 2017-02-13 06:48 | ED MAR SUMMARY ---
..... Medication Administration Record [facility] [address] [place] [address] Patient: MICKI LARRY Visit ID: [id number] 71y, F Weight: 56.4 kg Height/Length: 63 in BMI: 22 ALLERGIES: Codeine Given 22:10 02/12/2017 Heide Rush R.N. Medication Administered: NITROGLYCERIN PASTE [TOPICAL], Dose: 1 in. Paste Topical. Medication Ordered: NitroGLYCERIN Paste Topical 1 in. (NOW). Given 23:29 02/12/2017 Hedy Jara R.N. Medication Administered: KCL [PO] (POTASSIUM CHLORIDE ER), Dose: 20 meq Tablets PO. Medication Ordered: KCl PO 20 meq (NOW). Start 23:35 02/12/2017 Hedy Jara R.N. Medication Administered: KCL [IVPB] (POTASSIUM CHLORIDE), Dose: 20 meq IVPB over 3 hour(s), Rate: 30 mL/hr, Dispensed: 100 mL bag, Site: #1 left AC. Medication Ordered: KCl IV 20 meq/100mL (Run no faster than 10 units/hr, Run no faster than 10 mEq/hr). Given 23:41 02/12/2017 Hedy Jara R.N. Medication Administered: MAGNESIUM SULFATE [IVP] (MAGNESIUM SULFATE IN D5W), Dose: 2 gm IVP over 2 hour(s), Site: #2 right AC. Medication Ordered: Magnesium Sulfate IV 2 gm/50mL (NOW).
--- NOTE | 2017-02-13 06:48 | ED MED RECONCILIATION SUMMARY ---
Patient: MICKI LARRY Medication Reconciliation Report [facility] VisitID: [id number] [address] [place] [address] 71y, F Registration Date/Time: 02/12/2017 Weight: 56.4 kg Height/Length: 63 in. BMI: 22.0 ALLERGIES: Codeine The patient's Home Medications are listed below: THE FOLLOWING MEDICATIONS NEED TO BE RECONCILED: Aspirin Oral (325 mg) 1 tablet Baclofen Oral 10 mg, 3x a day Cefpodoxime Proxetil Oral (200 mg) 1 tablet, daily CeleBREX Oral (200 mg), 2x a day Cyanocobalamin Oral (500 mcg) 1 tablet, daily Dexamethasone Oral (4 mg) Dextromethorphan-Quinidine Oral (20-10 mg) 1 capsule, bid Famotidine Oral 20 mg, daily Lisinopril Oral (10 mg), daily Metoprolol Tartrate Oral 25 mg , daily Multi Vitamin Daily Oral OxyCONTIN Oral 20 mg, 3x a day Remeron Oral (15 mg), daily The source(s) of the original Home Medication information: patient The following Medications were given to the patient in the Emergency Department: NITROGLYCERIN PASTE [TOPICAL] Topical 1 in., administered: 02/12/2017 10:10:00 PM KCL [PO] PO 20 meq, administered: 02/12/2017 11:29:00 PM KCL [IVPB] IVPB bolus 0, then 20 meq 30 mL/hr, administered: 02/12/2017 11:35:00 PM Magnesium Sulfate [IVP] IVP 2 gm, administered: 02/12/2017 11:41:00 PM The following Medications were prescribed to the patient: None.
--- NOTE | 2017-02-13 06:48 | ED DISCHARGE INSTRUCTIONS ---
Patient: MICKI LARRY General Instructions [facility] VisitID: [id number] [address] [place] [address] 71y, F Registration Date/Time: 02/12/2017 Unstable angina .12 lead EKG performed. Critical anemia Critical Hypokalemia Hypomagnesemia Pneumonia Myeloma. (Electronically signed by Christiano Del Cid MD 02/13/2017 6:48)
--- NOTE | 2017-02-13 06:48 | ED DISCHARGE INSTRUCTIONS ---
Patient: MICKI LARRY General Instructions [facility] VisitID: [id number] [address] [place] [address] 71y, F Registration Date/Time: 02/12/2017 Unstable angina .12 lead EKG performed. Critical anemia Critical Hypokalemia Hypomagnesemia Pneumonia Myeloma. (Electronically signed by Christiano Del Cid MD 02/13/2017 6:48)
--- NOTE | 2017-02-13 06:48 | ED MED RECONCILIATION SUMMARY ---
Patient: MICKI LARRY Medication Reconciliation Report [facility] VisitID: [id number] [address] [place] [address] 71y, F Registration Date/Time: 02/12/2017 Weight: 56.4 kg Height/Length: 63 in. BMI: 22.0 ALLERGIES: Codeine The patient's Home Medications are listed below: THE FOLLOWING MEDICATIONS NEED TO BE RECONCILED: Aspirin Oral (325 mg) 1 tablet Baclofen Oral 10 mg, 3x a day Cefpodoxime Proxetil Oral (200 mg) 1 tablet, daily CeleBREX Oral (200 mg), 2x a day Cyanocobalamin Oral (500 mcg) 1 tablet, daily Dexamethasone Oral (4 mg) Dextromethorphan-Quinidine Oral (20-10 mg) 1 capsule, bid Famotidine Oral 20 mg, daily Lisinopril Oral (10 mg), daily Metoprolol Tartrate Oral 25 mg , daily Multi Vitamin Daily Oral OxyCONTIN Oral 20 mg, 3x a day Remeron Oral (15 mg), daily The source(s) of the original Home Medication information: patient The following Medications were given to the patient in the Emergency Department: NITROGLYCERIN PASTE [TOPICAL] Topical 1 in., administered: 02/12/2017 10:10:00 PM KCL [PO] PO 20 meq, administered: 02/12/2017 11:29:00 PM KCL [IVPB] IVPB bolus 0, then 20 meq 30 mL/hr, administered: 02/12/2017 11:35:00 PM Magnesium Sulfate [IVP] IVP 2 gm, administered: 02/12/2017 11:41:00 PM The following Medications were prescribed to the patient: None.
[2017-02-14 02:56] VITALS: BP 123/70
[2017-02-14] MEDS ORDERED: KLOR-CON M2020 MEQ PO (09:01)
--- NOTE | 2017-02-14 09:38 | DISCHARGE SUMMARY ---
ADMIT DATE: 02/12/2017 DISCHARGE DATE: 02/14/2017 DISCHARGE DIAGNOSES: 1. Chest pain, most probably due to multiple rib fractures 2. Chronic obstructive pulmonary disease with hypoxia 3. Multiple myeloma 4. Decubitus ulcer in the buttock 5. Dehydration BRIEF HISTORY: This is a 71-year-old white female who presented to [facility] with worsening pain in the chest. This worsened since the patient started to ambulate more at home, but it became intense, to the point that the patient had a hard time thinking and taking a deep breath. It interfered with her breathing. The pain radiated to the sternum, and the patient also felt weak, so presented to the emergency. HOSPITAL COURSE: The patient was put in the hospital in acute care, was started on IV hydration and coronary artery disease was ruled out with EKG and troponin. The patient also was put on Rocephin and Zithromax empirically for possible infection, which shows no indication for that now, and also was put on IV Dilaudid and incentive spirometry use to inflate the lungs and encouraged to be ambulating. The patient did really well, and today she is doing much better. Pain is controlled very well. No shortness of breath. The patient is ambulating and doing fine, but the patient requires oxygen. PHYSICAL EXAMINATION: LUNGS: Decreased air exchange in both bases. HEART: Regular S1 and S2. No murmur. No S3 was heard. ABDOMEN: Soft, nontender. Bowel sounds are positive. EXTREMITIES: No edema. Decubitus ulcer is clean and no necrosis, no edema, no discharge, no erythema. VITAL SIGNS: Temperature 98.5, pulse is 58, respirations 19, blood pressure 123/70 and oxygen saturation 85% in room air. LAB/IMAGING: White blood count is 3.6, hemoglobin 8.1 ( it was 7.6 on admission ) and hematocrit is 25.6, platelet count 212. Potassium is 3.4, sodium is 149, chloride is 110, CO2 is 33, calcium 7.6. Creatinine is 0.9, BUN is 17. Liver enzymes unremarkable. DISCHARGE INSTRUCTIONS/MEDICATIONS: Disposition: The patient will be discharged home to assisted living, with continued home health care. We will arrange for home oxygen. Also, the patient will be on potassium 20 mEq a day along with her medications, which would be aspirin 81 mg daily. Baclofen 10 mg t.i.d. Celebrex 200 mg twice a day. Dexamethasone 20 mg single dose every Saturday and , and Benadryl as needed. Mirtazapine 15 mg at bedtime. Oxycodone 5 mg every 4 to 6 hours as before, and OxyContin 40 mg every 12 hours. Revlimid 25 mg daily, 21 days on and 7 days of, for multiple myeloma. Senna once or twice a day for constipation. Lisinopril 10 mg daily. Metoprolol 12.5 mg twice a day. Lorazepam 1 mg twice a day. Vitamin D supplement. Calcium. The patient will follow up with Dr. Pride as an outpatient within 1 week.
[2017-02-14 10:58] VITALS: BP 101/62
== END 2017-02-14 14:00 | disposition home or self-care (01) | DRG 542 ==
LOC: ED SRH 21:21 → TRANS SRH 23:29 → ACUTE2 SRH 23:29 → TRANS SRH 23:29 → ACUTE2 SRH 02-13 01:27 → TRANS SRH 02-13 01:27 → ACUTE2 SRH 02-14 14:00
PROVIDERS: ADMIT Emergency Medicine
PROC: 30233P1 Transfusion of Nonautologous Frozen Red Cells into Peripheral Vein, Percutaneous Approach (ICD-10-PCS; principal; 2017-02-13)
DX: M84.58XA Pathological fracture in neoplastic disease, other specified site, initial encounter for fracture (principal); L89.153 Pressure ulcer of sacral region, stage 3; C90.00 Multiple myeloma not having achieved remission; R07.81 Pleurodynia; J44.9 Chronic obstructive pulmonary disease, unspecified; R09.02 Hypoxemia; D64.81 Anemia due to antineoplastic chemotherapy

== ENCOUNTER 2017-02-16 02:23 | Inpatient (IN) | payer OTHER, MEDICARE ==
[~2017-02-16] VITALS: Ht 160 cm; Wt 57.9 kg
[~2017-02-16 02:23] MED LIST changes: +IPRATROPIUM BROMIDE/; +KLOR-CON M2020 MEQ PO; +OXYCONTIN C/R20 MG PO; +VITAMIN B121000 CR PO
--- NOTE | 2017-02-16 05:06 | ED NURSING NOTES ---
Clinical Report - Nurses [facility] [address] [place] [address] 02/16/2017 2:23 Patient: MICKI LARRY TRIAGE Triage time 02:23. Acuity: LEVEL 3. Chief Complaint: SHORTNESS OF BREATH and DIFFICULTY BREATHING. --02:34 Deysi Flaherty R.N. 02:26 02/16/17. BP: 147/59 taken on the left arm, while sitting. HR: 70 (regular and normal rate). RR: 18 (regular and unlabored). O2 saturation: 95% on nasal cannula at 2 liters/minute. Temp: 98.2 F (oral). Pain level now: 04/08. --02:34 Deysi Flaherty R.N. Weight: 54.4 kg stated. Height/Length: 62 inches Per Patient. BMI: 22. --02:32 Deysi Flaherty R.N. Medications Aspirin Oral (Tablet 325 mg) 1 tablet. Baclofen Oral 10 mg, 3x a day. Cefpodoxime Proxetil Oral (Tablet 200 mg) 1 tablet, daily. CeleBREX Oral (Capsule 200 mg), 2x a day. Cyanocobalamin Oral (Tablet 500 mcg) 1 tablet, daily. Dexamethasone Oral (Tablet 4 mg). Dextromethorphan-Quinidine Oral (Capsule 20-10 mg) 1 capsule, bid. Famotidine Oral 20 mg, daily. Lisinopril Oral (Tablet 10 mg), daily. Metoprolol Tartrate Oral 25 mg , daily as needed. Multi Vitamin Daily Oral. OxyCONTIN Oral 20 mg, 3x a day as needed. Remeron Oral (Tablet 15 mg), daily. --02:29 Deysi Flaherty R.N. Allergies Codeine. Definite Moderate(confusion) --02:29 Deysi Flaherty R.N. History Arrived by EMS. Historian: patient. Unaccompanied. Primary physician (gabrielle). This started last night. Onset was gradual. Symptoms still present (about 2000 PM). PAST MEDICAL HX: Immunizations: up-to-date. SOCIAL HX: Smoker- current status unknown. No alcohol use or drug use. She has not traveled outside the [place] The patient was not exposed to tuberculosis, influenza, chicken pox, meningitis, MRSA, VRE, C-diff, SARS, Mohamud flu, H1N1 flu, Ebola or MERS. ABUSE ASSESSMENT: No report of abuse. SELF HARM ASSESSMENT: A self harm assessment was performed. The patient answered "no" to the question "Have you recently felt down, depressed, or hopeless?", "Have you noticed less interest or pleasure in doing things?", "Do you have thoughts of harming or killing yourself?", "Are you here because you tried to hurt yourself?", "Have you ever tried to hurt yourself before today?", "Have you recently had thoughts about harming or killing others?" and "Do you have any dangerous items in your possession?". NUTRITIONAL RISK ASSESSMENT: The nutritional risk assessment revealed no deficiencies. FUNCTIONAL ASSESSMENT: Functional assessment: no impairments noted. LEARNING NEEDS ASSESSMENT: The learning needs assessment revealed no barriers. FALL RISK ASSESSMENT: Fall risk assessment completed. Risk factors identified include patient age greater than 65 years, history of fall and impairment of mobility. Fall interventions initiated. Call light in reach of patient. Instructed not to get up without assistance; pt uses a walker. SKIN INTEGRITY ASSESSMENT: Skin integrity risk assessment completed. No skin integrity risk identified. --:34 Deysi Flaherty R.N. PROBLEMS: Unstable Angina. Medication Refill. Pressure Ulcer. Gastroenteritis. Weakness. Dyspnea. Myeloma . Anemia. Rib fractures. Fractured thoracic vertebra. Congestive Heart Failure. Hypokalemia. Abnormal Test. Back Pain. Hypertension. Gastroesophageal Reflux Disease. COPD - Chronic Obstructive Pulmonary Disease. --02:30 Deysi Flaherty R.N. ADDITIONAL SURGERIES: Appendectomy. --02:30 Deysi Flaherty R.N. Interventions ID band on patient. --:34 Deysi Flaherty R.N. PHYSICAL ASSESSMENT To room via stretcher. GENERAL / NEURO / PSYCH: Alert. Oriented X 4. Appears in no acute distress. HEENT: Mucous membranes are pink. RESPIRATORY: No respiratory distress. Mild respiratory distress. Respirations not labored. The patient can speak in full sentences. Chest nontender. Chest wall tenderness (left side pain from broken ribs). Breath sounds within normal limits. CVS: Normal sinus rhythm noted. Capillary refill less than 2 seconds. GI / : Bowel sounds within normal limits. SKIN: Skin is warm and dry. Normal skin turgor. --02:36 Deysi Flaherty R.N. SKIN: Wound location: (sacrum). ( 1.5 cm non tunneling, non draining pressure ulcer, with mepilex bandage in place, removed for pictures and new one replaced.). --05:43 Deysi Flaherty R.N. NURSING PROGRESS NOTES Oxygen administered by nasal cannula at 2 liters. shelter monitor, pulse oximeter and NIBP monitor placed on patient; cardiac nurse- Lead II; monitor alarms on. Patient gowned. Reassurance given to the patient. Two patient identifiers checked. Call light placed in reach. Side rails up x 2. Bed placed in lowest position. Brakes of bed on. --02:37 Deysi Flaherty R.N. Patient ready for evaluation- chart flagged. --02:37 Deysi Flaherty R.N. 02:34 02/16/2017 Site #1 started via IV in the right antecubital space with an 20g angiocath, with aseptic technique and good blood return; one attempt. Blood drawn: rainbow set. Labeled in the presence of the patient and sent to the lab. Saline lock flushed with 10 mL saline. --02:39 Ronda Arauz Patient ID band checked for patient name and birthdate: patient confirmed. Blood samples drawn from the right antecubital space peripheral IV site with Vacutainer by nurse ; labeled in presence of the patient and sent to lab: rainbow set. Additional blood sent to lab. Line flushed with 10 mL normal saline post blood draw. --02:39 Ronda Arauz EKG time: (0301 AM). EKG was ordered, performed by a tech and shown to the ED physician. --03:04 Haily Boston 03:00 02/16/2017 Aspirin PO Tablets 325 mg given. Allergies verified and confirmed 5 rights. --03:09 Deysi Flaherty R.N. 03:02 02/16/2017 Morphine IVP 2 mg given over 2 minute(s) via site #1. Allergies verified, confirmed 5 rights and sedative warning given to the patient. IV patency established. IV site checked: no pain, redness, or swelling. IV flushed thoroughly pre- and post-medication administration. IVP given by RN. --03:10 Deysi Flaherty R.N. 03:00 02/16/17. BP: 143/89 taken on the left arm, while lying. HR: 60 (regular). RR: 18 (regular and unlabored). O2 saturation: 97% on nasal cannula at 2 liters/minute. Temp: deferred. Pain level now: 12/07. --03:36 Dyesi Flaherty R.N. The patient reports no complaints and she is resting quietly. Overall patient status is improved- she states feels better. RESPIRATORY: No respiratory distress. Breath sounds normal. SKIN: Skin is warm and dry. Skin color within normal limits. Two patient identifiers checked. Call light placed in reach. Side rails up x 2. Bed placed in lowest position. Brakes of bed on. --03:36 Deysi Flaherty R.N. 03:37 02/16/2017 Morphine IVP Response: pain is improving. Symptoms have improved the patient feels better. --03:37 Deysi Flaherty R.N. The patient is calm and resting quietly. Overall patient status is improved- she states feels better. RESPIRATORY: No respiratory distress. Breath sounds normal. SKIN: Skin is warm and dry. Skin color within normal limits. --03:42 Deysi Flaherty R.N. 03:30 02/16/17. BP: 126/99 taken on the left arm, while lying. HR: 60 (regular). RR: 18 (regular and unlabored). O2 saturation: 97% on nasal cannula at 2 liters/minute. Temp: deferred. Pain level now: 11/09. --03:42 Deysi Flaherty R.N. Patient returned from CT by stretcher with O2 and tech. (04:27). --04:27 Deysi Flaherty R.N. 05:19 02/16/2017 Lovenox (Enoxaparin Sodium) Subcutaneous 50 mg given. Given in the left abdomen. Allergies verified and confirmed 5 rights. --05:38 Deysi Flaherty R.N. DISPOSITION / DISCHARGE 05:59 02/16/17. BP: 133/71 taken on the left arm, while lying. HR: 61 (regular and normal rate). RR: 16 (regular and unlabored). O2 saturation: 98% on nasal cannula at 2 liters/minute. Temp: deferred. Pain level now: 0/10. --06:07 Deysi Flaherty R.N. Transported via stretcher by [employer] with O2. Report was given to a nurse via a phone call. Report included patient's care, treatment, medications, reviewed medication reconcilliation, and condition (including any recent changes or anticipated changes). All questions were answered. Report was acknowledged and care was transferred. Patient's personal items include: pajamas, glasses and cell phone; items were transported with the patient. --06:07 Deysi Flaherty R.N. ( Report given to Magaly GARRISON at 0559). --06:08 Deysi Flaherty R.N. Departure time: 06:13. --06:13 Deysi Flaherty R.N. 06:14 02/16/2017 Site #[address] upon admission; patent, no pain and no signs of infection or infiltration. Flushed with 10 mL saline. --06:14 Deysi Flaheryt R.N. Locked/Released at 02/16/2017 6:15 by Deysi Flaherty R.N.
--- NOTE | 2017-02-16 05:06 | ED ORDER SUMMARY ---
..... Patient: MICKI LARRY OrderSheet [facility] VisitID: [id number] [address] [place] [address] 71y, F Registration Date/Time: 02/16/2017 ORDER SHEET Weight: 54.4 kg (stated) Allergies: Codeine GENERAL ORDERS: Chest 1V Urgent (02:46 02/16/2017 Crystal LOWE) (Ack 2:49 OSnell) (3:08 CBradburn R.N.) Teaching Young (Continuous) (02:47 02/16/2017 Crystal LOWE) (Ack 2:49 OSnell) (2:50 HSoule) Cardiac Panel Stat (02:47 02/16/2017 Crystal LOWE) (Ack 2:49 OSnell) (2:55 CBradburn R.N.) BNP Urgent (02:47 02/16/2017 Crystal LOWE) (Ack 2:49 OSnell) (2:55 CONORradburn R.N.) D-Dimer Urgent (02:47 02/16/2017 Crystal LOWE) (Ack 2:49 OSnell) (2:55 Mariuszburn R.N.) PT with INR Urgent (02:47 02/16/2017 Crystal LOWE) (Ack 2:49 OSnell) (2:55 CONORradburn R.N.) Oxygen (2 L/min) (NC) (02:47 02/16/2017 Crystal LOWE) (Ack 2:49 OSnell) (2:50 HSoule) Pulse oximeter (02:47 02/16/2017 Crystal LOWE) (Ack 2:49 NORMnell) (2:50 HSoule) EKG - ER Stat (02:47 02/16/2017 Crystal LOWE) (Ack 2:49 OSnell) (3:04 CHategekimana) CTA Thorax w Cont (No) (see chart) Urgent (04:00 02/16/2017 Crystal LOWE) (Ack 4:12 OSnell) (4:26 CBradburn R.N.) MEDICATION ORDERS: Aspirin PO 325 mg (NOW) (02:52 02/16/2017 Crystal LOWE) (Ack 2:57 CBradburn R.N.) (3:09 Mariuszburn R.N.) Lovenox Subcut 50 mg (HIGH ALERT MEDICATION, NOW) (05:05 02/16/2017 Crystal LOWE) (Ack 5:17 Sunshine R.N.) (5:38 Sunshine R.N.) IV FLUIDS: IV Saline Lock (02:47 02/16/2017 Crystal LOWE) (2:51 HSoule) Morphine IV 2 mg + 2mg (NOW) (02:54 02/16/2017 Crystal LOWE) (Ack 2:57 CONORradefraín R.N.) (3:10 CONORradburn R.N.) ORDER SHEET NOTES: [Electronically signed by Deysi Flaherty R.N. (06:15 02/16/2017)] [Electronically signed by Jose Jimenez MD (09:42 02/16/2017)] [Electronically locked/signed by Deysi Flaherty R.N. (06:15 02/16/2017)]
--- NOTE | 2017-02-16 05:06 | ED CLINICAL REPORT ---
Clinical Report - Physicians/[facility] [address] [place] [address] 02/16/2017 2:23 Patient: MICKI PERRY Time Seen: 02:28. Arrived- By private vehicle. Historian- patient and EMS personnel. HISTORY OF PRESENT ILLNESS Chief Complaint: CHEST PAIN. SHORTNESS OF BREATH. At its maximum, severity described as moderate. When seen in the E.D., severity described as mild. Modifying factors- (Holding the chest helps. Worse with big breaths). It is described as pressure and tightness and it is described as located in the central chest area. This started last night Ms Perry was recently hospitalized for chest pain. She was discharged to a SNF. Tonight her chest pain worsened at 8 pm. She was rest in bed. Gradual increase in pain and SOB. Onset during rest. No nausea. She has had difficulty breathing. Similar symptoms previously: Recent medical care: The patient was seen recently at this facility and hospitalized. REVIEW OF SYSTEMS No fever, chills or pedal edema or edema. No calf pain or pain, chills, fever or eye irritation. No ear pain, sore throat, palpitations, abdominal pain or black stools. No bloody stools, diarrhea, nausea or vomiting. No urinary frequency or urinary problems, hematuria, back pain or alteration in mental status. No difficulty with urination. The patient has had a cough productive of moderate amounts of sputum. She has had chest pain, a cough, difficulty breathing and skin lesion (decubitus). PAST HISTORY PCP: [facility] Illness: COPD, Multiple myeloma, Multiple healing rib, spine and sternal fractures. No history of pulmonary embolism. SOCIAL HISTORY Smoker- current status unknown. ADDITIONAL NOTES The nursing notes have been reviewed. PHYSICAL EXAM Vital Signs: 02/16/2017 05:59 BP: 133/71. HR: 61. RR: 16. O2 saturation: 98%. Pain level now: 0. 02/16/2017 03:30 BP: 126/99. HR: 60. RR: 18. O2 saturation: 97%. Pain level now: 11/09. 02/16/2017 03:00 BP: 143/89. HR: 60. RR: 18. O2 saturation: 97%. Pain level now: 12/07. 02/16/2017 02:26 BP: 147/59. HR: 70. RR: 18. O2 saturation: 95%. Temp: 98.2 F. Pain level now: 04/08. Appearance: Alert. Patient in mild distress. Eyes: Eyes normal inspection. ENT: Pharynx normal. Neck: No JVD. CVS: Heart sounds normal. Respiratory: No respiratory distress. Mild bilateral wheezes present and wheezes in the right and left mid-lung. Rhonchi present in the right mid-lung posteriorly; rhonchi present in the left mid-lung posteriorly. No retractions. Abdomen: Soft and nontender. Bowel sounds normal. Skin: Skin warm. Normal skin color. (Sacral decubitus. Photos taken buy the RN). Extremities: Extremities exhibit normal ROM. No lower extremity edema. Neuro: No alteration in mental status. LABS, X-RAYS, AND EKG Chest X-ray: (Difficult to interpret, Possibly CHF superimposed on prior atelectasis.). Laboratory Tests: CBC w Diff: (SANTI: 02/16/2017 02:35) ( MsgRcvd 02/16/2017 03:26) Final results Test Result Flag Units (Reference) WHITE BLOOD COUNT 4.0 L K/uL (4.5-11.5) RED BLOOD COUNT 2.50 L M/uL (4.00-5.20) HEMOGLOBIN 8.5 L gm/dL (12.0-16.0) HEMATOCRIT 26.0 L % (36.0-46.0) MEAN CELL VOLUME 104 H fL (80-100) MEAN CORPUSCULAR HGB 34 pg (26-34) MEAN CORPUSCULAR HGB CONC 33 g/dL (31-37) RED CELL DISTRIBUTION WIDTH 21.0 H % (11.6-14.8) PLATELET COUNT 244 K/uL (150-400) POLY % 17 L % (50-75) BAND % 0 % (0-8) LYMPH 74 H % (25-40) MONO 4 % (3-14) EOSINOPHIL % 5 H % (0-4) BASOPHIL % 0 % (0-2) METAMYELOCYTE % 0 % (0-1) MYELOCYTE 0 % (0-1) OTHER CELL TYPE 0 HYPOCHROMIA 1+ POIKILOCYTOSIS 1+ ANISOCYTOSIS 2+ PT with INR: (SANTI: 02/16/2017 02:35) ( [facility] 02/16/2017 02:59) Final results Test Result Flag Units (Reference) INR 1.0 (0.8-1.2) Low Intensity Therapy: INR 1.5-2.0 PT range 18.5-23.1Mod.Intensity Therapy: INR 2.0-3.0 PT range 23.1-31.5High Intensity Therapy: INR 2.5-3.5 PT range 27.4-35.5High Intensity Therapy 2: INR 3.0-4.0 PT range 31.5-39.3 D-DIMER QUANTITATIVE 1.44 H ug/mLFEU (0.27-0.52) The primary value of this quantitative assay relates toits negative predictive value (i.e. exclusion) of pulmonaryembolism/deep vein thrombosis/DIC.Elevated levels of d-dimer may also occur with:, age, cancer, inflammation, liver disease,post-op, infection, hematoma, coronary disease, peripheralarteriopathy, bleeding disorders and thrombolytic treatment.Results should be correlated with other clinical andradiological data.Testing Methodology: Latex Immunoassay BNP: (SANTI: 02/16/2017 02:35) ( [facility] 02/16/2017 03:13) Final results Test Result Flag Units (Reference) B-TYPE NATRIURETIC PEPTIDE 445 H pg/ml (5-100) CHEM 13 PANEL: (SANTI: 02/16/2017 02:35) ( [facility] 02/16/2017 03:12) Final results Test Result Flag Units (Reference) GLUCOSE 96 mg/dL (70-110) BUN 15 mg/dL (7-18) CREATININE 0.8 mg/dL (0.6-1.3) Estimated GFR >60 mL/min Estimated GFR- >60 mL/min Note: Persistent reduction over 3 months in eGFR<60 mL/min/1.73 m2 defines CKD. Patients with eGFR values>=60 mL/min/1.73 m2 may also have CKD if evidence ofpersistent proteinuria. Additional information may be foundat www.kidney.org. SODIUM 145 mmol/L (136-145) POTASSIUM 3.3 L mmol/L (3.5-5.1) CHLORIDE 107 mmol/L (98-107) CARBON DIOXIDE 33 H mmol/L (21-32) CALCIUM 7.9 L mg/dL (8.5-10.1) TOTAL PROTEIN 5.8 L g/dL (6.4-8.2) ALBUMIN 2.7 L g/dL (3.3-5.0) BILIRUBIN, TOTAL 0.2 mg/dL (0.0-1.0) ALKALINE PHOSPHATASE 113 U/L (46-116) AST (SGOT) 13 L U/L (15-37) ALT (SGPT) 16 U/L (12-78) MAGNESIUM 1.7 L mg/dL (1.8-2.4) CPK 35 U/L (24-260) TROPONIN I <0.05 L ng/mL (0.00-1.5) TROPONIN REFERENCE RANGE:<0.1 NEGATIVE0.1-1.5 INDETERMINANT>1.5 POSITIVE . PROGRESS AND PROCEDURES Course of Care: Usual CW pain. vs CAD. Also will RO PE 05:38 02/16/17. Ms Perry has a PE. Lovenox given. Discussed with Dr Faustin agrees to admit but will defer work up to Dr Witt at 0600. Dr Witt came to ED to receive report. Ms Perry had just one upstairs. Disposition: Admitted. CLINICAL IMPRESSION PULMONARY EMBOLISM SACRAL DECUBITUS. (Electronically signed by Jose Jimenez MD 02/16/2017 9:42)
--- NOTE | 2017-02-16 05:06 | ED ORDER SUMMARY ---
..... Patient: MICKI LARRY OrderSheet [facility] VisitID: [id number] [address] [place] [address] 71y, F Registration Date/Time: 02/16/2017 ORDER SHEET Weight: 54.4 kg (stated) Allergies: Codeine GENERAL ORDERS: Chest 1V Urgent (02:46 02/16/2017 Crystal LOWE) (Ack 2:49 OSnell) (3:08 CBradburn R.N.) Gas Transfer Operator (Continuous) (02:47 02/16/2017 Crystal LOWE) (Ack 2:49 OSnell) (2:50 HSoule) Cardiac Panel Stat (02:47 02/16/2017 Crystal LOWE) (Ack 2:49 OSnell) (2:55 CBradburn R.N.) BNP Urgent (02:47 02/16/2017 Crystal LOWE) (Ack 2:49 OSnell) (2:55 CONORradburn R.N.) D-Dimer Urgent (02:47 02/16/2017 Crystal LOWE) (Ack 2:49 OSnell) (2:55 Mariuszburn R.N.) PT with INR Urgent (02:47 02/16/2017 Crystal LOWE) (Ack 2:49 OSnell) (2:55 CONORradburn R.N.) Oxygen (2 L/min) (NC) (02:47 02/16/2017 Cyrstal LOWE) (Ack 2:49 OSnell) (2:50 HSoule) Pulse oximeter (02:47 02/16/2017 Crystal LOWE) (Ack 2:49 NORMnell) (2:50 HSoule) EKG - ER Stat (02:47 02/16/2017 Crystal LOWE) (Ack 2:49 OSnell) (3:04 CHategekimana) CTA Thorax w Cont (No) (see chart) Urgent (04:00 02/16/2017 Crystal LOWE) (Ack 4:12 OSnell) (4:26 CBradburn R.N.) MEDICATION ORDERS: Aspirin PO 325 mg (NOW) (02:52 02/16/2017 Crystal LOWE) (Ack 2:57 CBradburn R.N.) (3:09 Mariuszburn R.N.) Lovenox Subcut 50 mg (HIGH ALERT MEDICATION, NOW) (05:05 02/16/2017 Crystal OLWE) (Ack 5:17 Sunshine R.N.) (5:38 Sunshine R.N.) IV FLUIDS: IV Saline Lock (02:47 02/16/2017 Crystal LOWE) (2:51 HSoule) Morphine IV 2 mg + 2mg (NOW) (02:54 02/16/2017 Crystal LOWE) (Ack 2:57 CONORradefraín R.N.) (3:10 CONORradburn R.N.) ORDER SHEET NOTES: [Electronically signed by Deysi Flaherty R.N. (06:15 02/16/2017)] [Electronically signed by Jose Jimenez MD (09:42 02/16/2017)] [Electronically locked/signed by Deysi Flaherty R.N. (06:15 02/16/2017)]
--- NOTE | 2017-02-16 05:06 | ED CLINICAL REPORT ---
Clinical Report - Physicians/Mid Levels [facility] [address] [place] [address] 02/16/2017 2:23 Patient: MICKI PERRY Time Seen: 02:28. Arrived- By private vehicle. Historian- patient and EMS personnel. HISTORY OF PRESENT ILLNESS Chief Complaint: CHEST PAIN. SHORTNESS OF BREATH. At its maximum, severity described as moderate. When seen in the E.D., severity described as mild. Modifying factors- (Holding the chest helps. Worse with big breaths). It is described as pressure and tightness and it is described as located in the central chest area. This started last night Ms Perry was recently hospitalized for chest pain. She was discharged to a SNF. Tonight her chest pain worsened at 8 pm. She was rest in bed. Gradual increase in pain and SOB. Onset during rest. No nausea. She has had difficulty breathing. Similar symptoms previously: Recent medical care: The patient was seen recently at this facility and hospitalized. REVIEW OF SYSTEMS No fever, chills or pedal edema or edema. No calf pain or pain, chills, fever or eye irritation. No ear pain, sore throat, palpitations, abdominal pain or black stools. No bloody stools, diarrhea, nausea or vomiting. No urinary frequency or urinary problems, hematuria, back pain or alteration in mental status. No difficulty with urination. The patient has had a cough productive of moderate amounts of sputum. She has had chest pain, a cough, difficulty breathing and skin lesion (decubitus). PAST HISTORY PCP: [facility] Illness: COPD, Multiple myeloma, Multiple healing rib, spine and sternal fractures. No history of pulmonary embolism. SOCIAL HISTORY Smoker- current status unknown. ADDITIONAL NOTES The nursing notes have been reviewed. PHYSICAL EXAM Vital Signs: 02/16/2017 05:59 BP: 133/71. HR: 61. RR: 16. O2 saturation: 98%. Pain level now: 0. 02/16/2017 03:30 BP: 126/99. HR: 60. RR: 18. O2 saturation: 97%. Pain level now: 11/09. 02/16/2017 03:00 BP: 143/89. HR: 60. RR: 18. O2 saturation: 97%. Pain level now: 12/07. 02/16/2017 02:26 BP: 147/59. HR: 70. RR: 18. O2 saturation: 95%. Temp: 98.2 F. Pain level now: 04/08. Appearance: Alert. Patient in mild distress. Eyes: Eyes normal inspection. ENT: Pharynx normal. Neck: No JVD. CVS: Heart sounds normal. Respiratory: No respiratory distress. Mild bilateral wheezes present and wheezes in the right and left mid-lung. Rhonchi present in the right mid-lung posteriorly; rhonchi present in the left mid-lung posteriorly. No retractions. Abdomen: Soft and nontender. Bowel sounds normal. Skin: Skin warm. Normal skin color. (Sacral decubitus. Photos taken buy the RN). Extremities: Extremities exhibit normal ROM. No lower extremity edema. Neuro: No alteration in mental status. LABS, X-RAYS, AND EKG Chest X-ray: (Difficult to interpret, Possibly CHF superimposed on prior atelectasis.). Laboratory Tests: CBC w Diff: (SANTI: 02/16/2017 02:35) ( MsgRcvd 02/16/2017 03:26) Final results Test Result Flag Units (Reference) WHITE BLOOD COUNT 4.0 L K/uL (4.5-11.5) RED BLOOD COUNT 2.50 L M/uL (4.00-5.20) HEMOGLOBIN 8.5 L gm/dL (12.0-16.0) HEMATOCRIT 26.0 L % (36.0-46.0) MEAN CELL VOLUME 104 H fL (80-100) MEAN CORPUSCULAR HGB 34 pg (26-34) MEAN CORPUSCULAR HGB CONC 33 g/dL (31-37) RED CELL DISTRIBUTION WIDTH 21.0 H % (11.6-14.8) PLATELET COUNT 244 K/uL (150-400) POLY % 17 L % (50-75) BAND % 0 % (0-8) LYMPH 74 H % (25-40) MONO 4 % (3-14) EOSINOPHIL % 5 H % (0-4) BASOPHIL % 0 % (0-2) METAMYELOCYTE % 0 % (0-1) MYELOCYTE 0 % (0-1) OTHER CELL TYPE 0 HYPOCHROMIA 1+ POIKILOCYTOSIS 1+ ANISOCYTOSIS 2+ PT with INR: (SANTI: 02/16/2017 02:35) ( [facility] 02/16/2017 02:59) Final results Test Result Flag Units (Reference) INR 1.0 (0.8-1.2) Low Intensity Therapy: INR 1.5-2.0 PT range 18.5-23.1Mod.Intensity Therapy: INR 2.0-3.0 PT range 23.1-31.5High Intensity Therapy: INR 2.5-3.5 PT range 27.4-35.5High Intensity Therapy 2: INR 3.0-4.0 PT range 31.5-39.3 D-DIMER QUANTITATIVE 1.44 H ug/mLFEU (0.27-0.52) The primary value of this quantitative assay relates toits negative predictive value (i.e. exclusion) of pulmonaryembolism/deep vein thrombosis/DIC.Elevated levels of d-dimer may also occur with:, age, cancer, inflammation, liver disease,post-op, infection, hematoma, coronary disease, peripheralarteriopathy, bleeding disorders and thrombolytic treatment.Results should be correlated with other clinical andradiological data.Testing Methodology: Latex Immunoassay BNP: (SANTI: 02/16/2017 02:35) ( [facility] 02/16/2017 03:13) Final results Test Result Flag Units (Reference) B-TYPE NATRIURETIC PEPTIDE 445 H pg/ml (5-100) CHEM 13 PANEL: (SANTI: 02/16/2017 02:35) ( [facility] 02/16/2017 03:12) Final results Test Result Flag Units (Reference) GLUCOSE 96 mg/dL (70-110) BUN 15 mg/dL (7-18) CREATININE 0.8 mg/dL (0.6-1.3) Estimated GFR >60 mL/min Estimated GFR- >60 mL/min Note: Persistent reduction over 3 months in eGFR<60 mL/min/1.73 m2 defines CKD. Patients with eGFR values>=60 mL/min/1.73 m2 may also have CKD if evidence ofpersistent proteinuria. Additional information may be foundat [email or web address]. SODIUM 145 mmol/L (136-145) POTASSIUM 3.3 L mmol/L (3.5-5.1) CHLORIDE 107 mmol/L (98-107) CARBON DIOXIDE 33 H mmol/L (21-32) CALCIUM 7.9 L mg/dL (8.5-10.1) TOTAL PROTEIN 5.8 L g/dL (6.4-8.2) ALBUMIN 2.7 L g/dL (3.3-5.0) BILIRUBIN, TOTAL 0.2 mg/dL (0.0-1.0) ALKALINE PHOSPHATASE 113 U/L (46-116) AST (SGOT) 13 L U/L (15-37) ALT (SGPT) 16 U/L (12-78) MAGNESIUM 1.7 L mg/dL (1.8-2.4) CPK 35 U/L (24-260) TROPONIN I <0.05 L ng/mL (0.00-1.5) TROPONIN REFERENCE RANGE:<0.1 NEGATIVE0.1-1.5 INDETERMINANT>1.5 POSITIVE . PROGRESS AND PROCEDURES Course of Care: Usual CW pain. vs CAD. Also will RO PE 05:38 02/16/17. Ms Perry has a PE. Lovenox given. Discussed with Dr Faustin agrees to admit but will defer work up to Dr Witt at 0600. Dr Witt came to ED to receive report. Ms Perry had just one upstairs. Disposition: Admitted. CLINICAL IMPRESSION PULMONARY EMBOLISM SACRAL DECUBITUS. (Electronically signed by Jose Jimenez MD 02/16/2017 9:42)
--- NOTE | 2017-02-16 05:54 | DIAGNOSTIC IMAGING REPORT ---
PROCEDURE: CTA THORAX WITH CONTRAST INDICATION: CHEST PAIN, history of multiple myeloma TECHNIQUE: 80 ml of Isovue 370 was injected intravenously and axial images were obtained of the chest with 3D sagittal and coronal MIP reconstructions. COMPARISON: CT chest abdomen pelvis 10/13/2016 FINDINGS: The main pulmonary outflow tract is dilated to 3.7 cm. There is linear nonocclusive clot distally in the right main pulmonary artery extending into the posterior segment right upper lobe where it becomes occlusive in subsegmental branches. Nonocclusive clot is seen in the superior segment right lower lobe segmental and subsegmental branches, and medial segment right middle lobe pulmonary artery. No left-sided pulmonary emboli visible. The thoracic aorta is ectatic and the descending thoracic aorta is tortuous. No evidence of dissection. Moderate diffuse cardiomegaly. No pericardial effusion. Lung volumes are low. There are patchy band-like pulmonary parenchymal densities in both lungs as well as patches of hazy ground-glass opacity in the lower lobes bilaterally. Soft tissue thickening is seen in the perihilar regions bilaterally. No discrete bulky adenopathy. The esophagus has a grossly normal. No suspicious anterior or posterior mediastinal masses. Findings in the upper abdomen included a moderate intrahepatic biliary dilatation and extrahepatic biliary dilatation with gallbladder present. Common hepatic duct measures up to 15 mm. Osseous structures are diffusely mottled consistent with history of multiple myeloma. Multiple thoracic compression fractures causing progression of kyphosis since the previous study and multiple healing rib fractures. IMPRESSION: 1. Occlusive and nonocclusive right-sided pulmonary emboli as described. Right main pulmonary artery dilatation may be secondary to acute or chronic pulmonary artery hypertension. 2. Bilateral pulmonary parenchymal atelectatic changes, less likely pulmonary infarcts given bilaterality (and lack of left-sided pulmonary emboli). This may be secondary to chronic low lung volumes, mucous plugging or other infectious/inflammatory process. 3. Osseous changes of multiple myeloma. 4. Biliary dilatation of uncertain chronicity given lack of good visualization of the biliary tree on prior studies (lack of IV contrast). Correlate with LFTs to determine clinical significance. 5. Preliminary report by Dr. Shay Castro of [facility] radiology.
--- NOTE | 2017-02-16 05:58 | DIAGNOSTIC IMAGING REPORT ---
PROCEDURE: XR CHEST 1 VIEW INDICATION: CHEST PAIN TECHNIQUE: Single view chest. 03:13 hours COMPARISON: 02/12/2017 FINDINGS: Low lung volumes and kyphotic patient position. Mild cardiomegaly. Apparent widening of the mediastinal contour compared to the prior study. Mild central vascular congestion. Strand-like parenchymal opacity in the right mid lung, left mid lung, retrocardiac region, and left medial apical region. No definite pleural effusion or pneumothorax. Multiple acute and subacute right rib fractures and multiple appearance of other osseous structures consistent with history of multiple myeloma. IMPRESSION: 1. Bilateral parenchymal opacities, atelectasis versus multifocal pneumonia. Correlate clinically. 2. Widened mediastinum. CT has been performed. 3. Central vascular congestion and mild cardiomegaly suggests an element of CHF.
[2017-02-16 06:25] VITALS: BP 132/77
--- NOTE | 2017-02-16 07:42 | HISTORY AND PHYSICAL ---
ADMITTED: 02/16/2017 CHIEF COMPLAINT: 1. Shortness of breath HISTORY OF PRESENT ILLNESS: This is a 71-year-old white female her who developed shortness of breath that started suddenly at 8 p.m. last night with increasing chest pain. No cough, no phlegm. The patient felt a little bit dizzy, but no palpitation, no swelling in the legs or pain in the legs. Since the shortness of breath persisted, the patient had to come to emergency. Emergency workup showed that the patient has a PE and was admitted for further treatment. MEDICAL/SURGICAL HISTORY: Past medical history: Remarkable for multiple myeloma, COPD, neutropenia, anemia, and multiple rib fractures. Last hospitalization was within the last 10 days. The patient was admitted for increasing chest pain, which was due to multiple fractures. MEDICATIONS: 1. Aspirin 81 mg daily. 2. Baclofen 10 mg t.i.d. 3. Celebrex 200 mg twice a day. 4. Dexamethasone 20 mg single dose on Mondays and . 5. Benadryl for skin irritation as needed. 6. Mirtazapine 15 mg at bedtime. 7. Oxycodone 5 mg up to 4 times a day as needed. 8. OxyContin 40 mg every 12 hours. 9. Revlimid 25 mg daily for 21 days and then 7 days for the multiple myeloma. 10. Senna 8.6 twice daily. 11. Lisinopril 10 mg daily. 12. Metoprolol 12.5 mg daily. 13. Lorazepam 1 mg twice a day as needed. 14. Vitamin D supplement. 15. Calcium. ALLERGIES: 1. CODEINE. SOCIAL HISTORY: The patient is a , has 2 kids. No history of alcohol or smoking or drug abuse. Surgical history: Remarkable for appendectomy, colonoscopy and EGD. FAMILY HISTORY: Noncontributory. REVIEW OF SYSTEMS: The patient has been gaining weight recently. No difficulty with vision or hearing. Runny nose. No congestion, no cough, no nausea, no vomiting, no abdominal pain. No indigestion. Normal regular bowel movements. No dysuria, frequency or incontinence. Chronic chest pain. No headaches, some dizziness. No tingling, no numbness. No localized weakness. No syncope. PHYSICAL EXAMINATION: VITAL SIGNS: Temperature is 98.8, pulse is 78, respirations is 18, blood pressure 132/77, pulse oxygen 99% on 2 L of oxygen. GENERAL APPEARANCE: Well-developed, well-nourished, in no acute distress at this moment. HEAD AND NECK: Ears: Normal tympanic membranes. Mouth: Normal hypopharynx, no exudation, no erythema. Nose: Normal mucosa. Neck: Supple. No JVD. No carotid bruit. LUNGS: A few crackles on the bases, otherwise clear to auscultation. HEART: Regular S1, S2. No murmur. No S3 was heard. ABDOMEN: Soft, nontender. Bowel sounds are positive. EXTREMITIES: No edema. No signs of DVT. Good peripheral pulses. The patient has a stage I decubitus ulcer in the mid buttock area. MUSCULOSKELETAL: Grossly within normal limits. NEUROLOGIC: Alert and oriented x3. Cranial nerves are grossly intact. No motor deficits. Pupils are equal, round, and reactive to light. Extraocular movements are intact. No nystagmus. No cerebellar signs. Deep tendon reflexes are bilateral and symmetric. LAB/IMAGING: White blood count is 4, hemoglobin is 8.5, hematocrit is 26, and platelet count is 244. Sodium is 145, potassium 3.3, chloride is 107, CO2 is 33, BUN is 15, creatinine 0.8, calcium is 7.9. Magnesium is 1.7. Liver enzymes unremarkable. D- dimer is elevated. CT angiogram shows pulmonary emboli which are right pulmonary. EKG shows sinus rhythm with PACs. IMPRESSION: 1. PE 2. Multiple Myeloma 3. COPD 4. Decubitus ulcer 5. The patient has a stage I decubitus ulcer in the buttock area. Will obtain a [facility] consult. 6. Also, the patient had hypokalemia. I increased the potassium supplement from 20 once a day to twice a day and also hypomagnesemia, I ordered IV magnesium 2 grams. PLAN: The patient will continue on Lovenox started in the emergency room. We will put the patient on Coumadin. We will continue outpatient medications. We will follow the patient in the hospital. I will order echocardiogram and also Doppler of the lower extremities. Will optain [facility] consult.
--- NOTE | 2017-02-16 09:10 | HISTORY AND PHYSICAL ---
ADMITTED: 02/16/2017 ADDENDUM IMPRESSION: The patient has a stage I decubitus ulcer in the buttock area. Will obtain a [facility]. Also, the patient had hypokalemia. I increased the potassium supplement from 20 once a day to twice a day and also hypomagnesemia, I ordered IV magnesium 2 grams.
--- NOTE | 2017-02-16 09:42 | ED MAR SUMMARY ---
..... Medication Administration Record [facility] [address] [place] [address] Patient: MICKI LARRY Visit ID: [id number] 71y, F Weight: 54.4 kg Height/Length: 62 in BMI: 22 ALLERGIES: Codeine Given 03:00 02/16/2017 Deysi Flaherty R.N. Medication Administered: ASPIRIN [PO], Dose: 325 mg Tablets PO. Medication Ordered: Aspirin PO 325 mg (NOW). Given 03:02 02/16/2017 Deysi Flaherty R.N. Medication Administered: MORPHINE [IVP], Dose: 2 mg IVP over 2 minute(s), Site: #1 right AC. Medication Ordered: Morphine IV 2 mg + 2mg (NOW). Given 05:19 02/16/2017 Deysi Flaherty R.N. Medication Administered: LOVENOX [SUBCUTANEOUS] (ENOXAPARIN SODIUM), Dose: 50 mg Subcutaneous. Medication Ordered: Lovenox Subcut 50 mg (HIGH ALERT MEDICATION, NOW).
--- NOTE | 2017-02-16 09:42 | ED MAR SUMMARY ---
..... Medication Administration Record [facility] [address] [place] [address] Patient: MICKI LARRY Visit ID: [id number] 71y, F Weight: 54.4 kg Height/Length: 62 in BMI: 22 ALLERGIES: Codeine Given 03:00 02/16/2017 Deysi Flaherty R.N. Medication Administered: ASPIRIN [PO], Dose: 325 mg Tablets PO. Medication Ordered: Aspirin PO 325 mg (NOW). Given 03:02 02/16/2017 Deysi Flaherty R.N. Medication Administered: MORPHINE [IVP], Dose: 2 mg IVP over 2 minute(s), Site: #1 right AC. Medication Ordered: Morphine IV 2 mg + 2mg (NOW). Given 05:19 02/16/2017 Deysi Flaherty R.N. Medication Administered: LOVENOX [SUBCUTANEOUS] (ENOXAPARIN SODIUM), Dose: 50 mg Subcutaneous. Medication Ordered: Lovenox Subcut 50 mg (HIGH ALERT MEDICATION, NOW).
--- NOTE | 2017-02-16 09:42 | ED MED RECONCILIATION SUMMARY ---
Patient: MICKI LARRY Medication Reconciliation Report [facility] VisitID: [id number] [address] [place] [address] 71y, F Registration Date/Time: 02/16/2017 Weight: 54.4 kg Height/Length: 62 in. BMI: 22.0 ALLERGIES: Codeine The patient's Home Medications are listed below: THE FOLLOWING MEDICATIONS NEED TO BE RECONCILED: Aspirin Oral (325 mg) 1 tablet Baclofen Oral 10 mg, 3x a day Cefpodoxime Proxetil Oral (200 mg) 1 tablet, daily CeleBREX Oral (200 mg), 2x a day Cyanocobalamin Oral (500 mcg) 1 tablet, daily Dexamethasone Oral (4 mg) Dextromethorphan-Quinidine Oral (20-10 mg) 1 capsule, bid Famotidine Oral 20 mg, daily Lisinopril Oral (10 mg), daily Metoprolol Tartrate Oral 25 mg , daily Multi Vitamin Daily Oral OxyCONTIN Oral 20 mg, 3x a day Remeron Oral (15 mg), daily The source(s) of the original Home Medication information: Not obtained. The following Medications were given to the patient in the Emergency Department: Aspirin [PO] PO 325 mg, administered: 02/16/2017 3:00:00 AM Morphine [IVP] IVP 2 mg, administered: 02/16/2017 3:02:00 AM Lovenox [Subcutaneous] Subcutaneous 50 mg, administered: 02/16/2017 5:19:00 AM The following Medications were prescribed to the patient: None.
--- NOTE | 2017-02-16 09:42 | ED DISCHARGE INSTRUCTIONS ---
Patient: MICKI LARRY General Instructions [facility] VisitID: [id number] [address] [place] [address] 71y, F Registration Date/Time: 02/16/2017 PULMONARY EMBOLISM SACRAL DECUBITUS. (Electronically signed by Jose Jimenez MD 02/16/2017 9:42)
--- NOTE | 2017-02-16 09:42 | ED MED RECONCILIATION SUMMARY ---
Patient: MICKI LARRY Medication Reconciliation Report [facility] VisitID: [id number] [address] [place] [address] 71y, F Registration Date/Time: 02/16/2017 Weight: 54.4 kg Height/Length: 62 in. BMI: 22.0 ALLERGIES: Codeine The patient's Home Medications are listed below: THE FOLLOWING MEDICATIONS NEED TO BE RECONCILED: Aspirin Oral (325 mg) 1 tablet Baclofen Oral 10 mg, 3x a day Cefpodoxime Proxetil Oral (200 mg) 1 tablet, daily CeleBREX Oral (200 mg), 2x a day Cyanocobalamin Oral (500 mcg) 1 tablet, daily Dexamethasone Oral (4 mg) Dextromethorphan-Quinidine Oral (20-10 mg) 1 capsule, bid Famotidine Oral 20 mg, daily Lisinopril Oral (10 mg), daily Metoprolol Tartrate Oral 25 mg , daily Multi Vitamin Daily Oral OxyCONTIN Oral 20 mg, 3x a day Remeron Oral (15 mg), daily The source(s) of the original Home Medication information: Not obtained. The following Medications were given to the patient in the Emergency Department: Aspirin [PO] PO 325 mg, administered: 02/16/2017 3:00:00 AM Morphine [IVP] IVP 2 mg, administered: 02/16/2017 3:02:00 AM Lovenox [Subcutaneous] Subcutaneous 50 mg, administered: 02/16/2017 5:19:00 AM The following Medications were prescribed to the patient: None.
--- NOTE | 2017-02-16 09:42 | ED DISCHARGE INSTRUCTIONS ---
Patient: MICKI LARRY General Instructions [facility] VisitID: [id number] [address] [place] [address] 71y, F Registration Date/Time: 02/16/2017 PULMONARY EMBOLISM SACRAL DECUBITUS. (Electronically signed by Jose Jimenez MD 02/16/2017 9:42)
--- NOTE | 2017-02-16 10:43 | Progress Note ---
Subjective General ADVANCED CARE PLAN History of Present Illness his is a 71-year-old white female her who developed shortness of breath that started suddenly at 8 p.m. last night with increasing chest pain. No cough, no phlegm. The patient felt a little bit dizzy, but no palpitation, no swelling in the legs or pain in the legs. Since the shortness of breath persisted, the patient had to come to emergency. Emergency workup showed that the patient has a PE and was admitted for further A discussion was undertaken with the patient regarding previous advance care arrangements/decisions. The following advanced directives were noted by the patient and discussed with me at the time of admission. ADVANCED DIRECTIVES: 1. Living well: Yes 2. POLST: Yes 3. CODE STATUS: Full No Cold 4. Durable [employer] Health care: Yes 5. Donor card: Yes The patient has expressed interest in not pursuing any form of resuscitation at this time. She has opted not to pursue intubation/mechanical ventilation, CPR, electrical cardioversion, or life-sustaining efforts involving drugs at the time of cardiopulmonary arrest. The patient's wishes were documented in the chart and orders regarding the patient's wishes entered into the [employer]PO[employer] system. The "Advance Care Plan Document" was not distributed to patient to discuss with her family. Less than 30 minutes was spent in performing the above tasks and documentation of the patient's advanced care plan.
[2017-02-16 10:55] VITALS: BP 126/77
[2017-02-16 14:26] VITALS: BP 147/84
[2017-02-16 18:13] VITALS: BP 128/59
[2017-02-16 22:23] VITALS: BP 130/62
[2017-02-17 02:23] VITALS: BP 123/75
[2017-02-17 06:43] VITALS: BP 144/66
--- NOTE | 2017-02-17 07:32 | Progress Note ---
Subjective General his is a 71-year-old white female her who developed shortness of breath that started suddenly at 8 p.m. last night with increasing chest pain. No cough, no phlegm. The patient felt a little bit dizzy, but no palpitation, no swelling in the legs or pain in the legs. Since the shortness of breath persisted, the patient had to come to emergency. Emergency workup showed that the patient has a PE and was admitted for further treatment. Dyspnea is the same no improvement, CP controlled with medication, no cough or sputum, no fever or chills no nausea or vomiting Review of system: Respiratory: Dyspnea is stable chest pain is controlled.no cough or sputum Constitutional: No fever no chills GI: No nausea or vomiting Physical Exam Vital Signs / I&Os Vital Signs Date Time Temp Pulse Resp B/P Pulse O2 O2 Flow FiO2 Ox Delivery Rate 02/17 0643 98.4 62 16 144/66 100 Nasal 2.0 Cannula 02/17 0223 98.2 59 15 123/75 97 Nasal 2.0 Cannula 02/16 2223 98.4 54 16 130/62 98 Nasal 2.0 Cannula 02/16 2136 Nasal 2.0 Cannula 02/16 1952 2.0 02/16 1813 98.1 52 20 128/59 99 Nasal 2.0 Cannula 02/16 1554 Nasal 2.0 Cannula 02/16 1426 98.2 58 20 147/84 98 Nasal 2.0 Cannula 02/16 1055 99.0 68 20 126/77 96 Nasal 2.0 Cannula 02/16 0800 2.0 I&O 02/17 0000 02/16 1600 02/16 0800 Intake Total Output Total 750 300 Balance -750 -300 General Appearance No acute distress Lungs Clear to auscultation Neck Supple Cardiovascular Regular rate and rhythm, Normal S1 and S2, No murmurs, gallops, rubs Abdomen Normal bowel sounds, Soft, No tenderness Extremities No edema Skin No Rashes Psych/Mental Status Mental status normal LAB Results Laboratory Tests 02/17 UNK Chemistry Plasma Sodium Cancelled Plasma Potassium Cancelled Plasma Chloride Cancelled CO2 (Enzymatic) Cancelled BUN Cancelled Creatinine Cancelled Est GFR ( Amer) Cancelled Est GFR (Non-Af Amer) Cancelled Glucose Cancelled Plasma Calcium Cancelled Coagulation INR Cancelled Hematology WBC Cancelled RBC Cancelled Hgb Cancelled Hct Cancelled MCV Cancelled MCH Cancelled RDW Cancelled Plt Count, EDTA [facility]elled [facility] Assessment and Plan Problem List 1. PE (pulmonary thromboembolism) Plan continue coumadin/levonax, monitor INR, stable 2. Multiple myeloma Plan chest pain controlled with pain meds, continue her regular med for MM 3. COPD (chronic obstructive pulmonary disease) Plan relatively stable continu inhalers 4. Decubitus ulcer Plan [facility] consulted
[2017-02-17 10:50] VITALS: BP 130/74
[2017-02-17 14:18] VITALS: BP 124/61
[2017-02-17 18:41] VITALS: BP 130/60
[2017-02-17 22:28] VITALS: BP 119/62
[2017-02-18] VITALS (11 sets, daily range): BP systolic 100–126; BP diastolic 53–77
--- NOTE | 2017-02-18 08:34 | Progress Note ---
Subjective General This is a 71-year-old white female her who developed shortness of breath that started suddenly at 8 p.m. last night with increasing chest pain. No cough, no phlegm. The patient felt a little bit dizzy, but no palpitation, no swelling in the legs or pain in the legs. Since the shortness of breath persisted, the patient had to come to emergency. Emergency workup showed that the patient has a PE and was admitted for further Still had significant dyspnea specially with acitivity chest pain stable, no cough or sputum or hemoptizis, no nause or vomiting no fever or chills Review of system: Respiratory system: Positive for dyspnea chronic chest pain no cough GI: Negative for nausea or vomiting Constitutional: Negative for fever or chills Physical Exam Vital Signs / I&Os Vital Signs Date Time Temp Pulse Resp B/P Pulse O2 O2 Flow FiO2 Ox Delivery Rate 02/18 1400 99.0 64 16 118/67 98 Nasal 2.0 Cannula 02/18 1357 2.0 02/18 1245 99.1 74 18 115/53 98 Nasal 2.0 Cannula 02/18 1145 99.1 85 18 114/67 98 Nasal 2.0 Cannula 02/18 1120 99.1 76 18 114/67 98 Nasal 2.0 Cannula 02/18 1056 98.8 72 16 111/60 98 Nasal 2.0 Cannula 02/18 1021 99.1 91 16 101/54 98 Nasal 2.0 Cannula 02/18 0727 2.0 02/18 0644 98.4 78 16 108/58 98 Nasal 2.0 Cannula 02/18 0317 98.1 59 15 114/66 97 Nasal 2.0 Cannula 02/18 0201 2.0 02/17 2228 98.8 70 18 119/62 98 Nasal 2.0 Cannula 02/17 2010 Nasal 2.0 Cannula 02/17 1919 2.0 02/17 1841 99.1 69 22 130/60 97 Nasal 2.0 Cannula I&O 02/18 0000 02/17 1600 02/17 0800 Intake Total 240 954 Output Total 175 300 300 Balance -175 -60 654 General Appearance Mild distress Lungs Clear to auscultation Neck Supple Cardiovascular Regular rate and rhythm, Normal S1 and S2, No murmurs, gallops, rubs Abdomen Normal bowel sounds, Soft, No tenderness Extremities No edema Skin No Rashes Psych/Mental Status Mental status normal LAB Results Laboratory Tests 02/18 0521 Chemistry Plasma Sodium (136 - 145 mmol/L) 144 Plasma Potassium (3.5 - 5.1 mmol/L) 4.0 Plasma Chloride (98 - 107 mmol/L) 108 CO2 (Enzymatic) (21 - 32 mmol/L) 34 BUN (7 - 18 mg/dL) 10 Creatinine (0.6 - 1.3 mg/dL) 0.7 Est GFR ( Amer) (mL/min) >60 Est GFR (Non-Af Amer) (mL/min) >60 Glucose (70 - 110 mg/dL) 90 Plasma Calcium (8.5 - 10.1 mg/dL) 7.5 Coagulation INR (0.8 - 1.2) 1.2 Hematology WBC (4.5 - 11.5 K/uL) 2.8 RBC (4.00 - 5.20 M/uL) 2.21 Hgb (12.0 - 16.0 gm/dL) 7.4 Hct (36.0 - 46.0 %) 23.0 MCV (80 - 100 fL) 104 MCH (26 - 34 pg) 34 RDW (11.6 - 14.8 %) 21.2 Neut % (Auto) (50 - 75 %) 22 Lymph % (Auto) (25 - 40 %) 75 [place] % (Auto) (3 - 14 %) 0 Eos % (Auto) (0 - 4 %) 2 Baso % (Auto) (0 - 2 %) 0 Band Neutrophils % (0 - 8 %) 1 Metamyelocytes % (0 - 1 %) 0 Myelocytes (0 - 1 %) 0 Other Cell Type GIANT PLATELETS SEEN Plt Count, EDTA (150 - 400 K/uL) 207 Hypochromic-Microcytic 1+ Poikilocytosis (manual 1+ Anisocytosis (manual) 2+ Macrocytosis (manual) 1+ Ovalocytes 1+ PUBS MCHC (31 - 37 g/dL) 32 Assessment and Plan Problem List 1. Pulmonary embolism Plan still cosiderably dyspneic, not ready to be discharged, continue anticaugulation 2. Multiple myeloma Plan managemtn as usuall 3. Decubitus ulcer Plan [facility] consulted 4. Anemia Plan will give one unit of RBC
[2017-02-19 02:59] VITALS: BP 104/56
[2017-02-19 06:33] VITALS: BP 133/71
--- NOTE | 2017-02-19 08:35 | Progress Note ---
Subjective General This is a 71-year-old white female her who developed shortness of breath that started suddenly at 8 p.m. last night with increasing chest pain. No cough, no phlegm. The patient felt a little bit dizzy, but no palpitation, no swelling in the legs or pain in the legs. Since the shortness of breath persisted, the patient had to come to emergency. Emergency workup showed that the patient has a PE and was admitted for further Imroving but still can not ambulated due to dyspnea, could not go to Bathroom last night had to have commode in bed, minimal cough no hemoptisis, cp is stable , no nausea or vomiting, no fever or chills Review of system: Respiratory system: Positive for dyspnea minimum cough no hemoptysis or chest pain stable GI: Negative for nausea or vomiting Constitutional: Negative for fever or chills Physical Exam Vital Signs / I&Os Vital Signs Date Time Temp Pulse Resp B/P Pulse O2 O2 Flow FiO2 Ox Delivery Rate 02/19 0817 Nasal 1.0 Cannula 02/19 0754 2.0 02/19 0633 98.4 61 18 133/71 95 Nasal 2.0 Cannula 02/19 0259 98.2 116 18 104/56 93 Nasal 2.0 Cannula 02/19 0237 80 02/19 0130 2.0 02/18 2310 99.0 71 15 123/75 95 Nasal 2.0 Cannula 02/18 2006 Nasal 2.0 Cannula 02/18 194 99.3 Nasal 2.0 Cannula 02/18 1943 97 02/18 1941 77 02/18 1936 2.0 02/18 1931 68 97 02/18 1931 15 126/77 02/18 1453 98.6 64 16 100/67 97 Nasal Cannula 02/18 1400 99.0 64 16 118/67 98 Nasal 2.0 Cannula 02/18 1357 2.0 02/18 1245 99.1 74 18 115/53 98 Nasal 2.0 Cannula 02/18 1145 99.1 85 18 114/67 98 Nasal 2.0 Cannula 02/18 1120 99.1 76 18 114/67 98 Nasal 2.0 Cannula 02/18 1056 98.8 72 16 111/60 98 Nasal 2.0 Cannula 02/18 1021 99.1 91 16 101/54 98 Nasal 2.0 Cannula I&O 02/19 0000 02/18 1600 02/18 0800 Intake Total 360 900 350 Output Total 800 1200 Balance -440 -300 350 Lungs Clear to auscultation Abdomen Normal bowel sounds, Soft, No tenderness Extremities No edema LAB Results Laboratory Tests 02/19 0555 Chemistry Plasma Sodium (136 - 145 mmol/L) 144 Plasma Potassium (3.5 - 5.1 mmol/L) 4.3 Plasma Chloride (98 - 107 mmol/L) 108 CO2 (Enzymatic) (21 - 32 mmol/L) 34 BUN (7 - 18 mg/dL) 12 Creatinine (0.6 - 1.3 mg/dL) 0.7 Est GFR ( Amer) (mL/min) >60 Est GFR (Non-Af Amer) (mL/min) >60 Glucose (70 - 110 mg/dL) 88 Plasma Calcium (8.5 - 10.1 mg/dL) 7.8 Coagulation INR (0.8 - 1.2) 1.4 Hematology WBC (4.5 - 11.5 K/uL) 2.7 RBC (4.00 - 5.20 M/uL) 2.77 Hgb (12.0 - 16.0 gm/dL) 9.2 Hct (36.0 - 46.0 %) 27.8 MCV (80 - 100 fL) 101 MCH (26 - 34 pg) 33 RDW (11.6 - 14.8 %) 23.3 Neut % (Auto) (50 - 75 %) 14 Lymph % (Auto) (25 - 40 %) 78 Ritchie % (Auto) (3 - 14 %) 3 Eos % (Auto) (0 - 4 %) 2 Baso % (Auto) (0 - 2 %) 3 Band Neutrophils % (0 - 8 %) 0 Metamyelocytes % (0 - 1 %) 0 Myelocytes (0 - 1 %) 0 Other Cell Type 0 Plt Count, EDTA (150 - 400 K/uL) 191 Hypochromic-Microcytic 2+ Anisocytosis (manual) 2+ Macrocytosis (manual) 1+ PUBS MCHC (31 - 37 g/dL) 33 Assessment and Plan Problem List 1. Pulmonary embolism Plan patient is improving but not ready for discharge yet, will keep one more day, discharge with home lovenox and coumadin 2. Multiple myeloma Plan stable continue her med as it is 3. COPD (chronic obstructive pulmonary disease) Plan continue nbx, no need for steroid, should improve along with PE 4. Anemia Plan stable will monitor
[2017-02-19 10:55] VITALS: BP 118/71
[2017-02-19 14:51] VITALS: BP 105/64
[2017-02-19 19:39] VITALS: BP 123/78
[2017-02-19 23:05] VITALS: BP 117/56
[2017-02-20 02:17] VITALS: BP 117/61
[2017-02-20 07:01] VITALS: BP 109/57
[2017-02-20] MEDS ORDERED: LOVENOX60 MG/0.6 SC (07:51)
[2017-02-20] MEDS ORDERED: WARFARIN SODIUM5 MG PO (07:51)
--- NOTE | 2017-02-20 08:30 | DISCHARGE SUMMARY ---
ADMIT DATE: 02/16/2017 DISCHARGE DATE: 02/20/2017 DISCHARGE DIAGNOSES: 1. Pulmonary embolism 2. Multiple myeloma 3. Chronic obstructive pulmonary disease 4. Anemia 5. Decubitus ulcer BRIEF HISTORY: This is a 71-year-old white female who was admitted on 2016. The patient presented to the emergency department with increasing shortness of breath, which started quite suddenly at 8:00 at night, and increasing chest pain, but no cough , no sputum. The patient also felt a little bit dizzy, but no palpitations, no swelling in the legs or pain in the legs. Shortness of breath persisted, and the patient came to the emergency department and was found to have a PE. HOSPITAL COURSE: The patient was admitted to acute care, inpatient, and started on Coumadin and Lovenox. The patient gradually improved during the hospital course, and INR was monitored. Decubitus ulcer was managed with [facility]. Today, the patient is feeling much better and almost back to her normal state of breathing. She is on home oxygen now. Chest pain is stable and controlled. Had some cough last night, but not now. No fever, no chills, no nausea, no vomiting. PHYSICAL EXAMINATION: Temperature is 98.2 and pulse is 58, respirations 18, blood pressure 109/57, and oxygen saturation 100% on 2 L. Lungs: The patient had crackles on the bases. Heart: Regular S1 and S2. Abdomen: Soft, nontender. Bowel sounds are positive. Extremities: No edema. DISCHARGE INSTRUCTIONS/MEDICATIONS: Disposition: The patient will be discharged home to the assisted living, to follow up with Dr. Pride within 2 days because she will need INR to be checked. Discharge medications will be aspirin 81 mg daily. Baclofen 10 mg t.i.d. Celebrex 200 mg twice a day. Dexamethasone 20 mg single dose and Mondays and . Benadryl as needed. Remeron 50 mg at bedtime. Oxycodone 5 mg 4 times a day. OxyContin 40 mg twice a day. Revlimid 25 mg, 21 days on and 7 days off, for multiple myeloma. Senna twice a day. Lisinopril 10 mg daily. Metoprolol 12.5 mg daily. Lorazepam 1 mg twice a day as needed. Vitamin D and calcium supplement. The patient also will be on Coumadin 5 mg once a day, and also Lovenox until protime goes to the therapeutic level. Today's labs: White blood count is 2.6, hemoglobin 9.1 and stable, hematocrit 27.8, and platelet count is 182. Sodium is 146, potassium 4.3, chloride is 109, CO2 is 34, and calcium is 8.1. INR today is 1.7. The patient will have Lovenox at home by home healthcare nurse. So the patient will be helped by home health care in assisted living. The patient will follow up with Dr. Pride to have INR checked in 2 days, and Lovenox until INR reaches 2 or above.
== END 2017-02-20 12:25 | DRG 176 ==
LOC: ED SRH 02:23 → TRANS SRH 05:19 → ACUTE2 SRH 05:19
PROVIDERS: ADMIT Neuromusculoskeletal Medicine, Sports Medicine
PROC: 30233N1 Transfusion of Nonautologous Red Blood Cells into Peripheral Vein, Percutaneous Approach (ICD-10-PCS; principal; 2017-02-18)
DX: I26.99 Other pulmonary embolism without acute cor pulmonale (principal); C90.00 Multiple myeloma not having achieved remission; E87.6 Hypokalemia; D63.0 Anemia in neoplastic disease; J44.9 Chronic obstructive pulmonary disease, unspecified; L89.151 Pressure ulcer of sacral region, stage 1; M84.58XD Pathological fracture in neoplastic disease, other specified site, subsequent encounter for fracture with routine healing; Z79.52 Long term (current) use of systemic steroids
CPT/HCPCS: 83921; 84205; 85241; 90001; 90047; 90074; 90100; 90155; 90616; 91004; 91320; 91544; 91556; 91643; 92610; 92720; 94060; 95059